=== PATIENT | female | born 2000 | race Caucasian/White ===

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

== ENCOUNTER 2020-03-18 11:33 | Emergency (ER) | payer OTHER ==
--- OUTSIDE RECORDS SUMMARY | 2020-03-18 11:36 | XMS REPORT | Continuity of Care Document ---
:2000 Author Organization [facility] t Address [address] [place] [address] Dr. Krishnamurthy [address] [place] [id number] Care Team Providers Name Role Phone Unavailable Unavailable Unavailable Problems This patient has no known problems. Allergies, Adverse Reactions, Alerts This patient has no known allergies or adverse reactions. Medications This patient has no known medications. Procedures This patient has no known procedures. Results This patient has no known results.
[2020-03-18] MEDS ORDERED: IBUPROFEN 400 MG TAB ONE (12:43)
--- NOTE | 2020-03-18 13:04 | EDPHYS ---
Physician Documentation [facility] Name: Kelly Paz Age: 19 yrs Sex: Female : 2000 Arrival Date: 03/18/2020 Time: 11:35 Bed 13 Private MD: ED Physician Michele Martinez HPI: 03/18 12:30 This 19 yrs old Female presents to ER via Wheelchair with complaints of Knee cp Pain. 12:30 The patient presents with pain, that is acute. cp 12:30 The complaints affect the posterior aspect of right knee and posterior aspect upper cp leg. Context: resulted from an unknown cause, the patient can fully bear weight, uses crutches. Onset: The symptoms/episode began/occurred yesterday. 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 - Social history:: Smoking status: Patient/guardian denies using tobacco, Stopped _ months ago 3. ROS: 12:35 MS/extremity: Positive for pain, tenderness, of the posterior aspect right knee and cp posterior aspect right upper leg, Negative for injury or acute deformity, decreased range of motion, paresthesias. 12:35 Constitutional: Negative for body aches, chills, fever, poor PO intake. cp 12:35 Cardiovascular: Negative for chest pain, palpitations. 12:35 Respiratory: Negative for cough, shortness of breath, wheezing. 12:35 Skin: Negative for rash. 12:35 All other systems are negative. Exam: 12:38 Constitutional: The patient appears in no acute distress, alert, awake, well developed, cp well nourished. 12:38 Head/Face: Normocephalic, atraumatic. cp 12:38 Cardiovascular: Rate: normal. 12:38 Respiratory: the patient does not display signs of respiratory distress, Respirations: normal, no use of accessory muscles, no retractions. 12:38 Back: pain, is absent, ROM is normal. 12:38 Musculoskeletal/extremity: Extremities: grossly normal except: noted in the posterior aspect right knee and posterior aspect right upper leg: pain, tenderness, ROM: full passive range of motion, in the right knee, limited passive range of motion due to pain, in the right knee, Perfusion: the extremity is normally perfused throughout, Calf tenderness, is absent, Edema, is not appreciated, the right leg Sensation intact. Joints: no joint line tenderness or swelling of right knee, no ligament instability. Vital Signs: 11:51 BP 107 / 63; Pulse 90; Resp 15 S; Temp 97.6(TE); Pulse Ox 99% on R/A; Weight 77.11 kg ca1 (R); Height 5 ft. 4 in. (162.56 cm) (R); Pain 2/10; 11:51 Body Mass Index 29.18 (77.11 kg, 162.56 cm) ca1 MDM: 12:18 Patient medically screened. cp 12:35 Differential diagnosis: closed fracture, tendonitis, DVT. cp 13:02 Data reviewed: vital signs, nurses notes, radiologic studies, plain films, ultrasound. cp 13:02 Test interpretation: by ED physician or midlevel provider: xrays of right knee negative cp for fracture. Counseling: I had a detailed discussion with the patient and/or guardian regarding: the historical points, exam findings, and any diagnostic results supporting the discharge/admit diagnosis, radiology results, to return to the emergency department if symptoms worsen or persist or if there are any questions or concerns that arise at home. 03/18 12:23 Order name: US Extremity Venous Unilateral Ltd; Complete Time: 13:14 cp 03/18 13:14 Interpretation: Report reviewed. cp 03/18 12:23 Order name: XRAY Knee RIGHT 3 view; Complete Time: 13:14 cp 03/18 13:14 Interpretation: Report reviewed. cp 03/18 13:04 Order name: Branden wrap-joint; Complete Time: 13:08 cp Administered Medications: 12:32 Drug: Ibuprofen 800 mg Route: PO; ss 13:26 Follow up: Response: No adverse reaction; Pain is decreased ss Disposition: 13:30 Chart complete. cp 14:48 Co-signature as Attending Physician, Michele Martinez MD I agree with the assessment and kdr plan of care. Disposition: 03/18/20 13:04 Discharged to Home. Impression: Pain in right knee. - Condition is Stable. - Discharge Instructions: Knee Pain. - Prescriptions for Ibuprofen 800 mg Oral Tablet - take 1 tablet by ORAL route every 8 hours As needed take with food; 30 tablet. - School release form, Medication Reconciliation Form, Thank You Letter, Antibiotic Education, Prescription Opioid Use form. - Follow up: Phill Sloan MD; When: 2 - 3 days; Reason: Worsening of condition. - Problem is new. - Symptoms have improved. Signatures: Dispatcher [employer] EDNY Michele Martinez MD MD [facility] Marbella Llanes RN RN ss Franck Polanco PA PA cp Yelitza Lyons RN RN ca1 Corrections: (The following items were deleted from the chart) 13:26 13:04 03/18/2020 13:04 Discharged to Home. Impression: Pain in right knee. Condition is ss Stable. Forms are Medication Reconciliation Form, Thank You Letter, Antibiotic Education, Prescription Opioid Use. Follow up: Phill Sloan; When: 2 - 3 days; Reason: Worsening of condition. Problem is new. Symptoms have improved. cp
--- NOTE | 2020-03-18 13:04 | ER ---
Nurse's Notes [facility] Name: Kelly Paz Age: 19 yrs Sex: Female : 2000 Arrival Date: 03/18/2020 Time: 11:35 Bed 13 Private MD: Diagnosis: Pain in right knee Presentation: 03/18 11:51 Chief complaint: Patient states: R knee pain started yesterday. Denies injury. States, ca1 "I can move it but when I extend and puts weight on it, it hurts the most, like there's a stabbing pain at the back of my knee. But when I bend it, it's okay". Coronavirus screen: Client denies travel out of the [place] in the last 14 days. At this time, the client does not indicate any symptoms associated with coronavirus-19. Ebola Screen: Patient negative for fever greater than or equal to 101.5 degrees Fahrenheit, and additional compatible Ebola Virus Disease symptoms Patient denies exposure to infectious person. Patient denies travel to an Ebola-affected area in the 21 days before illness onset. No symptoms or risks identified at this time. Initial Sepsis Screen: Does the patient meet any 2 criteria? No. Patient's initial sepsis screen is negative. Does the patient have a suspected source of infection? No. Patient's initial sepsis screen is negative. Risk Assessment: Do you want to hurt yourself or someone else? Patient reports no desire to harm self or others. Onset of symptoms was March 18, 2020. 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 - Social history:: Smoking status: Patient/guardian denies using tobacco, Stopped _ months ago 3. Screenin:13 Abuse screen: Denies threats or abuse. Denies injuries from another. Nutritional ss screening: No deficits noted. Tuberculosis screening: Never had TB. Fall Risk None identified. Assessment: 12:13 General: Appears in no apparent distress. comfortable, Behavior is calm, cooperative. ss Pain: Complains of pain in posterior aspect of right knee and right calf Pain currently is 1 out of 10 on a pain scale. at worst was 7 out of 10 on a pain scale. Quality of pain is described as aching, tender, Pain began yesterday while grocery shopping, has gotten worse over time Is continuous, Aggravated by weight bearing. Neuro: Level of Consciousness is awake, alert, obeys commands, Oriented to person, place, time, situation. Cardiovascular: Capillary refill < 3 seconds is brisk in bilateral fingers Patient's skin is warm and dry. Cardiovascular: Pulses are palpable in right radial artery, right posterior tibial artery, left radial artery and left posterior tibial artery. Respiratory: Airway is patent Respiratory effort is even, unlabored, Respiratory pattern is regular, symmetrical. GI: Patient currently denies diarrhea, nausea, vomiting. : No signs and/or symptoms were reported regarding the genitourinary system. EENT: Nares are clear Oral mucosa is moist. Derm: Skin is intact, is healthy with good turgor, Skin is dry, Skin is pink, warm \\T\\ dry. normal. Musculoskeletal: Circulation, motion, and sensation intact. Range of motion: intact in all extremities. Vital Signs: 11:51 BP 107 / 63; Pulse 90; Resp 15 S; Temp 97.6(TE); Pulse Ox 99% on R/A; Weight 77.11 kg ca1 (R); Height 5 ft. 4 in. (162.56 cm) (R); Pain 2/10; 11:51 Body Mass Index 29.18 (77.11 kg, 162.56 cm) ca1 ED Course: 11:35 Patient arrived in ED. ds1 11:54 Triage completed. ca1 11:55 Arm band placed on right wrist. ca1 12:12 Franck Polanco PA is PHCP. cp 12:12 Michele Martinez MD is Attending Physician. cp 12:13 Marbella Llanes, NADIA is Primary Nurse. ss 12:13 Patient has correct armband on for positive identification. Bed in low position. Call ss light in reach. Adult w/ patient. 13:03 Phill Sloan MD is Referral Physician. cp 13:04 US Extremity Venous Unilateral Ltd In Process Unspecified. EDMS 13:04 XRAY Knee RIGHT 3 view In Process Unspecified. EDMS 13:25 No provider procedures requiring assistance completed. Patient did not have IV access ss during this emergency room visit. Branden wrap to right knee. Administered Medications: 12:32 Drug: Ibuprofen 800 mg Route: PO; ss 13:26 Follow up: Response: No adverse reaction; Pain is decreased ss Outcome: 13:04 Discharge ordered by MD. cp 13:25 Discharged to home with crutches, with family. ss 13:25 Condition: good 13:25 Discharge instructions given to patient, Instructed on discharge instructions, follow up and referral plans. medication usage, Demonstrated understanding of instructions, follow-up care, medications. 13:26 Patient left the ED. ss Signatures: Dispatcher [employer] [facility] Paige Lundberg ds1 Marbella Llanes RN RN ss Franck Polanco PA PA cp Acob, Cheryl RN RN ca1
--- NOTE | 2020-03-18 13:08 | RAD REPORT ---
EXAM DESCRIPTION: US - Extremity Venous Uni Ltd - 03/18/2020 1:01 pm CLINICAL HISTORY: PAIN, swelling right leg COMPARISON: None. TECHNIQUE: Real-time sonographic evaluation of the right lower extremity deep venous systems was per formed. FINDINGS: Normal compressibility, flow augmentation, phasic flow and spontaneous flow are identified in the right lower extremity common femoral, superficial femoral, popliteal and posterior tibial vei ns. No intraluminal filling defects seen. IMPRESSION: No DVT in the right lower extremity.
--- NOTE | 2020-03-18 13:09 | RAD REPORT ---
EXAM DESCRIPTION: RAD - Knee Right 3 View - 03/18/2020 1:02 pm CLINICAL HISTORY: PAIN, no trauma history noted COMPARISON: No comparisons FINDINGS: No fracture, dislocation or periosteal reaction.No joint effusion seen. No joint space elvia rowing. No foreign body or other soft tissue abnormality. IMPRESSION: Negative right knee. Clinical concerns for internal derangement or occult bony injury could be further assessed with MR im aging.
[2020-03-18 14:34] VITALS: BP 107/63; TEMP 97.6; O2SAT 99
== END 2020-03-18 13:26 | disposition home or self-care (01) ==
LOC: ER 11:33
DX: M25.561 Pain in right knee (principal); Z88.5 Allergy status to narcotic agent; Z88.9 Allergy status to unspecified drugs, medicaments and biological substances
CPT/HCPCS: 93971; 99283

== ENCOUNTER 2020-11-04 17:48 | Emergency (ER) | payer OTHER ==
--- OUTSIDE RECORDS SUMMARY | 2020-11-04 17:50 | XMS REPORT | Continuity of Care Document ---
:2000 Author Organization [facility] t Address [address] Krishnam[address] [place] [address] Care Team Providers Name Role Phone Adum Lashawn CARDENAS Attending Clinician 2, Lab Attending Clinician Unavailable Problems This patient has no known problems. Allergies, Adverse Reactions, Alerts This patient has no known allergies or adverse reactions. Medications This patient has no known medications. Procedures This patient has no known procedures. Encounters Start End Encounter Admission Attending Care Care Encounter Source Date/Time Date/Time Type Type Clinicians Facility Department ID 2020-06-09 2020-06-09 Telephone Adum, [facility] [id number] 00:00:00 00:00:00 Melba Tavarez [id number] [place] [id number] Professio [phone] nal 134 [facility] 2020-06-08 2020-06-08 Power Line Lineman 2, [facility] Lab [facility] [id number] 10:43:33 10:58:33 Visit Daysi [id number] [place] [id number] Professio [phone] nal 353 [facility] 2020-06-02 2020-06-02 Office Adum, [facility] [id number] 11:22:36 12:46:52 Visit Melba Tavarez [id number] [place] [id number] Professio [phone] [facility] 134 [facility] Results This patient has no known results.
[2020-11-04 19:34] LABS: Urine Blood Negative (Negative); Urine Glucose Negative (Negative); Urine Protein 1+ (Negative); Urine Specific Gravity >=1.030 (1.005-1.030); Urine pH 5.5 (5.0-7.0)
[2020-11-04 19:46] LABS: Urine Specific Gravity/Preg >1.030 (1.005-1.030)
--- NOTE | 2020-11-04 20:48 | EDPHYS ---
Physician Documentation [facility] Name: Kelly Paz Age: 20 yrs Sex: Female : 2000 Arrival Date: 11/04/2020 Time: 17:48 Bed 27 Private MD: ED Physician Robbin Dumont HPI: 11/04 20:21 This 20 yrs old Female presents to ER via Ambulatory with complaints of kb Vaginal Pain - unk wks preg. 20:21 The patient presents to the emergency department with abdominal pain, of the right kb lower quadrant and left lower quadrant, described as crampy. The estimated gestational age is 14 weeks. course: care: none. Previous pregnancies: the patient has never been . Associated signs and symptoms: Pertinent positives: abdominal pain, Pertinent negatives: vaginal bleeding. The patient has not experienced similar symptoms in the past. The patient has not recently seen a physician. Pt reports sharp intermittent pains to vaginal area and lower abd. States she is approx 14 weeks , but has not had any care or US. Denies vaginal bleeding. . 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 - Social history:: Smoking status: Patient denies any tobacco usage or history of. ROS: 20:19 Constitutional: Negative for fever, chills, and weight loss, Cardiovascular: Negative kb for chest pain, palpitations, and edema, Respiratory: Negative for shortness of breath, cough, wheezing, and pleuritic chest pain, : Negative for injury, bleeding, discharge, and swelling, MS/Extremity: Negative for injury and deformity, Skin: Negative for injury, rash, and discoloration, Neuro: Negative for headache, weakness, numbness, tingling, and seizure. 20:19 Abdomen/GI: Positive for abdominal pain, abdominal cramps, Negative for nausea, vomiting, and diarrhea. Exam: 20:19 Constitutional: This is a well developed, well nourished patient who is awake, alert, kb and in no acute distress. Head/Face: Normocephalic, atraumatic. ENT: Moist Mucous membranes Respiratory: Respirations even and unlabored. No increased work of breathing, no retractions or nasal flaring. Skin: Warm, dry with normal turgor. Normal color. MS/ Extremity: Pulses equal, no cyanosis. Neurovascular intact. Full, normal range of motion. Neuro: Awake and alert, GCS 15, oriented to person, place, time, and situation. Moves all extremities. Normal gait. Psych: Awake, alert, with orientation to person, place and time. Behavior, mood, and affect are within normal limits. 20:19 Abdomen/GI: Inspection: abdomen appears normal, Palpation: soft, in all quadrants, mild abdominal tenderness, in the right lower quadrant and left lower quadrant. Vital Signs: 19:10 BP 127 / 69; Pulse 94; Resp 18; Temp 98.2; Pulse Ox 100% on R/A; Weight 86.18 kg; ph Height 5 ft. 2 in. (157.48 cm); 20:09 BP 117 / 78; Pulse 88; Pulse Ox 100% on R/A; Pain 4/10; ap3 19:10 Body Mass Index 34.75 (86.18 kg, 157.48 cm) ph MDM: 19:40 Patient medically screened. kb 20:21 Data reviewed: vital signs, nurses notes. Data interpreted: Pulse oximetry: on room air kb is 100 %. Interpretation: normal. 20:47 Counseling: I had a detailed discussion with the patient and/or guardian regarding: the kb historical points, exam findings, and any diagnostic results supporting the discharge/admit diagnosis, lab results, radiology results, the need for outpatient follow up, an OB/Gyne specialist, to return to the emergency department if symptoms worsen or persist or if there are any questions or concerns that arise at home. 11/04 19:34 Order name: Urine Dipstick-Ancillary; Complete Time: 19:39 EDMS 11/04 19:40 Order name: Urine --Ancillary (enter results); Complete Time: 19:52 tt3 11/04 19:40 Order name: US Transvaginal Ob kb 11/04 19:40 Order name: Urine Test (obtain specimen); Complete Time: 19:40 tt3 Administered Medications: No medications were administered Disposition: 11/05 01:15 Co-signature as Attending Physician, Robbin Dumont MD. rn Disposition: 11/04/20 20:47 Discharged to Home. Impression: 9 weeks gestation of . - Condition is Stable. - Discharge Instructions: First Trimester of , Ydrd-hw-Eama. - Medication Reconciliation Form, Thank You Letter, Antibiotic Education, Prescription Opioid Use form. - Follow up: Emergency Department; When: As needed; Reason: Worsening of condition. Follow up: Private Physician; When: 2 - 3 days; Reason: Recheck today's complaints, Continuance of care, Re-evaluation by your physician. Signatures: Dispatcher [employer] EDHI Alva Elmore, TENNIS PLAYER-C TENNIS PLAYER-Ckb Robbin Dumont MD MD rn Soledad Choudhury RN RN Columba Lazo RN RN ap3 [place] tt3 Corrections: (The following items were deleted from the chart) 11/04 21:06 20:47 11/04/2020 20:47 Discharged to Home. Impression: 9 weeks gestation of . ap3 Condition is Stable. Forms are Medication Reconciliation Form, Thank You Letter, Antibiotic Education, Prescription Opioid Use. Follow up: Emergency Department; When: As needed; Reason: Worsening of condition. Follow up: Private Physician; When: 2 - 3 days; Reason: Recheck today's complaints, Continuance of care, Re-evaluation by your physician. kb
--- NOTE | 2020-11-04 20:48 | ER ---
Nurse's Notes [facility] Name: Kelly Paz Age: 20 yrs Sex: Female : 2000 Arrival Date: 11/04/2020 Time: 17:48 Bed 27 Private MD: Diagnosis: 9 weeks gestation of Presentation: 11/04 19:10 Acuity: RAFAEL 3 ph 19:10 Chief complaint: Patient states: Approx 3 months , rode horse today and had ph sharp stabbing vaginal pain afterwards, denies bleeding or cramping. Coronavirus screen: Client denies travel out of the [place] in the last 14 days. Ebola Screen: No symptoms or risks identified at this time. Initial Sepsis Screen: Does the patient meet any 2 criteria? No. Patient's initial sepsis screen is negative. Does the patient have a suspected source of infection? No. Patient's initial sepsis screen is negative. Risk Assessment: Do you want to hurt yourself or someone else? Patient reports no desire to harm self or others. Onset of symptoms was November 04, 2020. 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 - Social history:: Smoking status: Patient denies any tobacco usage or history of. Screenin:59 Abuse screen: Denies threats or abuse. Nutritional screening: No deficits noted. ap3 Tuberculosis screening: No symptoms or risk factors identified. Fall Risk None identified. Assessment: 19:50 General: Appears in no apparent distress. uncomfortable, Behavior is calm, cooperative, ap3 appropriate for age. Pain: Complains of pain in groin. 19:56 Pain: Pain radiates to suprapubic area, right lower quadrant and left lower quadrant ap3 Pain currently is 4 out of 10 on a pain scale. at worst was 8 out of 10 on a pain scale. Quality of pain is described as crampy, stabbing, Pain began 3 hours ago. patient states that the pain comes and goes. Neuro: Level of Consciousness is awake, alert, obeys commands, Oriented to person, place, time, situation. Cardiovascular: Capillary refill < 3 seconds. Respiratory: Airway is patent Respiratory effort is even, unlabored, Respiratory pattern is regular, symmetrical. GI: No signs and/or symptoms were reported involving the gastrointestinal system. : Reports discharge, from vagina that is white, vaginal pain. EENT: No signs and/or symptoms were reported regarding the EENT system. Derm: No signs and/or symptoms reported regarding the dermatologic system. 20:08 General: patient ambulated to the restroom without incident . ap3 Vital Signs: 19:10 BP 127 / 69; Pulse 94; Resp 18; Temp 98.2; Pulse Ox 100% on R/A; Weight 86.18 kg; ph Height 5 ft. 2 in. (157.48 cm); 20:09 BP 117 / 78; Pulse 88; Pulse Ox 100% on R/A; Pain 4/10; ap3 19:10 Body Mass Index 34.75 (86.18 kg, 157.48 cm) ph ED Course: 17:48 Patient arrived in ED. as 19:10 Triage completed. ph 19:26 Arm band placed on Patient placed in waiting room, Patient notified of wait time. ph 19:40 Alva Elmore F[facility]-C [facility] kb 19:40 Robbin Dumont MD is Attending Physician. kb 19:50 Columba Lazo, NADIA is Primary Nurse. ap3 20:01 Patient has correct armband on for positive identification. Bed in low position. Call ap3 light in reach. Adult w/ patient. Pulse ox on. NIBP on. Door closed. Noise minimized. 20:10 Pt visited by mother. ap3 20:28 ultrasound at the bedside. ap3 20:43 US Transvaginal Ob In Process Unspecified. EDMS 20:44 Nurse Practitioner and/or Physician Global Mobility Specialist to see patient. ap3 21:05 No provider procedures requiring assistance completed. Patient did not have IV access ap3 during this emergency room visit. Administered Medications: No medications were administered Outcome: 20:47 Discharge ordered by . kb 21:06 Discharged to home ambulatory, with family. ap3 21:06 Condition: good 21:06 Discharge instructions given to patient, family, Instructed on discharge instructions, follow up and referral plans. Demonstrated understanding of instructions, follow-up care. 21:06 Patient left the ED. ap3 Signatures: Dispatcher [employer] Alva Edmonds, Rose Marie Mercado Patricia, RN RN Columba Lazo RN RN ap3
--- NOTE | 2020-11-04 21:14 | RAD REPORT ---
EXAM DESCRIPTION: US - Transvaginal OB - 11/04/2020 8:43 pm CLINICAL HISTORY: vaginal pain COMPARISON: No comparisons FINDINGS: Normal shaped intrauterine gestational sac identified. No hematoma or other suspicious int rauterine finding. [facility]-rump length corresponds to 9 week 3 day age. Heart rate is 167 B[facility]. [facility] Neither ovary was identifiable due to bowel gas. No adnexal mass seen. No blood or fluid in the cul d e sac. IMPRESSION: Single 9 week 3 day IUP with heart rate 167 BPM. No intrauterine hematoma or mass.
[2020-11-04 21:28] VITALS: TEMP 98.2; O2SAT 100
[2020-11-04 21:29] VITALS: BP 117/78
== END 2020-11-04 21:06 | disposition home or self-care (01) ==
LOC: ER 17:48
DX: O26.91 Pregnancy related conditions, unspecified, first trimester (principal); Z3A.09 9 weeks gestation of pregnancy; Z88.8 Allergy status to other drugs, medicaments and biological substances
CPT/HCPCS: 76817; 81003; 81025; 99283

== ENCOUNTER 2020-11-18 09:33 | Emergency (ER) | payer OTHER ==
--- OUTSIDE RECORDS SUMMARY | 2020-11-18 09:36 | XMS REPORT | Continuity of Care Document ---
:2000 Author Organization [facility] t Address [address] [place] [address] Care Team Providers Name Role Phone Adum [...] Facility Department ID 2020-06-09 2020-06-09 Telephone Adum, [facility] [id number] 00:00:00 00:00:00 Melba Tavarez [id number] [place] [id number] Professio [phone] nal [address] [facility] 2020-06-08 2020-06-08 Body Wirer 2, [facility] [id number] 10:43:33 10:58:33 Visit Daysi [id number] [place] [id number] Professio [phone] nal [address] [facility] 2020-06-02 2020-06-02 Office Adum, [facility] [id number] 11:22:36 12:46:52 Visit Melba Tavarez [id number] [place] [id number] Professio [phone] formerly [facility] [address] [facility] Results This patient has no known results.
[2020-11-18] MEDS ORDERED: IBUPROFEN 400 MG TAB ONE (11:11)
--- NOTE | 2020-11-18 11:25 | RAD REPORT ---
EXAM DESCRIPTION: RAD - Foot Left 3 View - 11/18/2020 11:16 am CLINICAL HISTORY: Left Foot pain status post injury FINDINGS: No fracture or dislocation is seen. A radiopaque foreign body is not seen
--- NOTE | 2020-11-18 11:56 | EDPHYS ---
Physician Documentation [facility] Name: Kelly Paz Age: 20 yrs Sex: Female : 2000 Arrival Date: 11/18/2020 Time: 09:41 Bed 19 Private MD: ED Physician Michele Martinez HPI: 11/18 10:40 This 20 yrs old Female presents to ER via Wheelchair with complaints of jmm Puncture Wound To Foot. 10:40 The patient presents with an injury, pain. Onset: The symptoms/episode began/occurred jmm acutely, today. Modifying factors: The symptoms are alleviated by nothing, the symptoms are aggravated by nothing. Associated signs and symptoms: Pertinent negatives: fever, swelling. This is a 20 year old female with no chronic medical conditions that presents to the ED with complaints of left plantar foot pain after stepping on a screw in a dirt/sand arena. Was not wearing shoes. Not UTD on tetanus immunization. . 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 - Social history:: Smoking status: Patient denies any tobacco usage or history of. ROS: 10:40 Constitutional: Negative for fever, chills, and weight loss, Cardiovascular: Negative jmm for chest pain, palpitations, and edema, Respiratory: Negative for shortness of breath, cough, wheezing, and pleuritic chest pain. 10:40 Skin: Positive for puncture. 10:40 All other systems are negative. Exam: 10:40 Constitutional: This is a well developed, well nourished patient who is awake, alert, jmm and in no acute distress. Head/Face: atraumatic. Eyes: EOMI, no conjunctival erythema appreciated ENT: Moist Mucus Membranes Neck: Trachea midline, Supple Chest/axilla: Normal chest wall appearance and motion. Cardiovascular: Regular rate and rhythm. No edema appreciated Respiratory: Normal respirations, no respiratory distress appreciated Abdomen/GI: Non distended, soft Back: Normal ROM 10:40 Musculoskeletal/extremity: full dorsalis pulse appreciated. 10:40 Skin: puncture wound noted to the left plantar surface, no swelling, purulent drainage or active bleeding appreciated, ttp. Vital Signs: 09:54 BP 103 / 70; Pulse 96; Resp 16; Temp 97.2; Pulse Ox 97% on R/A; Weight 86.18 kg; Height iw 5 ft. 2 in. (157.48 cm); 10:28 BP 109 / 72; Pulse 94; Resp 17; Pulse Ox 100% on R/A; Pain 2/10; ap3 11:20 BP 106 / 68; Pulse 87; Resp 16; Pulse Ox 97% on R/A; Pain 2/10; ap3 09:54 Body Mass Index 34.75 (86.18 kg, 157.48 cm) iw MDM: 10:38 Patient medically screened. [facility] 10:44 Data reviewed: vital signs, nurses notes. Counseling: I had a detailed discussion with [facility] the patient and/or guardian regarding: the historical points, exam findings, and any diagnostic results supporting the discharge/admit diagnosis. 11:42 Counseling: I had a detailed discussion with the patient and/or guardian regarding: jmm radiology results, the need for outpatient follow up, to return to the emergency department if symptoms worsen or persist or if there are any questions or concerns that arise at home. 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 Exp: ap3 08/07/2022. Lot #: [id number]. } Route: IM; Site: right deltoid; 12:03 Follow up: Response: No adverse reaction ap3 Disposition: 17:36 Co-signature as Attending Physician, Michele Martinez MD I agree with the assessment and kdr plan of care. Disposition: 11/18/20 11:55 Discharged to Home. Impression: Plantar Puncture. - Condition is Stable. - Discharge Instructions: Puncture Wound. - Prescriptions for Augmentin 875- 125 mg Oral Tablet - take 1 tablet by ORAL route every 12 hours for 10 days; 20 tablet. - Medication Reconciliation Form, Thank You Letter, Antibiotic Education, Prescription Opioid Use form. - Follow up: Calvin Alberto DPM; When: 2 - 3 days; Reason: Recheck today's complaints, Continuance of care, Re-evaluation by your physician. Signatures: Dispatcher [employer] EDMichele Hensley MD MD kdr Mickail, Joel, PA PA jmm Williams, Irene, RN RN iw Columba Lazo RN RN ap3 Corrections: (The following items were deleted from the chart) 12:12 11:55 11/18/2020 11:55 Discharged to Home. Impression: Plantar Puncture. Condition is ap3 Stable. Forms are Medication Reconciliation Form, Thank You Letter, Antibiotic Education, Prescription Opioid Use. Follow up: Dr. Calvin Alberto; When: 2 - 3 days; Reason: Recheck today's complaints, Continuance of care, Re-evaluation by your physician. luis alberto
--- NOTE | 2020-11-18 11:56 | ER ---
Nurse's Notes [facility] Name: Kelly Paz Age: 20 yrs Sex: Female : 2000 Arrival Date: 11/18/2020 Time: 09:41 Bed 19 Private MD: Diagnosis: Plantar Puncture Presentation: 11/18 09:53 Chief complaint: Patient states: stepped on either a nail or screw while barefoot this iw morning, puncture to left foot, pt is approx 12 weeks . 09:53 Method Of Arrival: Wheelchair iw 09:53 Acuity: RAFAEL 4 iw 09:54 Coronavirus screen: At this time, the client does not indicate any symptoms associated iw with coronavirus-19. Ebola Screen: Patient negative for fever greater than or equal to 101.5 degrees Fahrenheit, and additional compatible Ebola Virus Disease symptoms Patient denies exposure to infectious person. Patient denies travel to an Ebola-affected area in the 21 days before illness onset. No symptoms or risks identified at this time. Initial Sepsis Screen: Does the patient meet any 2 criteria? No. Patient's initial sepsis screen is negative. Does the patient have a suspected source of infection? No. Patient's initial sepsis screen is negative. Risk Assessment: Do you want to hurt yourself or someone else? Patient reports no desire to harm self or others. Onset of symptoms was November 18, 2020. 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 - Social history:: Smoking status: Patient denies any tobacco usage or history of. Screenin:11 Abuse screen: Denies threats or abuse. Nutritional screening: No deficits noted. ap3 Tuberculosis screening: No symptoms or risk factors identified. Fall Risk None identified. Assessment: 10:07 General: Appears in no apparent distress. comfortable, Behavior is calm, cooperative, ap3 appropriate for age. Pain:. 10:09 Pain: Complains of pain in left foot Pain does not radiate. Pain currently is 3 out of ap3 10 on a pain scale. Quality of pain is described as throbbing, Pain began suddenly, Alleviated by rest, Aggravated by increased activity, weight bearing. Neuro: Level of Consciousness is awake, alert, obeys commands, Oriented to person, place, time, situation. Cardiovascular: Capillary refill < 3 seconds. Respiratory: Airway is patent Respiratory effort is even, unlabored, Respiratory pattern is regular, symmetrical. GI: No signs and/or symptoms were reported involving the gastrointestinal system. : No signs and/or symptoms were reported regarding the genitourinary system. EENT: No signs and/or symptoms were reported regarding the EENT system. Derm: Wound noted left foot. Vital Signs: 09:54 BP 103 / 70; Pulse 96; Resp 16; Temp 97.2; Pulse Ox 97% on R/A; Weight 86.18 kg; Height iw 5 ft. 2 in. (157.48 cm); 10:28 BP 109 / 72; Pulse 94; Resp 17; Pulse Ox 100% on R/A; Pain 2/10; ap3 11:20 BP 106 / 68; Pulse 87; Resp 16; Pulse Ox 97% on R/A; Pain 2/10; ap3 09:54 Body Mass Index 34.75 (86.18 kg, 157.48 cm) iw ED Course: 09:41 Patient arrived in ED. as 09:54 Triage completed. iw 09:55 Arm band placed on. iw 09:58 Lalit Ford PA is PHCP. [facility] 09:58 Michele Martinez MD is Attending Physician. [facility] 09:58 Columba Lazo, NADIA is Primary Nurse. ap3 10:11 Patient has correct armband on for positive identification. Bed in low position. Call ap3 light in reach. Side rails up X 1. Adult w/ patient. Pulse ox on. NIBP on. Door closed. Noise minimized. 10:16 Pt visited by mother. ap3 11:16 Foot Left 3 View XRAY In Process Unspecified. EDMS 11:55 Calvin Alberto DPM is Referral Physician. jmm 12:11 No provider procedures requiring assistance completed. Patient did not have IV access ap3 during this emergency room visit. 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 Exp: ap3 08/07/2022. Lot #: [id number]. } Route: IM; Site: right deltoid; 12:03 Follow up: Response: No adverse reaction ap3 Outcome: 11:55 Discharge ordered by . luis alberto 12:11 Discharged to home ambulatory, with family. ap3 12:11 Condition: good 12:11 Discharge instructions given to patient, Instructed on discharge instructions, follow up and referral plans. medication usage, Demonstrated understanding of instructions, follow-up care, medications, Prescriptions given X 1. 12:12 Patient left the ED. ap3 Signatures: Dispatcher [employer] EDMS Lalit Ford PA PA jmm Martinez, Amelia as Williams, Irene, NADIA RN Columba Bloom RN RN ap3 Corrections: (The following items were deleted from the chart) 09:56 09:53 Chief complaint: Patient states: stepped on either a nail or screw while barefoot iw this morning, puncture to left foot iw
[2020-11-18 12:37] VITALS: TEMP 97.2
[2020-11-18 12:48] VITALS: BP 106/68; O2SAT 97
== END 2020-11-18 12:12 | disposition home or self-care (01) ==
LOC: ER 09:33
DX: S91.332A Puncture wound without foreign body, left foot, initial encounter (principal); W26.8XXA Contact with other sharp object(s), not elsewhere classified, initial encounter; Z23 Encounter for immunization; Z88.8 Allergy status to other drugs, medicaments and biological substances
CPT/HCPCS: 90471; 99284

== ENCOUNTER 2021-07-27 09:17 | Inpatient (IN) | payer OTHER ==
--- OUTSIDE RECORDS SUMMARY | 2021-07-27 09:21 | XMS REPORT | Continuity of Care Document ---
:2000 Author Organization [facility] t Address [address] [place] [address] Care Team Providers Name Role Phone Grace Hanley Primary Care Physician Lashawn KEY Attending Clinician Unavailable ARCELIA Attending Clinician Unavailable 2, Lab Attending Clinician Unavailable Arcelia RICO Attending Clinician Lashawn Key MD Attending Clinician Doctor Unassigned, Name Attending Clinician Unavailable Jaziel MOORE Attending Clinician Matilda Flaherty MD Attending Clinician Room, Ns Attending Clinician Unavailable DALE WILEY Attending Clinician Unavailable Ultrasound, Mfm Attending Clinician Unavailable Dale Wiley MD Attending Clinician Lashawn KEY Admitting Clinician Unavailable Lashawn Key MD Admitting Clinician Payers Payer Name Policy Type Policy Number Effective Date Expiration Date Dionisio KRUSE [id number] 2015 HEALTH 00:00:00 Problems Condition Condition Condition Status Onset Resolution Last Treating Co mments Source Name Details Category Date Date Treatment Clinician Date Single Single Disease Active 2020-06 Univers liveborn, liveborn, 2-24 ity of born in born in 00:00: [facility], 00 Medi ankit delivered delivered Bran ch by vaginal by vaginal delivery delivery Encounter Encounter Disease Active 2020-06 Uni vers for for 2-23 [place] [facility] [place] [facility] Decreased Decreased Disease Active 2020-06 Uni vers 2-23 [place] movements [place] 00:00[place] third in third 00 Medica l trimester trimester Bran ch Gestationa Gestationa Disease Active 2020-06 U nivers l diabetes l diabetes 1-10 it y of mellitus mellitus 00:00: [place] (GDM) in (GDM) in 00 Medica l third third Branch trimester trimester controlled controlled on oral on oral hypoglycem hypoglycem ic drug ic drug Supervisio Supervisio Disease Active U nivers n of n of 8-24 ity of high-risk high-risk 00:[place] 00 [facility] with with Branch insufficie insufficie nt nt care in care in third third trimester trimester 36 weeks 36 weeks Disease Active Unive rs gestation gestation 8-24 ity of of of 00:00: [place] 00 [facility] Branch 37 weeks 37 weeks Disease Active Unive rs gestation gestation 8-24 ity of of of 00:00: [place] 00 [facility] Branch 38 weeks 38 weeks Disease Active Unive rs gestation gestation 8-24 ity of of of 00:00: [place] 00 [facility] Obesity Obesity Disease Active 2019-06 Univers (BMI (BMI 0-21 ity of 30-39.9) 30-39.9) 00:00: Medical Branch Allergies, Adverse Reactions, Alerts Allergy Allergy Status Severity Reaction(s) Onset Inactive Treating Comm ents Source Name Type Date Date Clinician Nortript Propensi Active Hiv Univer s yline ty to 8-24 ity of adverse 00:00: [place] reaction 00 Medical s Branch NORTRIPT DRUG Active Hiv Univers YLINE INGREDI 8-24 ity of 00:00: [place] [facility] Social History Social Habit Start Date Stop Date Quantity Comments Source ASSERTION 2020-09-13 University of 00:00:00 [place] [facility] History SDOH University o f Alcohol Comment [place] [facility] ical [facility] Exposure to Not sure [place] SARS-CoV-2 [place] Medical (event) Branch Alcohol intake 2021-07-05 2021-07-05 Ex-drinker University 00:00:00 00:00:00 (finding) [facility] Tobacco use and 2021-01-26 2021-01-26 Former user Universi ty of exposure 00:00:00 00:00:00 [place] [facility] History SDOH 2020-03-25 2020-03-25 4 University o f Alcohol Frequency 00:00:00 00:00:00 [place] M edical Branch History SDID 2020-03-25 2020-03-25 99 University o f Alcohol Std 00:00:00 00:00:00 [place] Medical Drinks Branch History [facility] 2020-03-25 2020-03-25 99 [place] o f Alcohol Binge 00:00:00 00:00:00 [place] Medic al Branch History of 2020-01-27 Chews Tobacco [place] tobacco use 00:00:00 [facility] Sex Assigned At 2000 [facility]00:00 [facility] Smoking Status Start Date Stop Date Source Former smoker 2021-01-26 00:00:00 2021-01-26 00:00:00 [facility] Medications Ordered Filled Start Stop Current Ordering Indication Dosage Frequency Signature Comments Components Source Medication Medication Date Date Medication? Clinician (SIG) Name Name sulfamethox Yes [id number] 1{tbl} Take 1 Univers azole-trime 1-31 tablet by ity of thoprim 00:00: mouth 2 [place] 800-160 mg 00 (two) Medical per tablet times Branch daily. sulfamethox 2021- Yes [id number] 1{tbl} Take 1 Univers azole-trime 1-31 tablet by ity of thoprim 00:00: mouth 2 [place] 800-160 mg 00 (two) Medical per tablet times Branch daily. sulfamethox 2021-0 Yes [id number] 1{tbl} Take 1 Univers azole-trime 1-31 tablet by ity of thoprim 00:00: mouth 2 [place] 800-160 mg 00 (two) Medical per tablet times Branch daily. sulfamethox 2021- Yes [id number] 1{tbl} Take 1 Univers azole-trime 1-31 tablet by ity of thoprim 00:00: mouth 2 [place] 800-160 mg 00 (two) Medical per tablet times Branch daily. sulfamethox Yes [id number] 1{tbl} Take 1 Univers azole-trime 1-31 tablet by ity of thoprim 00:00: mouth 2 [place] 800-160 mg 00 (two) Medical per tablet times Branch daily. medroxyPROG 2021- No [id number] 150mg Univers ESTERone 06-23 ity of (DEPO-PROVE 00:00: 22:40 [place] RA) syringe 00 :00 Medical 150 mg Branch medroxyPROG 2021- No [id number] 150mg 150 mg, Univers ESTERone 06-23 Intramuscu ity of (DEPO-PROVE 00:00: 22:40 lar, ONCE, [place] RA) syringe 00 :00 1 dose, On Me dical 150 mg Tue Branch 06/22/21 at 1800, Routine 2020-06- No Take by [facility] ers vit 2-25 12-25 mouth. ity of calc,iron,f 08:36: 00:00 [place] olic 38 :00 Medical ( Branch VITAMIN ORAL) 2020-06- No Take by [facility] ers vit 2-25 12-25 mouth. ity of calc,iron,f 08:36: 00:00 [place] olic 38 :00 Medical ( Branch VITAMIN ORAL) 2020-06 Yes [id number] 1{tbl} Take 1 Univers vitamin 2-25 102 tablet by ity of w/FA tablet 00:00: mouth [place] 00 daily. Medical Branch docusate 2020-06 Yes [id number] 240mg Take 1 Univers calcium 240 2-25 102 capsule by it y of mg capsule 00:00: mouth once [place] 00 daily as Medical needed for Branch Constipati on. ferrous 2020-06 Yes [id number] 325mg Take 1 Univers sulfate 325 2-25 102 tablet by ity of mg (65 mg 00:00: mouth 2 [place] iron) 00 (two) Medical tablet times Branch daily. ibuprofen 2020-06 Yes [id number] 600mg Take 1 Univers 600 mg 2-25 102 tablet by ity of tablet 00:00: mouth [place] 00 every 6 Medical (six) Branch hours as needed (Pain). Take with food or milk. 2020-06 Yes [id number] 1{tbl} Take 1 Univers vitamin 2-25 102 tablet by ity of w/FA tablet 00:00: mouth [place] 00 daily. Medical Branch docusate 2020-06 Yes [id number] 240mg Take 1 Univers calcium 240 2-25 102 capsule by it y of mg capsule 00:00: mouth once [place] 00 daily as Medical needed for Branch Constipati on. ferrous 2020-06 Yes [id number] 325mg Take 1 Univers sulfate 325 2-25 102 tablet by ity of mg (65 mg 00:00: mouth 2 [place] iron) 00 (two) Medical tablet times Branch daily. ibuprofen 2020-06 Yes [id number] 600mg Take 1 Univers 600 mg 2-25 102 tablet by ity of tablet 00:00: mouth [place] 00 every 6 Medical (six) Branch hours as needed (Pain). Take with food or milk. 2020-06 Yes [id number] 1{tbl} Take 1 Univers vitamin 2-25 102 tablet by ity of w/FA tablet 00:00: mouth [place] 00 daily. Medical Branch docusate 2020-06 Yes [id number] 240mg Take 1 Univers calcium 240 2-25 102 capsule by it y of mg capsule 00:00: mouth once [place] 00 daily as Medical needed for Branch Constipati on. ferrous 2020-06 Yes [id number] 325mg Take 1 Univers sulfate 325 2-25 102 tablet by ity of mg (65 mg 00:00: mouth 2 [place] iron) 00 (two) Medical tablet times Branch daily. ibuprofen 2020-06 Yes [id number] 600mg Take 1 Univers 600 mg 2-25 102 tablet by ity of tablet 00:00: mouth [place] 00 every 6 Medical (six) Branch hours as needed (Pain). Take with food or milk. 2020-06 Yes [id number] 1{tbl} Take 1 Univers vitamin 2-25 102 tablet by ity of w/FA tablet 00:00: mouth [place] 00 daily. Medical Branch docusate 2020-06 Yes [id number] 240mg Take 1 Univers calcium 240 2-25 102 capsule by it y of mg capsule 00:00: mouth once [place] 00 daily as Medical needed for Branch Constipati on. ferrous 2020-06 Yes [id number] 325mg Take 1 Univers sulfate 325 2-25 102 tablet by ity of mg (65 mg 00:00: mouth 2 [place] iron) 00 (two) Medical tablet times Branch daily. ibuprofen 2020-06 Yes [id number] 600mg Take 1 Univers 600 mg 2-25 102 tablet by ity of tablet 00:00: mouth [place] 00 every 6 Medical (six) Branch hours as needed (Pain). Take with food or milk. 2020-06 Yes [id number] 1{tbl} Take 1 Univers vitamin 2-25 102 tablet by ity of w/FA tablet 00:00: mouth [place] 00 daily. Medical Branch docusate 2020-06 Yes [id number] 240mg Take 1 Univers calcium 240 2-25 102 capsule by it y of mg capsule 00:00: mouth once [place] 00 daily as Medical needed for Branch Constipati on. ferrous 2020-06 Yes [id number] 325mg Take 1 Univers sulfate 325 2-25 102 tablet by ity of mg (65 mg 00:00: mouth 2 [place] iron) 00 (two) Medical tablet times Branch daily. ibuprofen 2020-06 Yes [id number] 600mg Take 1 Univers 600 mg 2-25 102 tablet by ity of tablet 00:00: mouth [place] 00 every 6 Medical (six) Branch hours as needed (Pain). Take with food or milk. 2020-06 Yes [id number] 1{tbl} Take 1 Univers vitamin 2-25 102 tablet by ity of w/FA tablet 00:00: mouth [place] 00 daily. Medical Branch 2020-06 Yes [id number] 1{tbl} Take 1 Univers vitamin 2-25 102 tablet by ity of w/FA tablet 00:00: mouth [place] 00 daily. Medical Branch 2020-06 Yes [id number] 1{tbl} Take 1 Univers vitamin 2-25 102 tablet by ity of w/FA tablet 00:00: mouth [place] 00 daily. Medical Branch 2020-06 Yes [id number] 1{tbl} Take 1 Univers vitamin 2-25 102 tablet by ity of w/FA tablet 00:00: mouth [place] 00 daily. Medical Branch docusate 2020-06 2022- No [id number] 240mg Take 1 Univers calcium 240 2-25 02-08 102 capsule by i ty of mg capsule 00:00: 00:00 mouth once [place] 00 :00 daily as Medical needed for Branch Constipati on. ferrous 2020-06- No [id number] 325mg Take 1 Univers sulfate 325 2-25 07-13 102 tablet by it y of mg (65 mg 00:00: 00:00 mouth 2 [place] iron) 00 :00 (two) Medical tablet times Branch daily. ibuprofen 2020-06- No [id number] 600mg Take 1 Univers 600 mg 2-25 07-13 102 tablet by ity of tablet 00:00: 00:00 mouth [place] 00 :00 every 6 Medical (six) Branch hours as needed (Pain). Take with food or milk. HYDROcodone 2020-06 Yes 1{tbl} 1 tablet, Univers -acetaminop 2-24 Oral, ity of hen (NORCO 09:53: Q6HPRN, [place] 5) 5-325 mg 45 Starting Medi ankit tablet 1 on Fri Branch tablet 05/28/21 at 0353, Until Discontinu ed, Routine, Pain (scale 7-10) ibuprofen 2020-06 Yes 600mg 600 mg, Univ ers (IBU) 2-24 Oral, ity of tablet 600 09:53: Q6HPRN, [place] mg 45 Starting Medical on Fri Branch 05/28/21 at 0353, Until Discontinu ed, Routine, Pain (scale 4-6) acetaminoph 2020-06 Yes 650mg 650 mg, Un jaymie en 2-24 Oral, ity of (TYLENOL) 09:53: Q6HPRN, [place] tablet 650 45 Starting Medic al mg on Fri Branch 05/28/21 at 0353, Until Discontinu ed, Routine, Pain (scale 1-3) diphenhydrA 2020-06 Yes 25mg 25 mg, Univ ers MINE 2-24 Oral, ity of (BENADRYL) 09:53: Q6HPRN, [place] tablet 25 45 Starting Medica l mg on Fri Branch 05/28/21 at 0353, Until Discontinu ed, Routine, Sleep, Itching ondansetron 2020-06 Yes 4mg 4 mg, Slow Univers (ZOFRAN 2-24 IV Push, ity of (PF)) 09:53: Q8HPRN, [place] injection 4 45 Starting Medi ankit mg on Fri Branch 05/28/21 at 0353, Until Discontinu ed, Routine, Nausea and Vomiting (N/V) simethicone 2020-06 Yes 160mg 160 mg, Un jaymie (GAS RELIEF 2-24 Oral, ity of (SIMETHICON 09:53: PC+HSPRN, [place] E)) 45 Starting Medical chewable on Mon Branch tablet 160 05/28/21 mg at 0353, Until Discontinu ed, Routine, Gas magnesium 2020-06 Yes 30mL 30 mL, Univer s hydroxide 2-24 Oral, ity of (MILK OF 09:53: QDAILYPRN, [place] as MAGNESIA) 45 Starting Medica l 400 mg/5 mL on Mon Branch suspension 05/28/21 30 mL at 0353, Until Discontinu ed, Routine, Constipati on benzocaine- 2020-06 Yes Topical, Un jaymie menthol 2-24 PRN, ity of (DERMOPLAST 09:53: [place] 20-0.5 % 44 on Mon Medical topical 05/28/21 Branch spray at 0353, Until Discontinu ed, Routine, Perineum discomfort FENTanyl 2 2020-06- No Intra-op Un jaymie mcg/mL + 2- 12- ity of bupivacaine 05:44: 11:28 [place] 0.125% in 00 :29 Medical NS 250 mL Branch epidural bag lidocaine-e 2020-06- No Epidural, Univers pinephrine - 1224 ONCE INTRA it y of (XYLOCAINE 05:35: 11:28 PROCEDURE, [place] W/EPINEPHRI 00 :29 Starting Medi ankit NE) 1.5 on [place] Branch %-1:200,000 05/27/21 injection at 2335, Until 05/28/21 at 0528, Routine, Intra-op lidocaine 2020-06- No Infiltrati U nivers 1% 2- 12-24 on, ONCE ity of (XYLOCAINE) 05:29: 11:28 INTRA [place] 100 mg/10 00 :29 PROCEDURE, Medi ankit mL (1 %) Starting Branch injection on Abby 05/27/21 at 2329, Until 05/28/21 at 0528, Routine, Intra-op lactated 2020-06- No 1000mL at 125 Univ ers ringers IV 2-23 12-24 mL/hr, ity of infusion 22:15: 09:55 1,000 mL, [place] 1,000 mL 00 :04 IV Medical Infusion, Branch CONTINUOUS , Starting on [place]by 05/27/21 at 1615, Until Mon05/28/21 at 0355, Routine FENTanyl PF 2020-06- No 100ug 100 mcg, Univers (SUBLIMAZE 07-28 12-24 Slow IV ity o f (PF)) 22:03: 09:55 Push, [place] injection 28 :04 Q1HPRN, Medical 100 mcg Starting Branch on Abby 05/27/21 at 1603, Until Mon05/28/21 at 0355, Routine, Pain lactated 2020-06- No 500mL at 999 Unive rs ringers IV - 12-24 mL/hr, 500 it y of infusion 22:03: 09:55 mL, IV [place] 500 mL 28 :04 Infusion, Medical PRN - SEE Branch INSTRUCTIO NS, Starting on [place] 05/27/21 at 1603, Until Mon05/28/21 at 0355, Routine LR 1000 mL 2020-06- No 2mU/min at 6-120 Univers + oxytocin - 12-24 mL/hr, IV ity of 20 units IV 22:03: 09:55 Infusion, [place] Solution 28 :04 TITRATE, Medical Starting Branch on Abby 05/27/21 at 1603, Until Mon05/28/21 at 0355, Routine 2020-06 Yes Take by Unive rs vit 2- mouth. ity of calc,iron,f 14:46: [place] ol 18 Medical ( Branch VITAMIN ORAL) glyBURIDE 2020-06 Yes [id number] 1.25mg Take 1 Univers 1.25 mg 2-01 tablet by ity of tablet 00:00: mouth with [place] 00 evening Medical meal. Take Branch 30 mins before dinner glyBURIDE 2020-06 Yes [id number] 1.25mg Take 1 Univers 1.25 mg 2-01 tablet by ity of tablet 00:00: mouth with [place] 00 evening Medical meal. Take Branch 30 mins before dinner glyBURIDE 2020-06 Yes [id number] 1.25mg Take 1 Univers 1.25 mg 2-01 tablet by ity of tablet 00:00: mouth with [place] 00 evening Medical meal. Take Branch 30 mins before dinner glyBURIDE 2020-06 Yes [id number] 1.25mg Take 1 Univers 1.25 mg 2-01 tablet by ity of tablet 00:00: mouth with [place] 00 evening Medical meal. Take Branch 30 mins before dinner glyBURIDE 2020-06 Yes [id number] 1.25mg Take 1 Univers 1.25 mg 2-01 tablet by ity of tablet 00:00: mouth with [place] 00 evening Medical meal. Take Branch 30 mins before dinner glyBURIDE 2020-06 Yes [id number] 1.25mg Take 1 Univers 1.25 mg 2-01 tablet by ity of tablet 00:00: mouth with [place] 00 evening Medical meal. Take Branch 30 mins before dinner glyBURIDE 2020-06 Yes [id number] 1.25mg Take 1 Univers 1.25 mg 2-01 tablet by ity of tablet 00:00: mouth with [place] 00 evening Medical meal. Take Branch 30 mins before dinner glyBURIDE 2020-06- No [id number] 1.25mg Take 1 Univers 1.25 mg 2-01 12-25 tablet by ity of tablet 00:00: 00:00 mouth with [place] 00 :00 evening Medical meal. Take Branch 30 mins before dinner glyBURIDE 2020-06- No [id number] 1.25mg Take 1 Univers 1.25 mg 2-01 12-25 tablet by ity of tablet 00:00: 00:00 mouth with [place] 00 :00 evening Medical meal. Take Branch 30 mins before dinner metroNIDAZO 2020-06- No [id number] 500mg Take 1 Univers LE 500 mg 06-30 12- tablet by ity of tablet 00:00: 00:00 mouth [place] 00 :00 every 12 Medical (twelve) Branch hours. Lancets 2020-06 Yes [id number] Check Unive rs Misc 12 blood ity of 00:00: sugar 4 [place] 00 times Medical daily. Branch Blood-Gluco 2020-06 Yes [id number] Use as Univers se Meter 12 directed ity of (BLOOD 00:00: [place] GLUCOSE 00 Medical MONITORING) Branch Kit blood sugar 2020-06 Yes [id number] Check U nivers diagnostic 12 blood ity of strip 00:00: sugar 4 [place] 00 times Medical daily. Branch Alcohol 2020-06 Yes [id number] Apply to U nivers Swabs 1-12 area(s) 4 ity of (ALCOHOL 00:00: (four) [place] PREP PADS) 00 times Medical PadM daily. Branch Lancets 2020-06 Yes [id number] Check Unive rs Misc 1-12 blood ity of 00:00: sugar 4 [place] 00 times Medical daily. Branch Blood-Gluco 2020-06 Yes [id number] Use as Univers se Meter 1-12 directed ity of (BLOOD 00:00: [place] GLUCOSE 00 Medical MONITORING) Branch Kit blood sugar 2020-06 Yes [id number] Check U nivers diagnostic 1-12 blood ity of strip 00:00: sugar 4 [place] 00 times Medical daily. Branch Alcohol 2020-06 Yes [id number] Apply to U nivers Swabs 1-12 area(s) 4 ity of (ALCOHOL 00:00: (four) [place] PREP PADS) 00 times Medical PadM daily. Branch Lancets 2020-06 Yes [id number] Check Unive rs Misc 1-12 blood ity of 00:00: sugar 4 [place] 00 times Medical daily. Branch Blood-Gluco 2020-06 Yes [id number] Use as Univers se Meter 1-12 directed ity of (BLOOD 00:00: [place] GLUCOSE 00 Medical MONITORING) Branch Kit blood sugar 2020-06 Yes [id number] Check U nivers diagnostic 1-12 blood ity of strip 00:00: sugar 4 [place] 00 times Medical daily. Branch Alcohol 2020-06 Yes [id number] Apply to U nivers Swabs 1-12 area(s) 4 ity of (ALCOHOL 00:00: (four) [place] PREP PADS) 00 times Medical PadM daily. Branch Lancets 2020-06 Yes [id number] Check Unive rs Misc 1-12 blood ity of 00:00: sugar 4 [place] 00 times Medical daily. Branch Blood-Gluco 2020-06 Yes [id number] Use as Univers se Meter 1-12 directed ity of (BLOOD 00:00: [place] GLUCOSE 00 Medical MONITORING) Branch Kit blood sugar 2020-06 Yes [id number] Check U nivers diagnostic 1-12 blood ity of strip 00:00: sugar 4 [place] 00 times Medical daily. Branch Alcohol 2020-06 Yes [id number] Apply to U nivers Swabs 1-12 area(s) 4 ity of (ALCOHOL 00:00: (four) [place] PREP PADS) 00 times Medical PadM daily. Branch Lancets 2020-06 Yes [id number] Check Unive rs Misc 1-12 blood ity of 00:00: sugar 4 [place] 00 times Medical daily. Branch Blood-Gluco 2020-06 Yes [id number] Use as Univers se Meter 1-12 directed ity of (BLOOD 00:00: [place] GLUCOSE 00 Medical MONITORING) Branch Kit blood sugar 2020-06 Yes [id number] Check U nivers diagnostic 1-12 blood ity of strip 00:00: sugar 4 [place] 00 times Medical daily. Branch Alcohol 2020-06 Yes [id number] Apply to U nivers Swabs 1-12 area(s) 4 ity of (ALCOHOL 00:00: (four) [place] PREP PADS) 00 times Medical PadM daily. Branch Lancets 2020-06 Yes [id number] Check Unive rs Misc 1-12 blood ity of 00:00: sugar 4 [place] 00 times Medical daily. Branch Blood-Gluco 2020-06 Yes [id number] Use as Univers se Meter 1-12 directed ity of (BLOOD 00:00: [place] GLUCOSE 00 Medical MONITORING) Branch Kit blood sugar 2020-06 Yes [id number] Check U nivers diagnostic 1-12 blood ity of strip 00:00: sugar 4 [place] 00 times Medical daily. Branch Alcohol 2020-06 Yes [id number] Apply to U nivers Swabs 1-12 area(s) 4 ity of (ALCOHOL 00:00: (four) [place] PREP PADS) 00 times Medical PadM daily. Branch Lancets 2020-06 Yes [id number] Check Unive rs Misc 1-12 blood ity of 00:00: sugar 4 [place] 00 times Medical daily. Branch Blood-Gluco 2020-06 Yes [id number] Use as Univers se Meter 1-12 directed ity of (BLOOD 00:00: [place] GLUCOSE 00 Medical MONITORING) Branch Kit blood sugar 2020-06 Yes [id number] Check U nivers diagnostic 1-12 blood ity of strip 00:00: sugar 4 [place] 00 times Medical daily. Branch Alcohol 2020-06 Yes [id number] Apply to U nivers Swabs 1-12 area(s) 4 ity of (ALCOHOL 00:00: (four) [place] PREP PADS) 00 times Medical PadM daily. Branch Lancets 2020-06 No [id number] Check Univ ers Misc 06-16 blood ity of 00:00: 00:00 sugar 4 [place] 00 :00 times Medical daily. Branch Blood-Gluco 2020-06- No [id number] Use as Univers se Meter 06-16 directed ity of (BLOOD 00:00: 00:00 [place] GLUCOSE 00 :00 Medical MONITORING) Branch Kit blood sugar 2020-06- No [id number] Check Univers diagnostic 06-16 blood ity of strip 00:00: 00:00 sugar 4 [place] 00 :00 times Medical daily. Branch Alcohol 2020-06- No [id number] Apply to Univers Swabs 06-16 area(s) 4 ity of (ALCOHOL 00:00: 00:00 (four) [place] PREP PADS) 00 :00 times Medical PadM daily. Branch Lancets 2020-06- No [id number] Check Univ ers Misc 06-16 blood ity of 00:00: 00:00 sugar 4 [place] 00 :00 times Medical daily. Branch Blood-Gluco 2020-06- No [id number] Use as Univers se Meter 06-16 directed ity of (BLOOD 00:00: 00:00 [place] GLUCOSE 00 :00 Medical MONITORING) Branch Kit blood sugar 2020-06- No [id number] Check Univers diagnostic 06-16 blood ity of strip 00:00: 00:00 sugar 4 [place] 00 :00 times Medical daily. Branch Alcohol 2020-06- No [id number] Apply to Univers Swabs 06-16 area(s) 4 ity of (ALCOHOL 00:00: 00:00 (four) [place] PREP PADS) 00 :00 times Medical PadM daily. Branch 2020-06 Yes Take by Unive rs vit 0-29 mouth. ity of calc,iron,f 11:30: [place] olic 01 Medical ( Branch VITAMIN ORAL) 2020-06 Yes Take by Unive rs vit 0-29 mouth. ity of calc,iron,f 11:30: [place] olic 01 Medical ( Branch VITAMIN ORAL) 2020-06 Yes Take by Unive rs vit 0-29 mouth. ity of calc,iron,f 11:30: [place] olic 01 Medical ( Branch VITAMIN ORAL) 2020-06 Yes Take by Unive rs vit 0-29 mouth. ity of calc,iron,f 11:30: [facility] Medical ( Branch VITAMIN ORAL) 2020-06 Yes Take by Unive rs vit 0-29 mouth. ity of calc,iron,f 11:30: [facility] Medical ( Branch VITAMIN ORAL) 2020-06 Yes Take by Unive rs vit 0-29 mouth. ity of calc,iron,f 11:30: [facility] Medical ( Branch VITAMIN ORAL) Immunizations Ordered Filled Immunization Date Status Comments [facility] e Immunization Name Name Influenza Virus 2021-04-02 Completed Universit y of Vaccine Quad IM, 00:00:00 [place] Me dical Preserv and ABX Branch Free 6 MO-64 YRS Influenza Virus 2021-04-02 Completed Universit y of Vaccine Quad IM, 00:00:00 [place] Me dical Preserv and ABX Branch Free 6 MO-64 YRS Influenza Virus 2021-04-02 Completed Universit y of Vaccine Quad IM, 00:00:00 [place] Me dical Preserv and ABX Branch Free 6 MO-64 YRS Influenza Virus 2021-04-02 Completed Universit y of Vaccine Quad IM, 00:00:00 [place] Me dical Preserv and ABX Branch Free 6 MO-64 YRS Influenza Virus 2021-04-02 Completed Universit y of Vaccine Quad IM, 00:00:00 [place] Me dical Preserv and ABX Branch Free 6 MO-64 YRS Influenza Virus 2021-04-02 Completed Universit y of Vaccine Quad IM, 00:00:00 [place] Me dical Preserv and ABX Branch Free 6 MO-64 YRS Influenza Virus 2021-04-02 Completed Universit y of Vaccine Quad IM, 00:00:00 [place] Me dical Preserv and ABX Branch Free 6 MO-64 YRS Influenza Virus 2021-04-02 Completed Universit y of Vaccine Quad IM, 00:00:00 [place] Me dical Preserv and ABX Branch Free 6 MO-64 YRS Influenza Virus 2021-04-02 Completed Universit y of Vaccine Quad IM, 00:00:00 [place] Me dical Preserv and ABX Branch Free 6 MO-64 YRS Influenza Virus 2021-04-02 Completed Universit y of Vaccine Quad IM, 00:00:00 [place] Me dical Preserv and ABX Branch Free 6 MO-64 YRS Influenza Virus 2021-04-02 Completed Universit y of Vaccine Quad IM, 00:00:00 [place] Me dical Preserv and ABX Branch Free 6 MO-64 YRS Influenza Virus 2021-04-02 Completed Universit y of Vaccine Quad IM, 00:00:00 [place] Me dical Preserv and ABX Branch Free 6 MO-64 YRS Influenza Virus 2021-04-02 Completed Universit y of Vaccine Quad IM, 00:00:00 [place] Me dical Preserv and ABX Branch Free 6 MO-64 YRS Influenza Virus 2021-04-02 Completed Universit y of Vaccine Quad IM, 00:00:00 [place] Me dical Preserv and ABX Branch Free 6 MO-64 YRS Influenza Virus 2021-04-02 Completed Universit y of Vaccine Quad IM, 00:00:00 [place] Me dical Preserv and ABX Branch Free 6 MO-64 YRS Influenza Virus 2021-04-02 Completed Universit y of Vaccine Quad IM, 00:00:00 [place] Me dical Preserv and ABX Branch Free 6 MO-64 YRS TDAP 2021-03-18 Completed University of 00:00:00 [facility] TDAP 2021-03-18 Completed University of 00:00:00 [facility] TDAP 2021-03-18 Completed University of 00:00:00 [facility] TDAP 2021-03-18 Completed University of 00:00:00 [facility] TDAP 2021-03-18 Completed University of 00:00:00 [facility] TDAP 2021-03-18 Completed University of 00:00:00 [facility] TDAP 2021-03-18 Completed University of 00:00:00 [facility] TDAP 2021-03-18 Completed University of 00:00:00 [facility] TDAP 2021-03-18 Completed University of 00:00:00 [facility] TDAP 2021-03-18 Completed University of 00:00:00 [facility] TDAP 2021-03-18 Completed University of 00:00:00 [facility] TDAP 2021-03-18 Completed University of 00:00:00 [facility] TDAP 2021-03-18 Completed University of 00:00:00 [facility] TDAP 2021-03-18 Completed University 00:00:00 [facility] TDAP 2021-03-18 Completed University 00:00:00 [facility] TDAP 2021-03-18 Completed University 00:00:00 [facility] Vital Signs Vital Name Observation Time Observation Value Comments Source Systolic blood 2021-07-13 14:40:00 121 mm[Hg] Univer sity of pressure [facility] Diastolic blood 2021-07-13 14:40:00 69 mm[Hg] Unive rsity of [facility] Heart rate 2021-07-13 14:40:00 72 /min [facility] Body temperature 2021-07-13 14:40:00 36.56 Lay Univ ersity of [facility] Respiratory rate 2021-07-13 14:40:00 18 /min Univ ersity [facility] Body height 2021-07-13 14:40:00 157.5 cm [facility] Body weight 2021-07-13 14:40:00 77.111 kg [facility] BMI 2021-07-13 14:40:00 31.09 kg/m2 [facility] Systolic blood 2021-07-05 16:27:00 124 mm[Hg] Univer sity of [facility] Diastolic blood 2021-07-05 16:27:00 80 mm[Hg] Unive rsity of [facility] Heart rate 2021-07-05 16:27:00 77 /min [facility] Body temperature 2021-07-05 16:27:00 36.83 Lay Univ [facility] Respiratory rate 2021-07-05 16:27:00 18 /min Univ ers[facility] Body weight 2021-07-05 16:27:00 77.565 kg [facility] Systolic blood 2021-06-22 21:33:00 118 mm[Hg] Univer sity of [facility] Diastolic blood 2021-06-22 21:33:00 81 mm[Hg] Unive rsity of [facility] Heart rate 2021-06-22 21:33:00 61 /min [facility] Body temperature 2021-06-22 21:33:00 36.39 Lay [facility] Body weight 2021-06-22 21:33:00 77.565 kg [facility] Systolic blood 2021-05-29 14:27:00 128 mm[Hg] Univer sity of [facility] Diastolic blood 2021-05-29 14:27:00 61 mm[Hg] Unive rsity of [facility] Body temperature 2021-05-29 14:27:00 36.89 Lya Univ ers[facility] Respiratory rate 2021-05-29 14:27:00 18 /min Univ ersity of [facility] Oxygen saturation in 2021-05-29 14:27:00 100 /min University Arterial blood by [facility] Pulse oximetry Branch Heart rate 2021-05-29 09:00:00 70 /min [facility] Systolic blood 2021-05-25 20:31:00 125 mm[Hg] Univer sity of pressure [facility] Diastolic blood 2021-05-25 20:31:00 87 mm[Hg] Unive rsity of [facility] Heart rate 2021-05-25 20:31:00 78 /min [facility] Body temperature 2021-05-25 20:31:00 36.78 Lay Univ [facility] Respiratory rate 2021-05-25 20:31:00 18 /min Univ ersity [facility] Body height 2021-05-25 20:31:00 157.5 cm [facility] [place] Body weight 2021-05-25 20:31:00 89.812 kg [facility] BMI 2021-05-25 20:31:00 36.21 kg/m2 [facility] Systolic blood 2021-05-21 16:13:00 123 mm[Hg] Univer sity of [facility] Diastolic blood 2021-05-21 16:13:00 85 mm[Hg] Unive rsity of [facility] Heart rate 2021-05-21 16:13:00 85 /min [facility] Body temperature 2021-05-21 16:13:00 36.56 Lay Univ [facility] Respiratory rate 2021-05-21 16:13:00 18 /min Univ ersity of [facility] Body height 2021-05-21 16:13:00 157.5 cm [facility] Body weight 2021-05-21 16:13:00 87.998 kg [facility] BMI 2021-05-21 16:13:00 35.48 kg/m2 [facility] Systolic blood 2021-05-18 15:57:00 118 mm[Hg] Univer sity of [facility] Diastolic blood 2021-05-18 15:57:00 78 mm[Hg] Unive rsity of [facility] Heart rate 2021-05-18 15:57:00 73 /min [facility] Body temperature 2021-05-18 15:57:00 36.61 Lay Univ [facility] Body height 2021-05-18 15:57:00 157.5 cm [facility] Body weight 2021-05-18 15:57:00 88.996 kg [facility] BMI 2021-05-18 15:57:00 35.89 kg/m2 [facility] Systolic blood 2021-05-14 20:18:00 112 mm[Hg] Univer sity of [facility] Diastolic blood 2021-05-14 20:18:00 76 mm[Hg] Unive rsity of [facility] Heart rate 2021-05-14 20:18:00 84 /min [facility] Body temperature 2021-05-14 20:18:00 36.72 Lay Univ [facility] Respiratory rate 2021-05-14 20:18:00 18 /min Univ [facility] Body height 2021-05-14 20:18:00 157.5 cm [facility] Body weight 2021-05-14 20:18:00 88.451 kg [facility] BMI 2021-05-14 20:18:00 35.67 kg/m2 [facility] Systolic blood 2021-05-11 16:18:00 122 mm[Hg] Univer sity of [facility] Diastolic blood 2021-05-11 16:18:00 83 mm[Hg] Unive rsity of [facility] Heart rate 2021-05-11 16:18:00 77 /min [facility] Body temperature 2021-05-11 16:18:00 36.89 Lay [facility] Respiratory rate 2021-05-11 16:18:00 18 /min [facility] Body height 2021-05-11 16:18:00 157.5 cm [facility] Body weight 2021-05-11 16:18:00 88.905 kg [facility] BMI 2021-05-11 16:18:00 35.85 kg/m2 [facility] Procedures Procedure Date / Time Performing Clinician Source Performed GLUCOSE FASTING 2021-07-21 14:13:00 Chikis Robertson [facility] CONSENT FOR CONTRACEPTION 2021-06-22 06:01:00 Doctor Unassigned, [facility] [place] [facility] POCT TEST 2021-06-22 00:00:00 Adum, Melba Hardin [facility] CBC WITH DIFF 2021-05-29 10:17:00 Adum, Melba Hardin [facility] VENOUS CORD GAS 2021-05-28 09:20:00 Adum, Melba Hardin [facility] POCT GLUCOSE (AUTOMATED) 2021-05-28 06:59:00 Adum, Melba Hardin [facility] CENTRAL NEURAXIAL BLOCK 2021-05-28 06:40:39 Gómez Grey [facility] POCT GLUCOSE (AUTOMATED) 2021-05-28 04:47:00 Adum, Melba Green [facility] POCT GLUCOSE (AUTOMATED) 2021-05-28 01:34:00 Adum, Melba Hardin [facility] HB ABO GROUPING 2021-05-27 23:10:00 Adum, Melba Hardin [facility] COVID-19 (ID NOW RAPID 2021-05-27 23:07:00 Adum, Melba Abel [facility] TESTING) Medical Branch LAB ONLY COVID 2021-05-27 23:07:00 Adum, Melba [facility] CBC WITH DIFF 2021-05-27 23:06:00 Adum, Mel[place] [facility] HEPATITIS B SURFACE 2021-05-27 23:06:00 Adum, Melba Hardin [facility] ANTIGEN [facility] ADC OR LOLI ONLY - RPR 2021-05-27 23:06:00 Adum, Melba Larry [facility] HIV 1/2 AG-AB WITH REFLEX 2021-05-27 23:06:00 Adum, Melab Hardin [facility] POCT GLUCOSE (AUTOMATED) 2021-05-27 21:28:00 Adum, Melba Hardin [facility] CONSENT/REFUSAL FOR 2021-05-27 20:55:09 Doctor Unassigned, [facility]ENEF[facility] 2021-05-27 20:47:03 Doctor Unassigned, [facility] [place] [facility] NON-STRESS TEST 2021-05-25 21:32:46 Adum, Melba Hardin [facility] POCT URINALYSIS W/O 2021-05-25 00:00:00 Adum, Melba Hardin [facility] SPECIFIC GRAVITY [facility] NON-STRESS TEST 2021-05-21 20:39:44 Adum, Melba Hardin [facility] POCT URINALYSIS W/O 2021-05-21 00:00:00 Adum, Melba Hardin [facility] SPECIFIC GRAVITY [facility] NON-STRESS TEST 2021-05-18 16:44:35 Adum, Melba Hardin [facility] POCT URINALYSIS W/O 2021-05-18 00:00:00 Adum, Melba Hardin [facility] SPECIFIC GRAVITY [facility] NON-STRESS TEST 2021-05-14 20:58:37 Adum, Melba Hardin [facility] NON-STRESS TEST 2021-05-11 17:05:02 Adum, Melba Hardin [facility] GC & CHLAMYDIA AMPLIFIED 2021-05-11 16:33:00 Adum, Melba [facility] TRICHOMONAS AMPLIFIED 2021-05-11 16:33:00 Melba Key [facility] POCT URINALYSIS W/O 2021-05-11 00:00:00 [facility] Encounters Start End Encounter Admission Attending Care Care Encounter Source Date/Time Date/Time Type Type Clinicians Facility Department ID 2021-05-25 Outpatient P CHATO, [facility] CSHUYLER [id number] Univers [facility]:22[facility] 2022-01-24 Outpatient R ARCELIA [facility] [id number] Univers 09:00:00 09:00:00 CHIKIS [id number] [facility] 2021-09-14 2021-09-14 Outpatient R [facility] [id number] Univers 14:00:00 14:00:00 [id number] [facility] 2021-09-14 2021-09-14 Outpatient R [facility] [id number] Univers 14:00:00 14:00:00 [facility] 2021-08-12 2021-08-12 Outpatient R ARCELIA [facility] [id number] Univers 11:45:00 11:45:00 CHIKIS [id number] [facility] 2021-07-21 2021-07-21 Outpatient R [facility] [id number] Univers 08:00:00 08:00:00 [id number] [facility] 2021-07-21 2021-07-21 Outpatient R ARCELIA [facility] [id number] Univers 08:00:00 08:00:[address] [facility] 2021-07-21 2021-07-21 Network Systems Operator 2, Adc Lab [facility] 1.2.840.114 [id number] Univers 08:00:00 08:00:00 Visit Chikis Robertson [id number] deisy [facility] [id number] Laith CORDOBA [id number] Il dical [address] 2021-07-21 2021-07-21 Telephone KATHLEEN Robertson 1.2.840.114 [id number] Univers 00:00:00 00:00:00 Chikis ACHARYA 350.1.13.10 [place] [id number] [address] 2021-07-15 2021-07-15 [facility] [id number] Univers 00:00:00 00:00:00 Chikis ACHARYA 350.1.13.10 [place] [id number] [address] 2021-07-13 2021-07-13 Outpatient Ramon KEY [facility] [id number] Univers 08:45:00 09:07:[address] [facility] 2021-07-13 2021-07-13 Routine Chikis Robertson [facility] 1.2.840.11 [id number] Univers 08:45:00 09:07:55 Melba [place] 350.1.13.10 ity of [place] [id number] [address] 2021-07-13 2021-07-13 Outpatient Ramon KEY [facility] [id number] Univers 08:45:00 08:45:00 [facility] [id number] [facility] 2021-07-05 2021-07-05 Outpatient R ARCELIA [facility] [id number] Univers 11:45:00 11:45:[id number] [facility] 2021-07-05 2021-07-05 [facility] [id number] Univers 11:45:00 11:45:00 Chikis ACHARYA 350.1.13.10 ity [place] [id number] [address] 2021-07-05 2021-07-05 Outpatient R [facility] [id number] Univers 11:45:00 11:15:58 CHIKIS ity of [facility] 2021-06-22 2021-06-22 Outpatient R ADUM, [facility] [id number] Univers 16:00:00 16:47:04 MELBA ity of [facility] 2021-06-22 2021-06-22 Routine Adum, [facility] 1.2.840.114 [id number] Univers 16:00:00 16:47:04 Melba ACHARYA 350.1.13.10 ity of [place] [facility] [phone] Il dical NAL [address] [facility] 2021-06-22 2021-06-22 Outpatient R ADUM, [facility] [id number] Univers 16:00:00 16:00:[id number] [facility] 2021-06-22 2021-06-22 Orders Doctor MONISHA 1.2.840.114 [id number] Univers 00:00:00 00:00:00 Only Unassigned, KINSEY 350.1.13.10 ity of [place] [facility] 4.2.7.2.686 [place] [phone] [facility] 009 Branch 2021-05-31 2021-05-31 Outpatient R [facility] [id number] Univers 11:45:00 11:45:00 [id number] ity of [facility] 2021-05-31 2021-05-31 Outpatient R [facility] [id number] Univers 11:45:00 11:45:00 ity of [facility] 2021-05-27 2021-05-29 Inpatient P AD, [facility] SCHUYLER [id number] Univers 14:45:00 11:25:[address] [facility] 2021-05-27 2021-05-29 [facility] 1.2.840.114 [id number] Univers 14:45:00 11:25:00 Encounter Melba ACHARYA 350.1.13.10 [place] [id number] [facility] 083 Branch 2021-05-28 2021-05-28 Anesthesia [facility], [facility] 1.2.840.114 [id number] Univers 20:01:37 20:01:37 Event Melida ACHARYA 350.1.13.10 i ty of [facility] [place] [id number] [address] 2021-05-27 2021-05-28 Anesthesia [facility], [facility] 1.2.840.114 [id number] Univers 23:20:00 05:20:00 Event Gómez ACHARYA 350.1.13.10 i ty of [place] [id number] [address] 2021-05-25 2021-05-25 Routine Room, [facility] 1.2.840.1 [id number] Univers 14:00:00 16:07:44 Adum, Melba Lashawn ACHARYA 350.1.13.10 ity of Visit [facility] [place] [id number] Il dical NAL [address] [place] [address] 2021-05-25 2021-05-25 Outpatient P OMERE, [facility] [id number] Univers 15:30:00 15:45:51 [facility] 2021-05-25 2021-05-25 Network Systems Operator Ultrasound, [facility] 1.2 .840.114 [id number] Univers 15:30:00 15:45:51 Visit Vishal Wileytapanjerome ACHARYA 350.1 .13.10 [place] [id number] Il dical NAL [address] [place] [address] 2021-05-25 2021-05-25 Outpatient R [facility] [id number] Univers 14:00:00 14:00:00 [id number] ity of [facility] 2021-05-21 2021-05-21 Outpatient R ADUM, [facility] [id number] Univers 10:00:00 10:42:[address] [facility] 2021-05-21 2021-05-21 Routine Room, [facility] 1.2.840.1 [id number] Univers 10:00:00 10:42:24 Adum, Melba L [place] 350.1.13.10 ity of [place] [id number] Il dical NAL [address] [place] [address] 2021-05-21 2021-05-21 Outpatient R [facility] [id number] Univers 10:00:00 10:00:[id number] [facility] 2021-05-18 2021-05-18 Outpatient R ADUM, [facility] [id number] Univers 10:00:00 10:43:[address] [facility] 2021-05-18 2021-05-18 Routine Room, [facility] 1.2.840.1 [id number] Univers 09:48:43 10:43:56 Adum, Melba Hardin [place] 350.1.13.10 ity of [place] [id number] Il dical NAL [address] [place] [address] 2021-05-14 2021-05-14 Outpatient R ADUM, [facility] [id number] Univers 14:00:00 14:54:[address] [facility] 2021-05-14 2021-05-14 Routine Room, [facility] 1.2.840.1 [id number] Univers 13:58:04 14:54:04 Adum, Melba Hardin [place] 350.1.13.10 ity of [place] [id number] Il dical NAL [address] [place] [address] 2021-05-11 2021-05-11 Outpatient R ADUM, [facility] [id number] Univers 10:00:00 11:04:[address] [facility] 2021-05-11 2021-05-11 Routine Room, [facility] 1.2.840.1 14 [id number] Univers 09:52:39 11:04:55 Adum, Melba L [place] 350.1.13.10 ity of [facility] 4.2.7.2.686 Laith encinas PROFESSIO [id number] Il dical [address] 2020-06-09 2020-06-09 Telephone Adum, [facility] [id number] 00:00:00 00:00:00 Melba Acharya 350.1.13.10 [place] 4.2.7.2.686 Professio [id number] [address] 2020-06-08 2020-06-08 Network Systems Operator 2, [facility] [place] 1.2.840.114 [id number] 10:43:33 10:58:33 Visit Daysi 350.1.13.10 [place] 4.2.7.2.686 Professio [id number] [address] 2020-06-02 2020-06-02 Office Adum, [facility] 1.2.840.114 [id number] 11:22:36 12:46:52 Visit Melba Acharya 350.1.13.10 [place] 4.2.7.2.686 Professio [id number] [address] Results Test Description Test Time Test Comments Results Result Comments Source GLUCOSE FASTING 2021-07-21 16:04:56 Test Item Value Reference Range Interpretation Comme nts GLU FASTNG (test code = 0462004443) 90 mg/dL 70-110 Lab Interpretation (test code = 48104-7) Normal [facility] [id number] 22:48:00 Test Item Value Reference Range Interpretation Comments POCT PREG (test code = 1605) Negative On board controls acceptable with C Yes Line (test code = 3574) POCT PREG LOT # (test code = 3575) POCT PREG TEST DATE (test code = 3576) Lab Interpretation (test code = Normal 15273-2) [facility] with [id number] 10:46:10 Test Item Value Reference Range Interpretation Comments WBC (test code = See_Comment H [Automated 6690-2) message] The sy stem which generated this result transmitted reference range : 4.30 - 11.10 10*3/?L. The reference range was not used to interpret this result as normal/abnormal . RBC (test code = See_Comment L [Automated 789-8) message] The sy stem which generated this result transmitted reference range : 3.93 - 5.25 10*6/?L. The reference range was not used to interpret this result as normal/abnormal . HGB (test code = 10.1 g/dL 11.6-15.0 L 718-7) HCT (test code = 31.2 % 35.7-45.2 L 4544-3) MCV (test code = 87.6 fL 80.6-95.5 787-2) MCH (test code = 28.4 pg 25.9-32.8 785-6) MCHC (test code = 32.4 g/dL 31.6-35.1 786-4) RDW-SD (test code = 43.4 fL 39.0-49.9 99312-2) RDW-CV (test code = 13.6 % 12.0-15.5 788-0) PLT (test code = See_Comment [Automated 777-3) message] The sy stem which generated this result transmitted reference range : 166 - 358 10*3/ ?L. The reference r jayce was not used to interpret this result as normal/abnormal . MPV (test code = 10.3 fL 9.5-12.9 75732-4) NRBC/100 WBC (test See_Comment [Automat ed code = 8568409166) message] The system which generated this result transmitted reference range : 0.0 - 10.0 /100 WBCs. The refer ence range was not u sed to interpret th is result as normal/abnormal . NRBC x10^3 (test code <0.01 See_Comment [Auto mated = 5598677527) message] The s ystem which generated this result transmitted reference range : 10*3/?L. The reference range was not used to interpret this result as normal/abnormal . GRAN MAT (NEUT) % 67.5 % (test code = 770-8) IMM GRAN % (test code 1.30 % = 5908865924) LYMPH % (test code = 16.4 % 736-9) MONO % (test code = 13.2 % 5905-5) EOS % (test code = 1.3 % 713-8) BASO % (test code = 0.3 % 706-2) GRAN MAT x10^3(ANC) 7.61 10*3/uL 1.88-7.09 H (test code = 6512384151) IMM GRAN x10^3 (test 0.15 10*3/uL 0.00-0.06 H code = 9834321161) LYMPH x10^3 (test code 1.85 10*3/uL 1.32-3.29 = 731-0) MONO x10^3 (test code 1.49 10*3/uL 0.33-0.92 H = 742-7) EOS x10^3 (test code = 0.15 10*3/uL 0.03-0.39 711-2) BASO x10^3 (test code 0.03 10*3/uL 0.01-0.07 = 704-7) Lab Interpretation Abnormal (test code = 61793-3) [facility] Surface [id number] 07:13:50 Test Item Value Reference Range Interpretation Comments HBsAg Semi-Quantitative (test code = Negative Negative 5195-3) [facility] GLUCOSE (AUTOMATED)2021-05-28 07:03:21 Test Item Value Reference Range Interpretation Comments POCT GLU (test code = 2918010794) 85 mg/dL 70-110 Lab Interpretation (test code = Normal 76656-0) [facility] OR LOLI LUDWIG - [id number] 06:38:23 Test Item Value Reference Range Interpretation Comments RPR (Qualitative) (test code = Nonreactive Nonreactive 64283-3) Lab Interpretation (test code = Normal 17385-6) [facility] GLUCOSE (AUTOMATED)2021-05-28 04:49:24 Test Item Value Reference Range Interpretation Comments POCT GLU (test code = 8601415968) 78 mg/dL 70-110 Lab Interpretation (test code = Normal 88308-2) [facility] GLUCOSE (AUTOMATED)2021-05-28 01:45:13 Test Item Value Reference Range Interpretation Comments POCT GLU (test code = 1554957865) 85 mg/dL 70-110 Lab Interpretation (test code = Normal 89037-2) [facility]2 AG-AB WITH [id number] 01:13:04 Test Item Value Reference Range Interpretation Comments HIV Negative Negative Semi-quantitative (test code = 99876-6) ZEE (test code = Non-reactive for HIV-1 ZEE) antigen and HIV-1/HIV-2 antibodies. ?No laboratory evidence of HIV infection. ?Repeat in 2-4 weeks if acute HIV infection is suspected. [facility] and Screen - ONCE [id number] 00:33:33 Test Item Value Reference Range Interpretation Comments ABO & RH (test code A Positive Performe d at [facility] = 20) Laboratory Serv [facility] [address] [place], [place] [address]Toll Free: [phone] A No. [id number] IAT (test code = Negative Performed a t [facility] 1185) Laboratory [facility] [address] [place] [phone] Free: [phone] A No. [id number] [facility] with [id number] 23:57:50 Test Item Value Reference Range Interpretation Comments WBC (test code = See_Comment H [Automated 1490-2) message] The sy stem which generated this result transmitted reference range : 4.30 - 11.10 10*3/?L. The reference range was not used to interpret this result as normal/abnormal . RBC (test code = See_Comment [Automated 819-8) message] The sy stem which generated this result transmitted reference range : 3.93 - 5.25 10*6/?L. The reference range was not used to interpret this result as normal/abnormal . HGB (test code = 12.2 g/dL 11.6-15.0 718-7) HCT (test code = 36.7 % 35.7-45.2 4544-3) MCV (test code = 86.4 fL 80.6-95.5 787-2) MCH (test code = 28.7 pg 25.9-32.8 785-6) MCHC (test code = 33.2 g/dL 31.6-35.1 786-4) RDW-SD (test code = 41.6 fL 39.0-49.9 35978-5) RDW-CV (test code = 13.3 % 12.0-15.5 788-0) PLT (test code = See_Comment [Automated 777-3) message] The sy stem which generated this result transmitted reference range : 166 - 358 10*3/ ?L. The reference r jayce was not used to interpret this result as normal/abnormal . MPV (test code = 10.3 fL 9.5-12.9 95683-1) NRBC/100 WBC (test See_Comment [Automat ed code = 3422917679) message] The system which generated this result transmitted reference range : 0.0 - 10.0 /100 WBCs. The refer ence range was not u sed to interpret th is result as normal/abnormal . NRBC x10^3 (test code <0.01 See_Comment [Auto mated = 7153331477) message] The s ystem which generated this result transmitted reference range : 10*3/?L. The reference range was not used to interpret this result as normal/abnormal . GRAN MAT (NEUT) % 67.7 % (test code = 770-8) IMM GRAN % (test code 0.60 % = 0991093165) LYMPH % (test code = 21.2 % 736-9) MONO % (test code = 9.1 % 5905-5) EOS % (test code = 1.2 % 713-8) BASO % (test code = 0.2 % 706-2) GRAN MAT x10^3(ANC) 7.98 10*3/uL 1.88-7.09 H (test code = 4600245732) IMM GRAN x10^3 (test 0.07 10*3/uL 0.00-0.06 H code = 2725538039) LYMPH x10^3 (test code 2.50 10*3/uL 1.32-3.29 = 731-0) MONO x10^3 (test code 1.07 10*3/uL 0.33-0.92 H = 742-7) EOS x10^3 (test code = 0.14 10*3/uL 0.03-0.39 711-2) BASO x10^3 (test code <0.03 0.01-0.07 = 704-7) Lab Interpretation Abnormal (test code = 61734-2) [facility] GLUCOSE (AUTOMATED)2021-05-27 21:37:45 Test Item Value Reference Range Interpretation Comments POCT GLU (test code = 3351097630) 110 mg/dL 70-110 Lab Interpretation (test code = Normal 91753-0) [facility] URINALYSIS W/O SPECIFIC [id number] 20:33:00 Test Item Value Reference Range Interpretation Comments POCT PH U (test code = 3254) n/a 5-8 POCT U LEUK EST (test code = 3263) n/a Negative - Negative POCT U NIT (test code = 3262) n/a Negative - Negative POCT U PROT (test code = 3259) neg Negative - Negative POCT U GLU (test code = 3256) neg Negative - Negative POCT U KETONE (test code = 3258) n/a Negative - Negative POCT U BLD (test code = 3257) n/a Negative - Negative Lab Interpretation (test code = Normal 82963-5) [facility] URINALYSIS W/O SPECIFIC [id number] 16:31:00 Test Item Value Reference Range Interpretation Comments POCT PH U (test code = 3254) n/a 5-8 POCT U LEUK EST (test code = 3263) n/a Negative - Negative POCT U NIT (test code = 3262) n/a Negative - Negative POCT U PROT (test code = 3259) neg Negative - Negative POCT U GLU (test code = 3256) neg Negative - Negative POCT U KETONE (test code = 3258) n/a Negative - Negative POCT U BLD (test code = 3257) n/a Negative - Negative Lab Interpretation (test code = Normal 08394-1) [facility] URINALYSIS W/O SPECIFIC [id number] 15:54:00 Test Item Value Reference Range Interpretation Comments POCT PH U (test code = 3254) n/a 5-8 POCT U LEUK EST (test code = n/a Negative - Negative 3263) POCT U NIT (test code = 3262) n/a Negative - Negative POCT U PROT (test code = 3259) negative Negative - Negative POCT U GLU (test code = 3256) Negative - Negative POCT U KETONE (test code = 3258) n/a Negative - Negative POCT U BLD (test code = 3257) n/a Negative - Negative [facility]CIFIC [id number] 16:20:00 Test Item Value Reference Range Interpretation Comments POCT PH U (test code = 3254) n/a 5-8 POCT U LEUK EST (test code = 3263) n/a Negative - Negative POCT U NIT (test code = 3262) n/a Negative - Negative POCT U PROT (test code = 3259) neg Negative - Negative POCT U GLU (test code = 3256) neg Negative - Negative POCT U KETONE (test code = 3258) n/a Negative - Negative POCT U BLD (test code = 3257) n/a Negative - Negative Lab Interpretation (test code = Normal 71758-5) [facility]
--- NOTE | 2021-07-27 10:05 | RAD REPORT ---
EXAM DESCRIPTION: US - Abdomen Exam Limited - 07/27/2021 9:56 am CLINICAL HISTORY: ABD PAIN COMPARISON: No comparisons FINDINGS: The gallbladder demonstrates several shadowing gallstones. No pericholecystic fluid or gal lbladder wall thickening. The common bile duct is mildly prominent measuring 7 mm. The liver demonstrates no findings of intrahepatic biliary dilatation. IMPRESSION: Cholelithiasis. Common duct is somewhat prominent for age measure up to 7 mm. Choledocholithiasis could be present. M [employer] AND AIR DELIVERY SPECIALIST would be suggested for followup assessment.
[2021-07-27] MEDS ORDERED: ONDANSETRON 4 MG/2 ML VIAL ONE (10:06)
[2021-07-27] MEDS ORDERED: NA CHLORIDE 0.9% 1,000 ML ONE (10:06)
--- NOTE | 2021-07-27 11:23 | RAD REPORT ---
EXAM DESCRIPTION: RAD - Chest Single View - 07/27/2021 11:17 am CLINICAL HISTORY: CHEST PAIN Chest pain. COMPARISON: Chest Single View dated 01/27/2019 FINDINGS: Portable technique limits examination quality. The lungs are grossly clear. The heart is normal in size. No displaced fractures. IMPRESSION: No acute intrathoracic process suspected.
--- NOTE | 2021-07-27 11:46 | RAD REPORT ---
EXAM DESCRIPTION: MRI - Cholangiogram - 07/27/2021 11:31 am CLINICAL HISTORY: abd pain COMPARISON: Abdomen Exam Limited dated 07/27/2021 FINDINGS: Three-dimensional MRCP was performed using maximum intensity projection reconstruction on the same work station. No intrahepatic biliary tree dilatation is seen. The common bile duct is normal caliber without evide nce of retained stone, stricture or mass. The pancreatic duct is not pathologically dilated. Mild gallstone suspected the gallbladder. Limited T2 sequences through the abdomen demonstrates no bulky adenopathy, significant free fluid or abscess. IMPRESSION: No evidence of common duct stone or pathologic biliary dilatation. Cholelithiasis.
[2021-07-27 12:22] LABS: Absolute Lymphocytes (CBC) 1.8 K/uL (0.7-4.9); Hematocrit 42.6 % (36.0-45.0); Lymphocytes % 30.8 % (15.3-44.8); MPV 7.2 fL (7.6-11.3); RBC Red Blood Cell Count 4.99 M/uL (3.86-4.86)
[2021-07-27 12:46] LABS: BUN Blood Urea Nitrogen 10 mg/dL (7-18); Bicarbonate 24 mmol/L (21-32); Glucose Level 87 mg/dL (74-106); Lipase 165 U/L (73-393); Potassium 3.8 mmol/L (3.5-5.1); Sodium Level 137 mmol/L (136-145)
[2021-07-27 13:52] LABS: Albumin 3.7 g/dL (3.4-5.0); Alkaline Phosphatase 190 U/L (45-117); Bilirubin Direct 1.4 mg/dL (0-0.2); Bilirubin Total 1.9 mg/dL (0.2-1.0); Protein, Total 7.8 g/dL (6.4-8.2)
[2021-07-27 13:58] LABS: ALT/SGPT 847 U/L (12-78); AST/SGOT 962 U/L (15-37)
--- NOTE | 2021-07-27 16:42 | EDPHYS ---
Physician Documentation [facility] Name: Kelly Paz Age: 20 yrs Sex: Female : 2000 Arrival Date: 07/27/2021 Time: 09:19 Bed 17 Private MD: ED Physician Venkat Mccollum HPI: 07/27 14:40 This 20 yrs old Female presents to ER via Ambulatory with complaints of Abdominal Pain, kb Vomiting. 14:40 The patient presents with abdominal pain in the right upper quadrant. Onset: The kb symptoms/episode began/occurred yesterday. The symptoms do not radiate. Associated signs and symptoms: Pertinent positives: nausea and vomiting, Pertinent negatives: fever. The symptoms are described as intermittent. Modifying factors: The symptoms are alleviated by nothing, the symptoms are aggravated by nothing. Severity of pain: At its worst the pain was moderate in the emergency department the pain is unchanged. The patient has not experienced similar symptoms in the past. The patient has not recently seen a physician. Pt reports she has had intermittent RUQ pain since delivering baby in May. States it normally only lasts for an hour and goes away, but this time it started yesterday and hasn't stopped. Reports nausea and vomiting. . 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 Flu vaccine is up to date. - Social history:: Smoking status: Patient denies any tobacco usage or history of. ROS: 14:39 Constitutional: Negative for fever, chills, and weight loss. kb 14:39 Abdomen/GI: Positive for abdominal pain, nausea and vomiting, Negative for diarrhea, constipation. 14:39 All other systems are negative. Exam: 14:39 Constitutional: This is a well developed, well nourished patient who is awake, alert, kb and in no acute distress. Head/Face: Normocephalic, atraumatic. ENT: Moist Mucous membranes Cardiovascular: Regular rate and rhythm with a normal S1 and S2. No gallops, murmurs, or rubs. No pulse deficits. Respiratory: Respirations even and unlabored. No increased work of breathing. Talking in full sentences Skin: Warm, dry with normal turgor. Normal color. MS/ Extremity: Pulses equal, no cyanosis. Neurovascular intact. Full, normal range of motion. Neuro: Awake and alert, GCS 15, oriented to person, place, time, and situation. Moves all extremities. Normal gait. Psych: Awake, alert, with orientation to person, place and time. Behavior, mood, and affect are within normal limits. 14:39 Abdomen/GI: Inspection: abdomen appears normal, Bowel sounds: normal, in all quadrants, Palpation: soft, in all quadrants, moderate abdominal tenderness, in the right upper quadrant. Vital Signs: 09:26 BP 137 / 93; Pulse 94; Temp 98.1; Pulse Ox 100% on R/A; Weight 72.57 kg; Height 5 ft. 2 ap3 in. (157.48 cm); Pain 2/10; 10:30 BP 141 / 88; Pulse 97; Resp 17; Pulse Ox 100% ; bp 12:37 BP 115 / 80; Pulse 62; Resp 16; Pulse Ox 96% ; bp 14:30 BP 121 / 79; Pulse 67; Resp 17; Pulse Ox 97% ; bp 16:30 BP 117 / 81; Pulse 75; Resp 16; Pulse Ox 98% ; bp 18:00 BP 113 / 67; Pulse 87; Resp 16; Pulse Ox 100% ; bp 09:26 Body Mass Index 29.26 (72.57 kg, 157.48 cm) ap3 MDM: 09:31 Patient medically screened. kb 14:20 Data reviewed: vital signs, nurses notes. Data interpreted: Pulse oximetry: on room air kb is 96 %. Interpretation: normal. Physician consultation: Rell Victoria MD was called at 14:20, regarding consult, patient's condition, paged. 14:34 Physician consultation: Rell Victoria MD was contacted at 14:34, after a discussion of the kb case, a recommendation for transfer for higher level of care is made. 14:39 Counseling: I had a detailed discussion with the patient and/or guardian regarding: the historical points, exam findings, and any diagnostic results supporting the discharge/admit diagnosis, lab results, radiology results, the need to transfer to another facility, [facility] does not immediately have the required specialist. 16:02 Data reviewed: nurses notes, dr. Beyer. ma2 16:40 ED course: Tried to transfer pt and was unsuccessful. Dr Victoria will consult, but wants kb pt admitted to hospitalist with consult to GI as well. . 07/27 09:30 Order name: Basic Metabolic Panel kb 07/27 09:30 Order name: CBC with Diff kb 07/27 09:30 Order name: Hepatic Function kb 07/27 09:30 Order name: Lipase kb 07/27 09:31 Order name: Basic Metabolic Panel; Complete Time: 14:00 EDMS 07/27 09:31 Order name: CBC with Automated Diff; Complete Time: 12:31 EDMS 07/27 09:30 Order name: US Abdomen Limited; Complete Time: 10:08 kb 07/27 09:30 Order name: Chest Single View XRAY; Complete Time: 11:30 kb 07/27 09:31 Order name: Liver (Hepatic) Function; Complete Time: 14:00 EDMS 07/27 09:31 Order name: Lipase; Complete Time: 14:00 EDMS 07/27 10:12 Order name: Cholangiogram; Complete Time: 11:50 EDWY 07/27 14:36 Order name: COVID-19/FLU A+B (Document "Date of Onset" if Symptomatic); Complete Time: kb 18:08 07/27 16:58 Order name: Cholangiogram EDWY 07/27 18:11 Order name: Hepatitis Panel,Acute EDWY 07/27 09:30 Order name: IV Saline Lock; Complete Time: 12:35 kb 07/27 09:30 Order name: Labs collected and sent; Complete Time: 12:35 kb 07/27 16:58 Order name: CONS Physician Consult EDWY 07/27 16:58 Order name: CONS Physician Consult EDWY 07/27 16:58 Order name: NPO EDMS Administered Medications: 10:00 Drug: Zofran (Ondansetron) 4 mg Route: IVP; Site: left antecubital; bp 12:54 Follow up: Response: No adverse reaction bp 12:00 Drug: NS 0.9% 1000 ml Route: IV; Rate: 1000 ml; Site: left antecubital; bp Disposition Summary: 07/27/21 16:42 Hospitalization Ordered Hospitalization Status: Inpatient Admission kb Provider: Venkat Claudio Location: Telemetry/MedSurg (Inpatient) kb Condition: Stable kb Problem: new kb Symptoms: are unchanged kb Bed/Room Type: Standard kb Room Assignment: 230(07/27/21 18:39) bd Diagnosis - Other cholelithiasis without obstruction kb - Abnormal results of liver function studies kb Forms: - Medication Reconciliation Form kb - SBAR form kb Signatures: Dispatcher [employer] EDAlva Cristina, KRISS-C KRISS-Roseanna Knight Brian, RN RN bp Venkat Mccollum MD MD ma2 Columba Lazo RN RN ap3 Corrections: (The following items were deleted from the chart) 18:39 16:42 kb bd
--- NOTE | 2021-07-27 16:42 | ER ---
Nurse's Notes [facility] Name: Kelly Paz Age: 20 yrs Sex: Female : 2000 Arrival Date: 07/27/2021 Time: 09:19 Bed 17 Private MD: Diagnosis: Other cholelithiasis without obstruction;Abnormal results of liver function studies Presentation: 07/27 09:26 Chief complaint: Patient states: she started having right abdominal, chest and back ap3 pain that began yesterday around 4pm. Pt reports vomiting her meals. Patient also reports urinary urge and frequency. Coronavirus screen: At this time, the client does not indicate any symptoms associated with coronavirus-19. Ebola Screen: No symptoms or risks identified at this time. Initial Sepsis Screen: Does the patient meet any 2 criteria? HR > 90 bpm. Does the patient have a suspected source of infection? No. Patient's initial sepsis screen is negative. Risk Assessment: Do you want to hurt yourself or someone else? Patient reports no desire to harm self or others. Onset of symptoms was July 26, 2021. 09:26 Method Of Arrival: Ambulatory ap3 09:26 Acuity: RAFAEL 3 ap3 Triage Assessment: 09:30 General: Appears in no apparent distress. Behavior is calm, cooperative, appropriate ap3 for age. Pain: Complains of pain in right rib, right chest, right back. Pain: Pain currently is 2 out of 10 on a pain scale. at worst was 6 out of 10 on a pain scale. Alleviated by rest, Aggravated by increased activity, repositioning, weight bearing. Neuro: Level of Consciousness is awake. Cardiovascular: Patient's skin is warm and dry. Respiratory: Airway is patent Respiratory effort is even, unlabored. GI: Reports nausea, tolerance of food, vomiting. : Reports urgency. 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 Flu vaccine is up to date. - Social history:: Smoking status: Patient denies any tobacco usage or history of. Screenin:31 Abuse screen: Denies threats or abuse. Nutritional screening: No deficits noted. ap3 Tuberculosis screening: No symptoms or risk factors identified. Assessment: 09:30 General: SEE TRIAGE NOTE. bp 10:48 Reassessment: UNABLE TO OBTAIN PIV AND BLOOD SPECIMEN WITH STAFF x3. PT TO MRI. bp 12:38 Reassessment: PT RETURNED FROM MRI. bp 14:30 Reassessment: No changes from previously documented assessment. Patient and/or family bp updated on plan of care and expected duration. Pain level reassessed. 16:29 Reassessment: No changes from previously documented assessment. Patient and/or family bp updated on plan of care and expected duration. Pain level reassessed. TRANSFER INITIATED, NO ACCEPTANCE AT THIS TIME. 18:00 Reassessment: No changes from previously documented assessment. Patient and/or family bp updated on plan of care and expected duration. Pain level reassessed. ADMIT IN PROCESS. Vital Signs: 09:26 BP 137 / 93; Pulse 94; Temp 98.1; Pulse Ox 100% on R/A; Weight 72.57 kg; Height 5 ft. 2 ap3 in. (157.48 cm); Pain 2/10; 10:30 BP 141 / 88; Pulse 97; Resp 17; Pulse Ox 100% ; bp 12:37 BP 115 / 80; Pulse 62; Resp 16; Pulse Ox 96% ; bp 14:30 BP 121 / 79; Pulse 67; Resp 17; Pulse Ox 97% ; bp 16:30 BP 117 / 81; Pulse 75; Resp 16; Pulse Ox 98% ; bp 18:00 BP 113 / 67; Pulse 87; Resp 16; Pulse Ox 100% ; bp 09:26 Body Mass Index 29.26 (72.57 kg, 157.48 cm) ap3 ED Course: 09:19 Patient arrived in ED. mr 09:23 Alva Elmore [facility]-C [facility] kb 09:23 Venkat Mccollum MD is Attending Physician. kb 09:29 Triage completed. ap3 09:30 Patient has correct armband on for positive identification. Bed in low position. Call bp light in reach. Side rails up X2. Adult w/ patient. 09:31 Arm band placed on right wrist. ap3 09:46 Calvin Pizano, RN is Primary Nurse. bp 09:56 US Abdomen Limited In Process Unspecified. EDMS 11:17 Chest Single View XRAY In Process Unspecified. EDMS 11:30 Cholangiogram In Process Unspecified. EDMS 12:14 Inserted saline lock: 22 gauge in left antecubital area, using aseptic technique. Blood ss collected. 12:54 Basic Metabolic Panel Sent. bp 12:54 CBC with Diff Sent. bp 12:54 Hepatic Function Sent. bp 12:54 Lipase Sent. bp 15:48 initiated transfer to [facility]. bd 16:27 pt denied at [facility] due to surgeon at [facility] not accepting pt. bd 16:41 Venkat Claudio MD is Hospitalizing Provider. kb Administered Medications: 10:00 Drug: Zofran (Ondansetron) 4 mg Route: IVP; Site: left antecubital; bp 12:54 Follow up: Response: No adverse reaction bp 12:00 Drug: NS 0.9% 1000 ml Route: IV; Rate: 1000 ml; Site: left antecubital; bp Outcome: 16:42 Decision to Hospitalize by Provider. kb 20:16 Admitted to Med/surg Report called to flores lott sf1 21:13 Patient left the ED. sf1 Signatures: Dispatcher [employer] EDMS Alva Elmore, KRISS-C MARZIPAN MOLDER-CkRoseanna Burkett AngMagui Shelby, Calvin Man RN, RN RN Columba Gonzales RN RN ap3 Miladys Shea RN RN sf1
[2021-07-27] MEDS ORDERED: ONDANSETRON 4 MG/2 ML VIAL IV PRN (16:53)
[2021-07-27] MEDS ORDERED: ACETAMINOPHEN 500 MG TAB PO PRN (16:53)
[2021-07-27] MEDS ORDERED: MAGNESIUM HYDROXIDE 8% 30 ML PO PRN (16:53)
[2021-07-27] MEDS ORDERED: Levofloxacin500mg IV 500 MG/100 ML BAG IV SCH (17:00)
[2021-07-27] MEDS ORDERED: HYDROMORPHONE HCL 0.5 MG/0.5 ML INJ IV PRN (17:10)
[2021-07-27] MEDS: ENOXAPARIN 40 MG/0.4 ML SQ SCH (18:00)
[2021-07-27] MEDS ORDERED: METRONIDAZOLE 500mg IVPB 500 MG/100 ML BAG IV SCH (18:00)
[2021-07-27 18:06] LABS: SARS-COV-2 RT PCR NEGATIVE (NEGATIVE)
[2021-07-27] MEDS: NA CHLORIDE 0.9% 1,000 ML IV SCH (22:26)
[2021-07-27] MEDS: Levofloxacin500mg IV 500 MG/100 ML BAG IV SCH (22:53)
[2021-07-27 23:12] VITALS: O2SAT 100
[2021-07-28] MEDS: METRONIDAZOLE 500mg IVPB 500 MG/100 ML BAG IV SCH ×5 (00:18→23:29)
[2021-07-28] MEDS: NA CHLORIDE 0.9% 1,000 ML IV SCH ×2 (03:00→11:47)
[2021-07-28 07:03] VITALS: BMI 37.3
[2021-07-28 08:57] LABS: Absolute Lymphocytes (CBC) 2.3 K/uL (0.7-4.9); Hematocrit 39.5 % (36.0-45.0); Lymphocytes % 35.8 % (15.3-44.8); MPV 7.1 fL (7.6-11.3); RBC Red Blood Cell Count 4.63 M/uL (3.86-4.86)
[2021-07-28 09:05] LABS: Protime INR 1.15
[2021-07-28 09:27] LABS: Albumin 3.4 g/dL (3.4-5.0); Alkaline Phosphatase 191 U/L (45-117); BUN Blood Urea Nitrogen 11 mg/dL (7-18); Bicarbonate 23 mmol/L (21-32); Glucose Level 78 mg/dL (74-106); Lipase 120 U/L (73-393); Phosphorus 3.7 mg/dL (2.5-4.9); Potassium 4.1 mmol/L (3.5-5.1); Protein, Total 6.9 g/dL (6.4-8.2); Sodium Level 137 mmol/L (136-145)
[2021-07-28 09:29] LABS: AST/SGOT 301 U/L (15-37)
[2021-07-28 09:30] LABS: ALT/SGPT 627 U/L (12-78)
[2021-07-28] MEDS: ENOXAPARIN 40 MG/0.4 ML SQ SCH (09:46)
--- NOTE | 2021-07-28 11:20 | CON ---
Date of Consultation: 07/27/2021 Chief Complaint: Abdominal pain. History Of Present Illness: The patient is a 20-year-old female, who has had approximately 2 months history of postprandial right epigastric and right upper quadrant pain associated occasionally with n ausea and vomiting, bloating, belching, and heartburn. After vomiting, she would usually feel better and then the pain would be resolved; however, at this time yesterday it did not and pain persisted f or greater than 6 hours. She came to the emergency room and workup was done. She denies any diarrhe a or constipation. No blood in her stool. No dysuria or hematuria. No sore throat, runny nose, cou gh, headaches, or dizziness. No chest pain. No fever or chills. Review of Systems: Otherwise unremarkable. Past Medical History: Negative. Past Surgical History: Laparoscopic appendectomy. Allergies: INCLUDE NORTRIPTYLINE. Social History: The patient denies smoking or drinking. Family History: Noncontributory. Physical Examination: Vital Signs: Stable. She is currently afebrile. General: She is awake, alert, and oriented x3. Head and Neck: Cranial nerves 2 through 12 are grossly within normal limits. No neck masses. No JV D. Throat clear. Neck is supple. No evidence of obvious icterus. Chest: Clear. Heart: S1, S2. Abdomen: Soft, nondistended, nontender currently. Positive bowel sounds. Extremities: Neurovascularly intact. Neuro: Nonfocal. Diagnostic Data: White count on admission was 5.9, there is no left shift. Chemistries, however, re veal a total bilirubin of 1.9, direct bilirubin of 1.4, AST of 962, ALT of 847, alkaline phosphatase of 190. The patient had an ultrasound of the abdomen, which showed cholelithiasis and common duct. It is somewhat prominent 7 mm. Choledocholithiasis could be present. MRCP would be suggestive on fo llowup assessment. She did have an MRCP, which showed no evidence of common duct stone or pathologic biliary dilatation and showed cholelithiasis. Her laboratory data this morning is pending. Assessment: A 20-year-old female with likely acute and chronic cholecystitis and cholelithiasis with recent choledocholithiasis. Recommendations: At this point, we will await the labs. Should there be improving, we will proceed with lap choly possible open. The patient understands the risks, benefits, and alternatives and agre es to procedure. If the AST and ALT are still elevated or going up, then await GI recommendations pe rhaps hepatitis profile prior to proceeding. Plan of care was discussed in detail with the patient a s well as Dr. Claudio. The patient does understand risks, benefits, and alternatives and agreed to proc edure. She agreed to proceed today. /ELIDIAL Voice ID: [id number] Report ID: [id number]
--- NOTE | 2021-07-28 12:44 | P.HP ---
Certification for Inpatient Patient admitted to: Inpatient With expected LOS: >2 Midnights Patient will require the following post-hospital care: None Practitioner: I am a practitioner with admitting privileges, knowledge of patient current condition, hospital course, and medical plan of care. Services: Services provided to patient in accordance with Admission requirements found in Title 42 Section 412.3 of the Code of Federal Regulations Patient History Date of Service: 07/27/21 Reason for admission: Abdominal pain History of Present Illness: Patient is a 20-year-old female who came to the hospital with abdominal discomfort. Pain was mainly in the right upper quadrant. She has some nausea and vomiting associated with it as well. In the emergency room she had an ultrasound which revealed gallbladder distention. Her LFTs were elevated as well. Decision was made to admit the patient to the hospital for acute cholecystitis with possible choledocholithiasis. MRCP was obtained in the hospital and patient is MRCP does not reveal a stone occluding the bile duct. We will go ahead and repeat her LFTs in the morning. General surgery consul tation. She probably need a laparoscopic cholecystectomy. Allergies nortriptyline Allergy (Verified 11/19/20 11:14) Rash Home Medications: NK [No Home Meds] 07/27/21 - Past Medical/Surgical History Diabetic: No -: None -: lap appy - Family History Father Family History: Reviewed- Non-Contributory - Social History Smoking Status: Never smoker Alcohol use: No CD- Drugs: No Caffeine use: No Place of Residence: Home Review of Systems 10-point ROS is otherwise unremarkable Physical Examination - Vital Signs Temperature: 97.9 F Blood Pressure: 87/53 Pulse: 76 Respirations: 16 Pulse Ox (%): 99 - Physical Exam General: Alert, In no apparent distress, Oriented x3 HEENT: Atraumatic, PERRLA, Mucous membr. moist/pink, EOMI, Sclerae nonicteric Neck: Supple, 2+ carotid pulse no bruit, No LAD, Without JVD or thyroid abnormality Respiratory: Clear to auscultation bilaterally, Normal air movement Cardiovascular: Regular rate/rhythm, Normal S1 S2 Gastrointestinal: Normal bowel sounds, Distended, Tenderness Musculoskeletal: No clubbing, No swelling, No tenderness Integumentary: No rashes Neurological: Normal gait, Normal speech, Normal strength at 5/5 x4 extr, Normal tone, Sensation intact, Cranial nerves 3-12 intact, Normal affect Lymphatics: No axilla or inguinal lymphadenopathy - Studies Laboratory Data (last 24 hrs) 07/27/21 12:12: Sodium 137, Potassium 3.8, BUN 10, Creatinine 0.73, Glucose 87, Total Bilirubin 1.9 H, AST 962 H*, ALT 847 H*, Alkaline Phosphatase 190 H, Lipase 165 Assessment & Plan - Problems (Diagnosis) (1) Acute cholecystitis Current Visit: Yes Status: Acute (2) Elevated LFTs Current Visit: Yes Status: Acute (3) Cholelithiasis Current Visit: Yes Status: Acute - Plan -IV antibiotics -IV fluids -Surgery and GI consultation -CBC, CMP, lipase, coagulation profile -N.p.o. -Repeat abdominal film -MRCP is negative; may need ERCP as an outpatient pending repeat LFTs -Antiemetics Discharge Plan: Home Plan to discharge in: Greater than 2 days - Advance Directives Does patient have a Living Will: No Does patient have a Durable POA for Healthcare: No - Code Status/Comfort Care Code Status Assessed: Yes Code Status: Full Code Critical Care: No Time Spent Managing PTS Care (In Minutes): 45
--- NOTE | 2021-07-28 12:53 | P.PN ---
Subjective Date of Service: 07/28/21 Patient's LFTs have improved. Patient clinical condition is better. Review of Systems 10-point ROS is otherwise unremarkable Physical Examination - Vital Signs Temperature: 97.9 F Blood Pressure: 87/53 Pulse: 76 Respirations: 16 Pulse Ox (%): 99 - Physical Exam General: Alert, In no apparent distress, Oriented x3 HEENT: Atraumatic, PERRLA, EOMI Neck: Supple, JVD not distended Respiratory: Clear to auscultation bilaterally, Normal air movement Cardiovascular: Regular rate/rhythm, Normal S1 S2 Gastrointestinal: Normal bowel sounds, No tenderness Musculoskeletal: No tenderness Integumentary: No rashes Neurological: Normal speech, Normal tone, Normal affect Lymphatics: No axilla or inguinal lymphadenopathy - Studies Laboratory Data (last 24 hrs) 07/27/21 12:12: Potassium 3.8, Total Bilirubin 1.9 H, AST 962 H*, ALT 847 H*, Alkaline Phosphatase 190 H Medications List Reviewed: Yes Assessment & Plan - Problems (Diagnosis) (1) Acute cholecystitis Current Visit: Yes Status: Acute (2) Elevated LFTs Current Visit: Yes Status: Acute (3) Cholelithiasis Current Visit: Yes Status: Acute - Plan Continue with plan of care as mentioned below: -Plan for surgery today -IV antibiotics -IV fluids -Surgery and GI consultation appreciated -CBC, CMP, lipase, coagulation profile -N.p.o. -MRCP is negative; LFTs have decreased. Outpatient GI follow-up as needed -Antiemetics Discharge Plan: Home Plan to discharge in: Greater than 2 days - Advance Directives Does patient have a Living Will: No Does patient have a Durable POA for Healthcare: No - Code Status/Comfort Care Code Status: Full Code Critical Care: No Time Spent Managing PTS Care (In Minutes): 35
[2021-07-28] MEDS ORDERED: Ringers Lactate 1,000 ML IV ONE (13:34)
[2021-07-28] MEDS ORDERED: FENTANYL CITR 100 MCG/2 ML ONE (13:50)
[2021-07-28] MEDS ORDERED: ROCURONIUM 50 MG/5 ML VIAL IV ONE (13:50)
[2021-07-28] MEDS ORDERED: MIDAZOLAM HCL 2 MG/2 ML INJ ONE (13:50)
[2021-07-28] MEDS ORDERED: propofoL 200 MG/20 ML VIAL IV ONE (13:50)
[2021-07-28] MEDS ORDERED: LIDOCAINE 2% MPF 5 ML VIAL ONE (13:50)
[2021-07-28] MEDS ORDERED: dexAMETHasone 10 MG/ML VIAL ONE (13:50)
[2021-07-28] MEDS ORDERED: ONDANSETRON 4 MG/2 ML VIAL ONE ×2 (13:51→15:51)
[2021-07-28] MEDS ORDERED: CEFOXITIN SODIUM 1 GM/VIAL ONE (14:36)
[2021-07-28] MEDS ORDERED: GLYCOPYRROLATE 0.2 MG/ML SYR ONE (15:08)
[2021-07-28] MEDS ORDERED: KETOROLAC 30 MG/ML INJ ONE (15:08)
[2021-07-28] MEDS ORDERED: NEOSTIGMINE 1 MG/ML -5 ML ONE (15:08)
[2021-07-28] MEDS: HYDROMORPHONE HCL 1 MG/ML INJ ONE ×2 (15:49→15:54)
--- NOTE | 2021-07-28 15:53 | P.OP ---
Etiquette Coach: Daisy MACHADO Preoperative diagnosis: Acute cholecystitis, cholelithiasis possible choledocholithiasis Postoperative diagnosis: same Primary procedure: Lap Tiffanie Anesthesia: General Estimated blood loss: min Specimen: GB Findings: as above Complications: None Transferred to: Recovery Room Condition: Good
[2021-07-28] MEDS ORDERED: HYDROMORPHONE HCL 1 MG/ML INJ IV PRN (15:56)
[2021-07-28] MEDS: HYDROCODONE/APAP 7.5/325 MG TAB PO PRN (20:05)
[2021-07-28] MEDS: Levofloxacin500mg IV 500 MG/100 ML BAG IV SCH (22:17)
[2021-07-29] MEDS: NA CHLORIDE 0.9% 1,000 ML IV SCH (00:54)
--- NOTE | 2021-07-29 03:58 | OP ---
Date of Procedure: 07/28/2021 Surgeon: Rell Victoria MD Director Learning: JEANNETTE Gupta. Preoperative Diagnosis: Acute cholecystitis, cholelithiasis, and possible choledocholithiasis. Postoperative Diagnosis: Acute cholecystitis, cholelithiasis, and possible choledocholithiasis. Procedure Performed: Laparoscopic cholecystectomy. Estimated Blood Loss: Minimal. Specimen: Gallbladder. Finding: As above. Anesthesia: General. Complications: None. Disposition: The patient tolerated the procedure in stable condition and taken to Recovery in good g eneral condition. Operative Note: The patient was brought to the OR and placed in supine position and general anesthes ia begun. The patient was prepped and draped in the usual sterile fashion. Marcaine 0.5% was infilt rated locally. A 15-blade was used to make a 1 cm infraumbilical midline incision. Subcutaneous tis chivo was divided. Fascia was identified and divided. #1 Vicryl stay suture was placed. Peritoneal c avity was entered with sharp and blunt dissection. 12 mm trocar was placed into the peritoneal cavit y under direct vision. Pneumoperitoneum was established. Then, three 5 mm trocars were placed, 1 in the epigastrium just to the right of midline and 2 in the right subcostal region. Laparoscopy revea led a gallbladder with mild inflammation. Fundus was retracted superiorly. Infundibulum was retract ed inferolaterally. Cystic duct and cystic artery were clearly identified with blunt dissection. Cl ips were placed. Both structures were divided. Cautery was used to remove the gallbladder from the liver bed. Bleeding on the liver bed controlled with cautery. Gallbladder was retrieved through the umbilicus via an EndoCatch bag. Right upper quadrant was irrigated. Effluent was clear. No eviden ce of bleeding or bile leakage appreciated. Subsequently, all trocars were removed under direct visi on. Stay sutures were tied to each other to approximate the fascial defect. Subcutaneous wounds wer e irrigated. Bleeding was controlled with cautery. A 3-0 chromic used to approximate the subcutaneo us tissue and close the skin. Sterile dressing was applied. The patient was awakened and taken to R ecovery in good general condition. /MODL Voice ID: [id number] Report ID: [id number]
[2021-07-29] MEDS: METRONIDAZOLE 500mg IVPB 500 MG/100 ML BAG IV SCH (05:47)
[2021-07-29 06:23] LABS: Absolute Lymphocytes (CBC) 1.1 K/uL (0.7-4.9); Hematocrit 38.8 % (36.0-45.0); Lymphocytes % 13.6 % (15.3-44.8); MPV 7.5 fL (7.6-11.3); RBC Red Blood Cell Count 4.55 M/uL (3.86-4.86)
[2021-07-29 06:39] LABS: BUN Blood Urea Nitrogen 8 mg/dL (7-18); Bicarbonate 23 mmol/L (21-32); Glucose Level 143 mg/dL (74-106); Magnesium 1.9 mg/dL (1.8-2.4); Potassium 4.5 mmol/L (3.5-5.1); Sodium Level 137 mmol/L (136-145)
[2021-07-29] MEDS: ENOXAPARIN 40 MG/0.4 ML SQ SCH (08:57)
[2021-07-29] MEDS: HYDROCODONE/APAP 7.5/325 MG TAB PO PRN (09:04)
[2021-07-29 09:22] LABS: AST/SGOT 150 U/L (15-37); Albumin 3.1 g/dL (3.4-5.0); Alkaline Phosphatase 157 U/L (45-117); Bilirubin Direct 0.1 mg/dL (0-0.2); Bilirubin Total 0.5 mg/dL (0.2-1.0); Protein, Total 6.8 g/dL (6.4-8.2)
[2021-07-29 09:25] LABS: ALT/SGPT 457 U/L (12-78)
[2021-07-29 09:46] VITALS: BP 112/68; TEMP 97.6
--- NOTE | 2021-07-29 11:19 | PN ---
Date of Progress Note: 07/29/2021 Subjective: She is awake, alert. No complaint. Objective: Vital Signs: Stable. Afebrile. Tolerating her diet. Abdomen: Benign, soft, nondistended, nontender. Positive bowel sounds. Laboratory Data: Reviewed. White count is normal. Chemistry reviewed. Her LFTs continue to decrea se. Assessment: Status post laparoscopic cholecystectomy. Recommendation: As her LFTs are improving, from my point of view, she can be discharged home. I cou ld follow up on the hepatitis profile as an outpatient, but I do believe this is choledocholithiasis that passed and the discharge instructions given to patient in detail and documented. Patient is to follow up with me in 1 week. /MODL Voice ID: [id number] Report ID: [id number]
[2021-07-30 17:50] LABS: HBsAG Nonreactive (Nonreactive)
== END 2021-07-29 13:09 | disposition home or self-care (01) | DRG 419 ==
LOC: ER 09:17 → ERHOLD 16:54 → 2ND 20:35
PROVIDERS: ADMIT Hospitalist; ATTEND Hospitalist
PROC: 0FT44ZZ Resection of Gallbladder, Percutaneous Endoscopic Approach (ICD-10-PCS; principal; 2021-07-28 12:15)
DX: K80.12 Calculus of gallbladder with acute and chronic cholecystitis without obstruction (principal); R94.5 Abnormal results of liver function studies; Z88.8 Allergy status to other drugs, medicaments and biological substances; Z20.822 Contact with and (suspected) exposure to COVID-19
CPT/HCPCS: 0240U; 36415; 71045; 74181; 76705; 80048; 80053; 80074; 80076; 81025; 83690; 83735; 84100; 85025; 85610; 85730; 88304; 94010; 96374; 99285; J0694; J1100; J1170; J1650; J2250; J2405; J2704; J2710; J3010; J7030; J7120

== ENCOUNTER 2021-10-16 20:45 | Emergency (ER) | payer OTHER ==
--- OUTSIDE RECORDS SUMMARY | 2021-10-16 20:50 | XMS REPORT | Continuity of Care Document ---
:2000 Author Organization [facility] t Address [address] [place] [address] Care Team Providers Name Role Phone Grace Hanley Primary Care Physician Lashawn KEY Attending Clinician Unavailable ARCELIA Attending Clinician Unavailable Nurse, Women's Health Attending Clinician Unavailable Lashawn Key MD Attending Clinician Arcelia RICO Attending Clinician 2, Lab Attending Clinician Unavailable Doctor Unassigned, Name Attending Clinician Unavailable Jaziel MOORE Attending Clinician Matilda Flaherty MD Attending Clinician [facility], [facility] Attending Clinician Unavailable DALE WILEY Attending Clinician Unavailable Ultrasound, Mfm Attending Clinician Unavailable Dale Wiley MD Attending Clinician Lashawn KEY Admitting Clinician Unavailable Lashawn Key MD Admitting Clinician Payers Payer Name Policy Type Policy Number Effective Date Expiration Date Dionisio KRUSE [id number] 2015 HEALTH 00:00:00 Problems Condition Condition Condition Status Onset Resolution Last Treating Co mments Source Name Details Category Date Date Treatment Clinician Date Single Single Disease Active 2020-06 Univers liveborn, liveborn, 2-24 ity of born in born in 00:00: [facility], 00 Medi ankit delivered delivered Bran ch by vaginal by vaginal delivery delivery Encounter Encounter Disease Active 2020-06 Uni vers for for 2-23 [place] 00 Medica [place] Branch Decreased Decreased Disease Active 2020-06 Uni vers 2-23 [place] movements [place] 00:[place] third in third 00 Medica l trimester trimester Bran ch Gestationa Gestationa Disease Active 2020-06 U nivers l diabetes l diabetes 1-10 it y of mellitus mellitus 00:00: [place] (GDM) in (GDM) in 00 Medica l third third Branch trimester trimester controlled controlled on oral on oral hypoglycem hypoglycem ic drug ic drug Supervisio Supervisio Disease Active U nivers n of n of 8-24 ity of high-risk high-risk 00:[place] 00 [facility] with with Branch insufficie insufficie nt nt care in care in third third trimester trimester 36 weeks 36 weeks Disease Active Unive rs gestation gestation 8-24 ity of of of 00:00: [place] 00 [facility] Branch 37 weeks 37 weeks Disease Active Unive rs gestation gestation 8-24 ity of of of 00:00: 00 [facility] Branch 38 weeks 38 weeks Disease Active Unive rs gestation gestation 8-24 ity of of of 00:00: [place] 00 [facility] Branch Obesity Obesity Disease Active 2019-06 Univers (BMI (BMI 0-21 ity of 30-39.9) 30-39.9) 00:00: 00 Medical Branch Allergies, Adverse Reactions, Alerts Allergy Allergy Status Severity Reaction(s) Onset Inactive Treating Comm ents Source Name Type Date Date Clinician Nortript Propensi Active Hives Univer s yline ty to 8-24 ity of adverse 00:00: [place] reaction 00 Medical s Branch NORTRIPT DRUG Active Hives Univers YLINE INGREDI 8-24 ity of 00:00: [place] 00 Medical Branch Social History Social Habit Start Date Stop Date Quantity Comments Source ASSERTION 2020-09-13 University of 00:00:00 [place] [facility] History SDOH University o f Alcohol Comment [place] [facility] ical [facility] Exposure to Not sure [place] of SARS-CoV-2 [place] [facility] (event) Branch Alcohol intake 2021-09-14 2021-09-14 Ex-drinker University 00:00:00 00:00:00 (finding) [facility] Tobacco use and 2021-01-26 2021-01-26 Former user Universi ty of exposure 00:00:00 00:00:00 [place] [facility] History SDOH 2020-03-25 2020-03-25 4 University o f Alcohol Frequency 00:00:00 00:00:00 [place] M edical Branch History SDAL 2020-03-25 2020-03-25 99 University o f Alcohol Std 00:00:00 00:00:00 [place] [facility] Drinks Branch History [facility] 2020-03-25 2020-03-25 99 University o f Alcohol Binge 00:00:00 00:00:00 [place] Medic al Branch History of 2020-01-27 Chews Tobacco [place] of tobacco use 00:00:00 [facility] Sex Assigned At 2000 2000 Universit y of 00:00:00 00:00:00 [facility] Smoking Status Start Date Stop Date Source Former smoker 2021-01-26 00:00:00 2021-01-26 00:00:00 [facility] Medications Ordered Filled Start Stop Current Ordering Indication Dosage Frequency Signature Comments Components Source Medication Medication Date Date Medication? Clinician (SIG) Name Name medroxyPROG 2021- No [id number] 150mg Univers ESTERone 09-14 ity of (DEPO-PROVE 21:00: 19:51 [place] RA) syringe 00 :00 Medical 150 mg [place] medroxyPROG 2021- No [id number] 150mg 150 mg, Univers ESTERone 09-14 Intramuscu ity of (DEPO-PROVE 21:00: 19:51 lar, ONCE, [place] RA) syringe 00 :00 1 dose, On Me dical 150 mg [facility] 09/14/21 at 1600, Routine sulfamethox Yes [id number] 1{tbl} Take 1 Univers azole-trime 1-31 tablet by ity of thoprim 00:00: mouth 2 [place] 800-160 mg 00 (two) Medical per tablet times Branch daily. sulfamethox Yes [id number] 1{tbl} Take 1 Univers azole-trime 1-31 tablet by ity of thoprim 00:00: mouth 2 [place] 800-160 mg 00 (two) Medical per tablet times Branch daily. sulfamethox 2021-0 Yes [id number] 1{tbl} Take 1 Univers azole-trime 1-31 tablet by ity of thoprim 00:00: mouth 2 [place] 800-160 mg 00 (two) Medical per tablet times Branch daily. sulfamethox 2021-0 Yes [id number] 1{tbl} Take 1 Univers azole-trime 1-31 tablet by ity of thoprim 00:00: mouth 2 [place] 800-160 mg 00 (two) Medical per tablet times Branch daily. sulfamethox 2021-0 Yes [id number] 1{tbl} Take 1 Univers azole-trime 1-31 tablet by ity of thoprim 00:00: mouth 2 [place] 800-160 mg 00 (two) Medical per tablet times Branch daily. sulfamethox 2021-0 Yes [id number] 1{tbl} Take 1 Univers azole-trime 1-31 tablet by ity of thoprim 00:00: mouth 2 [place] 800-160 mg 00 (two) Medical per tablet times Branch daily. sulfamethox 2021-2021- No [id number] 1{tbl} Take 1 Univers azole-trime 1-31 03-10 tablet by it y of thoprim 00:00: 00:00 mouth 2 [place] 800-160 mg 00 :00 (two) Medical per tablet times Branch daily. medroxyPROG 2021- No [id number] 150mg Univers ESTERone 06-23 ity of (DEPO-PROVE 00:00: 22:40 [facility]) syringe 00 :00 Medical 150 mg Branch medroxyPROG 2021- No [id number] 150mg 150 mg, Univers ESTERone 06-23 Intramuscu ity of (DEPO-PROVE 00:00: 22:40 lar, ONCE, [facility]) syringe 00 :00 1 dose, On Me dical 150 mg Tue Branch 06/22/21 at 1800, Routine 2020-06- No Take by [facility] ers vit 2-25 12-25 mouth. ity of calc,iron,f 08:36: 00:00 [place] olic 38 :00 Medical ( Branch VITAMIN ORAL) 2020-06- No Take by Univ ers vit 2-25 12-25 mouth. ity of calc,iron,f 08:36: 00:00 [place] olic 38 :00 Medical ( Branch VITAMIN ORAL) 2020-06 Yes [id number] 1{tbl} Take 1 Univers vitamin 2-25 102 tablet by ity of w/FA tablet 00:00: mouth [place] 00 daily. Medical Branch 2020-06 Yes [id number] 1{tbl} Take 1 Univers vitamin 2-25 102 tablet by ity of w/FA tablet 00:00: mouth [place] 00 daily. Medical Branch docusate 2020-06 Yes [id number] 240mg Take 1 Univers calcium 240 2-25 102 capsule by it y of mg capsule 00:00: mouth once [place] 00 daily as Medical needed for Branch Constipati on. ferrous 2020-06 Yes [id number] 325mg Take 1 Univers sulfate 325 2-25 102 tablet by ity of mg (65 mg 00:00: mouth 2 [place] iron) 00 (two) Medical tablet times Branch daily. ibuprofen 2020-06 Yes [id number] 600mg Take 1 Univers 600 mg 2-25 102 tablet by ity of tablet 00:00: mouth [place] 00 every 6 Medical (six) Branch hours as needed (Pain). Take with food or milk. 2020-06 Yes [id number] 1{tbl} Take 1 Univers vitamin 2-25 102 tablet by ity of w/FA tablet 00:00: mouth [place] 00 daily. Medical Branch docusate 2020-06 Yes [id number] 240mg Take 1 Univers calcium 240 2-25 102 capsule by it y of mg capsule 00:00: mouth once [place] 00 daily as Medical needed for Branch Constipati on. ferrous 2020-06 Yes [id number] 325mg Take 1 Univers sulfate 325 2-25 102 tablet by ity of mg (65 mg 00:00: mouth 2 [place] iron) 00 (two) Medical tablet times Branch daily. ibuprofen 2020-06 Yes [id number] 600mg Take 1 Univers 600 mg 2-25 102 tablet by ity of tablet 00:00: mouth [place] 00 every 6 Medical (six) Branch hours as needed (Pain). Take with food or milk. 2020-06 Yes [id number] 1{tbl} Take 1 Univers vitamin 2-25 102 tablet by ity of w/FA tablet 00:00: mouth [place] 00 daily. Medical Branch docusate 2020-06 Yes [id number] 240mg Take 1 Univers calcium 240 2-25 102 capsule by it y of mg capsule 00:00: mouth once [place] 00 daily as Medical needed for Branch Constipati on. ferrous 2020-06 Yes [id number] 325mg Take 1 Univers sulfate 325 2-25 102 tablet by ity of mg (65 mg 00:00: mouth 2 [place] iron) 00 (two) Medical tablet times Branch daily. ibuprofen 2020-06 Yes [id number] 600mg Take 1 Univers 600 mg 2-25 102 tablet by ity of tablet 00:00: mouth [place] 00 every 6 Medical (six) Branch hours as needed (Pain). Take with food or milk. 2020-06 Yes [id number] 1{tbl} Take 1 Univers vitamin 2-25 102 tablet by ity of w/FA tablet 00:00: mouth [place] 00 daily. Medical Branch docusate 2020-06 Yes [id number] 240mg Take 1 Univers calcium 240 2-25 102 capsule by it y of mg capsule 00:00: mouth once [place] 00 daily as Medical needed for Branch Constipati on. ferrous 2020-06 Yes [id number] 325mg Take 1 Univers sulfate 325 2-25 102 tablet by ity of mg (65 mg 00:00: mouth 2 [place] iron) 00 (two) Medical tablet times Branch daily. ibuprofen 2020-06 Yes [id number] 600mg Take 1 Univers 600 mg 2-25 102 tablet by ity of tablet 00:00: mouth [place] 00 every 6 Medical (six) Branch hours as needed (Pain). Take with food or milk. 2020-06 Yes [id number] 1{tbl} Take 1 Univers vitamin 2-25 102 tablet by ity of w/FA tablet 00:00: mouth [place] 00 daily. Medical Branch docusate 2020-06 Yes [id number] 240mg Take 1 Univers calcium 240 2-25 102 capsule by it y of mg capsule 00:00: mouth once [place] 00 daily as Medical needed for Branch Constipati on. ferrous 2020-06 Yes [id number] 325mg Take 1 Univers sulfate 325 2-25 102 tablet by ity of mg (65 mg 00:00: mouth 2 [place] iron) 00 (two) Medical tablet times Branch daily. ibuprofen 2020-06 Yes [id number] 600mg Take 1 Univers 600 mg 2-25 102 tablet by ity of tablet 00:00: mouth [place] 00 every 6 Medical (six) Branch hours as needed (Pain). Take with food or milk. 2020-06 Yes [id number] 1{tbl} Take 1 Univers vitamin 2-25 102 tablet by ity of w/FA tablet 00:00: mouth [place] 00 daily. Medical Branch 2020-06 Yes [id number] 1{tbl} Take 1 Univers vitamin 2-25 102 tablet by ity of w/FA tablet 00:00: mouth [place] 00 daily. Medical Branch 2020-06 Yes [id number] 1{tbl} Take 1 Univers vitamin 2-25 102 tablet by ity of w/FA tablet 00:00: mouth [place] 00 daily. Medical Branch 2020-06 Yes [id number] 1{tbl} Take 1 Univers vitamin 2-25 102 tablet by ity of w/FA tablet 00:00: mouth [place] 00 daily. Medical Branch 2020-06 Yes [id number] 1{tbl} Take 1 Univers vitamin 2-25 102 tablet by ity of w/FA tablet 00:00: mouth [place] 00 daily. Medical Branch 2020-06 Yes [id number] 1{tbl} Take 1 Univers vitamin 2-25 102 tablet by ity of w/FA tablet 00:00: mouth [place] 00 daily. Medical Branch docusate 2020-06- No [id number] 240mg Take 1 Univers calcium 240 2-25 02-08 102 capsule by i ty of mg capsule 00:00: 00:00 mouth once [place] 00 :00 daily as Medical needed for Branch Constipati on. ferrous 2020-06- No [id number] 325mg Take 1 Univers sulfate 325 2-25 02-08 102 tablet by it y of mg (65 mg 00:00: 00:00 mouth 2 [place] iron) 00 :00 (two) Medical tablet times Branch daily. ibuprofen 2020-06- No [id number] 600mg Take 1 Univers 600 mg 2-25 02-08 102 tablet by ity of tablet 00:00: [...] 2-24 Oral, ity of (TYLENOL) 09:53: Q6HPRN, [place] tablet 650 45 Starting Medic al mg [...] IV Push, ity of (PF)) 09:53: Q8HPRN, [place] injection 4 45 Starting Medi ankit mg on Fri Branch 05/28/21 at 0353, Until Discontinu ed, Routine, Nausea and Vomiting (N/V) simethicone 2020-06 Yes 160mg 160 mg, Un [place] (GAS RELIEF 2-24 Oral, ity of (SIMETHICON 09:53: PC+HSPRN, [place] E)) 45 Starting Medical chewable on Fri Branch tablet 160 05/28/21 mg at 0353, [...] [place] 20-0.5 % 44 on Fri Medical topical 05/28/21 Branch spray at 0353, Until Discontinu ed, Routine, Perineum discomfort FENTanyl 2 2020-06- No Intra-op Un [place]ay[place] mcg/mL + 07-29- ity of bupivacaine 05:44: 11:28 [place] 0.125% in 00 :29 Medical NS 250 mL Branch epidural bag lidocaine-e 2020-06- No Epidural, Univers pinephrine 07-29 12-24 ONCE INTRA it y of (XYLOCAINE 05:35: 11:28 PROCEDURE, [place] W/EPINEPHRI 00 :29 Starting Medi ankit NE) 1.5 on [place] Branch %-1:200,000 05/27/21 injection at 2335, Until Mon05/28/21 at 0528, Routine, Intra-op lidocaine 2020-06- No Infiltrati U nivers 1% 07-2924 on, ONCE ity of (XYLOCAINE) 05:29: 11:28 INTRA [place] 100 mg/10 00 :29 PROCEDURE, Medi ankit mL (1 %) Starting Branch injection on Abby 05/27/21 at 2329, Until Mon05/28/21 at 0528, Routine, Intra-op lactated 2020-06- No 1000mL at 125 Univ ers ringers IV 07-28-24 mL/hr, ity of infusion 22:15: 09:55 1,000 mL, [place] as 1,000 mL 00 :04 IV Medical Infusion, Branch CONTINUOUS , Starting on Abby 05/27/21 at 1615, Until Mon05/28/21 at 0355, Routine FENTanyl PF 2020-06- No 100ug 100 mcg, Univers (SUBLIMAZE 07-28- Slow IV ity o f (PF)) 22:03: 09:55 Push, [place] injection 28 :04 Q1HPRN, Medical 100 mcg Starting Branch on Abby 05/27/21 at 1603, Until Mon05/28/21 at 0355, Routine, Pain lactated 2020-06- No 500mL at 999 Unive rs ringers IV 2-23 12-24 mL/hr, 500 it y of infusion 22:03: 09:55 mL, IV [place] 500 mL 28 :04 Infusion, Medical PRN - SEE Branch INSTRUCTIO NS, Starting on Abby 05/27/21 at 1603, Until Mon05/28/21 at 0355, Routine LR 1000 mL 2020-06- No 2mU/min at 6-120 Univers + oxytocin 2-23 12-24 mL/hr, IV ity of 20 units IV 22:03: 09:55 Infusion, [place] Solution 28 :04 TITRATE, Medical Starting Branch on Abby 05/27/21 at 1603, Until Mon05/28/21 at 0355, Routine 2020-06 [facility] mouth. ity of calc,iron,f 14:46: [place] olic 18 Medical ( Branch VITAMIN ORAL) glyBURIDE 2020-06 Yes [id number] 1.25mg Take 1 Univers 1.25 mg 2-01 tablet by ity of tablet 00:00: mouth with [place] [address] evening Medical meal. Take Branch 30 mins before dinner glyBURIDE 2020-06 Yes [id number] 1.25mg Take 1 Univers 1.25 mg 2-01 tablet by ity of tablet 00:00: mouth with [place] [address] evening Medical meal. Take Branch 30 mins before dinner glyBURIDE 2020-06 Yes [id number] 1.25mg Take 1 Univers 1.25 mg 2-01 tablet by ity of tablet 00:00: mouth with [place] [address] evening Medical meal. Take Branch 30 mins before dinner glyBURIDE 2020-06 Yes [id number] 1.25mg Take 1 Univers 1.25 mg 2-01 tablet by ity of tablet 00:00: mouth with [place] 00 evening Medical meal. Take Branch 30 mins before dinner glyBURIDE 2020-06 Yes [id number] 1.25mg Take 1 Univers 1.25 mg 2-01 tablet by ity of tablet 00:00: mouth with [place] 00 evening Medical meal. Take Branch 30 mins before dinner glyBURIDE 2020-06 Yes [id number] 1.25mg Take 1 Univers 1.25 mg 2-01 tablet by ity of tablet 00:00: mouth with [place] 00 evening Medical meal. Take Branch 30 mins before dinner glyBURIDE 2020-06 Yes [id number] 1.25mg Take 1 Univers 1.25 mg 2-01 tablet by ity of tablet 00:00: mouth with [place] 00 evening Medical meal. Take Branch 30 mins before dinner glyBURIDE 2020-06- No [id number] 1.25mg Take 1 Univers 1.25 mg 2-01 12-25 tablet by ity of tablet 00:00: 00:00 mouth with [place] 00 :00 evening Medical meal. Take Branch 30 mins before dinner glyBURIDE 2020-06- No [id number] 1.25mg Take 1 Univers 1.25 mg 2-01 12-25 tablet by ity of tablet 00:00: 00:00 mouth with [place] 00 :00 evening Medical meal. Take Branch 30 mins before dinner metroNIDAZO 2020-06- No [id number] 500mg Take 1 Univers LE 500 mg - 12-07 tablet by ity of tablet 00:00: 00:00 mouth [place] 00 :00 every 12 Medical (twelve) Branch hours. Lancets 2020-06 Yes [id number] Check Unive rs Misc 1-12 blood ity of 00:00: sugar 4 [place] 00 times Medical daily. Branch Blood-Gluco 2020-06 Yes [id number] Use as Univers se Meter 1-12 directed ity of (BLOOD 00:00: [place] GLUCOSE 00 Medical MONITORING) Branch Kit blood sugar 2020-06 Yes [id number] Check U nivers diagnostic 1-12 blood ity of strip 00:00: sugar 4 [place] 00 times Medical daily. Branch Alcohol 2020-06 Yes [id number] Apply to U nivers Swabs 1-12 area(s) 4 ity of (ALCOHOL 00:00: (four) [place] PREP PADS) 00 times Medical PadM daily. Branch Lancets 2020-06 Yes [id number] Check Unive rs Misc 1-12 blood ity of 00:00: sugar 4 [place] 00 times Medical daily. Branch Blood-Gluco 2020-06 Yes [id number] Use as Univers se Meter 1-12 directed ity of (BLOOD 00:00: [place] GLUCOSE 00 Medical MONITORING) Branch Kit blood sugar 2020-06 Yes [id number] Check U nivers diagnostic 1-12 blood ity of strip 00:00: sugar 4 [place] 00 times Medical daily. Branch Alcohol 2020-06 Yes [id number] Apply to U nivers Swabs 1-12 area(s) 4 ity of (ALCOHOL 00:00: (four) [place] PREP PADS) 00 times Medical PadM daily. Branch Lancets 2020-06 Yes [id number] Check Unive rs Misc 1-12 blood ity of 00:00: sugar 4 [place] 00 times Medical daily. Branch Blood-Gluco 2020-06 Yes [id number] Use as Univers se Meter 1-12 directed ity of (BLOOD 00:00: [place] GLUCOSE 00 Medical MONITORING) Branch Kit blood sugar 2020-06 Yes [id number] Check U nivers diagnostic 1-12 blood ity of strip 00:00: sugar 4 [place] 00 times Medical daily. Branch Alcohol 2020-06 Yes [id number] Apply to U nivers Swabs 1-12 area(s) 4 ity of (ALCOHOL 00:00: (four) [place] PREP PADS) 00 times Medical PadM daily. Branch Lancets 2020-06 Yes [id number] Check Unive rs Misc 1-12 blood ity of 00:00: sugar 4 [place] 00 times Medical daily. Branch Blood-Gluco 2020-06 Yes [id number] Use as Univers se Meter 1-12 directed ity of (BLOOD 00:00: [place] GLUCOSE 00 Medical MONITORING) Branch Kit blood sugar 2020-06 Yes [id number] Check U nivers diagnostic 1-12 blood ity of strip 00:00: sugar 4 [place] 00 times Medical daily. Branch Alcohol 2020-06 Yes [id number] Apply to U nivers Swabs 1-12 area(s) 4 ity of (ALCOHOL 00:00: (four) [place] PREP PADS) 00 times Medical PadM daily. Branch Lancets 2020-06 Yes [id number] Check Unive rs Misc 1-12 blood ity of 00:00: sugar 4 [place] 00 times Medical daily. Branch Blood-Gluco 2020-06 Yes [id number] Use as Univers se Meter 1-12 directed ity of (BLOOD 00:00: [place] GLUCOSE 00 Medical MONITORING) Branch Kit blood sugar 2020-06 Yes [id number] Check U nivers diagnostic 1-12 blood ity of strip 00:00: sugar 4 [place] 00 times Medical daily. Branch Alcohol 2020-06 Yes [id number] Apply to U nivers Swabs 1-12 area(s) 4 ity of (ALCOHOL 00:00: (four) [place] PREP PADS) 00 times Medical PadM daily. Branch Lancets 2020-06 Yes [id number] Check Unive rs Misc 1-12 blood ity of 00:00: sugar 4 [place] 00 times Medical daily. Branch Blood-Gluco 2020-06 Yes [id number] Use as Univers se Meter 1-12 directed ity of (BLOOD 00:00: [place] GLUCOSE 00 Medical MONITORING) Branch Kit blood sugar 2020-06 Yes [id number] Check U nivers diagnostic 1-12 blood ity of strip 00:00: sugar 4 [place] 00 times Medical daily. Branch Alcohol 2020-06 Yes [id number] Apply to U nivers Swabs 1-12 area(s) 4 ity of (ALCOHOL 00:00: (four) [place] PREP PADS) 00 times Medical PadM daily. Branch Lancets 2020-06 Yes [id number] Check Unive rs Misc 1-12 blood ity of 00:00: sugar 4 [place] 00 times Medical daily. Branch Blood-Gluco 2020-06 Yes [id number] Use as Univers se Meter 1-12 directed ity of (BLOOD 00:00: [place] GLUCOSE 00 Medical MONITORING) Branch Kit blood sugar 2020-06 Yes [id number] Check U nivers diagnostic 1-12 blood ity of strip 00:00: sugar 4 [place] 00 times Medical daily. Branch Alcohol 2020-06 Yes [id number] Apply to U nivers Swabs 1-12 area(s) 4 ity of (ALCOHOL 00:00: (four) [place] PREP PADS) 00 times Medical PadM daily. Branch Lancets 2020-06- No [id number] Check Univ ers Misc -12 05-29 blood ity of 00:00: 00:00 sugar 4 [place] 00 :00 times Medical daily. Branch Blood-Gluco 2020-06- No [id number] Use as Univers se Meter 06-16 directed ity of (BLOOD 00:00: 00:00 [place] GLUCOSE 00 :00 Medical MONITORING) Branch Kit blood sugar 2020-06- No [id number] Check Univers diagnostic -12 05-29 blood ity of strip 00:00: 00:00 sugar 4 [place] 00 :00 times Medical daily. Branch Alcohol 2020-06- No [id number] Apply to Univers Swabs 06-16 area(s) 4 ity of (ALCOHOL 00:00: 00:00 (four) [place] PREP PADS) 00 :00 times Medical PadM daily. Branch Lancets 2020-06- No [id number] Check Univ ers Misc 06-16 blood ity of 00:00: 00:00 sugar 4 [place] 00 :00 times Medical daily. Branch Blood-Gluco 2020-06- No [id number] Use as Univers se Meter 06-16 directed ity of (BLOOD 00:00: 00:00 [place] GLUCOSE 00 :00 Medical MONITORING) Branch Kit blood sugar 2020-06- No [id number] Check Univers diagnostic 06-16 blood ity of strip 00:00: 00:00 sugar 4 [place] 00 :00 times Medical daily. Branch Alcohol 2020-06- No [id number] Apply to Univers Swabs 06-16 area(s) 4 ity of (ALCOHOL 00:00: 00:00 (four) [place] PREP PADS) 00 :00 times Medical PadM daily. Branch 2020-06 Yes Take by Unive rs vit 0-29 mouth. ity of calc,iron,f 11:30: [place] [address] Medical ( Branch VITAMIN ORAL) 2020-06 Yes Take by Unive rs vit 0-29 mouth. ity of calc,iron,f 11:30: [place] [address] Medical ( Branch VITAMIN ORAL) 2020-06 Yes Take by Unive rs vit 0-29 mouth. ity of calc,iron,f 11:30: [place] [address] Medical ( Branch VITAMIN ORAL) 2020-06 Yes Take by Unive rs vit 0-29 mouth. ity of calc,iron,f 11:30: [place] [address] Medical ( Branch VITAMIN ORAL) 2020-06 Yes Take by Unive rs vit 0-29 mouth. ity of calc,iron,f 11:30: [place] [address] Medical ( Branch VITAMIN ORAL) 2020-06 Yes Take by Unive rs vit 0-29 mouth. ity of calc,iron,f 11:30: [place] [address] Medical ( Branch VITAMIN ORAL) Immunizations Ordered Filled Immunization Date Status Comments [facility] Immunization Name Name Influenza Virus 2021-04-02 [...] YRS TDAP 2021-03-18 Completed University of 00:00:00 [facility] TDAP 2021-03-18 Completed University of 00:00:00 [facility] TDAP 2021-03-18 Completed University of 00:00:00 [facility] TDAP 2021-03-18 Completed University of 00:00:00 [facility] TDAP 2021-03-18 Completed University of 00:00:00 [facility] TDAP 2021-03-18 Completed University of 00:00:00 [facility] TDAP 2021-03-18 Completed University of 00:00:00 [facility] TDAP 2021-03-18 Completed University of 00:00:00 [facility] TDAP 2021-03-18 Completed University of 00:00:00 [facility] TDAP 2021-03-18 Completed University of 00:00:00 [facility] TDAP 2021-03-18 Completed University of 00:00:00 [facility] TDAP 2021-03-18 Completed University of 00:00:00 [facility] TDAP 2021-03-18 Completed University of 00:00:00 [facility] TDAP 2021-03-18 Completed University of 00:00:00 [place] [facility] TDAP 2021-03-18 Completed University of 00:00:00 [place] [facility] TDAP 2021-03-18 Completed University of 00:00:00 [place] [facility] TDAP 2021-03-18 Completed University of 00:00:00 [place] [facility] TDAP 2021-03-18 Completed University of 00:00:00 [place] [facility] TDAP 2021-03-18 Completed University of 00:00:00 [facility] Vital Signs Vital Name Observation Time Observation Value Comments Source Systolic blood 2021-09-14 19:49:00 121 mm[Hg] Univer sity of pressure [place] [facility] Diastolic blood 2021-09-14 19:49:00 81 mm[Hg] Unive rsity of pressure [facility] Heart rate 2021-09-14 19:49:00 92 /min Universi ty of [facility] Body temperature 2021-09-14 19:49:00 37.17 Lay Univ ersity of [facility] Body height 2021-09-14 19:49:00 157.5 cm [facility]i ty of [place] [facility] [place] Body weight 2021-09-14 19:49:00 77.928 kg Universi ty of [place] [facility] BMI 2021-09-14 19:49:00 31.42 kg/m2 Universi ty of [place] [facility] Systolic blood 2021-07-13 14:40:00 121 mm[Hg] Univer sity of pressure [facility] Diastolic blood 2021-07-13 14:40:00 69 mm[Hg] [facility] Heart rate 2021-07-13 14:40:00 72 /min [facility] Body temperature 2021-07-13 14:40:00 36.56 Lay [facility] Respiratory rate 2021-07-13 14:40:00 18 /min [facility] Body height 2021-07-13 14:40:00 157.5 cm [facility] Body weight 2021-07-13 14:40:00 77.111 kg [facility] BMI 2021-07-13 14:40:00 31.09 kg/m2 [facility] Systolic blood 2021-07-05 16:27:00 124 mm[Hg] [facility] Diastolic blood 2021-07-05 16:27:00 80 mm[Hg] [facility] Heart rate 2021-07-05 16:27:00 77 /min [facility] Body temperature 2021-07-05 16:27:00 36.83 Lay [facility] Respiratory rate 2021-07-05 16:27:00 18 /min [facility] Body weight 2021-07-05 16:27:00 77.565 kg [facility] Systolic blood 2021-06-22 21:33:00 118 mm[Hg] [facility] Diastolic blood 2021-06-22 21:33:00 81 mm[Hg] [facility] Heart rate 2021-06-22 21:33:00 61 /min [facility] Body temperature 2021-06-22 21:33:00 36.39 Lay [facility] Body weight 2021-06-22 21:33:00 77.565 kg [facility] Systolic blood 2021-05-29 14:27:00 128 mm[Hg] [facility] Diastolic blood 2021-05-29 14:27:00 61 mm[Hg] [facility] Body temperature 2021-05-29 14:27:00 36.89 Lay [facility] Respiratory rate 2021-05-29 14:27:00 18 /min [facility] Oxygen saturation in 2021-05-29 14:27:00 100 /min University Arterial blood by [facility] Pulse oximetry Branch Heart rate 2021-05-29 09:00:00 70 /min [facility] Systolic blood 2021-05-25 20:31:00 125 mm[Hg] [facility] Diastolic blood 2021-05-25 20:31:00 87 mm[Hg] [facility] Heart rate 2021-05-25 20:31:00 78 /min [facility] Body temperature 2021-05-25 20:31:00 36.78 Lay [facility] Respiratory rate 2021-05-25 20:31:00 18 /min [facility] Body height 2021-05-25 20:31:00 157.5 cm [facility] Body weight 2021-05-25 20:31:00 89.812 kg [facility] BMI 2021-05-25 20:31:00 36.21 kg/m2 [facility] Systolic blood 2021-05-21 16:13:00 123 mm[Hg] [facility] Diastolic blood 2021-05-21 16:13:00 85 mm[Hg] [facility] Heart rate 2021-05-21 16:13:00 85 /min [facility] Body temperature 2021-05-21 16:13:00 36.56 Lay [facility] Respiratory rate 2021-05-21 16:13:00 18 /min [facility] Body height 2021-05-21 16:13:00 157.5 cm [facility] Body weight 2021-05-21 16:13:00 87.998 kg [facility] BMI 2021-05-21 16:13:00 35.48 kg/m2 [facility] Systolic blood 2021-05-18 15:57:00 118 mm[Hg] [facility] Diastolic blood 2021-05-18 15:57:00 78 mm[Hg] [facility] Heart rate 2021-05-18 15:57:00 73 /min [facility] Body temperature 2021-05-18 15:57:00 36.61 Lay [facility] Body height 2021-05-18 15:57:00 157.5 cm [facility] Body weight 2021-05-18 15:57:00 88.996 kg [facility] BMI 2021-05-18 15:57:00 35.89 kg/m2 [facility] Systolic blood 2021-05-14 20:18:00 112 mm[Hg] [facility] Diastolic blood 2021-05-14 20:18:00 76 mm[Hg] [facility] Heart rate 2021-05-14 20:18:00 84 /min [facility] Body temperature 2021-05-14 20:18:00 36.72 Lay [facility] Respiratory rate 2021-05-14 20:18:00 18 /min [facility] Body height 2021-05-14 20:18:00 157.5 cm [facility] Body weight 2021-05-14 20:18:00 88.451 kg [facility] BMI 2021-05-14 20:18:00 35.67 kg/m2 [facility] Systolic blood 2021-05-11 16:18:00 122 mm[Hg] [facility]iver [facility] Diastolic blood 2021-05-11 16:18:00 83 mm[Hg] [facility] Heart rate 2021-05-11 16:18:00 77 /min [facility] Body temperature 2021-05-11 16:18:00 36.89 Lay [facility] Respiratory rate 2021-05-11 16:18:00 18 /min [facility] Body height 2021-05-11 16:18:00 157.5 cm [facility] Body weight 2021-05-11 16:18:00 88.905 kg [facility] BMI 2021-05-11 16:18:00 35.85 kg/m2 [facility] Procedures Procedure Date / Time Performing Clinician Source Performed GLUCOSE FASTING 2021-07-21 14:13:00 Chikis Robertson [facility] CONSENT FOR CONTRACEPTION 2021-06-22 06:01:00 Doctor Unassigned, [facility] POCT TEST 2021-06-22 00:00:00 AdumMelba [facility] CBC WITH DIFF 2021-05-29 10:17:00 AdumMelba [facility] VENOUS CORD GAS 2021-05-28 09:20:00 Adum, Melba Hardin [facility] POCT GLUCOSE (AUTOMATED) 2021-05-28 06:59:00 Adum, Melba Hardin [facility] CENTRAL NEURAXIAL BLOCK 2021-05-28 06:40:39 Gómez Grey [facility] POCT GLUCOSE (AUTOMATED) 2021-05-28 04:47:00 Adum, Melba Hardin [facility] POCT GLUCOSE (AUTOMATED) 2021-05-28 01:34:00 Adum, Melba Hardin [facility] HB ABO GROUPING 2021-05-27 23:10:00 Adum, Melba Hardin [facility] COVID-19 (ID NOW RAPID 2021-05-27 23:07:00 Adum, Melba Hardin [facility] TESTING) Medical Branch LAB ONLY COVID 2021-05-27 23:07:00 Adum, Melba Hardin [facility] INTERPRETATION [facility] CBC WITH DIFF 2021-05-27 23:06:00 Adum, Melba Hardin [facility] HEPATITIS B SURFACE 2021-05-27 23:06:00 Adum, Melba Hardin [facility] ANTIGEN [facility] ADC OR LOLI ONLY - RPR 2021-05-27 23:06:00 [facility]AB WITH REFLEX 2021-05-27 23:06:00 [facility] (AUTOMATED) 2021-05-27 21:28:00 Adum, Melba Hardin [facility] CONSENT/REFUSAL FOR 2021-05-27 20:55:09 Doctor Unassigned, [facility] DIAGNOSIS AND TREATMENT [facility] ASSIGNMENT OF BENEFITS 2021-05-27 20:47:03 [facility]ESS [facility] 2021-05-25 21:32:46 Adum, Melba Hardin [facility]INALYSIS W/O 2021-05-25 00:00:00 Adum, Melba Hardin [facility] NON-STRESS TEST 2021-05-21 20:39:44 Adum, Melba Lashawn [facility] POCT URINALYSIS W/O 2021-05-21 00:00:00 Adum, Melba Lashawn [facility] NON-STRESS TEST 2021-05-18 16:44:35 Adum, Melba Lashawn [facility] POCT URINALYSIS W/O 2021-05-18 00:00:00 Adum, Melba Lashawn [facility] NON-STRESS TEST 2021-05-14 20:58:37 Adum, Melba Lashawn [facility] NON-STRESS TEST 2021-05-11 17:05:02 Adum, Melba Lashawn [facility] GC & CHLAMYDIA AMPLIFIED 2021-05-11 16:33:00 Adum, [facility] 2021-05-11 16:33:00 Adum, Melba Lashawn [facility] POCT URINALYSIS W/O 2021-05-11 00:00:00 Adum, Melba Lashawn [facility] Encounters Start End Encounter Admission Attending Care Care Encounter Source Date/Time Date/Time Type Type Clinicians Facility Department ID 2021-05-25 Outpatient P CHATO, [facility] [id number] Univers 16:22:50 MELBA [facility] 2022-01-24 2022-01-24 Outpatient R ARCELIA [facility] [id number] Univers 09:00:00 09:00:00 CHIKIS [id number] [facility] 2021-12-07 2021-12-07 Outpatient R [facility] [id number] Univers 14:00:00 14:00:00 [id number] [facility] 2021-12-07 2021-12-07 Outpatient R [facility] [id number] Univers 14:00:00 14:00:00 [facility] 2021-09-14 2021-09-14 Nurse Nurse, [facility] 1.2.840.114 [id number] Univers 14:00:00 14:51:13 Visit Melba [place] Lashawn ACHARYA [id number] ity of [place] [id number] [address] 2021-09-14 2021-09-14 Outpatient R FIDELJUSTIN, [facility] [id number] Univers 14:00:00 14:51:13 MELBA [facility] 2021-09-14 2021-09-14 Outpatient R [facility] [id number] Univers 14:00:00 14:00:00 [id number] [facility] 2021-08-12 2021-08-12 [facility] .2.840.114 [id number] Univers 11:45:00 12:00:00 ne Visit Chikis ACHARYA 350.1.13.10 it[place] [id number] [address] 2021-08-12 2021-08-12 Outpatient R ARCELIA [facility] [id number] Univers 11:45:00 11:45:00 CHIKIS [id number] [facility] 2021-08-12 2021-08-12 [facility] [id number] Univers 11:45:00 11:45:00 CHIKIS [facility] 2021-07-27 2021-07-27 Telephone Arcelia [facility] .2.840.114 [id number] Univers 00:00:00 00:00:00 Chikis ACHARYA 350.1.13.10 i ty [place] [id number] [address] 2021-07-21 2021-07-21 Outpatient R [facility] [id number] Univers 08:00:00 08:00:00 [id number] [facility] 2021-07-21 2021-07-21 [facility] [id number] Univers 08:00:00 08:00:00 CHIKIS mosqueda [facility] 2021-07-21 2021-07-21 Information Strategist 2, Adc Lab [facility] 1.2.840.114 [id number] Univers 08:00:00 08:00:00 Visit Chikis Robertson 350.1.13.10 [place] [id number] [facility] [address] [facility] 2021-07-21 2021-07-21 Telephone Arcelia [facility] 1.2.840.114 [id number] Univers 00:00:00 00:00:00 Chikis ACHARYA 350.1.13.10 i ty [place] [id number] Md dical [address] 2021-07-15 2021-07-15 Telephone [facility] 1.2.840.114 [id number] Univers 00:00:00 00:00:00 Chikis ACHARYA 350.1.13.10 i [place] [id number] Md dic[address] 2021-07-13 2021-07-13 Outpatient Ramon KEY [facility] [id number] Univers 08:45:00 09:07:55 MELBA mosqueda [facility] 2021-07-13 2021-07-13 Routine Chikis Robertson [facility] 1.2.840.11 [id number] Univers 08:45:00 09:07:55 Melba Key 350.1.13.10 ity of [place] [id number] Md dical [address] 2021-07-13 2021-07-13 Outpatient Ramon KEY [facility] [id number] Univers 08:45:00 08:45:00 MELBA [id number] panda [facility] 2021-07-05 2021-07-05 Outpatient R ARCELIA [facility] [id number] Univers 11:45:00 11:45:00 CHIKIS [id number] ity [facility] 2021-07-05 2021-07-05 [facility] 1.2.289.060 [id number] Univers 11:45:00 11:45:00 Chikis ACHARYA 350.1.13.10 ity of [place] [id number] Md dical NAL [address] [facility] 2021-07-05 2021-07-05 [facility] [id number] Univers 11:45:00 11:15:58 CHIKIS ity [facility] 2021-06-22 2021-06-22 Outpatient R CHATO, [facility] [id number] Univers 16:00:00 16:47:04 MELBA ity [facility] 2021-06-22 2021-06-22 [facility] 1.2.840.114 [id number] Univers 16:00:00 16:47:04 Melba Lashawn ACHARYA 350.1.13.10 ity of [place] [id number] Md dical NAL [address] [place] [address] 2021-06-22 2021-06-22 Outpatient R FIDELJUSTIN, [facility] [id number] Univers 16:00:00 16:00:00 MELBA [id number] ity [facility] 2021-06-22 2021-06-22 Orders Doctor BEARDEN 1.2.840.114 [id number] Univers 00:00:00 00:00:00 Only Unassigned, KINSEY 350.1.13.10 ity of Frederic [facility] 4.2.7.2.686 [place] as [id number] [address] 2021-05-31 2021-05-31 Outpatient R [facility] [id number] Univers 11:45:00 11:45:00 [id number] ity of [facility] 2021-05-31 2021-05-31 Outpatient R [facility] [id number] Univers 11:45:00 11:45:00 ity of [facility] 2021-05-27 2021-05-29 Inpatient P ADUM, [facility] [id number] Univers 14:45:00 11:25:00 MELBA ity of [facility] 2021-05-27 2021-05-29 Hospital Adum, [facility] 1.2.840.114 [id number] Univers 14:45:00 11:25:00 Encounter Melba Lashawn ACHARYA 350.1.13.10 ity of [place] 4.2.7.2.686 [facility] [id number] [address] 2021-05-28 2021-05-28 Anesthesia [facility], [facility] 1.2.840.114 [id number] Univers 20:01:37 20:01:37 Event Melida MARCK 350.1.13.10 i ty [place] [id number] [address] 2021-05-27 2021-05-28 Anesthesia [facility], [facility] 1.2.840.114 [id number] Univers 23:20:00 05:20:00 Event Gómez MARCK 350.1.13.10 i ty of [place] 4.2.7.2.686 [facility] [id number] [address] 2021-05-25 2021-05-25 Routine Room, [facility] 1.2.840.1 14 [id number] Univers 14:00:00 16:07:44 Adum, Melba Lashawn ACHARYA 350.1.13.10 ity of Visit [place] 4.2.7.2.686 [facility] PROFESSIO [id number] Md dical [facility] [address] [facility] 2021-05-25 2021-05-25 Outpatient P INEZ, [facility] [id number] Univers 15:30:00 15:45:51 VISHAL itdeisy [facility] 2021-05-25 2021-05-25 Information Strategist Ultrasound, [facility] 1.2 .840.114 [id number] Univers 15:30:00 15:45:51 Visit Vishal Wiley 350.1 .13.10 it[place] of [place] [id number] Md dical NAL [address] [place] [address] 2021-05-25 2021-05-25 Outpatient R [facility] [id number] Univers 14:00:00 14:00:00 [id number] ity [facility] 2021-05-21 2021-05-21 Outpatient R ADUM, [facility] [id number] Univers 10:00:00 10:42:24 MELBA ity [facility] 2021-05-21 2021-05-21 Routine Room, [facility] 1.2.840.1 14 [id number] Univers 10:00:00 10:42:24 Adum, Melba ACHARYA 350.1.13.10 [place] of [place] [id number] Md dical NAL [address] [place] [address] 2021-05-21 2021-05-21 Outpatient R [facility] [id number] Univers 10:00:00 10:00:00 [id number] ity [facility] 2021-05-18 2021-05-18 Outpatient R ADUM, [facility] [id number] Univers 10:00:00 10:43:56 MELBA ity [facility] 2021-05-18 2021-05-18 Routine Room, [facility] 1.2.840.1 14 [id number] Univers 09:48:43 10:43:56 Adum, Melba ACHARYA 350.1.13.10 ity of [place] [id number] Md dical NAL [address] [place] [address] 2021-05-14 2021-05-14 Outpatient R ADUM, [facility] [id number] Univers 14:00:00 14:54:04 MELBA ity [facility] 2021-05-14 2021-05-14 Routine Room, [facility] 1.2.840.1 [id number] Univers 13:58:04 14:54:04 Adum, Melba ACHARYA 350.1.13.10 ity of [place] [id number] Md dical NAL [address] [place] [address] 2021-05-11 2021-05-11 Outpatient R ADUM, [facility] [id number] Univers 10:00:00 11:04:55 MELBA ity of [facility] 2021-05-11 2021-05-11 Routine Room, [facility] 1.2.840.1 [id number] [facility] 09:52:39 11:04:55 Adum, Melba Hardin MARCK 350.1.13.10 ity of [place] [id number] Md dical [address] 2020-06-09 2020-06-09 Telephone Adum, [facility] 1.2.624.021 [id number] 00:00:00 00:00:00 Melba Acharya 350.1.13.10 [place] 4.2.7.2.686 Professio [id number] [address] 2020-06-08 2020-06-08 Information Strategist 2, [facility] Lab [facility] 1.2.840.114 [id number] 10:43:33 10:58:33 Visit Marck 350.1.13.10 Al[place] 4.2.7.2.686 Professio [id number] [address] 2020-06-02 2020-06-02 Office Adum, [facility] 1.2.840.114 [id number] 11:22:36 12:46:52 Visit Melba Acharya 350.1.13.10 [place] 4.2.7.2.686 Professio [id number] [address] Results Test Description Test Time Test Comments Results Result Comments Source GLUCOSE FASTING 2021-07-21 16:04:56 Test Item Value Reference Range Interpretation Comme nts GLU FASTNG (test code = 1293617186) 90 mg/dL 70-110 Lab Interpretation (test code = 43372-6) [id number] 22:48:00 Test Item Value Reference Range Interpretation Comments POCT PREG (test code = 1605) Negative On board controls acceptable with C Yes Line (test code = 3574) POCT PREG LOT # (test code = 3575) POCT PREG TEST DATE (test code = 3576) Lab Interpretation (test code = Normal 57610-3) [facility] with [id number] 10:46:10 Test Item Value Reference Range Interpretation [...] RDW-SD (test code = 43.4 fL 39.0-49.9 28175-7) RDW-CV (test code = 13.6 % 12.0-15.5 788-0) PLT (test code = See_Comment [Automated 777-3) message] The sy stem which generated this result transmitted reference range : 166 - 358 10*3/ ?L. The reference r jayce was not used to interpret this result as normal/abnormal . MPV (test code = 10.3 fL 9.5-12.9 19824-6) NRBC/100 WBC (test See_Comment [Automat ed code = 9924137102) message] The system which generated this result transmitted reference range : 0.0 - 10.0 /100 WBCs. The refer ence range was not u sed to interpret th is result as normal/abnormal . NRBC x10^3 (test code <0.01 See_Comment [Auto mated = 3329911534) message] The s ystem which generated this result transmitted reference range : 10*3/?L. The reference range was not used to interpret this result as normal/abnormal . GRAN MAT (NEUT) % 67.5 % (test code = 770-8) IMM GRAN % (test code 1.30 % = 7289331102) LYMPH % (test code = 16.4 % 736-9) MONO % (test code = 13.2 % 5905-5) EOS % (test code = 1.3 % 713-8) BASO % (test code = 0.3 % 706-2) GRAN MAT x10^3(ANC) 7.61 10*3/uL 1.88-7.09 H (test code = 6974122640) IMM GRAN x10^3 (test 0.15 10*3/uL 0.00-0.06 H code = 0649890477) LYMPH x10^3 (test code 1.85 10*3/uL 1.32-3.29 = 731-0) MONO x10^3 (test code 1.49 10*3/uL 0.33-0.92 H = 742-7) EOS x10^3 (test code = 0.15 10*3/uL 0.03-0.39 711-2) BASO x10^3 (test code 0.03 10*3/uL 0.01-0.07 = 704-7) Lab Interpretation Abnormal (test code = 69963-7) [facility] Surface [id number] 07:13:50 Test Item Value Reference Range Interpretation Comments HBsAg Semi-Quantitative (test code = Negative Negative 5195-3) [facility] ([facility]ATED)2021-05-28 07:03:21 Test Item Value Reference Range Interpretation Comments POCT GLU (test code = 5479487873) 85 mg/dL 70-110 Lab Interpretation (test code = Normal 66599-5) [facility] OR LOLI LUDWIG - [id number] 06:38:23 Test Item Value Reference Range Interpretation Comments RPR (Qualitative) (test code = Nonreactive Nonreactive 21860-7) Lab Interpretation (test code = Normal 46999-3) [facility] GLUCOSE (AUTOMATED)2021-05-28 04:49:24 Test Item Value Reference Range Interpretation Comments POCT GLU (test code = 0411562083) 78 mg/dL 70-110 Lab Interpretation (test code = Normal 98902-6) [facility] GLUCOSE (AUTOMATED)2021-05-28 01:45:13 Test Item Value Reference Range Interpretation Comments POCT GLU (test code = 6768212407) 85 mg/dL 70-110 Lab Interpretation (test code = Normal 62512-5) [facility]2 AG-AB WITH [id number] 01:13:04 Test Item Value Reference Range Interpretation Comments HIV Negative Negative Semi-quantitative (test code = 32159-8) ZEE (test code = Non-reactive for HIV-1 ZEE) antigen and HIV-1/HIV-2 antibodies. ?No laboratory evidence of HIV infection. ?Repeat in 2-4 weeks if acute HIV infection is suspected. [facility] Screen - ONCE [id number] 00:33:33 Test Item Value Reference Range Interpretation Comments ABO & RH (test code A Positive Performe d at [facility] = 20) Laboratory Serv [facility] [address] [place], [place] [address]Toll Free: [phone] A No. [id number] IAT (test code = Negative Performed a t [facility] 1185) Laboratory Serv [facility] [address] [place], [place] [address]Toll Free: [phone] A No. [id number] [facility] with [id number] 23:57:50 Test Item Value Reference Range Interpretation Comments WBC (test code = See_Comment H [Automated 6690-2) message] The sy stem which generated this result transmitted reference range : 4.30 - 11.10 10*3/?L. The reference range was not used to interpret this result as normal/abnormal . RBC (test code = See_Comment [Automated 769-8) message] The sy stem which generated this [...] RDW-SD (test code = 41.6 fL 39.0-49.9 90544-7) RDW-CV (test code = 13.3 % 12.0-15.5 788-0) PLT (test code = See_Comment [Automated 777-3) message] The sy stem which generated this result transmitted reference range : 166 - 358 10*3/ ?L. The reference r jayce was not used to interpret this result as normal/abnormal . MPV (test code = 10.3 fL 9.5-12.9 80539-2) NRBC/100 WBC (test See_Comment [Automat ed code = 9639249462) message] The system which generated this result transmitted reference range : 0.0 - 10.0 /100 WBCs. The refer ence range was not u sed to interpret th is result as normal/abnormal . NRBC x10^3 (test code <0.01 See_Comment [Auto mated = 7428965229) message] The s ystem which generated this result transmitted reference range : 10*3/?L. The reference range was not used to interpret this result as normal/abnormal . GRAN MAT (NEUT) % 67.7 % (test code = 770-8) IMM GRAN % (test code 0.60 % = 2892574206) LYMPH % (test code = 21.2 % 736-9) MONO % (test code = 9.1 % 5905-5) EOS % (test code = 1.2 % 713-8) BASO % (test code = 0.2 % 706-2) GRAN MAT x10^3(ANC) 7.98 10*3/uL 1.88-7.09 H (test code = 5816028516) IMM GRAN x10^3 (test 0.07 10*3/uL 0.00-0.06 H code = 4605747038) LYMPH x10^3 (test code 2.50 10*3/uL 1.32-3.29 = 731-0) MONO x10^3 (test code 1.07 10*3/uL 0.33-0.92 H = 742-7) EOS x10^3 (test code = 0.14 10*3/uL 0.03-0.39 711-2) BASO x10^3 (test code <0.03 0.01-0.07 = 704-7) Lab Interpretation Abnormal (test code = 37452-8) [facility] GLUCOSE (AUTOMATED)2021-05-27 21:37:45 Test Item Value Reference Range Interpretation Comments POCT GLU (test code = 1804415742) 110 mg/dL 70-110 Lab Interpretation (test code = Normal 81143-1) [facility] URINALYSIS W/O SPECIFIC [id number] 20:33:00 Test Item Value Reference Range Interpretation [...] Negative Lab Interpretation (test code = Normal 46993-0) [facility] URINALYSIS W/O SPECIFIC [id number] 16:31:00 Test Item Value Reference Range Interpretation [...] Negative Lab Interpretation (test code = Normal 85680-5) [facility] URINALYSIS W/O SPECIFIC [id number] 15:54:00 Test Item Value Reference Range Interpretation [...] code = 3257) n/a Negative - [facility] [id number] 16:20:00 Test Item Value Reference Range Interpretation [...] Negative Lab Interpretation (test code = Normal 04226-7) [facility]
[2021-10-16 21:49] LABS: Urine Blood 2+ (Negative); Urine Glucose Negative (Negative); Urine Protein Negative (Negative)
[2021-10-16] MEDS ORDERED: ONDANSETRON 4 MG/2 ML VIAL ONE (22:35)
[2021-10-16] MEDS ORDERED: FAMOTIDINE 20 MG/2 ML VIAL IV ONE (22:36)
[2021-10-16 22:50] LABS: Urine Bacteria >50 /HPF (<20); Urine Mucus 1+ /HPF (NONE SEEN); Urine RBC <5 /HPF (NONE SEEN)
[2021-10-16 23:53] LABS: Absolute Lymphocytes (CBC) 3.4 K/uL (0.7-4.9); Hematocrit 42.4 % (36.0-45.0); Lymphocytes % 35.1 % (15.3-44.8); MPV 7.4 fL (7.6-11.3); RBC Red Blood Cell Count 4.99 M/uL (3.86-4.86)
[2021-10-17 00:08] LABS: Bilirubin Total 0.5 mg/dL (0.2-1.0); Potassium 3.1 mmol/L (3.5-5.1); Protein, Total 7.6 g/dL (6.4-8.2)
--- NOTE | 2021-10-17 04:12 | ER ---
Nurse's Notes [facility] Name: Kelly Paz Age: 21 yrs Sex: Female : 2000 Arrival Date: 10/16/2021 Time: 20:51 Bed 13 Private MD: Diagnosis: Nausea with vomiting, unspecified;Diarrhea, unspecified Presentation: 10/16 22:00 Chief complaint: Patient states: "I have been throwing up and have had diarrhea for the vc1 last 2 weeks. Tonight I was with my boyfriend and I felt like I was going to pass out.". 22:00 Coronavirus screen: Vaccine status: Patient reports being unvaccinated. Ebola Screen: vc1 No symptoms or risks identified at this time. Risk Assessment: Do you want to hurt yourself or someone else? Patient reports no desire to harm self or others. Onset of symptoms is unknown. 22:00 Method Of Arrival: Ambulatory vc1 22:00 Acuity: RAFAEL 3 vc1 10/17 00:42 Initial Sepsis Screen: Does the patient meet any 2 criteria? No. Patient's initial ag7 sepsis screen is negative. Does the patient have a suspected source of infection? No. Patient's initial sepsis screen is negative. 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 Flu vaccine is up to date. - Social history:: Smoking status: Patient denies any tobacco usage or history of. Screenin:58 Abuse screen: Denies threats or abuse. Nutritional screening: Has had N/V for 3 or more vc1 days. Tuberculosis screening: No symptoms or risk factors identified. Fall Risk None identified. Assessment: 23:20 General: Appears in no apparent distress. Behavior is calm, cooperative. Pain: Denies ag7 pain. Neuro: Level of Consciousness is awake, alert, Oriented to person, Appropriate for age. Cardiovascular: Heart tones S1 S2 present Capillary refill < 3 seconds in bilateral fingers Patient's skin is warm and dry. Respiratory: Airway is patent Trachea midline Respiratory effort is even, unlabored, Respiratory pattern is regular, symmetrical, Breath sounds are clear bilaterally. GI: Abdomen is flat, Last BM was October 16, 2021. Bowel sounds present X 4 quads. hyperactive in right upper quadrant, left upper quadrant, right lower quadrant and left lower quadrant Reports diarrhea, nausea, vomiting. 10/17 00:20 Reassessment: Patient and/or family updated on plan of care and expected duration. Pain ag7 level reassessed. Patient is alert, oriented x 3, equal unlabored respirations, skin warm/dry/pink. Patient denies pain at this time. 01:20 Reassessment: Patient and/or family updated on plan of care and expected duration. Pain ag7 level reassessed. Patient is alert, oriented x 3, equal unlabored respirations, skin warm/dry/pink. Patient denies pain at this time. Patient states feeling better. Patient states symptoms have improved. 02:30 Reassessment: No changes from previously documented assessment. ag7 03:30 Reassessment: Patient and/or family updated on plan of care and expected duration. Pain ag7 level reassessed. Patient is alert, oriented x 3, equal unlabored respirations, skin warm/dry/pink. Patient denies pain at this time. Vital Signs: 10/16 23:23 BP 129 / 76; Pulse 81; Resp 18; Pulse Ox 100% on R/A; Weight 74.84 kg; Height 5 ft. 2 tw5 in. (157.48 cm); Pain 0/10; 10/17 03:45 BP 117 / 81; Pulse 59; Resp 16 S; Pulse Ox 100% on R/A; ag7 10/16 23:23 Body Mass Index 30.18 (74.84 kg, 157.48 cm) tw5 ED Course: 10/16 20:51 Patient arrived in ED. bp1 20:52 Franck Polanco PA is PHCP. cp 20:52 Darryl Mullen DO is Attending Physician. cp 22:50 Corinne Garcia, NADIA is Primary Nurse. ag7 22:57 Triage completed. vc1 22:58 Arm band placed on right wrist. vc1 22:59 Patient has correct armband on for positive identification. Placed in gown. Bed in low vc1 position. Call light in reach. 23:20 Missed attempt(s): 20 gauge in left antecubital area. Bleeding controlled, band aid ag7 applied, catheter tip intact. 23:21 Initial lab(s) drawn, by me, sent to lab. COVID swab sent to lab. Flu and/or RSV swab tw5 sent to lab. Inserted saline lock: 24 gauge in right hand, using aseptic technique. Blood collected. 23:22 Influenza Screen (a \\T\\ B) Sent. tw5 23:22 COVID-19 SARS RT PCR (Document "Date of Onset" if Symptomatic) Sent. tw5 23:22 CBC with Diff Sent. tw5 23:22 CMP Sent. tw5 23:22 Lipase Sent. tw5 10/17 00:32 CT Abd/Pelvis - IV Contrast Only In Process Unspecified. EDMS 00:42 No provider procedures requiring assistance completed. ag7 04:11 Edwin Diaz MD is Referral Physician. ms3 04:33 IV discontinued, intact, bleeding controlled, No redness/swelling at site. Pressure ag7 dressing applied. Administered Medications: 10/16 23:22 Drug: Pepcid (famotidine) 20 mg Route: IVP; Site: right hand; tw5 23:55 Follow up: Response: No adverse reaction ag7 23:22 Drug: Zofran (Ondansetron) 4 mg Route: IVP; Site: right hand; tw5 23:55 Follow up: Response: No adverse reaction ag7 Medication: 10/17 00:42 VIS not applicable for this client. ag7 Outcome: 04:11 Discharge ordered by . ms3 04:32 Discharged to home ambulatory. ag7 04:32 Condition: stable 04:32 Discharge instructions given to patient, Instructed on discharge instructions, follow up and referral plans. medication usage, Demonstrated understanding of instructions, follow-up care, medications, Prescriptions given X 1. 04:35 Patient left the ED. ag7 Signatures: Dispatcher [employer] EDIL Franck Polanco PA PA cp Sims, Marcus, DO DO ms3 Meka Remy Tiffany tw5 Mary Beth Marrufo RN RN vc1 Corinne Garcia, RN RN ag7
--- NOTE | 2021-10-17 04:12 | EDPHYS ---
Physician Documentation [facility] Name: Kelly Paz Age: 21 yrs Sex: Female : 2000 Arrival Date: 10/16/2021 Time: 20:51 Bed 13 Private MD: ED Physician Darryl Mullen HPI: 10/16 22:00 This 21 yrs old Female presents to ER via Ambulatory with complaints of cp Vomiting/Diarrhea. 22:00 The patient presents to the emergency department with nausea, that is mild, vomiting, cp that is intermittent, diarrhea, that is intermittent. Onset: The symptoms/episode began/occurred 2 week(s) ago. Associated signs and symptoms: Pertinent positives: anorexia, dizziness, lightheaded, Pertinent negatives: abdominal pain, dysuria, fever, GI bleeding. Severity of symptoms: in the emergency department the symptoms are unchanged despite home interventions. 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 Flu vaccine is up to date. - Social history:: Smoking status: Patient denies any tobacco usage or history of. ROS: 22:05 Constitutional: Negative for body aches, chills, fever, poor PO intake. cp 22:05 Eyes: Negative for injury, pain, redness, and discharge. cp 22:05 ENT: Negative for drainage from ear(s), ear pain, sore throat, difficulty swallowing, difficulty handling secretions. 22:05 Cardiovascular: Negative for chest pain, edema, palpitations. 22:05 Respiratory: Negative for cough, shortness of breath, wheezing. 22:05 Abdomen/GI: Positive for nausea and vomiting, diarrhea, Negative for abdominal pain, diarrhea, constipation. 22:05 Back: Negative for pain at rest, pain with movement, radiated pain. 22:05 Neuro: Negative for altered mental status, headache, weakness. 22:05 All other systems are negative. Exam: 22:10 Head/Face: Normocephalic, atraumatic. cp 22:10 Constitutional: The patient appears in no acute distress, alert, awake, comfortable, non-toxic, well developed, well nourished. 22:10 Eyes: Periorbital structures: appear normal, Conjunctiva: normal, no exudate, no injection, Sclera: no appreciated abnormality, Lids and lashes: appear normal, bilaterally. 22:10 ENT: External ear(s): are unremarkable, Nose: is normal, Mouth: Lips: moist, Oral mucosa: moist, Posterior pharynx: Airway: no evidence of obstruction, patent. 22:10 Chest/axilla: Inspection: normal. 22:10 Cardiovascular: Rate: normal, Rhythm: regular. 22:10 Respiratory: the patient does not display signs of respiratory distress, Respirations: normal, no use of accessory muscles, no retractions, labored breathing, is not present, Breath sounds: are clear throughout, no decreased breath sounds, no stridor, no wheezing. 22:10 Abdomen/GI: Inspection: abdomen appears normal, Bowel sounds: active, all quadrants, Palpation: abdomen is soft and non-tender, in all quadrants. 22:10 Back: pain, is absent, ROM is normal. Vital Signs: 23:23 BP 129 / 76; Pulse 81; Resp 18; Pulse Ox 100% on R/A; Weight 74.84 kg; Height 5 ft. 2 tw5 in. (157.48 cm); Pain 0/10; 10/17 03:45 BP 117 / 81; Pulse 59; Resp 16 S; Pulse Ox 100% on R/A; ag7 10/16 23:23 Body Mass Index 30.18 (74.84 kg, 157.48 cm) tw5 MDM: 10/16 21:56 Patient medically screened. 10/17 00:00 Data reviewed: vital signs, nurses notes, lab test result(s). cp 00:00 Transition of care: After a detail discussion of the patient's case, [facility] 10/16 21:45 Order name: CBC with Diff; Complete Time: 00:18 10/16 21:45 Order name: CMP; Complete Time: 00:18 cp 10/16 21:45 Order name: Lipase; Complete Time: 00:18 10/16 21:45 Order name: Urine Microscopic Only; Complete Time: 23:50 10/16 23:50 Interpretation: Normal except: UWBC 5-10; UBACT >50; SQEPI 10-20. cp 10/16 21:49 Order name: Urine Dipstick-Ancillary; Complete Time: 22:44 EDMS 10/16 22:44 Interpretation: Normal except: UBLD 2+. cp 10/16 21:51 Order name: Urine --Ancillary (enter results); Complete Time: 22:44 ds4 10/16 22:11 Order name: COVID-19 SARS RT PCR (Document "Date of Onset" if Symptomatic); Complete cp Time: 03:58 10/16 22:11 Order name: Influenza Screen (a \\T\\ B); Complete Time: 03:58 cp 10/16 22:53 Order name: Urine Culture EDMS 10/17 00:10 Order name: CT Abd/Pelvis - IV Contrast Only cp 10/16 21:45 Order name: IV Saline Lock; Complete Time: 23:22 cp 10/16 21:45 Order name: Labs collected and sent; Complete Time: 23:22 cp 10/16 21:45 Order name: Urine Dipstick-Ancillary (obtain specimen); Complete Time: 21:50 cp 10/16 21:45 Order name: Urine Test (obtain specimen); Complete Time: 21:50 cp Administered Medications: 10/16 23:22 Drug: Pepcid (famotidine) 20 mg Route: IVP; Site: right hand; tw5 23:55 Follow up: Response: No adverse reaction ag7 23:22 Drug: Zofran (Ondansetron) 4 mg Route: IVP; Site: right hand; tw5 23:55 Follow up: Response: No adverse reaction ag7 Disposition: 10/17 10:28 Co-signature as Attending Physician, Darryl MUSTAFA was immediately available on-site ms3 in the Emergency Department for consultation in the care of the patient. . Disposition Summary: 10/17/21 04:11 Discharge Ordered Location: Home ms3 Condition: Stable ms3 Diagnosis - Nausea with vomiting, unspecified ms3 - Diarrhea, unspecified ms3 Followup: ms3 - With: Edwin Diaz MD - When: 2 - 3 days - Reason: Recheck today's complaints Discharge Instructions: - Discharge Summary Sheet ms3 - Diarrhea, Adult ms3 - Nausea and Vomiting, Adult ms3 Forms: - Medication Reconciliation Form ms3 - Thank You Letter ms3 - Antibiotic Education ms3 - Prescription Opioid Use ms3 Prescriptions: - Zofran 4 mg Oral Tablet - take 1 tablet by ORAL route every 12 hours As needed; 20 tablet; Refills: 0, ms3 Product Selection Permitted Signatures: Dispatcher [employer] EDMS Franck Polanco PA PA cp Sims, Marcus, DO DO ms3 Cheyenne Roman tw5 Mary Beth Marrufo RN RN vc1 Corinne Garcia RN ag7 Corrections: (The following items were deleted from the chart) 10/16 23:10/15 22:10 Constitutional: The patient appears in no acute distress, alert, awake, cp comfortable, non-toxic, well developed, well nourished, cp 10/16 22:10/15 22:10 Head/Face: Normocephalic, atraumatic. cp cp 10/16 23:10/15 22:10 Eyes: Periorbital structures: appear normal, Conjunctiva: normal, no cp exudate, no injection, Sclera: no appreciated abnormality, Lids and lashes: appear normal, bilaterally, cp 10/16 22:10/15 22:10 ENT: External ear(s): are unremarkable, Nose: is normal, Mouth: Lips: cp moist, Oral mucosa: moist, Posterior pharynx: Airway: no evidence of obstruction, patent, cp 10/16 22:55 10/15 22:10 Chest/axilla: Inspection: normal, cp cp 10/16 22:10/15 22:10 Cardiovascular: Rate: normal, Rhythm: regular, cp cp 10/16 23:55 10/15 22:10 Respiratory: the patient does not display signs of respiratory distress, cp Respirations: normal, no use of accessory muscles, no retractions, labored breathing, is not present, Breath sounds: are clear throughout, no decreased breath sounds, no stridor, no wheezing, cp 10/16 22:55 10/15 22:10 Abdomen/GI: Inspection: abdomen appears normal, Bowel sounds: active, all cp quadrants, Palpation: abdomen is soft and non-tender, in all quadrants, cp 10/16 22:10/15 22:10 Back: pain, is absent, ROM is normal, cp cp 10/17 22:10 Abdomen Pelvis W Con+CT.RAD.BRZ ordered. EDMS EDMS 10/17 23:52 Abdomen Pelvis Wo Con+CT.RAD.BRZ ordered. EDMS EDMS
[2021-10-17 05:15] VITALS: O2SAT 100
[2021-10-17 05:16] VITALS: BP 117/81
--- NOTE | 2021-10-18 10:51 | RAD REPORT ---
EXAM DESCRIPTION: CT - Abdomen Pelvis W Contrast - 10/17/2021 6:59 am CLINICAL HISTORY: 21 years, Female, Nausea/vomiting COMPARISON: 06/06/2019 TECHNIQUE: Contrast-enhanced images of the abdomen and pelvis were performed utilizing 2 mm slice th ickness at 2 mm interval reconstruction from the lung bases to the ischial tuberosities after the adm inistration IV contrast. In addition multiplanar reformats in the coronal and sagittal plane were obtained and reviewed. This exam was performed according to our departmental dose-optimization protocol, which includes auto mated exposure control, adjustment of the mA and/or kV according to patient size and/or use of iterat tania reconstruction technique. FINDINGS: The lung bases demonstrate to be clear. The liver, pancreas, spleen and adrenal glands demonstrate to be unremarkable, no focal lesions are n oted. Surgical clips within the gallbladder fossa correspond to previous cholecystectomy The kidneys demonstrate normal uptake and excretion of contrast media. No evidence for nephrolithiasi s and/or hydronephrosis. The visualized portions of the ureters displays normal appearance Grossly the unopacified stomach, small bowel and large bowel demonstrate to be within normal limits. There is no evidence for bowel dilatation and/or free air. The appendix was not visualized althou gh no significant inflammatory changes within the right lower quadrant. The urinary bladder demonstrate to be unremarkable. The uterus is retroflexed and demonstrate to be within normal limits. There are no adnexal masses. The aorta demonstrate to be normal. There is no retroperitoneal lymphadenopathy. There is no evidence for ascites/or significant abnormal fluid co llections. The rest of the soft tissue and bony structures are within normal limits. IMPRESSION: No acute intra-abdominal or pelvic pathology. Status post cholecystectomy. Electronically signed by: Ras Ragland MD 10/17/2021 1:04 AM CDT Due to temporary technical issues with the PACS/Fluency reporting system, reports are being signed by the in house radiologist without review as a courtesy to ensure prompt reporting. The interpreting r adiologist is fully responsible for the content of the report.
== END 2021-10-17 04:35 | disposition home or self-care (01) ==
LOC: ER 20:45
DX: R11.2 Nausea with vomiting, unspecified (principal); R19.7 Diarrhea, unspecified; Z88.8 Allergy status to other drugs, medicaments and biological substances; Z20.822 Contact with and (suspected) exposure to COVID-19
CPT/HCPCS: 87088; 85025; 87086; 36415; 81025; 83690; 80053; 87804 ×2; 74177; 96375; 96374; 99284; U0003; Q9967; J2405; J3490; 81003; 81015

== ENCOUNTER 2021-12-29 05:52 | Emergency (ER) | payer OTHER ==
--- NOTE | 2021-12-29 09:16 | EDPHYS ---
Physician Documentation [facility] Name: Kelly Paz Age: 21 yrs Sex: Female : 2000 Arrival Date: 12/29/2021 Time: 06:03 Bed Waiting Private MD: ED Physician Franck Wall HPI: 12/29 12:46 This 21 yrs old Female presents to ER via Ambulatory with complaints of Cough. jr8 12:46 The patient or guardian reports cough, that is intermittent, described as mild, with no jr8 sputum. Onset: The symptoms/episode began/occurred acutely, 2 day(s) ago. Severity of symptoms: At their worst the symptoms were mild, in the emergency department the symptoms are unchanged. Modifying factors: The symptoms are alleviated by nothing, the symptoms are aggravated by nothing. Associated signs and symptoms: Pertinent positives: sore throat. The patient has not experienced similar symptoms in the past. The patient has not recently seen a physician. 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 - Social history:: Smoking status: Patient denies any tobacco usage or history of. ROS: 12:46 Eyes: Negative for injury, pain, redness, and discharge, Neck: Negative for injury, jr8 pain, and swelling, Cardiovascular: Negative for chest pain, palpitations, and edema, Abdomen/GI: Negative for abdominal pain, nausea, vomiting, diarrhea, and constipation, Back: Negative for injury and pain, MS/Extremity: Negative for injury and deformity, Skin: Negative for injury, rash, and discoloration, Neuro: Negative for headache, weakness, numbness, tingling, and seizure. 12:46 ENT: Positive for sore throat. 12:46 Respiratory: Positive for cough, Negative for shortness of breath, sputum production, wheezing. Exam: 12:46 Constitutional: This is a well developed, well nourished patient who is awake, alert, jr8 and in no acute distress. ENT: Nares patent. No nasal discharge, no septal abnormalities noted. Tympanic membranes are normal and external auditory canals are clear. Oropharynx with no redness, swelling, or masses, exudates, or evidence of obstruction, uvula midline. Mucous membranes moist. Neck: Trachea midline, no thyromegaly or masses palpated, and no cervical lymphadenopathy. Supple, full range of motion without nuchal rigidity, or vertebral point tenderness. No Meningismus. Cardiovascular: Regular rate and rhythm with a normal S1 and S2. No gallops, murmurs, or rubs. Normal PMI, no JVD. No pulse deficits. Respiratory: Lungs have equal breath sounds bilaterally, clear to auscultation and percussion. No rales, rhonchi or wheezes noted. No increased work of breathing, no retractions or nasal flaring. Abdomen/GI: Soft, non-tender, with normal bowel sounds. No distension or tympany. No guarding or rebound. No evidence of tenderness throughout. Back: No spinal tenderness. No costovertebral tenderness. Full range of motion. Skin: Warm, dry with normal turgor. Normal color with no rashes, no lesions, and no evidence of cellulitis. MS/ Extremity: Pulses equal, no cyanosis. Neurovascular intact. Full, normal range of motion. Neuro: Awake and alert, GCS 15, oriented to person, place, time, and situation. Cranial nerves II-XII grossly intact. Motor strength 5/5 in all extremities. Sensory grossly intact. Vital Signs: 06:05 BP 124 / 89; Pulse 117; Resp 18; Temp 98.8(O); Pulse Ox 100% on R/A; Weight 77.11 kg; kd3 Height 5 ft. 2 in. (157.48 cm); 06:05 Body Mass Index 31.09 (77.11 kg, 157.48 cm) kd3 MDM: 09:15 Data reviewed: vital signs, nurses notes, lab test result(s), and as a result, I will jr8 discharge patient. Data interpreted: Pulse oximetry: on room air is 100 %. Interpretation: normal. Counseling: I had a detailed discussion with the patient and/or guardian regarding: the historical points, exam findings, and any diagnostic results supporting the discharge/admit diagnosis, lab results, the need for outpatient follow up, a family practitioner, to return to the emergency department if symptoms worsen or persist or if there are any questions or concerns that arise at home. 09:15 Patient medically screened. jr8 12/29 06:19 Order name: COVID-19 SARS RT PCR (Document "Date of Onset" if Symptomatic); Complete kd3 Time: 12:49 12/29 06:19 Order name: Flu; Complete Time: 12:49 kd3 12/29 06:19 Order name: RSV; Complete Time: 12:49 kd3 12/29 06:19 Order name: Strep; Complete Time: 12:49 kd3 12/29 07:16 Order name: Throat Culture EDMS Administered Medications: No medications were administered Disposition Summary: 12/29/21 09:15 Discharge Ordered Location: Home jr8 Problem: new jr8 Symptoms: have improved jr8 Condition: Stable jr8 Diagnosis - SARS-associated coronavirus as the cause of diseases classified elsewhere jr8 Followup: jr8 - With: Private Physician - When: 1 week - Reason: Recheck today's complaints, Continuance of care, Re-evaluation by your physician Discharge Instructions: - Discharge Summary Sheet jr8 - COVID-19 jr8 - COVID-19: Quarantine vs. Isolation - [place] [id number] Forms: - Medication Reconciliation Form jr8 - Thank You Letter jr8 - Antibiotic Education jr8 - Prescription Opioid Use jr8 Prescriptions: - Tessalon Perles 100 mg Oral Capsule - take 1 capsule by ORAL route every 8 hours As needed; 15 capsule; Refills: 0, jr8 Product Selection Permitted - promethazine-DM 6.25-15 mg/5 mL Oral syrup - take 5 milliliter by ORAL route every 4-6 hours as needed, not to exceed 30 mL jr8 in 24 hours; 120 milliliter; Refills: 0, Product Selection Permitted Signatures: Dispatcher [employer] EDMS Ricardo Castellanos PA PA jr8 Anabel Giang, RN RN kd3
--- NOTE | 2021-12-29 09:16 | ER ---
Nurse's Notes [facility] Name: Kelly Paz Age: 21 yrs Sex: Female : 2000 Arrival Date: 12/29/2021 Time: 06:03 Bed Waiting Private MD: Diagnosis: SARS-associated coronavirus as the cause of diseases classified elsewhere Presentation: 12/29 06:05 Chief complaint: Patient states: I've been having a stuffy nose and a sore throat and kd3 I've been having hot flashes and then chills. It all started about 2 days ago and has just gotten worse. Coronavirus screen: Vaccine status: Patient reports being unvaccinated. Ebola Screen: No symptoms or risks identified at this time. Initial Sepsis Screen: Does the patient meet any 2 criteria? No. Patient's initial sepsis screen is negative. Does the patient have a suspected source of infection? No. Patient's initial sepsis screen is negative. Risk Assessment: Do you want to hurt yourself or someone else? Patient reports no desire to harm self or others. Onset of symptoms. Onset of symptoms was December 29, 2021. 06:05 Method Of Arrival: Ambulatory kd3 06:05 Acuity: RAFAEL 3 kd3 Triage Assessment: 06:09 General: Appears uncomfortable, Behavior is calm, cooperative. Pain: Denies pain. 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 - Social history:: Smoking status: Patient denies any tobacco usage or history of. Screenin:10 Abuse screen: Denies threats or abuse. Denies injuries from another. Nutritional kd3 screening: No deficits noted. Tuberculosis screening: No symptoms or risk factors identified. Fall Risk None identified. Assessment: 08:30 General: Appears in no apparent distress. Behavior is calm, cooperative. Neuro: Level iw of Consciousness is awake, alert, obeys commands, Oriented to person, place, time, situation. Respiratory: Reports cough that is. Derm: Skin is intact, is healthy with good turgor. Musculoskeletal: Range of motion: intact in all extremities. Vital Signs: 06:05 BP 124 / 89; Pulse 117; Resp 18; Temp 98.8(O); Pulse Ox 100% on R/A; Weight 77.11 kg; kd3 Height 5 ft. 2 in. (157.48 cm); 06:05 Body Mass Index 31.09 (77.11 kg, 157.48 cm) kd3 ED Course: 06:03 Patient arrived in ED. bp1 06:08 Triage completed. kd3 06:09 Arm band placed on right wrist. kd3 06:10 Patient has correct armband on for positive identification. kd3 06:10 No provider procedures requiring assistance completed. kd3 07:32 COVID-19 SARS RT PCR (Document "Date of Onset" if Symptomatic) Sent. kc6 09:13 Ricardo Castellanos PA is PHCP. jr8 09:13 Franck Wall MD is Attending Physician. jr8 09:25 Patient did not have IV access during this emergency room visit. iw 09:26 Beatrice Knox RN is Primary Nurse. iw Administered Medications: No medications were administered Medication: 06:10 VIS not applicable for this client. kd3 Outcome: 09:15 Discharge ordered by . jr8 09:26 Discharged to home ambulatory. iw 09:26 Condition: good 09:26 Discharge instructions given to patient, Instructed on discharge instructions, follow up and referral plans. Demonstrated understanding of instructions, follow-up care, Prescriptions given X 2. 09:27 Patient left the ED. iw Signatures: Beatrice Knox RN RN iw Ricardo Castellanos PA PA jr8 Meka Remy bp1 Anabel Giang RN RN kd3 Sheridan Villa kc6 Corrections: (The following items were deleted from the chart) 16:05 09:26 Discharge instructions given to patient, Instructed on discharge instructions, iw follow up and referral plans. Demonstrated understanding of instructions, follow-up care, iw
[2021-12-29 12:05] VITALS: BP 124/89; TEMP 98.8; O2SAT 100
== END 2021-12-29 09:27 | disposition home or self-care (01) ==
LOC: ER 05:52
DX: U07.1 COVID-19 (principal); R05.9 Cough, unspecified; Z88.8 Allergy status to other drugs, medicaments and biological substances
CPT/HCPCS: 87070; 87081; 87804; 87807; 99283; U0003

== ENCOUNTER 2021-12-30 10:00 | Emergency (ER) | payer OTHER ==
[2021-12-30] MEDS ORDERED: dexAMETHasone 4 MG TAB ONE (11:04)
--- NOTE | 2021-12-30 12:26 | ER ---
Nurse's Notes [facility] Name: Kelly Paz Age: 21 yrs Sex: Female : 2000 Arrival Date: 12/30/2021 Time: 10:07 Bed 11 Private MD: Diagnosis: Acute pharyngitis due to other specified organism;SARS-associated coronavirus as the cause of diseases classified elsewhere Presentation: 12/30 10:25 Chief complaint: Patient states: I was tested positive here for covid yesterday and now bm7 my throat hurts really bad. Coronavirus screen: At this time, the client does not indicate any symptoms associated with coronavirus-19. Ebola Screen: No symptoms or risks identified at this time. Initial Sepsis Screen: Does the patient meet any 2 criteria? No. Patient's initial sepsis screen is negative. Does the patient have a suspected source of infection? Yes: Productive cough/pneumonia. Risk Assessment: Do you want to hurt yourself or someone else? Patient reports no desire to harm self or others. Onset of symptoms was December 29, 2021. 10:25 Method Of Arrival: Ambulatory 7 10:25 Acuity: RAFAEL 4 bm7 Triage Assessment: 10:28 General: Appears in no apparent distress. comfortable, well groomed, well developed, bm7 Behavior is calm, cooperative, appropriate for age. Pain: Complains of pain in thyroid cartilage, left aspect of thyroid, left sternocleidomastoid and neck. EENT: Oral mucosa is moist. Reports difficulty swallowing. Neuro: No deficits noted. Cardiovascular: No deficits noted. Respiratory: No deficits noted. GI: No deficits noted. No signs and/or symptoms were reported involving the gastrointestinal system. : No deficits noted. No signs and/or symptoms were reported regarding the genitourinary system. Derm: No deficits noted. No signs and/or symptoms reported regarding the dermatologic system. Skin is intact, is healthy with good turgor, Skin is dry. Musculoskeletal: No deficits noted. No signs and/or symptoms reported regarding the musculoskeletal system. 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 - Social history:: Smoking status: Patient reports the use of cigarette tobacco products, Patient/guardian denies using. Screenin:15 Abuse screen: Denies threats or abuse. Denies injuries from another. Nutritional iw screening: No deficits noted. Tuberculosis screening: No symptoms or risk factors identified. Fall Risk None identified. Assessment: 10:15 General: Appears in no apparent distress. Behavior is calm, cooperative. Pain: iw Complains of pain in throat. Neuro: Level of Consciousness is awake, alert, obeys commands, Oriented to person, place, time, situation. Cardiovascular: Patient's skin is warm and dry. Respiratory: Reports cough that is Airway is patent Respiratory effort is even, unlabored, Breath sounds are clear bilaterally. Derm: Skin is intact, is healthy with good turgor. 10:15 EENT: Throat is pink. iw Vital Signs: 10:25 BP 124 / 80; Pulse 88; Resp 16; Temp 98.8(TE); Pulse Ox 98% on R/A; Weight 77.11 kg iw (R); Height 5 ft. 2 in. (157.48 cm); Pain 5/10; 10:25 Body Mass Index 31.09 (77.11 kg, 157.48 cm) iw ED Course: 10:07 Patient arrived in ED. am2 10:15 Patient has correct armband on for positive identification. iw 10:28 Triage completed. bm7 10:28 Arm band placed on right wrist. bm7 10:30 Beatrice Knox, RN is Primary Nurse. iw 10:31 Franck Polanco PA is PHCP. cp 10:31 Franck Wall MD is Attending Physician. cp 13:05 No provider procedures requiring assistance completed. Patient did not have IV access iw during this emergency room visit. Administered Medications: 11:01 Drug: Decadron (dexamethasone) 10 mg Route: PO; iw 11:20 Follow up: Response: No adverse reaction iw Medication: 10:15 VIS not applicable for this client. iw Outcome: 12:25 Discharge ordered by . cp 13:07 Discharged to home ambulatory, with family. iw 13:07 Condition: good 13:07 Discharge instructions given to patient, Instructed on discharge instructions, follow up and referral plans. Demonstrated understanding of instructions, follow-up care, medications, Prescriptions given X 2. 13:08 Patient left the ED. iw Signatures: Beatrice Knox RN RN iw Franck Polanco PA PA cp Moreno, Amanda am2 Meka Oden, NADIA RN bm7 Corrections: (The following items were deleted from the chart) 10:30 10:25 BP 124 / 80; Pulse 16bpm; Resp 88bpm; Pulse Ox 98% RA; Temp 98.8F Temporal; 77.11 iw kg Reported; Height 5 ft. 2 in.; BMI: 31.0; Pain 5/10; bm7
--- NOTE | 2021-12-30 12:26 | EDPHYS ---
Physician Documentation [facility] Name: Kelly Paz Age: 21 yrs Sex: Female : 2000 Arrival Date: 12/30/2021 Time: 10:07 Bed 11 Private MD: ED Physician Franck Wall HPI: 12/30 10:50 This 21 yrs old Female presents to ER via Ambulatory with complaints of Sore Throat - cp covid+. 10:50 The patient presents with sore throat. The patient describes throat pain as constant. cp 10:50 Onset: The symptoms/episode began/occurred yesterday, and became worse today. Severity cp of symptoms: in the emergency department the symptoms are unchanged, despite home interventions. Modifying factors: the symptoms are aggravated by swallowing. Associated signs and symptoms: Pertinent positives: cough, earache, Pertinent negatives chest pain, fever, headache. 10:50 Patient reports being seen in this ED yesterday and testing positive for COVID-19. 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 - Social history:: Smoking status: Patient reports the use of cigarette tobacco products, Patient/guardian denies using. ROS: 11:00 Eyes: Negative for injury, pain, redness, and discharge. cp 11:00 Constitutional: Negative for fever, poor PO intake. 11:00 ENT: Positive for ear pain, sore throat, Negative for drainage from ear(s), difficulty swallowing, difficulty handling secretions. 11:00 Cardiovascular: Negative for chest pain, palpitations. 11:00 Respiratory: Positive for cough, Negative for shortness of breath, wheezing. 11:00 Abdomen/GI: Negative for abdominal pain, vomiting, diarrhea, constipation. 11:00 Skin: Negative for rash. 11:00 Neuro: Negative for altered mental status, headache, weakness. 11:00 All other systems are negative. Exam: 11:05 Constitutional: The patient appears in no acute distress, alert, awake, non-toxic, well cp developed, well nourished. 11:05 Head/Face: Normocephalic, atraumatic. cp 11:05 Eyes: Periorbital structures: appear normal, Conjunctiva: normal, no exudate, no injection, Sclera: no appreciated abnormality, Lids and lashes: appear normal, bilaterally. 11:05 ENT: External ear(s): are unremarkable, Ear canal(s): are normal, clear, TM's: dullness, bilaterally, Nose: is normal, Mouth: Lips: moist, Oral mucosa: moist, Posterior pharynx: Airway: no evidence of obstruction, patent, Tonsils: with erythema, mild enlargement, no exudate, Uvula: midline, swelling, is not appreciated, erythema, that is moderate, exudate, is not appreciated. 11:05 Neck: ROM/movement: is normal, is supple, without pain, no range of motions limitations, no meningismus, Lymph nodes: lymphadenopathy is appreciated, anterior cervical nodes. 11:05 Chest/axilla: Inspection: normal. 11:05 Cardiovascular: Rate: normal, Rhythm: regular. 11:05 Respiratory: the patient does not display signs of respiratory distress, Respirations: normal, no use of accessory muscles, no retractions, labored breathing, is not present, Breath sounds: are clear throughout, no decreased breath sounds, no stridor, no wheezing. 11:05 Abdomen/GI: Inspection: abdomen appears normal, Palpation: abdomen is soft and non-tender, in all quadrants. 11:05 Skin: cellulitis, is not appreciated, no rash present. Vital Signs: 10:25 BP 124 / 80; Pulse 88; Resp 16; Temp 98.8(TE); Pulse Ox 98% on R/A; Weight 77.11 kg iw (R); Height 5 ft. 2 in. (157.48 cm); Pain 5/10; 10:25 Body Mass Index 31.09 (77.11 kg, 157.48 cm) iw MDM: 10:37 Patient medically screened. pamela 11:05 Differential diagnosis: group A strep tonsillitis, laryngitis, peritonsillar abscess cp retropharyngeal abcess tonsillitis, uvulitis. 12:25 Data reviewed: vital signs, nurses notes, lab test result(s). cp 12:25 Counseling: I had a detailed discussion with the patient and/or guardian regarding: the cp historical points, exam findings, and any diagnostic results supporting the discharge/admit diagnosis, lab results, the need for outpatient follow up, a family practitioner, to return to the emergency department if symptoms worsen or persist or if there are any questions or concerns that arise at home. ED course: VSS. Patient appears non-toxic and no signs of respiratory distress. Will discharge to home for continued monitoring. 12/30 10:40 Order name: Strep cp 12/30 11:33 Order name: Throat Culture EDMS Administered Medications: 11:01 Drug: Decadron (dexamethasone) 10 mg Route: PO; iw 11:20 Follow up: Response: No adverse reaction iw Disposition Summary: 12/30/21 12:25 Discharge Ordered Location: Home cp Problem: new cp Symptoms: are unchanged cp Condition: Stable cp Diagnosis - Acute pharyngitis due to other specified organism cp - SARS-associated coronavirus as the cause of diseases classified elsewhere cp Followup: cp - With: Private Physician - When: 1 - 2 days - Reason: Worsening of condition Discharge Instructions: - Discharge Summary Sheet cp - Pharyngitis cp - COVID-19 cp - Things to Know about the COVID-19 Pandemic - [facility] cp - 10 Things You Can Do to Manage Your COVID-19 Symptoms at Home - [facility] cp - COVID-19: Quarantine vs. Isolation - [facility] cp - Prevent the Spread of COVID-19 if You Are Sick - [facility] cp Forms: - Medication Reconciliation Form cp - Thank You Letter cp - Antibiotic Education cp - Prescription Opioid Use cp Prescriptions: - Lidocaine Viscous - take 5 milliliter by ORAL route every 4-6 hours As needed; 1 bottle; Refills: cp 0, Product Selection Permitted - Amoxicillin 875 mg Oral Tablet - take 1 tablet by ORAL route every 12 hours for 10 days; 20 tablet; Refills: 0, cp Product Selection Permitted - Ibuprofen 800 mg Oral Tablet - take 1 tablet by ORAL route every 8 hours As needed take with food; 30 tablet; cp Refills: 0, Product Selection Permitted Signatures: Dispatcher [employer] Franck Tom MD MD cha Williams, Irene, RN RN iw Franck Polanco PA PA cp Meka Oden, RN RN bm7
[2021-12-30 13:30] VITALS: BP 124/80; TEMP 98.8; O2SAT 98
== END 2021-12-30 13:08 | disposition home or self-care (01) ==
LOC: ER 10:00
DX: J02.8 Acute pharyngitis due to other specified organisms (principal); U07.1 COVID-19; Z88.8 Allergy status to other drugs, medicaments and biological substances
CPT/HCPCS: 87070; 87081; 99283; J8540

== ENCOUNTER 2022-01-30 20:18 | Emergency (ER) | payer OTHER ==
--- OUTSIDE RECORDS SUMMARY | 2022-01-30 20:27 | XMS REPORT | Continuity of Care Document ---
:2000 Author Organization [facility] t Address [address] [place] [address] Care Team Providers Name Role Phone Ryan Hanley Primary Care Physician MELBA KEY Attending Clinician Unavailable CHIKIS PANIAGUA Attending Clinician Unavailable Nurse, [facility] Attending Clinician Unavailable Chikis Paniagua PA-C Attending Clinician Melba Key MD Attending Clinician , [facility] Lab Attending Clinician Unavailable Doctor Unassigned, [place] Attending Clinician Unavailable Rodrigo Sheriff CRNA Attending Clinician Matilda Flaherty MD, [place] Attending Clinician [facility] Attending Clinician Unavailable VISHAL WILEY Attending Clinician Unavailable Ultrasound, [facility] Attending Clinician Unavailable Vishal Wiley MD Attending Clinician [phone] MELBA KEY Admitting Clinician Unavailable Melba Key MD Admitting Clinician Payers Payer Name Policy Type Policy Number Effective Date Expiration Date S juliet [place] [employer] [id number] 2015 HEALTH 00:00:00 Problems Condition Condition Condition Status Onset Resolution Last Treating Co mments Source Name Details Category Date Date Treatment Clinician Date Single Single Disease Active 2020-06 Univers liveborn, liveborn, 2-24 ity of born in born in 00:00: [facility], 00 [facility] delivered delivered Bran ch by vaginal by [...] 1-10 it y of mellitus mellitus 00:00: [place] (GDM) in (GDM) in 00 Medica third third Branch trimester trimester controlled controlled on oral on oral hypoglycem hypoglycem ic drug ic drug Supervisio Supervisio Disease Active U nivers n of n of 8-24 ity of high-risk high-[place] [facility] with with Branch insufficie insufficie nt nt care in care in third third trimester trimester 36 weeks 36 weeks Disease Active Unive rs gestation gestation 8-24 ity of of of 00:00: [place] 00 [facility] 37 weeks 37 weeks Disease Active Unive rs gestation gestation 8-24 ity of of of 00:00: [place] 00 [facility] Branch 38 weeks 38 weeks Disease Active Unive rs gestation gestation 8-24 ity of of of 00:00: [place] 00 [facility] Obesity Obesity Disease Active 2019-06 Univers (BMI (BMI 0-21 ity of 30-39.9) 30-39.9) 00:00: [place] 00 Medical Branch Allergies, Adverse Reactions, Alerts [...] Stop Date Quantity Comments Source ASSERTION 2020-09-13 [facility] 00:00:00 [place] [facility] History [facility] o f Alcohol Comment [place] Med ical Branch Exposure to 2021-11-27 2021-12-07 Not sure [facility] SARS-CoV-2 00:00:00 14:17:00 [facility] (event) Branch Alcohol intake 2021-09-14 2021-09-14 Ex-drinker [facility] 00:00:00 00:00:00 (finding) [place] [facility] Tobacco use and 2021-01-26 2021-01-26 [facility] 00:00:00 00:00:00 [place] [facility] History [facility] 2020-03-25 2020-03-25 4 University o f Alcohol Frequency 00:00:00 00:00:00 [place] M edical Branch History [facility] 2020-03-25 2020-03-25 99 [place] o f Alcohol Std 00:00:00 00:00:00 [place] Medical Drinks Branch History [facility] 2020-03-25 2020-03-25 99 [place] o f Alcohol Binge 00:00:00 00:00:00 [place] Medic al Branch History of 2020-01-27 Chews Tobacco [place] of tobacco use 00:00:00 [place] [facility] Sex Assigned At 2000 2000 Universit y of 00:00:00 00:00:00 [place] [facility] Smoking Status Start Date Stop Date Source Former smoker 2021-01-26 00:00:00 2021-01-26 00:00:00 [facility] Medications Ordered Filled Start Stop Current Ordering Indication Dosage Frequency Signature Comments Components Source Medication Medication Date Date Medication? Clinician (SIG) Name Name medroxyPROG 2021- No [id number] 150mg Univers ESTERone 12-07- ity of (DEPO-PROVE 21:00: 19:49 [place] RA) syringe 00 :00 Medical 150 mg Branch medroxyPROG 2021- No [id number] 150mg 150 mg, Univers ESTERone 12-0705 Intramuscu ity of (DEPO-PROVE 21:00: 19:49 lar, ONCE, [place] RA) syringe 00 :00 1 dose, On Me dical 150 mg 12/07/21 Branch at 1600, Routine medroxyPROG No [id number] 150mg Univers ESTERone 09-14 ity of (DEPO-PROVE 21:00: 19:51 [place] RA) syringe 00 :00 Medical 150 mg Branch medroxyPROG 2021- No [id number] 150mg 150 mg, Univers ESTERone 09-14 Intramuscu ity of (DEPO-PROVE 21:00: 19:51 lar, ONCE, [place] RA) syringe 00 :00 1 dose, On Me dical 150 mg Tue Branch 09/14/21 at 1600, Routine sulfamethox Yes [id number] 1{tbl} Take 1 Univers azole-trime 1-31 tablet by ity of thoprim 00:00: mouth 2 [place] 800-160 mg 00 (two) Medical per tablet times Branch daily. sulfamethox Yes [id number] 1{tbl} Take 1 Univers azole-trime 1-31 tablet by ity of thoprim 00:00: mouth 2 [place] 800-160 mg 00 (two) Medical per tablet times Branch daily. sulfamethox Yes [id number] 1{tbl} Take 1 Univers azole-trime 1-31 tablet by ity of thoprim 00:00: mouth 2 [place] 800-160 mg 00 (two) Medical per tablet times Branch daily. sulfamethox Yes [id number] 1{tbl} Take 1 Univers azole-trime 1-31 tablet by ity of thoprim 00:00: mouth 2 [place] 800-160 mg 00 (two) Medical per tablet times Branch daily. sulfamethox Yes [id number] 1{tbl} Take 1 Univers azole-trime 1-31 tablet by ity of thoprim 00:00: mouth 2 [place] 800-160 mg 00 (two) Medical per tablet times Branch daily. sulfamethox 2021-0 Yes [id number] 1{tbl} Take 1 Univers azole-trime 1-31 tablet by ity of thoprim 00:00: mouth 2 [place] 800-160 mg 00 (two) Medical per tablet times Branch daily. sulfamethox 0 2021- No [id number] 1{tbl} Take 1 Univers azole-trime 1-31 03-10 tablet by it y of thoprim 00:00: 00:00 mouth 2 [place] 800-160 mg 00 :00 (two) Medical per tablet times Branch daily. medroxyPROG 2021- No [id number] 150mg Univers ESTERone 06-23 ity of (DEPO-PROVE 00:00: 22:40 [place] RA) syringe 00 :00 Medical 150 mg Branch medroxyPROG 2021- No [id number] 150mg 150 mg, Univers ESTERone 06-23 Intramuscu ity of (DEPO-PROVE 00:00: 22:40 lar, ONCE, [place] RA) syringe 00 :00 1 dose, On Me dical 150 mg Tue Branch 06/22/21 at 1800, Routine 2020-06- No Take by [facility] rs vit 2-25 12-25 mouth. ity of calc,iron,f 08:36: 00:00 [place] olic 38 :00 Medical ( Branch VITAMIN ORAL) 2020-06- No Take by [facility] rs vit 2-25 12-25 mouth. ity of calc,iron,f 08:36: 00:00 [place] olic 38 :00 Medical ( Branch VITAMIN ORAL) 2020-06 Yes [id number] 1{tbl} Take 1 Univers vitamin 2-25 102 tablet by ity of w/FA tablet 00:00: mouth [place] 00 daily. Medical Branch 2020-06 Yes [id number] 1{tbl} Take 1 Univers vitamin 2-25 102 tablet by ity of w/FA tablet 00:00: mouth [place] 00 daily. Medical Branch 2020-06 Yes [id number] 1{tbl} Take 1 Univers vitamin 2-25 102 tablet by ity of w/FA tablet 00:00: mouth [place] 00 daily. Medical Branch docusate 2020-06 Yes [id number] 240mg Take 1 Univers calcium 240 2-25 102 capsule by it y of mg capsule 00:00: mouth once [place] 00 daily as Medical needed for Branch Constipati on. ferrous 2020-06 Yes [id number] 325mg Take 1 Univers sulfate 325 2-25 102 tablet by ity of mg (65 mg 00:00: mouth 2 [place] iron) 00 (two) Medical tablet times Branch daily. ibuprofen 2020-06 Yes [id number] 600mg Take 1 Univers 600 mg 2-25 102 tablet by ity of tablet 00:00: mouth [place] 00 every 6 Medical (six) Branch hours as needed (Pain). Take with food or milk. 2020-06 Yes [id number] 1{tbl} Take 1 Univers vitamin 2-25 102 tablet by ity of w/FA tablet 00:00: mouth [place] 00 daily. Medical Branch docusate 2020-06 Yes [id number] 240mg Take 1 Univers calcium 240 2-25 102 capsule by it y of mg capsule 00:00: mouth once [place] 00 daily as Medical needed for Branch Constipati on. ferrous 2020-06 Yes [id number] 325mg Take 1 Univers sulfate 325 2-25 102 tablet by ity of mg (65 mg 00:00: mouth 2 [place] iron) 00 (two) Medical tablet times Branch daily. ibuprofen 2020-06 Yes [id number] 600mg Take 1 Univers 600 mg 2-25 102 tablet by ity of tablet 00:00: mouth [place] 00 every 6 Medical (six) Branch hours as needed (Pain). Take with food or milk. 2020-06 Yes [id number] 1{tbl} Take 1 Univers vitamin 2-25 102 tablet by ity of w/FA tablet 00:00: mouth [place] 00 daily. Medical Branch docusate 2020-06 Yes [id number] 240mg Take 1 Univers calcium 240 2-25 102 capsule by it y of mg capsule 00:00: mouth once [place] 00 daily as Medical needed for Branch Constipati on. ferrous 2020-06 Yes [id number] 325mg Take 1 Univers sulfate 325 2-25 102 tablet by ity of mg (65 mg 00:00: mouth 2 [place] iron) 00 (two) Medical tablet times Branch daily. ibuprofen 2020-06 Yes [id number] 600mg Take 1 Univers 600 mg 2-25 102 tablet by ity of tablet 00:00: mouth [place] 00 every 6 Medical (six) Branch hours as needed (Pain). Take with food or milk. 2020-06 Yes [id number] 1{tbl} Take 1 Univers vitamin 2-25 102 tablet by ity of w/FA tablet 00:00: mouth [place] 00 daily. Medical Branch docusate 2021-1 Yes [id number] 240mg Take 1 Univers calcium 240 2-25 102 capsule by it y of mg capsule 00:00: mouth once [place] 00 daily as Medical needed for Branch Constipati on. ferrous 2020-06 Yes [id number] 325mg Take 1 Univers sulfate 325 2-25 102 tablet by ity of mg (65 mg 00:00: mouth 2 [place] iron) 00 (two) Medical tablet times Branch daily. ibuprofen 2020-06 Yes [id number] 600mg Take 1 Univers 600 mg 2-25 102 tablet by ity of tablet 00:00: mouth [place] 00 every 6 Medical (six) Branch hours as needed (Pain). Take with food or milk. 2020-06 Yes [id number] 1{tbl} Take 1 Univers vitamin 2-25 102 tablet by ity of w/FA tablet 00:00: mouth [place] 00 daily. Medical Branch docusate 2020-06 Yes [id number] 240mg Take 1 Univers calcium 240 2-25 102 capsule by it y of mg capsule 00:00: mouth once [place] 00 daily as Medical needed for Branch Constipati on. ferrous 2020-06 Yes [id number] 325mg Take 1 Univers sulfate 325 2-25 102 tablet by ity of mg (65 mg 00:00: mouth 2 [place] iron) 00 (two) Medical tablet times Branch daily. ibuprofen 2020-06 Yes [id number] 600mg Take 1 Univers 600 mg 2-25 102 tablet by ity of tablet 00:00: mouth [place] 00 every 6 Medical (six) Branch hours as needed (Pain). Take with food or milk. 2020-06 Yes [id number] 1{tbl} Take 1 Univers vitamin 2-25 102 tablet by ity of w/FA tablet 00:00: mouth [place] 00 daily. Medical Branch 2020-06 Yes [id number] 1{tbl} Take 1 Univers vitamin 2-25 102 tablet by ity of w/FA tablet 00:00: mouth [place] 00 daily. Medical Branch 2020-06 Yes [id number] 1{tbl} Take 1 Univers vitamin 2-25 102 tablet by ity of w/FA tablet 00:00: mouth [place] 00 daily. Medical Branch 2020-06 Yes [id number] 1{tbl} Take 1 Univers vitamin 2-25 102 tablet by ity of w/FA tablet 00:00: mouth [place] 00 daily. Medical Branch 2020-06 Yes [id number] 1{tbl} Take 1 Univers vitamin 2-25 102 tablet by ity of w/FA tablet 00:00: mouth [place] 00 daily. Medical Branch 2020-06 Yes [id number] 1{tbl} Take 1 Univers vitamin 2-25 102 tablet by ity of w/FA tablet 00:00: mouth [place] 00 daily. Medical Branch docusate 2020-06- No [id number] 240mg Take 1 Univers calcium 240 2-25 - 102 capsule by i ty of mg capsule 00:00: 00:00 mouth once [place] 00 :00 daily as Medical needed for Branch Constipati on. ferrous 2020-06- No [id number] 325mg Take 1 Univers sulfate 325 2-25 - 102 tablet by it y of mg (65 mg 00:00: 00:00 mouth 2 [place] iron) 00 :00 (two) Medical tablet times Branch daily. ibuprofen 2020-06- No [id number] 600mg Take 1 Univers 600 mg 2-25 [...] 2-24 Oral, ity of (TYLENOL) 09:53: Q6HPRN, [place] tablet 650 45 Starting Medic al mg on Fri Branch 05/28/21 at 0353, Until Discontinu ed, Routine, Pain (scale 1-3) diphenhydrA 2020-06 Yes 25mg 25 mg, Univ ers MINE 2-24 Oral, ity of (BENADRYL) 09:53: Q6HPRN, [place] tablet 25 45 Starting Medica l mg on Mon Branch 05/28/21 at 0353, Until Discontinu ed, Routine, Sleep, Itching ondansetron 2020-06 Yes 4mg 4 mg, Slow Univers (ZOFRAN 2-24 IV Push, ity of (PF)) 09:53: Q8HPRN, [place] injection 4 45 Starting Medi ankit mg on Mon Branch 05/28/21 at 0353, Until Discontinu ed, Routine, Nausea and Vomiting (N/V) simethicone 2020-06 Yes 160mg 160 mg, Un jaymie (GAS RELIEF 2-24 Oral, ity of (SIMETHICON 09:53: PC+HSPRN, [place] E)) 45 Starting Medical chewable on Mon Branch tablet 160 05/28/21 mg at 035, Until Discontinu ed, Routine, Gas magnesium 2020-06 Yes 30mL 30 mL, Univer s hydroxide 2-24 Oral, ity of (MILK OF 09:53: QDAILYPRN, [place] as MAGNESIA) 45 Starting Medica l 400 mg/5 mL on Mon Branch suspension 05/28/21 30 mL at 035, Until Discontinu ed, Routine, Constipati on benzocaine- 2020-06 Yes Topical, Un [place]ay[place] menthol 2-24 PRN, ity of (DERMOPLAST 09:53: [place] 20-0.5 % 44 on Mon Medical topical 05/28/21 Branch spray at 0353, Until Discontinu ed, Routine, Perineum discomfort FENTanyl 2 2020-06- No Intra-op Un jaymie mcg/mL + 2-24 12-24 ity of bupivacaine 05:44: 11:28 [place] 0.125% in 00 :29 Medical NS 250 mL Branch epidural bag lidocaine-e 2020-06- No Epidural, Univers pinephrine 2-24 12-24 ONCE INTRA it y of (XYLOCAINE 05:35: 11:28 PROCEDURE, [place] W/EPINEPHRI 00 :29 Starting Medi ankit NE) 1.5 on Mon Branch %-1:200,000 05/27/21 injection at 2335, Until [...] 1000mL at 125 Univ ers ringers IV 2- 12-24 mL/hr, ity of infusion 22:15: 09:55 1,000 mL, [place] 1,000 mL 00 :04 IV Medical Infusion, Branch CONTINUOUS , Starting on Abby 05/27/21 at 1615, Until Mon05/28/21 at 0355, Routine FENTanyl PF 2020-06- No 100ug 100 mcg, Univers (SUBLIMAZE 07-28 Slow IV ity o f (PF)) 22:03: 09:55 Push, [place] injection 28 :04 Q1HPRN, Medical 100 mcg Starting Branch on Abby 05/27/21 at 1603, Until Mon05/28/21 at 0355, Routine, Pain lactated 2020-06- No 500mL at 999 Unive rs ringers IV 2- 12-24 mL/hr, 500 it y of infusion 22:03: 09:55 mL, IV [place] 500 mL 28 :04 Infusion, Medical PRN - SEE Branch INSTRUCTIO NS, Starting on [place] 05/27/21 at 1603, Until Mon05/28/21 at 0355, Routine LR 1000 mL 2020-06- No 2mU/min at 6-120 Univers + oxytocin 07-28 12-24 mL/hr, IV ity of 20 units IV 22:03: 09:55 Infusion, [place] Solution 28 :04 TITRATE, Medical Starting Branch on Abby 05/27/21 at 1603, Until Mon05/28/21 at 0355, Routine 2020-06 Yes Take by [facility] s vit 2- mouth. ity of calc,iron,f 14:46: Dinh olwilber 18 Medical ( Branch VITAMIN ORAL) glyBURIDE 2020-06 Yes [id number] 1.25mg Take 1 Univers 1.25 mg 2-01 tablet by ity of tablet 00:00: mouth with [place] 00 evening Medical meal. Take Branch 30 mins before dinner glyBURIDE 2020-06 Yes [id number] 1.25mg Take 1 Univers 1.25 mg 2-01 tablet by ity of tablet 00:00: mouth with [place] 00 evening Medical meal. Take Branch 30 mins before dinner glyBURIDE 2020-06 Yes [id number] 1.25mg Take 1 Univers 1.25 mg 2-01 tablet by ity of tablet 00:00: mouth with [place] 00 evening Medical meal. Take Branch 30 mins before dinner glyBURIDE 2020-06 Yes [id number] 1.25mg Take 1 Univers 1.25 mg 2-01 tablet by ity of tablet 00:00: mouth with [place] 00 evening Medical meal. Take Branch 30 mins before dinner glyBURIDE 2020-06 Yes [id number] 1.25mg Take 1 Univers 1.25 mg 2-01 tablet by ity of tablet 00:00: mouth with [place] 00 evening Medical meal. Take Branch 30 mins before dinner glyBURIDE 2020-06 Yes [id number] 1.25mg Take 1 Univers 1.25 mg 2-01 tablet by ity of tablet 00:00: mouth with [place] 00 evening Medical meal. Take Branch 30 mins before dinner glyBURIDE 2020-06 Yes [id number] 1.25mg Take 1 Univers 1.25 mg 2-01 tablet by ity of tablet 00:00: mouth with [place] 00 evening Medical meal. Take Branch 30 mins before dinner glyBURIDE 2020-06- No [id number] 1.25mg Take 1 Univers 1.25 mg 2-01 12-25 tablet by ity of tablet 00:00: 00:00 mouth with [place] 00 :00 evening Medical meal. Take Branch 30 mins before dinner glyBURIDE 2020-06- No [id number] 1.25mg Take 1 Univers 1.25 mg 2-01 12-25 tablet by ity of tablet 00:00: 00:00 mouth with [place] 00 :00 evening Medical meal. Take Branch 30 mins before dinner metroNIDAZO 2020-06- No [id number] 500mg Take 1 Univers LE 500 mg 06-30 tablet by ity of tablet 00:00: 00:00 mouth [place] 00 :00 every 12 Medical (twelve) Branch hours. Lancets 2020-06 Yes [id number] Check Unive rs Misc 1-12 blood ity of 00:00: sugar 4 [place] 00 times Medical daily. Branch Blood-Gluco 2020-06 Yes [id number] Use as Univers se Meter 1-12 directed ity of (BLOOD 00:00: [place] GLUCOSE 00 Medical MONITORING) Branch Kit blood sugar 2020-06 Yes [id number] Check U nivers diagnostic 1-12 blood ity of strip 00:00: sugar 4 [place] 00 times Medical daily. Branch Alcohol 2020-06 Yes [id number] Apply to Un j[place] Swabs 1-12 area(s) 4 ity of (ALCOHOL 00:00: (four) [place] PREP PADS) 00 times Medical PadM daily. Branch Lancets 2020-06 Yes [id number] Check Unive rs Misc 1-12 blood ity of 00:00: sugar 4 [place] 00 times Medical daily. Branch Blood-Gluco 2020-06 Yes [id number] Use as Univers se Meter 1-12 directed ity of (BLOOD 00:00: [place] GLUCOSE 00 Medical MONITORING) Branch Kit blood sugar 2020-06 Yes [id number] Check U nivers diagnostic 1-12 blood ity of strip 00:00: sugar 4 [place] 00 times Medical daily. Branch Alcohol 2020-06 Yes [id number] Apply to Un jaymie Swabs 1-12 area(s) 4 ity of (ALCOHOL 00:00: (four) [place] PREP PADS) 00 times Medical PadM daily. Branch Lancets 2020-06 Yes [id number] Check Unive rs Misc 1-12 blood ity of 00:00: sugar 4 [place] 00 times Medical daily. Branch Blood-Gluco 2020-06 Yes [id number] Use as Univers se Meter 1-12 directed ity of (BLOOD 00:00: [place] GLUCOSE 00 Medical MONITORING) Branch Kit blood sugar 2020-06 Yes [id number] Check U nivers diagnostic 1-12 blood ity of strip 00:00: sugar 4 [place] 00 times Medical daily. Branch Alcohol 2020-06 Yes [id number] Apply to Un jaymie Swabs 1-12 area(s) 4 ity of (ALCOHOL 00:00: (four) [place] PREP PADS) 00 times Medical PadM daily. Branch Lancets 2020-06 Yes [id number] Check Unive rs Misc 1-12 blood ity of 00:00: sugar 4 [place] 00 times Medical daily. Branch Blood-Gluco 2020-06 Yes [id number] Use as Univers se Meter 1-12 directed ity of (BLOOD 00:00: [place] GLUCOSE 00 Medical MONITORING) Branch Kit blood sugar 2020-06 Yes [id number] Check U nivers diagnostic 1-12 blood ity of strip 00:00: sugar 4 [place] 00 times Medical daily. Branch Alcohol 2020-06 Yes [id number] Apply to Un jaymie Swabs 1-12 area(s) 4 ity of (ALCOHOL 00:00: (four) [place] PREP PADS) 00 times Medical PadM daily. Branch Lancets 2020-06 Yes [id number] Check Unive rs Misc 1-12 blood ity of 00:00: sugar 4 [place] 00 times Medical daily. Branch Blood-Gluco 2020-06 Yes [id number] Use as Univers se Meter 1-12 directed ity of (BLOOD 00:00: [place] GLUCOSE 00 Medical MONITORING) Branch Kit blood sugar 2020-06 Yes [id number] Check U nivers diagnostic 1-12 blood ity of strip 00:00: sugar 4 [place] 00 times Medical daily. Branch Alcohol 2020-06 Yes [id number] Apply to Un jaymie Swabs 1-12 area(s) 4 ity of (ALCOHOL 00:00: (four) [place] PREP PADS) 00 times Medical PadM daily. Branch Lancets 2020-06 Yes [id number] Check Unive rs Misc 1-12 blood ity of 00:00: sugar 4 [place] 00 times Medical daily. Branch Blood-Gluco 2020-06 Yes [id number] Use as Univers se Meter 1-12 directed ity of (BLOOD 00:00: [place] GLUCOSE 00 Medical MONITORING) Branch Kit blood sugar 2020-06 Yes [id number] Check U nivers diagnostic 1-12 blood ity of strip 00:00: sugar 4 [place] 00 times Medical daily. Branch Alcohol 2020-06 Yes [id number] Apply to Un jaymie Swabs 1-12 area(s) 4 ity of (ALCOHOL 00:00: (four) [place] PREP PADS) 00 times Medical PadM daily. Branch Lancets 2020-06 Yes [id number] Check Unive rs Misc 1-12 blood ity of 00:00: sugar 4 [place] 00 times Medical daily. Branch Blood-Gluco 2020-06 Yes [id number] Use as Univers se Meter 06-16 directed ity of (BLOOD 00:00: [place] GLUCOSE 00 Medical MONITORING) Branch Kit blood sugar 2020-06 Yes [id number] Check U nivers diagnostic 06-16 blood ity of strip 00:00: sugar 4 [place] 00 times Medical daily. Branch Alcohol 2020-06 Yes [id number] Apply to Un jaymie Swabs 06-16 area(s) 4 ity of (ALCOHOL 00:00: (four) [place] PREP PADS) 00 times Medical PadM daily. Branch Lancets 2020-06- No [id number] Check Univ ers Misc 06-16 blood ity of 00:00: 00:00 sugar 4 [place] 00 :00 times Medical daily. Branch Blood-Gluco 2020-06- No [id number] Use as Univers se Meter 06-16 directed ity of (BLOOD 00:00: 00:00 [place] GLUCOSE 00 :00 Medical MONITORING) Branch Kit blood sugar 2020-06- No [id number] Check Univers diagnostic 06-16 blood ity of strip 00:00: 00:00 sugar 4 [place] 00 :00 times Medical daily. Branch Alcohol 2020-06- No [id number] Apply to U nivers Swabs 06-16 area(s) 4 ity of (ALCOHOL 00:00: 00:00 (four) [place] PREP PADS) 00 :00 times Medical PadM daily. Branch Lancets 2020-06- No [id number] Check Univ ers Misc 06-16 blood ity of 00:00: 00:00 sugar 4 [place] 00 :00 times Medical daily. Branch Blood-Gluco 2020-06- No [id number] Use as Univers se Meter 06-16 directed ity of (BLOOD 00:00: 00:00 [place] GLUCOSE 00 :00 Medical MONITORING) Branch Kit blood sugar 2020-06- No [id number] Check Univers diagnostic 06-16 blood ity of strip 00:00: 00:00 sugar 4 [place] 00 :00 times Medical daily. Branch Alcohol 2020-06- No [id number] Apply to U nivers Swabs 06-16 area(s) 4 ity of (ALCOHOL 00:00: 00:00 (four) [place] PREP PADS) 00 :00 times Medical PadM daily. Branch 2020-06 Yes Take by Univer s vit 0-29 mouth. ity of calc,iron,f 11:30: [place] [id number] Medical ( Branch VITAMIN ORAL) 2020-06 Yes Take by Univer s vit 0-29 mouth. ity of calc,iron,f 11:30: [place] [id number] Medical ( Branch VITAMIN ORAL) 2020-06 Yes Take by Univer s vit 0-29 mouth. ity of calc,iron,f 11:30: [place] [id number] Medical ( Branch VITAMIN ORAL) 2020-06 Yes Take by Univer s vit 0-29 mouth. ity of calc,iron,f 11:30: [place] [id number] Medical ( Branch VITAMIN ORAL) 2020-06 Yes Take by Univer s vit 0-29 mouth. ity of calc,iron,f 11:30: [place] [id number] Medical ( Branch VITAMIN ORAL) 2020-06 Yes Take by Univer s vit 0-29 mouth. ity of calc,iron,f 11:30: [place] [id number] Medical ( Branch VITAMIN ORAL) Immunizations Ordered Filled Immunization Date Status Comments [facility] e Immunization Name Name Influenza Virus 2021-04-02 Completed Universit y of Vaccine Quad IM, 00:00:00 [place] Me dical Preserv and ABX Branch Free [...] Universit y of Vaccine [facility] IM, 00:00:00 [place] Me dical Preserv and ABX Branch Free 6 MO-64 YRS Influenza Virus 2021-04-02 Completed Universit y of Vaccine [facility] IM, 00:00:00 [place] Me dical Preserv and ABX Branch Free 6 MO-64 YRS Influenza Virus 2021-04-02 Completed Universit y of Vaccine [facility] IM, 00:00:00 [place] Me dical Preserv and ABX Branch Free 6 MO-64 YRS Influenza Virus 2021-04-02 Completed Universit y of Vaccine [facility] IM, 00:00:00 [place] Me dical Preserv and ABX Branch Free 6 MO-64 YRS Influenza Virus 2021-04-02 Completed Universit y of Vaccine [facility] IM, 00:00:00 [place] Me dical Preserv and ABX Branch Free 6 MO-64 YRS Influenza Virus 2021-04-02 Completed Universit y of Vaccine [facility] IM, 00:00:00 [place] Me dical Preserv and ABX Branch Free 6 MO-64 YRS Influenza Virus 2021-04-02 Completed Universit y of Vaccine [facility] IM, 00:00:00 [place] Me dical Preserv and ABX Branch Free 6 MO-64 YRS Influenza Virus 2021-04-02 Completed Universit y of Vaccine [facility] IM, 00:00:00 [place] Me dical Preserv and ABX Branch Free 6 MO-64 YRS Influenza Virus 2021-04-02 Completed Universit y of Vaccine [facility] IM, 00:00:00 [place] Me dical Preserv and ABX Branch Free 6 MO-64 YRS Influenza Virus 2021-04-02 Completed Universit y of Vaccine [facility] IM, 00:00:00 [place] Me dical Preserv and ABX Branch Free 6 MO-64 YRS Influenza Virus 2021-04-02 Completed Universit y of Vaccine Quad IM, 00:00:00 [facility] dical Preserv and ABX Branch Free 6 MO-64 YRS TDAP 2021-03-18 Completed University of 00:00:00 [facility] Branch TDAP 2021-03-18 Completed University of 00:00:00 [place] [facility] TDAP 2021-03-18 Completed University of 00:00:00 [place] [facility] TDAP 2021-03-18 Completed University of 00:00:00 [place] [facility] TDAP 2021-03-18 Completed [facility] 00:00:00 [facility] TDAP 2021-03-18 Completed [facility] 00:00:00 [facility] TDAP 2021-03-18 Completed [facility] 00:00:00 [facility] TDAP 2021-03-18 Completed [facility] 00:00:00 [facility] TDAP 2021-03-18 Completed [facility] 00:00:00 [facility] TDAP 2021-03-18 Completed [facility] 00:00:00 [facility] TDAP 2021-03-18 Completed [facility] 00:00:00 [facility] TDAP 2021-03-18 Completed [facility] 00:00:00 [facility] TDAP 2021-03-18 Completed [facility] 00:00:00 [facility] TDAP 2021-03-18 Completed [facility] 00:00:00 [facility] TDAP 2021-03-18 Completed [facility] 00:00:00 [facility] TDAP 2021-03-18 Completed [facility] 00:00:00 [facility] TDAP 2021-03-18 Completed [facility] 00:00:00 [facility] TDAP 2021-03-18 Completed [facility] 00:00:00 [facility] TDAP 2021-03-18 Completed [facility] 00:00:00 [facility] TDAP 2021-03-18 Completed [facility] 00:00:00 [facility] Vital Signs Vital Name Observation Time Observation Value Comments Source Systolic blood 2021-12-07 19:47:00 135 mm[Hg] Univer sity of pressure [facility] Diastolic blood 2021-12-07 19:47:00 76 mm[Hg] Unive rsity of pressure [facility] Heart rate 2021-12-07 19:47:00 82 /min [facility] Body temperature 2021-12-07 19:47:00 37.06 Lay [facility] Respiratory rate 2021-12-07 19:47:00 18 /min [facility] Body height 2021-12-07 19:47:00 157.5 cm [facility] Body weight 2021-12-07 19:47:00 75.66 kg [facility] BMI 2021-12-07 19:47:00 30.51 kg/m2 [facility] Systolic blood 2021-09-14 19:49:00 121 mm[Hg] [facility] Diastolic blood 2021-09-14 19:49:00 81 mm[Hg] [facility] Heart rate 2021-09-14 19:49:00 92 /min [facility] Body temperature 2021-09-14 19:49:00 37.17 Lay [facility] Body height 2021-09-14 19:49:00 157.5 cm [facility] Body weight 2021-09-14 19:49:00 77.928 kg [facility] BMI 2021-09-14 19:49:00 31.42 kg/m2 [facility] Systolic blood 2021-07-13 14:40:00 121 mm[Hg] [facility] Diastolic blood 2021-07-13 14:40:00 69 mm[Hg] [facility] Heart rate 2021-07-13 14:40:00 72 /min [facility] Body temperature 2021-07-13 14:40:00 36.56 Lay [facility] Respiratory rate 2021-07-13 14:40:00 18 /min [facility] Body height 2021-07-13 14:40:00 157.5 cm [facility] Body weight 2021-07-13 14:40:00 77.111 kg [facility] BMI 2021-07-13 14:40:00 31.09 kg/m2 [facility] Systolic blood 2021-07-05 16:27:00 124 mm[Hg] [facility] Diastolic blood 2021-07-05 16:27:00 80 mm[Hg] [facility] Heart rate 2021-07-05 16:27:00 77 /min [facility] Body temperature 2021-07-05 16:27:00 36.83 Lay [facility] Respiratory rate 2021-07-05 16:27:00 18 /min [facility] Body weight 2021-07-05 16:27:00 77.565 kg [facility] Systolic blood 2021-06-22 21:33:00 118 mm[Hg] [facility] Diastolic blood 2021-06-22 21:33:00 81 mm[Hg] [facility] Heart rate 2021-06-22 21:33:00 61 /min [facility] Body temperature 2021-06-22 21:33:00 36.39 Lay [facility] Body weight 2021-06-22 21:33:00 77.565 kg [facility] Systolic blood 2021-05-29 14:27:00 128 mm[Hg] [facility] Diastolic blood 2021-05-29 14:27:00 61 mm[Hg] [facility] Body temperature 2021-05-29 14:27:00 36.89 Lay [facility] Respiratory rate 2021-05-29 14:27:00 18 /min [facility] Oxygen saturation in 2021-05-29 14:27:00 100 /min University Arterial blood by [facility] Pulse oximetry Branch Heart rate 2021-05-29 09:00:00 70 /min [facility] Systolic blood 2021-05-25 20:31:00 125 mm[Hg] [facility] Diastolic blood 2021-05-25 20:31:00 87 mm[Hg] [facility] Heart rate 2021-05-25 20:31:00 78 /min [facility] Body temperature 2021-05-25 20:31:00 36.78 Lay [facility] Respiratory rate 2021-05-25 20:31:00 18 /min [facility] Body height 2021-05-25 20:31:00 157.5 cm [facility] Body weight 2021-05-25 20:31:00 89.812 kg [facility] BMI 2021-05-25 20:31:00 36.21 kg/m2 [facility] Systolic blood 2021-05-21 16:13:00 123 mm[Hg] [facility] Diastolic blood 2021-05-21 16:13:00 85 mm[Hg] [facility] Heart rate 2021-05-21 16:13:00 85 /min [facility] Body temperature 2021-05-21 16:13:00 36.56 Lay [facility] Respiratory rate 2021-05-21 16:13:00 18 /min [facility] Body height 2021-05-21 16:13:00 157.5 cm [facility] Body weight 2021-05-21 16:13:00 87.998 kg [facility] BMI 2021-05-21 16:13:00 35.48 kg/m2 [facility] Systolic blood 2021-05-18 15:57:00 118 mm[Hg] [facility] Diastolic blood 2021-05-18 15:57:00 78 mm[Hg] [facility] Heart rate 2021-05-18 15:57:00 73 /min [facility] Body temperature 2021-05-18 15:57:00 36.61 Lay [facility] Body height 2021-05-18 15:57:00 157.5 cm [facility] Body weight 2021-05-18 15:57:00 88.996 kg [facility] BMI 2021-05-18 15:57:00 35.89 kg/m2 [facility] Systolic blood 2021-05-14 20:18:00 112 mm[Hg] [facility] Diastolic blood 2021-05-14 20:18:00 76 mm[Hg] [facility] Heart rate 2021-05-14 20:18:00 84 /min [facility] Body temperature 2021-05-14 20:18:00 36.72 Lay [facility] Respiratory rate 2021-05-14 20:18:00 18 /min [facility] Body height 2021-05-14 20:18:00 157.5 cm [facility] Body weight 2021-05-14 20:18:00 88.451 kg [facility] BMI 2021-05-14 20:18:00 35.67 kg/m2 [facility] Systolic blood 2021-05-11 16:18:00 122 mm[Hg] [facility] Diastolic blood 2021-05-11 16:18:00 83 mm[Hg] [facility] Heart rate 2021-05-11 16:18:00 77 /min [facility] Body temperature 2021-05-11 16:18:00 36.89 Lay [facility] Respiratory rate 2021-05-11 16:18:00 18 /min [facility] Body height 2021-05-11 16:18:00 157.5 cm [facility] Body weight 2021-05-11 16:18:00 88.905 kg [facility] BMI 2021-05-11 16:18:00 35.85 kg/m2 [facility] Procedures Procedure Date / Time Performing Clinician Source Performed GLUCOSE FASTING 2021-07-21 14:13:00 Chikis Paniagua o yanique [facility] CONSENT FOR CONTRACEPTION 2021-06-22 06:01:00 Doctor Unassigned, [facility] POCT TEST 2021-06-22 00:00:00 Adum, Melba Hardin [facility] CBC WITH DIFF 2021-05-29 10:17:00 Adum, Melba L [facility] VENOUS CORD GAS 2021-05-28 09:20:00 Adum, Melba Hardin [facility] POCT GLUCOSE (AUTOMATED) 2021-05-28 06:59:00 Adum, Melba Hardin [facility] CENTRAL NEURAXIAL BLOCK 2021-05-28 06:40:39 Gómez Grey [facility] POCT GLUCOSE (AUTOMATED) 2021-05-28 04:47:00 Adum, Melba Hardin [facility] POCT GLUCOSE (AUTOMATED) 2021-05-28 01:34:00 Adum, Melba Hardin [facility] HB ABO GROUPING 2021-05-27 23:10:00 Adum, Melba Hardin [facility] COVID-19 (ID NOW RAPID 2021-05-27 23:07:00 Adum, Melba Hardin [facility] TESTING) Medical Branch LAB ONLY COVID 2021-05-27 23:07:00 Adum, Melba Hardin [facility] INTERPRETATION [facility] CBC WITH DIFF 2021-05-27 23:06:00 Adum, Melba Hardin [facility] HEPATITIS B SURFACE 2021-05-27 23:06:00 Adum, Melba Hardin [facility] ANTIGEN [facility] Branch ADC OR LOLI ONLY - RPR 2021-05-27 23:06:00 [facility]um, [facility]-AB WITH REFLEX 2021-05-27 23:06:00 [facility]um, [facility] PO[facility] GLUCOSE (AUTOMATED) 2021-05-27 21:28:00 Adum, Melba aHrdin [facility] CONSENT/REFUSAL FOR 2021-05-27 20:55:09 Doctor Unassigned, [facility] DIAGNOSIS AND TREATMENT [facility] ASSIGNMENT OF BENEFITS 2021-05-27 20:47:03 [facility] NON-STRESS TEST 2021-05-25 21:32:46 Adum, Melba Hardin [facility] patricio [facility] POCT URINALYSIS W/O 2021-05-25 00:00:00 Adum, [facility] NON-STRESS TEST 2021-05-21 20:39:44 Adum, Melba Hardin [facility] POCT URINALYSIS W/O 2021-05-21 00:00:00 Adum, [facility] NON-STRESS TEST 2021-05-18 16:44:35 Adum, Melba Hardin [facility] POCT URINALYSIS W/O 2021-05-18 00:00:00 Adum, Mel[facility] NON-STRESS TEST 2021-05-14 20:58:37 Adum, Melba Hardin [facility] NON-STRESS TEST 2021-05-11 17:05:02 Adum, Melba Hardin [facility] GC & CHLAMYDIA AMPLIFIED 2021-05-11 16:33:00 Adum, Melba Green versity [facility] TRICHOMONAS AMPLIFIED 2021-05-11 16:33:00 Adum, Melba Hardin [facility] POCT URINALYSIS W/O 2021-05-11 00:00:00 Adum, Melba Hardin [facility] Encounters Start End Encounter Admission Attending Care Care Encounter Source Date/Time Date/Time Type Type Clinicians Facility Department ID 2021-05-25 Outpatient P ADUM, [facility] [id number] Univers 16:22:50 MELBA [facility] 2022-02-28 2022-02-28 Outpatient Ramon PANIAGUA [facility] [id number] Univers 10:30:00 10:30:00 CHIKIS [id number] [facility] 2022-01-24 2022-01-24 Outpatient Ramon PANIAGUA [facility] [id number] Univers 09:00:00 09:00:00 CHIKIS [id number] [facility] 2021-12-07 2021-12-07 Outpatient Ramon PANIAGUA [facility] [id number] Univers 14:00:00 14:48:02 CHIKIS [facility] 2021-12-07 2021-12-07 Nurse Nurse, [facility] [id number] Univers 14:00:00 14:48:02 Visit Chikis Paniagua [id number] it[facility] [id number] [phone] Nd dical NAL [address] [place] [address] 2021-12-07 2021-12-07 Outpatient R [facility] [id number] Univers 14:00:00 14:00:00 [id number] [facility] 2021-09-14 2021-09-14 Nurse Nurse, [facility] [id number] Univers 14:00:00 14:51:13 Visit Melba Key MARCK [id number] ity [facility] [id number] [id number] Nd dical NAL [address] [place] [address] 2021-09-14 2021-09-14 Outpatient R SHAHID [facility] [id number] Univers 14:00:00 14:51:13 MELBA [facility] 2021-09-14 2021-09-14 Outpatient R [facility] [id number] Univers 14:00:00 14:00:00 [id number] [facility] 2021-08-12 2021-08-12 [facility] 1.2.840.114 [id number] Univers 11:45:00 12:00:00 ne Visit Chikis ACHARYA [id number] ity [facility] [id number] [id number] Nd dical NAL [address] [place] [address] 2021-08-12 2021-08-12 [facility] [id number] Univers 11:45:00 11:45:00 CHIKIS [id number] [facility] 2021-08-12 2021-08-12 [facility] [id number] Univers 11:45:00 11:45:00 CHIKIS [facility] 2021-07-27 2021-07-27 Telephone [facility] 1.2.840.114 [id number] Univers 00:00:00 00:00:00 Chikis ACHARYA 350.1.13.10 i ty [facility] [id number] [phone] [address] 2021-07-21 2021-07-21 Outpatient R [facility] [id number] Univers 08:00:00 08:00:00 [id number] [facility] 2021-07-21 2021-07-21 [facility] [id number] Univers 08:00:00 08:00:00 CHIKIS [facility] 2021-07-21 2021-07-21 Director Law Enforcement 2, Adc Lab [facility] 1.2.840.114 [id number] Univers 08:00:00 08:00:00 Visit Chikis Paniagua [id number] ity [facility] [id number] [id number] [facility] 353 [facility] 2021-07-21 2021-07-21 Telephone [facility] 1.2.840.114 [id number] Univers 00:00:00 00:00:00 Chikis ACHARYA 350.1.13.10 i ty of [place] [id number] [address] 2021-07-15 2021-07-15 Telephone [facility] 1.2.840.114 [id number] Univers 00:00:00 00:00:00 Chikis ACHARYA 350.1.13.10 i ty of [place] [id number] [address] 2021-07-13 2021-07-13 Outpatient R SHAHID [facility] [id number] Univers 08:45:00 09:07:55 MELBA deisy [facility] 2021-07-13 2021-07-13 Routine Griselda Paniaguacy [facility] 1.2.840.11 [id number] Univers 08:45:00 09:07:55 Adjustin, Melba ACHARYA 350.1.13.10 ity of Visit [place] [id number] [address] 2021-07-13 2021-07-13 Outpatient R ADUM, [facility] [id number] Univers 08:45:00 08:45:00 MELBA Krause208 [facility] 2021-07-05 2021-07-05 Outpatient R ARCELIA, [facility] [id number] Univers 11:45:00 11:45:00 CHIKIS [id number] [facility] 2021-07-05 2021-07-05 Routine [facility] [id number] Univers 11:45:00 11:45:00 Chikis ACHARYA 350.1.13.10 ity of Visit [place] 4[place] [id number] [address] 2021-07-05 2021-07-05 Outpatient R ARCELIA, [facility] [id number] Univers 11:45:00 11:15:58 CHIKIS [facility] 2021-06-22 2021-06-22 Outpatient R YANETHJUSTIN, [facility] [id number] Univers 16:00:00 16:47:04 [facility] 2021-06-22 2021-06-22 Routine [facility] 1.2.840.114 [id number] Univers 16:00:00 16:47:04 Melba ACHARYA 350.1.13.10 ity of Visit [place] [id number] [address] 2021-06-22 2021-06-22 Outpatient R ADJUSTIN, [facility] [id number] Univers 16:00:00 16:00:00 MELBA [id number] [facility] 2021-06-22 2021-06-22 Orders Doctor MONISHA 1.2.840.114 [id number] Univers 00:00:00 00:00:00 Only Unassigned, KINSEY 350.1.13.10 ity of [place] [facility] 4.2.7.2.686 [place] [phone] [place] [address] Branch 2021-05-31 2021-05-31 Outpatient R [facility] [id number] Univers 11:45:00 11:45:00 [id number] ity of [facility] 2021-05-31 2021-05-31 Outpatient R [facility] [id number] Univers 11:45:00 11:45:00 ity [facility] 2021-05-27 2021-05-29 Inpatient P [facility] [id number] Univers 14:45:00 11:25:00 MELBA ity [facility] 2021-05-27 2021-05-29 [facility] 1.2.840.114 [id number] Univers 14:45:00 11:25:00 Encounter Melba ACHARYA 350.1.13.10 ity of [place] 4.2.7.2.686 [facility] [id number] [place] [id number] [place] 2021-05-28 2021-05-28 Anesthesia [facility] 1.2.840.114 [id number] Univers 20:01:37 20:01:37 Event Rodrigo ACHARYA 350.1.13.10 i ty of [place] 4.2.7.2.686 [facility] [id number] [address] 2021-05-27 2021-05-28 Anesthesia [facility] 1.2.840.114 [id number] Univers 23:20:00 05:20:00 Event Gómez ACHARYA 350.1.13.10 i ty of [place] 4.2.7.2.686 [facility] [id number] [address] 2021-05-25 2021-05-25 Routine Room, [facility] 1.2.840.1 [id number] Univers 14:00:00 16:07:44 Adum, Melba ACHARYA 350.1.13.10 ity of Visit [place] [id number] Nd dical NAL [address] [place] [address] 2021-05-25 2021-05-25 Outpatient P INEZ, [facility] [id number] Univers 15:30:00 15:45:51 CHASEY ity [facility] 2021-05-25 2021-05-25 Director Law Enforcement Ultrasound, [facility] 1.2 .840.114 [id number] Univers 15:30:00 15:45:51 Visit Vishal Wiley 350.1 .13.10 it[facility] 4[place] [id number] Nd dical NAL [address] [place] [address] 2021-05-25 2021-05-25 Outpatient R [facility] [id number] Univers 14:00:00 14:00:00 [id number] ity [facility] 2021-05-21 2021-05-21 Outpatient R ADUM, [facility] [id number] Univers 10:00:00 10:42:24 MELBA ity [facility] 2021-05-21 2021-05-21 Routine Room, [facility] 1.2.840.1 [id number] Univers 10:00:00 10:42:24 Adum, Melba ACHARYA 350.1.13.10 ity of Visit [place] [id number] Nd dical NAL [address] [place] [address] 2021-05-21 2021-05-21 Outpatient R [facility] [id number] Univers 10:00:00 10:00:00 [id number] ity [facility] 2021-05-18 2021-05-18 Outpatient R ADUM, [facility] [id number] Univers 10:00:00 10:43:56 MELBA ity [facility] 2021-05-18 2021-05-18 Routine Room, [facility] 1.2.840.1 [id number] Univers 09:48:43 10:43:56 Adum, Melba BRITTTON 350.1.13.10 ity of [place] 4[place] [id number] Nd dical [address] 2021-05-14 2021-05-14 Outpatient R ADUM, [facility] [id number] Univers 14:00:00 14:54:04 MELBA ity [facility] 2021-05-14 2021-05-14 Routine Room, [facility] 1.2.840.1 [id number] [facility] 13:58:04 14:54:04 Adum, Melba Hardin [place] 350.1.13.10 ity of Visit [place] 4[place] [id number] Nd dic[address] 2021-05-11 2021-05-11 Outpatient R ADUM, [facility] [id number] Univers 10:00:00 11:04:55 MELBA ity [facility] 2021-05-11 2021-05-11 Routine Room, [facility] 1.2.840.1 [id number] [facility] 09:52:39 11:04:55 Adum, Melba BRITTTON 350.1.13.10 ity [facility] 4[place] [phone] Nd dic[address] 2020-06-09 2020-06-09 Telephone Adum, [facility] [id number] 00:00:00 00:00:00 Melba [place] 350.1.13.10 [place] 4.2.7.2.686 Professio [id number] [address] 2020-06-08 2020-06-08 Director Law Enforcement 2, [facility] 1.2.840.114 [id number] 10:43:33 10:58:33 Visit [place] 350.1.13.10 [place] 4.2.7.2.686 Professio [id number] [address] 2020-06-02 2020-06-02 Office Adum, [facility] 1.2.840.114 [id number] 11:22:36 12:46:52 Visit Melba Acharya 350.1.13.10 [place] 4.2.7.2.686 [facility] [id number] [facility] 134 [facility] Results Test Description Test Time Test Comments Results Result Comments Source GLUCOSE FASTING 2021-07-21 16:04:56 Test Item Value Reference Range Interpretation Comme nts GLU FASTNG (test code = 2503219260) 90 mg/dL 70-110 Lab Interpretation (test code = 15566-5) [id number] 22:48:00 Test Item Value Reference Range Interpretation Comments POCT PREG (test code = 1605) Negative On board controls acceptable with C Yes Line (test code = 3574) POCT PREG LOT # (test code = 3575) POCT PREG TEST DATE (test code = 3576) Lab Interpretation (test code = Normal 14483-0) [facility] with [id number] 10:46:10 Test Item Value Reference Range Interpretation [...] RDW-SD (test code = 43.4 fL 39.0-49.9 00516-7) RDW-CV (test code = 13.6 % 12.0-15.5 788-0) PLT (test code = See_Comment [Automated 777-3) message] The sy stem which generated this result transmitted reference range : 166 - 358 10*3/ ?L. The reference r jayce was not used to interpret this result as normal/abnormal . MPV (test code = 10.3 fL 9.5-12.9 92927-8) NRBC/100 WBC (test See_Comment [Automat ed code = 1642565652) message] The system which generated this result transmitted reference range : 0.0 - 10.0 /100 WBCs. The refer ence range was not u sed to interpret th is result as normal/abnormal . NRBC x10^3 (test code <0.01 See_Comment [Auto mated = 3572878592) message] The s ystem which generated this result transmitted reference range : 10*3/?L. The reference range was not used to interpret this result as normal/abnormal . GRAN MAT (NEUT) % 67.5 % (test code = 770-8) IMM GRAN % (test code 1.30 % = 7332136833) LYMPH % (test code = 16.4 % 736-9) MONO % (test code = 13.2 % 5905-5) EOS % (test code = 1.3 % 713-8) BASO % (test code = 0.3 % 706-2) GRAN MAT x10^3(ANC) 7.61 10*3/uL 1.88-7.09 H (test code = 6290106382) IMM GRAN x10^3 (test 0.15 10*3/uL 0.00-0.06 H code = 0773201737) LYMPH x10^3 (test code 1.85 10*3/uL 1.32-3.29 = 731-0) MONO x10^3 (test code 1.49 10*3/uL 0.33-0.92 H = 742-7) EOS x10^3 (test code = 0.15 10*3/uL 0.03-0.39 711-2) BASO x10^3 (test code 0.03 10*3/uL 0.01-0.07 = 704-7) Lab Interpretation Abnormal (test code = 27209-9) [facility] Surface [id number] 07:13:50 Test Item Value Reference Range Interpretation Comments HBsAg Semi-Quantitative (test code = Negative Negative 5195-3) [facility] GLUCOSE (AUTOMATED)2021-05-28 07:03:21 Test Item Value Reference Range Interpretation Comments POCT GLU (test code = 4130026487) 85 mg/dL 70-110 Lab Interpretation (test code = Normal 57790-4) [facility] [id number] 06:38:23 Test Item Value Reference Range Interpretation Comments RPR (Qualitative) (test code = Nonreactive Nonreactive 06956-3) Lab Interpretation (test code = Normal 60971-6) [facility] GLUCOSE (AUTOMATED)2021-05-28 04:49:24 Test Item Value Reference Range Interpretation Comments POCT GLU (test code = 9752398374) 78 mg/dL 70-110 Lab Interpretation (test code = Normal 89237-6) [facility] GLUCOSE (AUTOMATED)2021-05-28 01:45:13 Test Item Value Reference Range Interpretation Comments POCT GLU (test code = 5806952184) 85 mg/dL 70-110 Lab Interpretation (test code = Normal 91969-1) [facility] WITH [id number] 01:13:04 Test Item Value Reference Range Interpretation Comments HIV Negative Negative Semi-quantitative (test code = 03528-5) ZEE (test code = Non-reactive for HIV-1 ZEE) antigen and HIV-1/HIV-2 antibodies. ?No laboratory evidence of HIV infection. ?Repeat in 2-4 weeks if acute HIV infection is suspected. [facility] - ONCE [id number] 00:33:33 Test Item Value Reference Range Interpretation Comments ABO & RH (test code A Positive Performe d at [facility] = 20) Laboratory Serv [facility] [address] [place] [id number] Free: [phone] A No. [id number] IAT (test code = Negative Performed a t [facility] 1185) Laboratory Serv [facility] [address] [place], [place] [id number] Free: [phone] A No. [id number] [facility] with [id number] 23:57:50 Test Item Value Reference Range Interpretation Comments WBC (test code = See_Comment H [Automated 6690-2) message] The sy stem which generated this result transmitted reference range : 4.30 - 11.10 10*3/?L. The reference range was not used to interpret this result as normal/abnormal . RBC (test code = See_Comment [Automated 789-8) message] The sy stem which [...] RDW-SD (test code = 41.6 fL 39.0-49.9 29443-7) RDW-CV (test code = 13.3 % 12.0-15.5 788-0) PLT (test code = See_Comment [Automated 777-3) message] The sy stem which generated this result transmitted reference range : 166 - 358 10*3/ ?L. The reference r jayce was not used to interpret this result as normal/abnormal . MPV (test code = 10.3 fL 9.5-12.9 21897-5) NRBC/100 WBC (test See_Comment [Automat ed code = 0902895232) message] The system which generated this result transmitted reference range : 0.0 - 10.0 /100 WBCs. The refer ence range was not u sed to interpret th is result as normal/abnormal . NRBC x10^3 (test code <0.01 See_Comment [Auto mated = 5394941386) message] The s ystem which generated this result transmitted reference range : 10*3/?L. The reference range was not used to interpret this result as normal/abnormal . GRAN MAT (NEUT) % 67.7 % (test code = 770-8) IMM GRAN % (test code 0.60 % = 1363351922) LYMPH % (test code = 21.2 % 736-9) MONO % (test code = 9.1 % 5905-5) EOS % (test code = 1.2 % 713-8) BASO % (test code = 0.2 % 706-2) GRAN MAT x10^3(ANC) 7.98 10*3/uL 1.88-7.09 H (test code = 4144980073) IMM GRAN x10^3 (test 0.07 10*3/uL 0.00-0.06 H code = 7626086514) LYMPH x10^3 (test code 2.50 10*3/uL 1.32-3.29 = 731-0) MONO x10^3 (test code 1.07 10*3/uL 0.33-0.92 H = 742-7) EOS x10^3 (test code = 0.14 10*3/uL 0.03-0.39 711-2) BASO x10^3 (test code <0.03 0.01-0.07 = 704-7) Lab Interpretation Abnormal (test code = 55600-8) [facility] GLUCOSE (AUTOMATED)2021-05-27 21:37:45 Test Item Value Reference Range Interpretation Comments POCT GLU (test code = 7928236884) 110 mg/dL 70-110 Lab Interpretation (test code = Normal 57309-7) [facility] URINALYSIS W/O SPECIFIC [id number] 20:33:00 Test Item Value Reference Range Interpretation [...] Negative Lab Interpretation (test code = Normal 86009-4) [facility] URINALYSIS W/O SPECIFIC [id number] 16:31:00 Test Item Value Reference Range Interpretation [...] Negative Lab Interpretation (test code = Normal 89100-7) [facility] URINALYSIS W/O SPECIFIC [id number] 15:54:00 Test Item Value Reference Range Interpretation [...] code = 3257) n/a Negative - Negative [facility] URINALYSIS W/O SPECIFIC [id number] 16:20:00 Test Item Value Reference Range Interpretation [...] Negative Lab Interpretation (test code = Normal 60486-6) [facility]
--- NOTE | 2022-01-30 21:23 | ER ---
Nurse's Notes [facility] Name: Kelly Paz Age: 21 yrs Sex: Female : 2000 Arrival Date: 01/30/2022 Time: 20:31 Bed Treatment Private MD: Diagnosis: Local infection of the skin and subcutaneous tissue, unspecified Presentation: 01/30 21:05 Chief complaint: Patient states: rash and swelling to bilateral lower legs starting lg3 yesterday. pain started today. feels like lightning bolts. pain /10. Coronavirus screen: Client denies travel out of the [place] in the last 14 days. At this time, the client does not indicate any symptoms associated with coronavirus-19. Ebola Screen: No symptoms or risks identified at this time. Initial Sepsis Screen: Does the patient meet any 2 criteria? No. Patient's initial sepsis screen is negative. Does the patient have a suspected source of infection? No. Patient's initial sepsis screen is negative. Risk Assessment: Do you want to hurt yourself or someone else? Patient reports no desire to harm self or others. Onset of symptoms was January 29, 2022. 21:05 Method Of Arrival: Ambulatory lg3 21:05 Acuity: RAFAEL 4 lg3 Triage Assessment: 21:07 General: Appears in no apparent distress. uncomfortable, Behavior is calm, cooperative. lg3 Pain: Complains of pain in right leg and left leg Pain does not radiate. Pain currently is 6 out of 10 on a pain scale. Aggravated by increased activity, repositioning, weight bearing, Noted to be guarding, resistant to movement, restless. EENT: No deficits noted. No signs and/or symptoms were reported regarding the EENT system. Neuro: No deficits noted. Level of Consciousness is awake, alert, obeys commands, Oriented to person, place, time, situation. Cardiovascular: No deficits noted. Denies chest pain, shortness of breath, Capillary refill < 3 seconds Clubbing of nail beds is absent JVD is absent Patient's skin is warm and dry. Respiratory: No deficits noted. Airway is patent Trachea midline Respiratory effort is even, unlabored, Respiratory pattern is regular, symmetrical. GI: No deficits noted. No signs and/or symptoms were reported involving the gastrointestinal system. : No deficits noted. No signs and/or symptoms were reported regarding the genitourinary system. Derm: Rash noted that is red, raised, urticaria, on right leg and left leg. Musculoskeletal: Circulation, motion, and sensation intact. Range of motion: intact in all extremities, Swelling present in right leg and left leg. Historical: - Allergies: 21:07 Nortriptyline; lg3 - Home Meds: 21:07 None [Active]; lg3 - PMHx: 21:07 None; lg3 - PSHx: 21:07 Appendectomy; Cholecystectomy; lg3 - Immunization history:: Adult Immunizations up to date, Client reports having NOT received the Covid vaccine. - Social history:: Smoking status: Patient denies any tobacco usage or history of. Patient/guardian denies using alcohol, street drugs. Screenin:09 Abuse screen: Denies threats or abuse. Nutritional screening: No deficits noted. lg3 Tuberculosis screening: No symptoms or risk factors identified. Fall Risk None identified. Assessment: 21:45 Reassessment: Patient appears in no apparent distress at this time. Patient and/or ha1 family updated on plan of care and expected duration. Pain level reassessed. Patient is alert, oriented x 3, equal unlabored respirations, skin warm/dry/pink. being discharged. Vital Signs: 21:05 Weight 77.11 kg; Height 5 ft. 2 in. (157.48 cm) (R); Pain 6/10; lg3 21:10 BP 107 / 75; Pulse 94; Resp 16; Temp 98.2(O); Pulse Ox 100% on R/A; mh5 21:48 BP 104 / 74; Pulse 86; Resp 16 S; Pulse Ox 100% on R/A; ha1 21:05 Body Mass Index 31.09 (77.11 kg, 157.48 cm) lg3 ED Course: 20:31 Patient arrived in ED. ja2 20:41 [facility]C [facility] kb 20:41 Michele Martinez MD is Attending Physician. kb 21:06 Patient has correct armband on for positive identification. Bed in low position. Call 5 light in reach. Side rails up X 1. Adult w/ patient. Warm blanket given. Pulse ox on. NIBP on. 21:07 Triage completed. lg3 21:07 Arm band placed on left wrist. lg3 21:45 Daysi Llanos, RN is Primary Nurse. ha1 21:46 No provider procedures requiring assistance completed. Patient did not have IV access ha1 during this emergency room visit. Administered Medications: 21:35 Drug: Bactrim (trimethoprim-sulfamethoxazole) (160 mg-800 mg (DS) 1 tablet Route: PO; ha1 21:46 Follow up: Response: No adverse reaction ha1 Medication: 21:47 VIS not applicable for this client. ha1 Outcome: 21:22 Discharge ordered by . kb 21:46 Discharged to home ambulatory, with friend. ha1 21:46 Condition: stable 21:46 Discharge instructions given to patient, friend, Instructed on discharge instructions, follow up and referral plans. medication usage, Demonstrated understanding of instructions, follow-up care, medications, Prescriptions given X 1. 21:48 Patient left the ED. ha1 Signatures: Alva Elmore, DENTURE TECHNICIAN-C DENTURE TECHNICIAN-Lou Priest [facility] Apryl Abad RN RN 3 Malorie Patten [facility] Daysi Llanos, RN RN ha1
--- NOTE | 2022-01-30 21:23 | EDPHYS ---
Physician Documentation [facility] Name: Kelly Paz Age: 21 yrs Sex: Female : 2000 Arrival Date: 01/30/2022 Time: :31 Bed Treatment Private MD: ED Physician Michele Martinez HPI: 01/30 23:16 This 21 yrs old Female presents to ER via Ambulatory with complaints of Bumps on Leg. kb 23:16 The patient presents with cellulitis of the left paula. Description: erythematous, kb swollen, warm. Onset: The symptoms/episode began/occurred this morning. Possible cause(s): unknown. Associated signs and symptoms: Pertinent positives: erythema, swelling, Pertinent negatives: discharge, drainage, foreign body sensation, fever, headache, nausea, shortness of breath, vomiting. Modifying factors: the symptoms are alleviated by nothing, the symptoms are aggravated by pressure, squeezing the lesion and expressing the contents, touching. Severity of symptoms: At their worst the symptoms were mild, in the emergency department the symptoms are unchanged. The patient has not experienced similar symptoms in the past. The patient has not recently seen a physician. Patient reports bumps that started 2 left lower leg this morning. Reports redness, swelling and tenderness that started today. Denies fever. Historical: - Allergies: 21:07 Nortriptyline; lg3 - Home Meds: 21:07 None [Active]; lg3 - PMHx: 21:07 None; lg3 - PSHx: 21:07 Appendectomy; Cholecystectomy; lg3 - Immunization history:: Adult Immunizations up to date, Client reports having NOT received the Covid vaccine. - Social history:: Smoking status: Patient denies any tobacco usage or history of. Patient/guardian denies using alcohol, street drugs. ROS: 23:15 Constitutional: Negative for fever, chills, and weight loss. kb 23:15 Skin: Positive for cellulitis, of the left paula. 23:15 All other systems are negative. Exam: 23:15 Constitutional: This is a well developed, well nourished patient who is awake, alert, kb and in no acute distress. Head/Face: Normocephalic, atraumatic. ENT: Moist Mucous membranes Cardiovascular: Regular rate and rhythm with a normal S1 and S2. No gallops, murmurs, or rubs. No pulse deficits. Respiratory: Respirations even and unlabored. No increased work of breathing. Talking in full sentences MS/ Extremity: Pulses equal, no cyanosis. Neurovascular intact. Full, normal range of motion. Neuro: Awake and alert, GCS 15, oriented to person, place, time, and situation. Moves all extremities. Normal gait. Psych: Awake, alert, with orientation to person, place and time. Behavior, mood, and affect are within normal limits. 23:15 Skin: cellulitis, that is mild, on the left paula. Vital Signs: 21:05 Weight 77.11 kg; Height 5 ft. 2 in. (157.48 cm) (R); Pain 6/10; lg3 21:10 BP 107 / 75; Pulse 94; Resp 16; Temp 98.2(O); Pulse Ox 100% on R/A; mh5 21:48 BP 104 / 74; Pulse 86; Resp 16 S; Pulse Ox 100% on R/A; ha1 21:05 Body Mass Index 31.09 (77.11 kg, 157.48 cm) lg3 MDM: 20:59 Patient medically screened. kb 23:15 Data reviewed: vital signs, nurses notes. Data interpreted: Pulse oximetry: on room air kb is 100 %. Interpretation: normal. Counseling: I had a detailed discussion with the patient and/or guardian regarding: the historical points, exam findings, and any diagnostic results supporting the discharge/admit diagnosis, the need for outpatient follow up, a family practitioner, to return to the emergency department if symptoms worsen or persist or if there are any questions or concerns that arise at home. Administered Medications: 21:35 Drug: Bactrim (trimethoprim-sulfamethoxazole) (160 mg-800 mg (DS) 1 tablet Route: PO; ha1 21:46 Follow up: Response: No adverse reaction ha1 Disposition: 01/31 01:30 Co-signature as Attending Physician, Michele Martinez MD I agree with the assessment and kdr plan of care. Disposition Summary: 01/30/22 21:22 Discharge Ordered Location: Home kb Condition: Stable kb Diagnosis - Local infection of the skin and subcutaneous tissue, unspecified kb Followup: kb - With: Emergency Department - When: As needed - Reason: Worsening of condition Followup: kb - With: Private Physician - When: 2 - 3 days - Reason: Recheck today's complaints, Continuance of care, Re-evaluation by your physician Discharge Instructions: - Discharge Summary Sheet kb - Skin Abscess, [id number] kb - Wound Infection, [id number] kb Forms: - Medication Reconciliation Form kb - Thank You Letter kb - Antibiotic Education kb - Prescription Opioid Use kb Prescriptions: - Bactrim DS 800-160 mg Oral Tablet - take 1 tablet by ORAL route every 12 hours for 10 days; 20 tablet; Refills: 0, kb Product Selection Permitted Signatures: Alva Elmore, KRISS-C TOBACCO DRYING MACHINE OPERATOR-Michele Villatoro MD MD kdr Gibson, Lacie RN RN lg3 Daysi Llanos RN RN ha1
[2022-01-30] MEDS ORDERED: SMZ./TMP. 800/160 MG TABLET ONE (21:48)
[2022-01-30 23:09] VITALS: TEMP 98.2; O2SAT 100
[2022-01-30 23:12] VITALS: BP 104/74
== END 2022-01-30 21:48 | disposition home or self-care (01) ==
LOC: ER 20:18
DX: L03.116 Cellulitis of left lower limb (principal); Z88.8 Allergy status to other drugs, medicaments and biological substances
CPT/HCPCS: 99283

== ENCOUNTER 2022-04-15 21:39 | Emergency (ER) | payer OTHER ==
--- OUTSIDE RECORDS SUMMARY | 2022-04-15 21:46 | XMS REPORT | Continuity of Care Document ---
:2000 Author Organization [facility] t Address [address] [place] [address] Care Team Providers Name Role Phone KELSEY WEBB Primary Care Physician Unavailable MELBA KEY Attending Clinician Unavailable CHIKIS PANIAGUA Attending Clinician Unavailable Chikis Paniagua PA-C Attending Clinician , [facility] Lab Attending Clinician Unavailable Doctor Unassigned, [place] Attending Clinician Unavailable Nurse, [facility] Women's Health Attending Clinician Unavailable Melba Key MD Attending Clinician Rodrigo Sheriff CRNA Attending Clinician Matilda Flaherty MD, Leonard Attending Clinician Room, [facility] Nst Attending Clinician Unavailable VISHAL WILEY Attending Clinician Unavailable Ultrasound, [facility] Mfm Attending Clinician Unavailable Vishal Wiley MD Attending Clinician [phone] Conor Stevens MD, Villalobos Attending Clinician [phone] Carlos Enrique Marin MD Attending Clinician CARLOS ENRIQUE MARIN Attending Clinician Unavailable Jeane Jamison RN Attending Clinician Unavailable Only, Ang Db Test Attending Clinician Unavailable Garfield Cavazos Attending Clinician GARFIELD FLANNERY Attending Clinician Unavailable MELBA KYE Admitting Clinician Unavailable Melba Key MD Admitting Clinician Payers Payer Name Policy Type Policy Number Effective Date Expiration Date Dionisio KRUSE [id number] 2015 HEALTH 00:00:00 Problems Condition Condition Condition Status Onset Resolution Last Treating Co mments Source Name Details Category Date Date Treatment Clinician Date Single Single Disease Active 2020-06 Univers liveborn, liveborn, 2-24 ity of born in born in 00:00: [facility] [place], 00 [facility] delivered delivered Bran ch by vaginal by [...] 1-10 it y of mellitus mellitus 00:00: [place] (GDM) in (GDM) in 00 Medica l third third Branch trimester trimester controlled controlled on oral on oral hypoglycem hypoglycem ic drug ic drug Supervisio Supervisio Disease Active U nivers n of n of 8-24 it[place] of high-risk high[place] [facility] with with Branch insufficie insufficie nt nt care in care in third third trimester trimester 36 weeks 36 weeks Disease Active Unive rs gestation gestation 8-24 ity of of of 00:00: [place] 00 [facility] Branch 37 weeks 37 weeks Disease Active Unive rs gestation gestation 8-24 ity of of of 00:00: [place] 00 [facility] Branch 38 weeks 38 weeks Disease Active Unive rs gestation gestation 8-24 ity of of of 00:00: [place] 00 [facility] Branch Obesity Obesity Disease Active 2019-06 Univers (BMI (BMI 0-21 ity of 30-39.9) 30-39.9) 00:00: [place] 00 Medical Branch Allergies, Adverse Reactions, Alerts Allergy Allergy Status Severity Reaction(s) Onset Inactive Treating Comm ents Source Name Type Date Date Clinician Nortript Propensi Active Hives Univer s yline ty to 01-26 ity of adverse 00:00: [place] reaction 00 Medical s Branch NORTRIPT DRUG Active Hives Univers YLINE INGREDI 01-26 ity of 00:00: [place] 00 Medical Branch Social History Social Habit Start Date Stop Date Quantity Comments Source ASSERTION 2020-09-13 University of 00:00:00 [place] [facility] History SDMS University o f Alcohol Comment [place] [facility] Exposure to 2022-02-18 2022-02-28 Not sure [facility] SARS-CoV-2 00:00:00 10:15:00 [place] [facility] (event) Branch Tobacco use and 2022-02-28 2022-02-28 Former smokeless Uni versity of exposure 00:00:00 00:00:00 tobacco user [place] [facility] Alcohol intake 2022-02-28 2022-02-28 Ex-drinker [facility] 00:00:00 00:00:00 (finding) [place] [facility] History SDMS 2020-03-25 2020-03-25 4 University o f Alcohol Frequency 00:00:00 00:00:00 [place] [facility] History SDMS 2020-03-25 2020-03-25 99 University o f Alcohol Std 00:00:00 00:00:00 [place] [facility] Drinks Branch History SDMS 2020-03-25 2020-03-25 99 University o f Alcohol Binge 00:00:00 00:00:00 [place] [facility] History of 2020-01-27 Chews Tobacco University of tobacco use 00:00:00 [facility] Sex Assigned At 2000 2000 Universit y of 00:00:00 00:00:00 [place] [facility] Branch Smoking Status Start Date Stop Date Source Ex-smoker 2022-02-28 00:00:00 2022-02-28 00:00:00 Universi ty of [place] [facility] Medications Ordered Filled Start Stop Current Ordering Indication Dosage Frequency Signature Comments Components Source Medication Medication Date Date Medication? Clinician (SIG) Name Name medroxyPROG 2021- No [id number] 150mg Univers ESTERone 02-28 ity of (DEPO-PROVE 16:45: 15:47 [place] RA) syringe 00 :00 Medical 150 mg Branch medroxyPROG 2021-0 2021- No [id number] 150mg 150 mg, Univers ESTERone 02-28 Intramuscu ity of (DEPO-PROVE 16:45: 15:47 lar, ONCE, [place] RA) syringe 00 :00 1 dose, On Me dical 150 mg Mon Branch 02/28/22 at 1145, Routine medroxyPROG 2021-2021- No [id number] 150mg Univers ESTERone 02-28 ity of (DEPO-PROVE 16:45: 15:47 [place] RA) syringe 00 :00 Medical 150 mg Branch medroxyPROG 2021-2021- No [id number] 150mg 150 mg, Univers ESTERone 02-28 Intramuscu ity of (DEPO-PROVE 16:45: 15:47 lar, ONCE, [place] RA) syringe 00 :00 1 dose, On Me dical 150 mg [facility] Branch 02/28/22 at 1145, Routine medroxyPROG 2021-2021- No [id number] 150mg Univers ESTERone 12-07 ity of (DEPO-PROVE 21:00: 19:49 [place] RA) syringe 00 :00 Medical 150 mg Branch medroxyPROG 2021-0 2021- No [id number] 150mg 150 mg, Univers ESTERone 12-07-05 Intramuscu ity of (DEPO-PROVE 21:00: 19:49 lar, ONCE, [place] RA) syringe 00 :00 1 dose, On Me dical 150 mg [facility] 12/07/21 Branch at 1600, Routine medroxyPROG 2021-2021- No [id number] 150mg Univers ESTERone 09-14 ity of (DEPO-PROVE 21:00: 19:51 [place] RA) syringe 00 :00 Medical 150 mg Branch medroxyPROG 2021-0 2021- No [id number] 150mg 150 mg, Univers ESTERone 09-14 Intramuscu ity of (DEPO-PROVE 21:00: 19:51 lar, ONCE, [place] RA) syringe 00 :00 1 dose, On Me dical 150 mg Tue [place] 09/14/21 at 1600, Routine sulfamethox 2021- Yes [id number] 1{tbl} Take 1 Univers azole-trime 1-31 tablet by ity of thoprim 00:00: mouth 2 [place] 800-160 mg 00 (two) Medical per tablet times Branch daily. sulfamethox 2-0 Yes [id number] 1{tbl} Take 1 Univers azole-trime 1-31 tablet by ity of thoprim 00:00: mouth 2 [place] 800-160 mg 00 (two) Medical per tablet times Branch daily. sulfamethox 2021-0 Yes [id number] 1{tbl} Take 1 Univers azole-trime 1-31 tablet by ity of thoprim 00:00: mouth 2 [place] 800-160 mg 00 (two) Medical per tablet times Branch daily. sulfamethox 2021-0 Yes [id number] 1{tbl} Take 1 Univers azole-trime 1-31 tablet by ity of thoprim 00:00: mouth 2 [place] 800-160 mg 00 (two) Medical per tablet times Branch daily. sulfamethox 2021-0 Yes [id number] 1{tbl} Take 1 Univers azole-trime 1-31 tablet by ity of thoprim 00:00: mouth 2 [place] 800-160 mg 00 (two) Medical per tablet times Branch daily. sulfamethox 2021-0 Yes [id number] 1{tbl} Take 1 Univers azole-trime 1-31 tablet by ity of thoprim 00:00: mouth 2 [place] 800-160 mg 00 (two) Medical per tablet times Branch daily. sulfamethox 2021-2021- No [id number] 1{tbl} Take 1 Univers azole-trime 1-31 03-10 tablet by it y of thoprim 00:00: 00:00 mouth 2 [place] 800-160 mg 00 :00 (two) Medical per tablet times Branch daily. medroxyPROG 2021- No [id number] 150mg Univers ESTERone 06-23 ity of (DEPO-PROVE 00:00: 22:40 [place] RA) syringe 00 :00 Medical 150 mg Branch medroxyPROG 2021-2021- No [id number] 150mg 150 mg, Univers ESTERone 06-23 Intramuscu ity of (DEPO-PROVE 00:00: 22:40 lar, ONCE, [place] RA) syringe 00 :00 1 dose, On Me dical 150 mg [facility] 06/22/21 at 1800, Routine 2020-06- No Take by Unive rs vit 2-25 12-25 mouth. ity of calc,iron,f 08:36: 00:00 [place] olic 38 :00 Medical ( Branch VITAMIN ORAL) 2020-06- No [facility]25 12-25 mouth. ity of calc,iron,f 08:36: 00:00 [place] olic 38 :00 Medical ( Branch VITAMIN ORAL) 2020-06 Yes [id number] 1{tbl} Take 1 Univers vitamin 2-25 102 tablet by ity of w/FA tablet 00:00: mouth [place] 00 daily. Medical Branch 2020-06 Yes [id number] 1{tbl} Take 1 Univers vitamin 2-25 102 tablet by ity of w/FA tablet 00:00: mouth [place] 00 daily. Medical Branch 2020-06 Yes [id number] 1{tbl} Take 1 Univers vitamin 2-25 102 tablet by ity of w/FA tablet 00:00: mouth [place] 00 daily. Medical Branch 2020-06 Yes [id number] 1{tbl} Take 1 Univers vitamin 2-25 102 tablet by ity of w/FA tablet 00:00: mouth [place] 00 daily. Medical Branch 2020-06 Yes [id number] 1{tbl} Take 1 Univers vitamin 2-25 102 tablet by ity of w/FA tablet 00:00: mouth [place] 00 daily. Medical Branch 2020-06 Yes [id number] 1{tbl} Take 1 Univers vitamin 2-25 102 tablet by ity of w/FA tablet 00:00: mouth [place] 00 daily. Medical Branch 2020-06 Yes [id number] 1{tbl} Take 1 Univers vitamin 2-25 102 tablet by ity of w/FA tablet 00:00: mouth [place] 00 daily. Medical Branch 2020-06 Yes [id number] 1{tbl} Take 1 Univers vitamin 2-25 102 tablet by ity of w/FA tablet 00:00: mouth [place] 00 daily. Medical Branch 2020-06 Yes [id number] 1{tbl} Take 1 Univers vitamin 2-25 102 tablet by ity of w/FA tablet 00:00: mouth [place] 00 daily. Medical Branch 2020-06 Yes [id number] 1{tbl} Take 1 Univers vitamin 2-25 102 tablet by ity of w/FA tablet 00:00: mouth [place] 00 daily. Medical Branch 2020-06 Yes [id number] 1{tbl} Take 1 Univers vitamin 2-25 102 tablet by ity of w/FA tablet 00:00: mouth [place] 00 daily. Medical Branch docusate 2020-06 Yes [id number] 240mg Take 1 Univers calcium 240 2-25 102 capsule by it y of mg capsule 00:00: mouth [place] 00 daily as Medical needed for Branch Constipati on. ferrous 2020-06 Yes [id number] 325mg Take 1 Univers sulfate 325 2-25 102 tablet by ity of mg (65 mg 00:00: mouth 2 [place] iron) 00 (two) Medical tablet times Branch daily. ibuprofen 2020-06 Yes [id number] 600mg Take 1 Univers 600 mg 2-25 102 tablet by ity of tablet 00:00: mouth [place] 00 every 6 Medical (six) Branch hours as needed (Pain). Take with food or milk. 2020-06 Yes [id number] 1{tbl} Take 1 Univers vitamin 2-25 102 tablet by ity of w/FA tablet 00:00: mouth [place] 00 daily. Medical Branch docusate 2020-06 Yes [id number] 240mg Take 1 Univers calcium 240 2-25 102 capsule by it y of mg capsule 00:00: mouth once [place] 00 daily as Medical needed for Branch Constipati on. ferrous 2020-06 Yes [id number] 325mg Take 1 Univers sulfate 325 2-25 102 tablet by ity of mg (65 mg 00:00: mouth 2 [place] iron) 00 (two) Medical tablet times Branch daily. ibuprofen 2020-06 Yes [id number] 600mg Take 1 Univers 600 mg 2-25 102 tablet by ity of tablet 00:00: mouth [place] 00 every 6 Medical (six) Branch hours as needed (Pain). Take with food or milk. 2020-06 Yes [id number] 1{tbl} Take 1 Univers vitamin 2-25 102 tablet by ity of w/FA tablet 00:00: mouth [place] 00 daily. Medical Branch docusate 2020-06 Yes [id number] 240mg Take 1 Univers calcium 240 2-25 102 capsule by it y of mg capsule 00:00: mouth once [place] 00 daily as Medical needed for Branch Constipati on. ferrous 2020-06 Yes [id number] 325mg Take 1 Univers sulfate 325 2-25 102 tablet by ity of mg (65 mg 00:00: mouth 2 [place] iron) 00 (two) Medical tablet times Branch daily. ibuprofen 2020-06 Yes [id number] 600mg Take 1 Univers 600 mg 2-25 102 tablet by ity of tablet 00:00: mouth [place] 00 every 6 Medical (six) Branch hours as needed (Pain). Take with food or milk. 2020-06 Yes [id number] 1{tbl} Take 1 Univers vitamin 2-25 102 tablet by ity of w/FA tablet 00:00: mouth [place] 00 daily. Medical Branch docusate 2020-06 Yes [id number] 240mg Take 1 Univers calcium 240 2-25 102 capsule by it y of mg capsule 00:00: mouth once [place] 00 daily as Medical needed for Branch Constipati on. ferrous 2020-06 Yes [id number] 325mg Take 1 Univers sulfate 325 2-25 102 tablet by ity of mg (65 mg 00:00: mouth 2 [place] iron) 00 (two) Medical tablet times Branch daily. ibuprofen 2020-06 Yes [id number] 600mg Take 1 Univers 600 mg 2-25 102 tablet by ity of tablet 00:00: mouth [place] 00 every 6 Medical (six) Branch hours as needed (Pain). Take with food or milk. 2020-06 Yes [id number] 1{tbl} Take 1 Univers vitamin 2-25 102 tablet by ity of w/FA tablet 00:00: mouth [place] 00 daily. Medical Branch docusate 2020-06 Yes [id number] 240mg Take 1 Univers calcium 240 2-25 102 capsule by it y of mg capsule 00:00: mouth once [place] 00 daily as Medical needed for Branch Constipati on. ferrous 2020-06 Yes [id number] 325mg Take 1 Univers sulfate 325 2-25 102 tablet by ity of mg (65 mg 00:00: mouth 2 [place] iron) 00 (two) Medical tablet times Branch daily. ibuprofen 2020-06 Yes [id number] 600mg Take 1 Univers 600 mg 2-25 102 tablet by ity of tablet 00:00: mouth [place] 00 every 6 Medical (six) Branch hours as needed (Pain). Take with food or milk. 2020-06 Yes [id number] 1{tbl} Take 1 Univers vitamin 2-25 102 tablet by ity of w/FA tablet 00:00: mouth [place] 00 daily. Medical Branch 2020-06 Yes [id number] 1{tbl} Take 1 Univers vitamin 2-25 102 tablet by ity of w/FA tablet 00:00: mouth [place] 00 daily. Medical Branch 2020-06 Yes [id number] 1{tbl} Take 1 Univers vitamin 2-25 102 tablet by ity of w/FA tablet 00:00: mouth [place] 00 daily. Medical Branch 2020-06 Yes [id number] 1{tbl} Take 1 Univers vitamin 2-25 102 tablet by ity of w/FA tablet 00:00: mouth [place] 00 daily. Medical Branch 2020-06 Yes [id number] 1{tbl} Take 1 Univers vitamin 2-25 102 tablet by ity of w/FA tablet 00:00: mouth [place] 00 daily. Medical Branch 2020-06 Yes [id number] 1{tbl} Take 1 Univers vitamin 2-25 102 tablet by ity of w/FA tablet 00:00: mouth [place] 00 daily. Medical Branch docusate 2020-06- No [id number] 240mg Take 1 Univers calcium 240 2-25 02-08 102 capsule by i ty of mg capsule 00:00: 00:00 mouth once [place] 00 :00 daily as Medical needed for Branch Constipati on. ferrous 2020-06- No [id number] 325mg Take 1 Univers sulfate 325 2-25 02-08 102 tablet by it y of mg (65 mg 00:00: 00:00 mouth 2 [place] iron) 00 :00 (two) Medical tablet times Branch daily. ibuprofen 2020-06- No [id number] 600mg Take 1 Univers 600 mg 2-25 02-08 102 tablet by ity of tablet 00:00: 00:00 mouth [place] 00 :00 every 6 Medical (six) Branch hours as needed (Pain). Take with food or milk. HYDROcodone 2020-06 Yes 1{tbl} 1 tablet, Univers -acetaminop 2-24 Oral, ity of hen (NORCO 09:53: Q6HPRN, [place] 5) 5-325 mg 45 Starting Medi ankit tablet 1 on Mon Branch tablet 05/28/21 at 0353, Until Discontinu ed, Routine, Pain (scale 7-10) ibuprofen 2020-06 Yes 600mg 600 mg, Univ ers (IBU) 2-24 Oral, ity of tablet 600 09:53: Q6HPRN, [place] mg 45 Starting Medical on Mon Branch 05/28/21 at 0353, Until Discontinu ed, Routine, Pain (scale 4-6) acetaminoph 2020-06 Yes 650mg 650 mg, Un jaymie en 2-24 Oral, ity of (TYLENOL) 09:53: Q6HPRN, [place] tablet 650 45 Starting Medic al mg on Mon Branch 05/28/21 at 0353, [...] IV Push, ity of (PF)) 09:53: Q8HPRN, [place] injection 4 45 Starting Medi ankit mg [...] 2020-06- No Intra-op Un jaymie mcg/mL + 07-29 ity of bupivacaine 05:44: 11:28 [place] 0.125% in 00 :29 Medical NS 250 mL Branch epidural bag lidocaine-e 2020-06- No Epidural, Univers pinephrine 07-2924 ONCE INTRA it y of (XYLOCAINE 05:35: [...] 1000mL at 125 Univ ers ringers IV 07-28 mL/hr, ity of infusion 22:15: 09:55 1,000 mL, [place] as 1,000 mL 00 :04 IV Medical Infusion, Branch CONTINUOUS , Starting on [place] 05/27/21 at 1615, Until 05/28/21 at 0355, Routine FENTanyl PF 2020-06- No [...] at 0355, Routine 2020-06 Yes Take by [facility] s vit 2-23 mouth. ity of calc,iron,f 14:46: [place] [facility] 18 Medical ( Branch VITAMIN ORAL) glyBURIDE 2020-06 Yes [id number] 1.25mg Take 1 Univers 1.25 mg 2-01 tablet by ity of tablet 00:00: mouth with [place] [address] evening Medical meal. Take Branch 30 mins before dinner glyBURIDE 2020-06 Yes [id number] 1.25mg Take 1 Univers 1.25 mg 2-01 tablet by ity of tablet 00:00: mouth with [place] [address] evening Medical meal. Take Branch 30 mins before dinner glyBURIDE 2020-06 Yes [id number] 1.25mg Take 1 Univers 1.25 mg 2-01 tablet by ity of tablet 00:00: mouth with [place] [address] evening Medical meal. Take Branch 30 mins before dinner glyBURIDE 2020-06 Yes [id number] 1.25mg Take 1 Univers 1.25 mg 2-01 tablet by ity of tablet 00:00: mouth with [place] [address] evening Medical meal. Take Branch 30 mins before dinner glyBURIDE 2020-06 Yes [id number] 1.25mg Take 1 Univers 1.25 mg 2-01 tablet by ity of tablet 00:00: mouth with [place] [address] evening Medical meal. Take Branch 30 mins before dinner glyBURIDE 2020-06 Yes [id number] 1.25mg Take 1 Univers 1.25 mg 2-01 tablet by ity of tablet 00:00: mouth with [place] [address] evening Medical meal. Take Branch 30 mins before dinner glyBURIDE 2020-06 Yes [id number] 1.25mg Take 1 Univers 1.25 mg 2-01 tablet by ity of tablet 00:00: mouth with [place] 00 evening Medical meal. Take Branch 30 mins before dinner glyBURIDE 2020-06- No [id number] 1.25mg Take 1 Univers 1.25 mg 2- 12- tablet by ity of tablet 00:00: 00:00 mouth [place] :00 evening Medical meal. Take Branch 30 mins before dinner glyBURIDE 2020-06- No [id number] 1.25mg Take 1 Univers 1.25 mg 2- 12 tablet by ity of tablet 00:00: 00:00 mouth [place] 00 :00 evening Medical meal. Take Branch 30 mins before dinner metroNIDAZO 2020-06- No [id number] 500mg Take 1 Univers LE 500 mg - 12 tablet by ity of tablet 00:00: 00:00 mouth [place] 00 :00 every 12 Medical (twelve) Branch hours. Lancets 2020-06 Yes [id number] Check Unive rs Misc 1-12 blood ity of 00:00: sugar 4 [place] 00 times Medical daily. Branch Blood-Gluco 2020-06 Yes [id number] Use as Univers se Meter 1-12 directed ity of (BLOOD 00:00: [place] GLUCOSE 00 Medical MONITORING) Branch Kit blood sugar 2020-06 Yes [id number] Check U nivers diagnostic 1-12 blood ity of strip 00:00: sugar 4 [place] 00 times Medical daily. Branch Alcohol 2020-06 Yes [id number] Apply to Un jaymie Swabs 1-12 area(s) 4 ity of (ALCOHOL 00:00: (four) [place] PREP PADS) 00 times Medical PadM daily. Branch Lancets 2020-06 Yes [id number] Check Unive rs Misc 1-12 blood ity of 00:00: sugar 4 [place] 00 times Medical daily. Branch Blood-Gluco 2020-06 Yes [id number] Use as Univers se Meter 1-12 directed ity of (BLOOD 00:00: [place] GLUCOSE 00 Medical MONITORING) Branch Kit blood sugar 2020-06 Yes [id number] Check U nivers diagnostic 1-12 blood ity of strip 00:00: sugar 4 [place] 00 times Medical daily. Branch Alcohol 2020-06 Yes [id number] Apply to Un jaymie Swabs 1-12 area(s) 4 ity of (ALCOHOL 00:00: (four) [place] PREP PADS) 00 times Medical PadM daily. Branch Lancets 2020-06 Yes [id number] Check Unive rs Misc 1-12 blood ity of 00:00: sugar 4 [place] 00 times Medical daily. Branch Blood-Gluco 2020-06 Yes [id number] Use as Univers se Meter 1-12 directed ity of (BLOOD 00:00: [place] GLUCOSE 00 Medical MONITORING) Branch Kit blood sugar 2020-06 Yes [id number] Check U nivers diagnostic 1-12 blood ity of strip 00:00: sugar 4 [place] 00 times Medical daily. Branch Alcohol 2020-06 Yes [id number] Apply to Un jaymie Swabs 1-12 area(s) 4 ity of (ALCOHOL 00:00: (four) [place] PREP PADS) 00 times Medical PadM daily. Branch Lancets 2020-06 Yes [id number] Check Unive rs Misc 1-12 blood ity of 00:00: sugar 4 [place] 00 times Medical daily. Branch Blood-Gluco 2020-06 Yes [id number] Use as Univers se Meter 1-12 directed ity of (BLOOD 00:00: [place] GLUCOSE 00 Medical MONITORING) Branch Kit blood sugar 2020-06 Yes [id number] Check U nivers diagnostic 1-12 blood ity of strip 00:00: sugar 4 [place] 00 times Medical daily. Branch Alcohol 2020-06 Yes [id number] Apply to Un jaymie Swabs 1-12 area(s) 4 ity of (ALCOHOL 00:00: (four) [place] PREP PADS) 00 times Medical PadM daily. Branch Lancets 2020-06 Yes [id number] Check Unive rs Misc 1-12 blood ity of 00:00: sugar 4 [place] 00 times Medical daily. Branch Blood-Gluco 2020-06 Yes [id number] Use as Univers se Meter 1-12 directed ity of (BLOOD 00:00: [place] GLUCOSE 00 Medical MONITORING) Branch Kit blood sugar 2020-06 Yes [id number] Check U nivers diagnostic 1-12 blood ity of strip 00:00: sugar 4 [place] 00 times Medical daily. Branch Alcohol 2020-06 Yes [id number] Apply to Un ajymie Swabs 1-12 area(s) 4 ity of (ALCOHOL 00:00: (four) [place] PREP PADS) 00 times Medical PadM daily. Branch Lancets 2020-06 Yes [id number] Check Unive rs Misc 1-12 blood ity of 00:00: sugar 4 [place] 00 times Medical daily. Branch Blood-Gluco 2020-06 Yes [id number] Use as Univers se Meter 1-12 directed ity of (BLOOD 00:00: [place] GLUCOSE 00 Medical MONITORING) Branch Kit blood sugar 2020-06 Yes [id number] Check U nivers diagnostic 1-12 blood ity of strip 00:00: sugar 4 [place] 00 times Medical daily. Branch Alcohol 2020-06 Yes [id number] Apply to Un jaymie Swabs 1-12 area(s) 4 ity of (ALCOHOL 00:00: (four) [place] PREP PADS) 00 times Medical PadM daily. Branch Lancets 2020-06 Yes [id number] Check Unive rs Misc 1-12 blood ity of 00:00: sugar 4 [place] 00 times Medical daily. Branch Blood-Gluco 2020-06 Yes [id number] Use as Univers se Meter 12 directed ity of (BLOOD 00:00: [place] GLUCOSE 00 Medical MONITORING) Branch Kit blood sugar 2020-06 Yes [id number] Check U nivers diagnostic -12 blood ity of strip 00:00: sugar 4 [place] 00 times Medical daily. Branch Alcohol 2020-06 Yes [id number] Apply to Un jaymie Swabs 1-12 area(s) 4 ity of (ALCOHOL 00:00: (four) [place] PREP PADS) 00 times Medical PadM daily. Branch Lancets 2020-06- No [id number] Check Univ ers Misc 06-16 blood ity of 00:00: 00:00 sugar 4 [place] 00 :00 times Medical daily. Branch Blood-Gluco 2020-06- No [id number] Use as Univers se Meter 06-16 directed ity of (BLOOD 00:00: 00:00 [place] GLUCOSE 00 :00 Medical MONITORING) Branch Kit blood sugar 2020-06- No [id number] Check Univers diagnostic 06-16 blood ity of strip 00:00: 00:00 sugar 4 [place] 00 :00 times Medical daily. Branch Alcohol 2020-06- No [id number] Apply to U nivers Swabs 05-29 area(s) 4 ity of (ALCOHOL 00:00: 00:00 (four) [place] PREP PADS) 00 :00 times Medical PadM daily. Branch Lancets 2020-06- No [id number] Check [facility] ers Misc 06-16 blood ity of 00:00: 00:00 sugar 4 [place] 00 :00 times Medical daily. Branch Blood-Gluco 2020-06- No [id number] Use as Univers se Meter 06-16 directed ity of (BLOOD 00:00: 00:00 [place] GLUCOSE 00 :00 Medical MONITORING) Branch Kit blood sugar 2020-06- No [id number] Check Univers diagnostic 06-16 blood ity of strip 00:00: 00:00 sugar 4 [place] 00 :00 times Medical daily. Branch Alcohol 2020-06- No [id number] Apply to U nivers Swabs 06-16 area(s) 4 ity of (ALCOHOL 00:00: 00:00 (four) [place] PREP PADS) 00 :00 times Medical PadM daily. Branch 2020-06 Yes Take by Univer s vit 0-29 mouth. ity of calc,iron,f 11:30: [place] [id number] Medical ( Branch VITAMIN ORAL) 2020-06 Yes Take by Univer s vit 0-29 mouth. ity of calc,iron,f 11:30: [place] [id number] Medical ( Branch VITAMIN ORAL) 2020-06 Yes Take by Univer s vit 0-29 mouth. ity of calc,iron,f 11:30: [place] [id number] Medical ( Branch VITAMIN ORAL) 2020-06 Yes Take by Univer s vit 0-29 mouth. ity of calc,iron,f 11:30: [place] [id number] Medical ( Branch VITAMIN ORAL) 2020-06 Yes Take by Univer s vit 0-29 mouth. ity of calc,iron,f 11:30: [place] [id number] Medical ( Branch VITAMIN ORAL) 2020-06 Yes Take by Univer s vit 0-29 mouth. ity of calc,iron,f 11:30: [place] [id number] Medical ( Branch VITAMIN ORAL) Immunizations Ordered Filled Immunization Date Status Comments [facility] e Immunization Name Name Influenza Virus 2021-04-02 [...] Universit y of Vaccine Quad IM, 00:00:00 [place] Me dical Preserv and ABX Branch Free 6 MO-64 YRS TDAP 2021-03-18 Completed University of 00:00:00 [place] [facility] TDAP 2021-03-18 Completed University of 00:00:00 [place] [facility] TDAP 2021-03-18 Completed University of 00:00:00 [place] [facility] TDAP 2021-03-18 Completed University of 00:00:00 [place] [facility] TDAP 2021-03-18 Completed University of 00:00:00 [place] [facility] Branch TDAP 2021-03-18 Completed University of 00:00:00 [place] [facility] [facility] TDAP 2021-03-18 Completed [facility] 00:00:00 [facility] TDAP 2021-03-18 Completed University of 00:00:00 [facility] TDAP 2021-03-18 Completed University of 00:00:00 [facility] TDAP 2021-03-18 Completed University of 00:00:00 [facility] TDAP 2021-03-18 Completed University of 00:00:00 [facility] TDAP 2021-03-18 Completed University of 00:00:00 [facility] TDAP 2021-03-18 Completed University of 00:00:00 [facility] TDAP 2021-03-18 Completed University of 00:00:00 [facility] TDAP 2021-03-18 Completed University of 00:00:00 [facility] TDAP 2021-03-18 Completed [facility] 00:00:00 [facility] TDAP 2021-03-18 Completed [facility] 00:00:00 [facility] TDAP 2021-03-18 Completed [facility] 00:00:00 [facility] TDAP 2021-03-18 Completed [facility] of 00:00:00 [facility] TDAP 2021-03-18 Completed University of 00:00:00 [facility] TDAP 2021-03-18 Completed University of 00:00:00 [facility] TDAP 2021-03-18 Completed University of 00:00:00 [facility] TDAP 2021-03-18 Completed University of 00:00:00 [facility] TDAP 2021-03-18 Completed [facility] 00:00:00 [facility] TDAP 2021-03-18 Completed [facility] 00:00:00 [facility] TDAP 2021-03-18 Completed [facility] 00:00:00 [facility] TDAP 2021-03-18 Completed [facility] 00:00:00 [facility] TDAP 2021-03-18 Completed [facility] 00:00:00 [facility] Vital Signs Vital Name Observation Time Observation Value Comments Source Systolic blood 2022-02-28 15:41:00 112 mm[Hg] Univer sity of pressure [facility] Diastolic blood 2022-02-28 15:41:00 73 mm[Hg] Unive rsity of pressure [facility] Heart rate 2022-02-28 15:41:00 81 /min [facility]i ty [facility] Body temperature 2022-02-28 15:41:00 37.06 Lay Univ ersity of [facility] Body height 2022-02-28 15:41:00 157.5 cm [facility] Body weight 2022-02-28 15:41:00 82.192 kg [facility] BMI 2022-02-28 15:41:00 33.14 kg/m2 [facility] Systolic blood 2021-12-07 19:47:00 135 mm[Hg] Univer sity of [facility] Diastolic blood 2021-12-07 19:47:00 76 mm[Hg] Unive rsity of [facility] Heart rate 2021-12-07 19:47:00 82 /min [facility] Body temperature 2021-12-07 19:47:00 37.06 Lay Univ ersity of [facility] Respiratory rate 2021-12-07 19:47:00 18 /min Univ ersity of [facility] Body height 2021-12-07 19:47:00 157.5 cm [facility] Body weight 2021-12-07 19:47:00 75.66 kg [facility] BMI 2021-12-07 19:47:00 30.51 kg/m2 [facility] Systolic blood 2021-09-14 19:49:00 121 mm[Hg] Univer sity of [facility] Diastolic blood 2021-09-14 19:49:00 81 mm[Hg] Unive rsity of [facility] Heart rate 2021-09-14 19:49:00 92 /min [facility] Body temperature 2021-09-14 19:49:00 37.17 Lay Univ ers[facility] Body height 2021-09-14 19:49:00 157.5 cm [facility] Body weight 2021-09-14 19:49:00 77.928 kg [facility] BMI 2021-09-14 19:49:00 31.42 kg/m2 [facility] Systolic blood 2021-07-13 14:40:00 121 mm[Hg] Univer sity of [facility] Diastolic blood 2021-07-13 14:40:00 69 mm[Hg] Unive rsity of [facility] Heart rate 2021-07-13 14:40:00 72 /min [facility]i [facility] Body temperature 2021-07-13 14:40:00 36.56 Lay Univ ersity of [facility] Respiratory rate 2021-07-13 14:40:00 18 /min Univ ersity of [facility] Body height 2021-07-13 14:40:00 157.5 cm [facility] Body weight 2021-07-13 14:40:00 77.111 kg [facility] BMI 2021-07-13 14:40:00 31.09 kg/m2 [facility] Systolic blood 2021-07-05 16:27:00 124 mm[Hg] Univer sity of [facility] Diastolic blood 2021-07-05 16:27:00 80 mm[Hg] Unive rsity of [facility] Heart rate 2021-07-05 16:27:00 77 /min [facility] Body temperature 2021-07-05 16:27:00 36.83 Lay Univ ers[facility] Respiratory rate 2021-07-05 16:27:00 18 /min Univ ersity of [facility] Body weight 2021-07-05 16:27:00 77.565 kg [facility] Systolic blood 2021-06-22 21:33:00 118 mm[Hg] Univer sity of [facility] Diastolic blood 2021-06-22 21:33:00 81 mm[Hg] Unive rsity of [facility] Heart rate 2021-06-22 21:33:00 61 /min [facility] Body temperature 2021-06-22 21:33:00 36.39 Lay Univ ersity [facility] Body weight 2021-06-22 21:33:00 77.565 kg [facility] Systolic blood 2021-05-29 14:27:00 128 mm[Hg] Univer sity of [facility] Diastolic blood 2021-05-29 14:27:00 61 mm[Hg] Unive rsity of [facility] Body temperature 2021-05-29 14:27:00 36.89 Lay Univ ersity of [facility] Respiratory rate 2021-05-29 14:27:00 18 /min Univ ersity of [facility] Oxygen saturation in 2021-05-29 14:27:00 100 /min [facility] Arterial blood by [facility] Pulse oximetry Branch Heart rate 2021-05-29 09:00:00 70 /min [facility] Systolic blood 2021-05-25 20:31:00 125 mm[Hg] Univer sity of [facility] Diastolic blood 2021-05-25 20:31:00 87 mm[Hg] Unive rsity of [facility] Heart rate 2021-05-25 20:31:00 78 /min [facility] Body temperature 2021-05-25 20:31:00 36.78 Lay Univ ersity of [facility] Respiratory rate 2021-05-25 20:31:00 18 /min Univ ersity of [facility] Body height 2021-05-25 20:31:00 157.5 cm [facility]i [facility] Body weight 2021-05-25 20:31:00 89.812 kg [facility] BMI 2021-05-25 20:31:00 36.21 kg/m2 [facility] Systolic blood 2021-05-21 16:13:00 123 mm[Hg] Univer sity of [facility] Diastolic blood 2021-05-21 16:13:00 85 mm[Hg] Unive rsity of [facility] Heart rate 2021-05-21 16:13:00 85 /min [facility] Body temperature 2021-05-21 16:13:00 36.56 Lay Univ [facility] Respiratory rate 2021-05-21 16:13:00 18 /min Univ ersity of [facility] Body height 2021-05-21 16:13:00 157.5 cm [facility] Body weight 2021-05-21 16:13:00 87.998 kg [facility] BMI 2021-05-21 16:13:00 35.48 kg/m2 [facility] Systolic blood 2021-05-18 15:57:00 118 mm[Hg] Univer sity of [facility] Diastolic blood 2021-05-18 15:57:00 78 mm[Hg] Unive rsity of [facility] Heart rate 2021-05-18 15:57:00 73 /min [facility] Body temperature 2021-05-18 15:57:00 36.61 Lay Univ ers[facility] Body height 2021-05-18 15:57:00 157.5 cm [facility] Body weight 2021-05-18 15:57:00 88.996 kg [facility] BMI 2021-05-18 15:57:00 35.89 kg/m2 [facility] Systolic blood 2021-05-14 20:18:00 112 mm[Hg] Univer sity of [facility] Diastolic blood 2021-05-14 20:18:00 76 mm[Hg] Unive rsity of [facility] Heart rate 2021-05-14 20:18:00 84 /min [facility] Body temperature 2021-05-14 20:18:00 36.72 Lay Univ [facility] Respiratory rate 2021-05-14 20:18:00 18 /min Univ ersity of [facility] Body height 2021-05-14 20:18:00 157.5 cm [facility] Body weight 2021-05-14 20:18:00 88.451 kg [facility] BMI 2021-05-14 20:18:00 35.67 kg/m2 [facility] Systolic blood 2021-05-11 16:18:00 122 mm[Hg] Univer sity of [facility] Diastolic blood 2021-05-11 16:18:00 83 mm[Hg] [facility] 2021-05-11 16:18:00 77 /min [facility] Body temperature 2021-05-11 16:18:00 36.89 Lay [facility] Res[facility] rate 2021-05-11 16:18:00 18 /min [facility] Body height 2021-05-11 16:18:00 157.5 cm [facility] Body weight 2021-05-11 16:18:00 88.905 kg [facility] BMI 2021-05-11 16:18:00 35.85 kg/m2 [facility] Procedures Procedure Date / Time Performing Clinician Source Performed CONSENT FOR CONTRACEPTIVE 2022-02-28 05:01:00 Doctor Unassigned, [facility] PATCH [place] [facility] GLUCOSE FASTING 2021-07-21 14:13:[address] [facility] CONSENT FOR CONTRACEPTION 2021-06-22 06:01:00 Doctor Unassigned, [facility] Name [facility] POCT TEST 2021-06-22 00:00:00 Adum, Melba Hardin [facility] CBC WITH DIFF 2021-05-29 10:17:00 Adum, Melba Hardin [facility] VENOUS CORD GAS 2021-05-28 09:20:00 Adum, Melba Hardin [facility] POCT GLUCOSE (AUTOMATED) 2021-05-28 06:59:00 Adum, Melba Green [facility] CENTRAL NEURAXIAL BLOCK 2021-05-28 06:40:39 Gómez Grey [facility] POCT GLUCOSE (AUTOMATED) 2021-05-28 04:47:00 Adum, Melba Green [facility] POCT GLUCOSE (AUTOMATED) 2021-05-28 01:34:00 Adum, Melba Hardin [facility] HB ABO GROUPING 2021-05-27 23:10:00 Adum, Melba Hardin [facility] COVID-19 (ID NOW RAPID 2021-05-27 23:07:00 Adum, Melba Hardin [facility] TESTING) Medical Branch LAB ONLY COVID 2021-05-27 23:07:00 Adum, Melba Hardin [facility] INTERPRETATION [facility] CBC WITH DIFF 2021-05-27 23:06:00 Adum, Melba Hardin [facility] HEPATITIS B SURFACE 2021-05-27 23:06:00 Adum, Melba Hardin [facility] ANTIGEN [facility] ADC OR LOLI ONLY - RPR 2021-05-27 23:06:00 [facility]um, [facility]-AB WITH REFLEX 2021-05-27 23:06:00 Adum, [facility]SE (AUTOMATED) 2021-05-27 21:28:00 Adum, Melba Hardin [facility] CONSENT/REFUSAL FOR 2021-05-27 20:55:09 Doctor Unassigned, [facility] DIAGNOSIS AND TREATMENT [place] [facility] ASSIGNMENT OF BENEFITS 2021-05-27 20:47:03 Doctor Unassigned[facility]ESS [facility] 2021-05-25 21:32:46 Adum, Melba Hardin [facility] POCT URINALYSIS W/O 2021-05-25 00:00:00 Adum, Melba Hardin [facility] SPECIFIC GRAVITY [facility] NON-STRESS TEST 2021-05-21 20:39:44 Adum, Melba Hardin [facility] POCT URINALYSIS W/O 2021-05-21 00:00:00 Adum, Melba Hardin [facility] SPECIFIC GRAVITY [facility] NON-STRESS TEST 2021-05-18 16:44:35 Adum, Melba Hardin [facility] POCT URINALYSIS W/O 2021-05-18 00:00:00 Adum, Melba Hardin Universi ty [facility] NON-STRESS TEST 2021-05-14 20:58:37 Adum, Melba Lashawn [facility] NON-STRESS TEST 2021-05-11 17:05:02 Adum, Melba Hardin [facility] GC & CHLAMYDIA AMPLIFIED 2021-05-11 16:33:00 Adum, Melba Hardin Uni versity [facility] TRICHOMONAS AMPLIFIED 2021-05-11 16:33:00 Adum, Melba Hardin [facility] POCT URINALYSIS W/O 2021-05-11 00:00:00 Adum, Melba Hardin [facility] ty [facility] Encounters Start End Encounter Admission Attending Care Care Encounter Source Date/Time Date/Time Type Type Clinicians Facility Department ID 2021-05-25 Outpatient P ADJUSTIN, [facility] [id number] [facility] 16:22:50 [facility] 2023-02-28 2023-02-28 [facility] [id number] [facility] 09:00:00 09:00:00 CHIKIS mosqueda [facility] 2022-03-14 2022-03-14 [facility] 1..840.114 [id number] [facility] 00:00:00 00:00:00 Chikis ACHARYA 350.1.13.10 i ty [id number] [id number] [address] 2022-03-01 2022-03-[address] [facility] 1.2.840.114 [id number] [facility] 00:00:00 00:00:00 Chikis ACHARYA 350.1.13.10 i ty of [place] [facility] [id number] [id number] [address] 2022-02-28 2022-02-28 Ict Project Manager 2, Adc Lab [facility] 1.2.840.114 [id number] [facility] 11:30:00 11:45:00 Visit Chikis Paniagua 350.1.13.10 ity of [facility] [id number] [id number] Mi dical NAL [address] [facility] 2022-02-28 2022-02-28 Outpatient R ARCELIA [facility] [id number] Univers 10:30:00 11:17:53 CHIKIS mosqueda [facility] 2022-02-28 2022-02-[address] [facility] 1.2.703.106 [id number] Univers 10:30:00 11:00:00 Visit Chikis ACHARYA 350.1.13.10 i ty [facility] [id number] [id number] Mi dical NAL [address] [facility] 2022-02-28 2022-02-28 Orders Doctor MONISHA 1.2.840.114 [id number] Univers 00:00:00 00:00:00 Only Unassigned, KINSEY 350.1.13.10 ity of [place] [facility] [id number] [place] as [phone] [address] 2021-12-07 2021-12-07 Outpatient R ARCELIA [facility] [id number] Univers 14:00:00 14:48:02 CHIKIS mosqueda [facility] 2021-12-07 2021-12-07 Nurse Nurse, [facility] 1.2.840.114 [id number] Univers 14:00:00 14:48:02 Visit Chikis Paniagua 350.1.13.10 ity [facility] [id number] [id number] Mi dical NAL [address] [facility] 2021-09-14 2021-09-14 Nurse Nurse, [facility] 1.2.840.114 [id number] Univers 14:00:00 14:51:13 Visit Melba Key 350.1.13.10 ity [id number] [phone] Mi dical NAL [address] [facility] 2021-09-14 2021-09-14 Outpatient R CHATO [facility] [id number] Univers 14:00:00 14:51:13 MELBAYIFAN mosqueda [facility] 2021-08-12 2021-08-12 Telemedici [facility] 1.2.840.114 [id number] Univers 11:45:00 12:00:00 ne Visit Chikis ACHARYA 350.1.13.10 ity of [facility] [facility] [id number] [phone] Mi dical [facility] [address] [facility] 2021-08-12 2021-08-12 Outpatient R ARCELIA [facility] [id number] [facility] 11:45:00 11:45:00 CHIKIS mosqueda [facility] 2021-07-27 2021-07-27 Telephone [facility] 1.2.840.114 [id number] Univers 00:00:00 00:00:00 Chikis ACHARYA 350.1.13.10 i ty [id number] [id number] Mi dicayo [address] 2021-07-21 2021-07-21 Outpatient R ARCELIA [facility] [id number] Univers 08:00:00 08:00:00 CHIKIS tanadeisy [facility] 2021-07-21 2021-07-21 Ict Project Manager 2, Adc Lab [facility] 1.2.840.114 [id number] Univers 08:00:00 08:00:00 Visit Chikis Paniagua 350.1.13.10 ity of [facility] [id number] [phone] Mi gretchen [address] 2021-07-21 2021-07-[address] [facility] 1.2.840.114 [id number] Univers 00:00:00 00:00:00 Chikis ACHARYA 350.1.13.10 i ty [id number] [phone] Mi dical ISAC [address] [place] [address] 2021-07-15 2021-07-[address] [facility] 1.2.840.114 [id number] Univers 00:00:00 00:00:00 Chikis ACHARYA 350.1.13.10 i ty [place] [id number] [address] 2021-07-13 2021-07-13 Outpatient R ADUM, [facility] [id number] Univers 08:45:00 09:07:55 MELBA ity [facility] 2021-07-13 2021-07-13 Routine Chikis Paniagua [facility] 1.2.840.11 [id number] Univers 08:45:00 09:07:55 Adum, Melba Hardin MARCK 350.1.13.10 ity of [place] [id number] [id number] [address] 2021-07-05 2021-07-05 [facility]ine [facility] 1.2.822.124 [id number] Univers 11:45:00 11:45:00 Chikis ACHARYA 350.1.13.10 ity of [place] [id number] [address] 2021-07-05 2021-07-05 [facility] [id number] Univers 11:45:00 11:15:58 CHIKIS ity [facility] 2021-06-22 2021-06-22 Outpatient R AD, [facility] [id number] Univers 16:00:00 16:47:04 MELBA ity [facility] 2021-06-22 2021-06-22 [facility] 1.2.840.114 [id number] Univers 16:00:00 16:47:04 Melba BRITTANDREW 350.1.13.10 ity of [place] [id number] [address] 2021-06-22 2021-06-22 Orders Doctor MONISHA 1.2.840.114 [id number] Univers 00:00:00 00:00:00 Only Unassigned, KINSEY 350.1.13.10 ity of [place] [facility] 4.2.7.2.686 [place] [id number] [facility] 009 Branch 2021-05-31 2021-05-31 Outpatient R [facility] [id number] Univers 11:45:00 11:45:00 ity of [facility] 2021-05-27 2021-05-29 Inpatient P ADUM, [facility] [id number] Univers 14:45:00 11:25:00 MELBA ity of [facility] 2021-05-27 2021-05-29 Hospital [facility] 1.2.840.114 [id number] Univers 14:45:00 11:25:00 Encounter Melba ACHARYA 350.1.13.10 [place] [id number] [place] [id number] [place] 2021-05-28 2021-05-28 [facility] 1.2.840.114 [id number] Univers 20:01:37 20:01:37 Event Rodrigo ACHARYA 350.1.13.10 i ty [place] [id number] [address] 2021-05-27 2021-05-[address] [facility] 1.2.840.114 [id number] Univers 23:20:00 05:20:00 Event Gómez AMRCK 350.1.13.10 i ty [place] [id number] [place] 902753 [place] 2021-05-25 2021-05-25 Routine Room, [facility] 1.2.840.1 14 [id number] Univers 14:00:00 16:07:44 Adum, Melba ACHARYA 350.1.13.10 ity of [place] [id number] Mi dical [facility] [address] BUILDING 2021-05-25 2021-05-25 Outpatient P OMERE, [facility] [id number] Univers 15:30:00 15:45:51 CHASEY ity of [facility] 2021-05-25 2021-05-25 Ict Project Manager Ultrasound, [facility] 1.2 .840.114 [id number] Univers 15:30:00 15:45:51 Visit Vishal Wiley 350.1 .13.10 it[place] [id number] Mi dical NAL [address] [facility] 2021-05-21 2021-05-21 Outpatient R ADUM, [facility] [id number] Univers 10:00:00 10:42:24 MELBA ity [facility] 2021-05-21 2021-05-21 Routine Room, [facility] 1.2.840.1 [id number] Univers 10:00:00 10:42:24 Adum, Melba ACHARYA 350.1.13.10 ity of [place] [id number] Mi dical NAL 134 [facility] 2021-05-18 2021-05-18 Outpatient R ADUM, [facility] [id number] Univers 10:00:00 10:43:56 MELBA ity [facility] 2021-05-18 2021-05-18 Routine Room, [facility] 1.2.840.1 14 [id number] Univers 09:48:43 10:43:56 Adum, Melba ACHARYA 350.1.13.10 ity of [place] [id number] Mi dical NAL [address] [facility] 2021-05-18 2021-05-18 Outpatient R ADUM, [facility] [id number] Univers 10:00:00 10:00:00 MELBA ity [facility] 2021-05-14 2021-05-14 Outpatient R ADUM, [facility] [id number] Univers 14:00:00 14:54:04 MELBA ity [facility] 2021-05-14 2021-05-14 Routine Room, [facility] 1.2.840.1 14 [id number] Univers 13:58:04 14:54:04 Adum, Melba ACHARYA 350.1.13.10 ity of [place] [id number] Mi dical NAL [address] [facility] 2021-05-14 2021-05-14 Outpatient R [facility] [id number] Univers 14:00:00 14:00:00 ity of [facility] 2021-05-12 2021-05-12 Orders Doctor MONISHA 1.2.840.114 [id number] Univers 00:00:00 00:00:00 Only Unassigned, KINSEY 350.1.13.10 ity of [place] [facility] 4.2.7.2.686 [place] [phone] [address] 2021-05-11 2021-05-11 Outpatient R ADUM, [facility] [id number] Univers 10:00:00 11:04:55 MELBA ity [facility] 2021-05-11 2021-05-11 Outpatient R ADUM, [facility] [id number] Univers 10:00:00 11:04:55 MELBA ity [facility] 2021-05-11 2021-05-11 Routine Room, [facility] 1.2.840.1 [id number] Univers 09:52:39 11:04:55 Adum, Melba ACHARYA 350.1.13.10 ity of [place] [id number] Mi dical NAL [address] [place] [address] 2021-05-11 2021-05-11 Outpatient R ADUM, [facility] [id number] Univers 10:00:00 10:00:00 MELBA ity [facility] 2021-05-05 2021-05-05 Outpatient R ADUM, [facility] [id number] Univers 15:45:00 16:38:33 MELBA ity [facility] 2021-05-05 2021-05-05 Outpatient R ADUM, [facility] [id number] Univers 15:45:00 16:38:33 MELBA ity [facility] 2021-05-05 2021-05-05 Routine Adum, [facility] 1.2.840.114 [id number] Univers 15:29:11 16:38:33 Melba ACHARYA 350.1.13.10 ity of [place] [id number] [address] 2021-04-30 2021-04-30 Case Adum, [facility] 1.2.840.114 [id number] Univers 00:00:00 00:00:00 Management Melba ACHARYA 350.1.13.10 ity of [place] [facility] 4.2.7.2.[place] [id number] [address] 2021-04-28 2021-04-28 Outpatient R ADUM, [facility] [id number] Univers 16:00:00 16:50:17 MELBA ity [facility] 2021-04-28 2021-04-28 Routine Adum, [facility] 1.2.840.114 [id number] Univers 15:48:19 16:50:17 Melba ACHARYA 350.1.13.10 ity of [place] [id number] [address] 2021-04-16 2021-04-16 Outpatient R ADUM, [facility] [id number] Univers 10:30:00 11:40:01 MELBA ity [facility] 2021-04-16 2021-04-16 Nurse Nurse, [facility] [facility] 1.2.840.114 [id number] Univers 10:20:40 11:40:01 Visit Adum, Melba ACHARYA 350.1.13.10 it[place] [phone] [address] 2021-04-15 2021-04-15 Outpatient R ADUM, [facility] [id number] Univers 16:15:00 16:15:00 MELBA ity [facility] 2021-04-15 2021-04-15 Routine Adum, [facility] 1.2.840.114 [id number] Univers 15:40:11 15:55:11 Melba Hardin [place] 350.1.13.10 ity of [place] [phone] Mi dical NAL 134 [facility] 2021-04-14 2021-04-14 Outpatient R ADUM, [facility] [id number] Univers 09:00:00 09:00:00 MELBA mosqueda [facility] 2021-04-14 2021-04-14 Ict Project Manager 2, Adc Lab [facility] 1.2.840.114 [id number] Univers 08:29:31 08:44:31 Visit Adum, Melba BRITTTON 350.1.13.10 it[place] [phone] [address] 2021-04-02 2021-04-02 Routine Adum, [facility] 1.2.840.114 [id number] Univers 11:04:23 12:02:30 Melba BRITTTON 350.1.13.10 ity of [place] [phone] [address] 2021-04-02 2021-04-02 Outpatient R ADUM, [facility] [id number] Univers 11:00:00 12:02:30 MELBA mosqueda [facility] 2021-04-01 2021-04-01 Outpatient R ADUM, [facility] [id number] Univers 09:45:00 09:45:00 MELBA mosqueda [facility] 2021-04-01 2021-04-01 Ict Project Manager 2, Adc Lab [facility] 1.2.840.114 [id number] Univers 09:07:26 09:22:26 Visit AdMelba goldsteinTON 350.1.13.10 it[place] [phone] Mi dical [address] 2021-03-26 2021-03-26 Outpatient R ADUM, [facility] [id number] Univers 15:30:00 15:30:00 MELBA ity of [facility] 2021-03-26 2021-03-26 Ict Project Manager Ultrasound, Adc [facility] 1.2 .840.114 [id number] Univers 13:52:10 14:52:10 Visit Conor OtoolemukeshGriselda vincent Mar[place] 350.1 .13.10 ity of [place] [phone] Mi dical [address] 2021-03-26 2021-03-26 Orders Doctor MONISHA 1.2.840.114 [id number] Univers 00:00:00 00:00:00 Only Unassigned, KINSEY 350.1.13.10 ity of [place] [facility] 4.2.7.2.686 [place] [phone] [address] 2021-03-18 2021-03-18 Routine Adum, [facility] 1.2.840.114 [id number] Univers 13:40:30 14:23:26 Melba Hardin [place] 350.1.13.10 ity of Visit [place] [phone] Mi dical nal [address] [place] [address] 2021-03-18 2021-03-18 Outpatient R ADUM, [facility] [id number] Univers 14:15:00 14:15:00 MELBA ity [facility] 2021-02-26 2021-02-26 Outpatient P [facility] [id number] Univers 15:00:00 15:00:00 ity of [facility] 2021-02-18 2021-02-18 Routine Adum, [facility] 1.2.840.114 [id number] Univers 09:06:28 09:42:13 Melba L [place] 350.1.13.10 ity of Visit [place] [phone] Mi dical nal [address] [place] [address] 2021-02-18 2021-02-18 Outpatient R ADUM, [facility] [id number] Univers 09:15:00 09:15:00 MELBA ity [facility] 2021-02-18 2021-02-18 Orders Doctor MONISHA 1.2.840.114 [id number] Univers 00:00:00 00:00:00 Only UnassignedKINSEY 350.1.13.10 ity of [place] [facility] 4.2.7.2.686 [place] [phone] [facility] [address] 2021-02-17 2021-02-17 Outpatient R ADUM, [facility] [id number] Univers 16:00:00 16:00:00 [facility] 2021-02-16 2021-02-16 Outpatient R ADUM, [facility] [id number] Univers 14:15:00 14:15:00 [facility] 2021-02-09 2021-02-09 Ict Project Manager 2, Adc Lab [facility] 1.2.840.114 [id number] Univers 10:06:05 10:21:05 Visit Carlos Enrique Marin 350.1.13.10 ity [facility] [place] [phone] [facility] [address] [facility] 2021-02-09 2021-02-09 Outpatient R CARLOS ENRIQUE MARIN [facility] [id number] Univers 10:15:00 10:15:00 ity [facility] 2021-02-09 2021-02-09 Letter MONISHA Jamison 1.2.840.114 [id number] Univers 00:00:00 00:00:00 (Out) Jeane EUCEDA 350.1.13.10 it y of HOSPITAL 4.2.7.2.686 [place] [phone] [facility] [address] 2021-02-07 2021-02-07 Laboratory Only, Ang Db Test [facility] 1.2.8 40.114 [id number] Univers 18:11:36 18:26:36 Only Garfield Flannery [facility] 350.1.13.10 ity of [place] 4.2.7.2.686 [place] Ra?Blea [phone] [facility] [address] [facility] 2021-02-07 2021-02-07 Outpatient R CRISTIAN [facility] [id number] Univers 18:10:00 18:10:00 [place] ity o f [facility] 2021-02-03 2021-02-03 Telephone Adum, [facility] 1.2.541.811 [id number] Univers 00:00:00 00:00:00 Melba L [place] 350.1.13.10 ity of [place] [phone] Mi dical nal [address] [place] [address] 2021-02-03 2021-02-03 Telephone Adum, [facility] 1.2.836.298 [id number] Univers 00:00:00 00:00:00 Melba L [place] 350.1.13.10 ity of [place] [phone] Mi dical nal [address] [place] [address] 2021-01-29 2021-01-29 Telephone Ad, [facility] 1.2.068.493 [id number] Univers 00:00:00 00:00:00 Melba L [place] 350.1.13.10 ity of [place] [phone] Mi dical nal [address] [place] [address] 2021-01-29 2021-01-29 Telephone Ad, [facility] 1.2.619.931 [id number] Univers 00:00:00 00:00:00 Melba L [place] 350.1.13.10 ity of [place] [phone] Mi dical nal [address] [place] [address] 2021-01-27 2021-01-27 Outpatient R [facility] [id number] Univers 13:00:00 13:00:00 ity of [facility] 2021-01-26 2021-01-26 Initial Ad, [facility] 1.2.840.114 [id number] Univers 14:23:33 16:06:34 Melba L [place] 350.1.13.10 ity of Visit [place] [phone] Mi dical nal [address] [place] [address] 2021-01-26 2021-01-26 Initial Adum, [facility] 1.2.840.114 [id number] Univers 14:23:33 16:06:34 Melba Lashawn BrittButternut 350.1.13.10 ity of Visit [place] [phone] [address] 2021-01-26 2021-01-26 Outpatient R ADUM, [facility] [id number] Univers 14:30:00 14:30:00 MELBA ity [facility] 2021-01-26 2021-01-26 Orders Doctor MONISHA 1.2.840.114 [id number] Univers 00:00:00 00:00:00 Only Unassigned, KINSEY 350.1.13.10 ity [place] [facility] 4.2.7.2.686 [place] [phone] [address] 2021-01-26 2021-01-26 Orders Doctor MONISHA 1.2.840.114 [id number] Univers 00:00:00 00:00:00 Only Unassigned, KINSEY 350.1.13.10 ity [place] [facility] 4.2.7.2.686 [place] [phone] [address] 2020-09-01 2020-09-01 Outpatient R AD, [facility] [id number] Univers 14:00:00 14:00:00 MELBA ity [facility] 2020-06-09 2020-06-09 [facility].495 [id number] Univers 00:00:00 00:00:00 Melba L [place] 350.1.13.10 ity of [place] [phone] [address] 2020-06-09 2020-06-09 [facility] 1.2.529.751 [id number] 00:00:00 00:00:00 Melba L [place] 350.1.13.10 [place] 4.2.7.2.686 Professio [phone] [address] 2020-06-08 2020-06-08 Outpatient R [facility] [id number] Univers 11:00:00 11:00:00 ity [facility] 2020-06-08 2020-06-08 Ict Project Manager 2, Adc Lab [facility] 1.2.840.114 [id number] Univers 10:43:33 10:58:33 Visit AdumMelbaton 350.1.13.10 ity of [place] [phone] Mi dical [address] 2020-06-08 2020-06-08 Ict Project Manager 2, Adc Lab [facility] 1.2.840.114 [id number] 10:43:33 10:58:33 Visit [place] 350.1.13.10 [place] 4.2.7.2.686 Professio [phone] [address] 2020-06-03 2020-06-03 Outpatient R AD, [facility] [id number] Univers 10:45:00 10:45:00 MELBA mosqueda [facility] 2020-06-02 2020-06-02 Office Ad, [facility] 1.2.840.114 [id number] Univers 11:22:36 12:46:52 Visit Melba Brittton 350.1.13.10 ity of [place] [phone] [address] 2020-06-02 2020-06-02 Office Adum, [facility] 1.2.840.114 [id number] 11:22:36 12:46:52 Visit Melba Brittton 350.1.13.10 [place] 4.2.7.2.686 Professio [phone] [address] 2020-06-02 2020-06-02 Outpatient R AD, [facility] [id number] Univers 11:00:00 11:00:00 MELBA mosqueda [facility] 2020-03-26 2020-03-26 Case Adum, [facility] 1.2.840.114 [id number] Univers 00:00:00 00:00:00 Management Melba Hardin [place] 350.1.13.10 it[place] of [place] [phone] Mi dical nal [address] [facility] 2020-03-25 2020-03-25 Ict Project Manager 2, Adc Lab [facility] 1.2.840.114 [id number] Univers 15:36:12 15:51:12 Visit AdBreanne goldsteinian Lashawn Acharya 350.1.13.10 ity of [place] [phone] Mi dical nal 353 [facility] 2020-03-25 2020-03-25 Office Adum, [facility] 1.2.840.114 [id number] Univers 13:45:58 15:22:29 Visit Melba Brittton 350.1.13.10 ity of [place] [phone] Mi dical nal 134 [facility] 2020-03-25 2020-03-25 [id number] Univers 14:00:00 14:00:00 MELBA tanadeisy [facility] 2020-03-25 2020-03-25 Orders Doctor MONISHA 1.2.840.114 [id number] Univers 00:00:00 00:00:00 Only Unassigned, KINSEY 350.1.13.10 ity of [place] [facility] 4.2.7.2.686 [place] [phone] [address] Results Test Description Test Time Test Comments Results Result Comments Source GLUCOSE FASTING 2021-07-21 16:04:56 Test Item Value Reference Range Interpretation Comme nts GLU FASTNG (test code = 6536746740) 90 mg/dL 70-110 Lab Interpretation (test code = 30102-4) [id number] 22:48:00 Test Item Value Reference Range Interpretation Comments POCT PREG (test code = 1605) Negative On board controls acceptable with C Yes Line (test code = 3574) POCT PREG LOT # (test code = 3575) POCT PREG TEST DATE (test code = 3576) Lab Interpretation (test code = Normal 88788-6) [facility] with [id number] 10:46:10 Test Item Value Reference Range Interpretation [...] RDW-SD (test code = 43.4 fL 39.0-49.9 95828-8) RDW-CV (test code = 13.6 % 12.0-15.5 788-0) PLT (test code = See_Comment [Automated 777-3) message] The sy stem which generated this result transmitted reference range : 166 - 358 10*3/ ?L. The reference r jayce was not used to interpret this result as normal/abnormal . MPV (test code = 10.3 fL 9.5-12.9 45823-3) NRBC/100 WBC (test See_Comment [Automat ed code = 7228692671) message] The system which generated this result transmitted reference range : 0.0 - 10.0 /100 WBCs. The refer ence range was not u sed to interpret th is result as normal/abnormal . NRBC x10^3 (test code <0.01 See_Comment [Auto mated = 6403194156) message] The s ystem which generated this result transmitted reference range : 10*3/?L. The reference range was not used to interpret this result as normal/abnormal . GRAN MAT (NEUT) % 67.5 % (test code = 770-8) IMM GRAN % (test code 1.30 % = 3503457249) LYMPH % (test code = 16.4 % 736-9) MONO % (test code = 13.2 % 5905-5) EOS % (test code = 1.3 % 713-8) BASO % (test code = 0.3 % 706-2) GRAN MAT x10^3(ANC) 7.61 10*3/uL 1.88-7.09 H (test code = 2317574988) IMM GRAN x10^3 (test 0.15 10*3/uL 0.00-0.06 H code = 0055479998) LYMPH x10^3 (test code 1.85 10*3/uL 1.32-3.29 = 731-0) MONO x10^3 (test code 1.49 10*3/uL 0.33-0.92 H = 742-7) EOS x10^3 (test code = 0.15 10*3/uL 0.03-0.39 711-2) BASO x10^3 (test code 0.03 10*3/uL 0.01-0.07 = 704-7) Lab Interpretation Abnormal (test code = 95345-1) [facility] Surface [id number] 07:13:50 Test Item Value Reference Range Interpretation Comments HBsAg Semi-Quantitative (test code = Negative Negative 5195-3) [facility] GLUCOSE (AUTOMATED)2021-05-28 07:03:21 Test Item Value Reference Range Interpretation Comments POCT GLU (test code = 7004980980) 85 mg/dL 70-110 Lab Interpretation (test code = Normal 94086-0) [facility] OR LOLI ONLY - [id number] 06:38:23 Test Item Value Reference Range Interpretation Comments RPR (Qualitative) (test code = Nonreactive Nonreactive 90280-2) Lab Interpretation (test code = Normal 36267-1) [facility] GLUCOSE (AUTOMATED)2021-05-28 04:49:24 Test Item Value Reference Range Interpretation Comments POCT GLU (test code = 5960622734) 78 mg/dL 70-110 Lab Interpretation (test code = Normal 33928-8) [facility] GLUCOSE (AUTOMATED)2021-05-28 01:45:13 Test Item Value Reference Range Interpretation Comments POCT GLU (test code = 3749254864) 85 mg/dL 70-110 Lab Interpretation (test code = Normal 08997-9) [facility] AG-AB WITH [id number] 01:13:04 Test Item Value Reference Range Interpretation Comments HIV Negative Negative Semi-quantitative (test code = 38583-5) ZEE (test code = Non-reactive for HIV-1 ZEE) antigen and HIV-1/HIV-2 antibodies. ?No laboratory evidence of HIV infection. ?Repeat in 2-4 weeks if acute HIV infection is suspected. [facility] and Screen - ONCE [id number] 00:33:33 Test Item Value Reference Range Interpretation Comments ABO & RH (test code A Positive Performe d at [facility] = 20) Laboratory Serv [facility] [address] [place], [place] [id number] Free: [phone] A No. [id number] IAT (test code = Negative Performed a t [facility] 1185) Laboratory Serv [facility] [address] [place], [place] [id number] Free: [phone] A No. [id number] [facility] with [id number] 23:57:50 Test Item Value Reference Range Interpretation Comments WBC (test code = See_Comment H [Automated 2490-2) message] The sy stem which generated this result transmitted reference range : 4.30 - 11.10 10*3/?L. The reference range was not used to interpret this result as normal/abnormal . RBC (test code = See_Comment [Automated 049-8) message] The sy stem which generated this [...] RDW-SD (test code = 41.6 fL 39.0-49.9 72014-7) RDW-CV (test code = 13.3 % 12.0-15.5 788-0) PLT (test code = See_Comment [Automated 777-3) message] The sy stem which generated this result transmitted reference range : 166 - 358 10*3/ ?L. The reference r jayce was not used to interpret this result as normal/abnormal . MPV (test code = 10.3 fL 9.5-12.9 89785-9) NRBC/100 WBC (test See_Comment [Automat ed code = 2500869771) message] The system which generated this result transmitted reference range : 0.0 - 10.0 /100 WBCs. The refer ence range was not u sed to interpret th is result as normal/abnormal . NRBC x10^3 (test code <0.01 See_Comment [Auto mated = 6720458637) message] The s ystem which generated this result transmitted reference range : 10*3/?L. The reference range was not used to interpret this result as normal/abnormal . GRAN MAT (NEUT) % 67.7 % (test code = 770-8) IMM GRAN % (test code 0.60 % = 2303699134) LYMPH % (test code = 21.2 % 736-9) MONO % (test code = 9.1 % 5905-5) EOS % (test code = 1.2 % 713-8) BASO % (test code = 0.2 % 706-2) GRAN MAT x10^3(ANC) 7.98 10*3/uL 1.88-7.09 H (test code = 7881552160) IMM GRAN x10^3 (test 0.07 10*3/uL 0.00-0.06 H code = 9493456643) LYMPH x10^3 (test code 2.50 10*3/uL 1.32-3.29 = 731-0) MONO x10^3 (test code 1.07 10*3/uL 0.33-0.92 H = 742-7) EOS x10^3 (test code = 0.14 10*3/uL 0.03-0.39 711-2) BASO x10^3 (test code <0.03 0.01-0.07 = 704-7) Lab Interpretation Abnormal (test code = 47259-2) [facility] GLUCOSE (AUTOMATED)2021-05-27 21:37:45 Test Item Value Reference Range Interpretation Comments POCT GLU (test code = 5177362150) 110 mg/dL 70-110 Lab Interpretation (test code = Normal 36450-1) [facility] URINALYSIS W/O SPECIFIC [id number] 20:33:00 Test Item Value Reference Range Interpretation [...] Negative Lab Interpretation (test code = Normal 39229-7) [facility] URINALYSIS W/O SPECIFIC [id number] 16:31:00 Test Item Value Reference Range Interpretation [...] Negative Lab Interpretation (test code = Normal 59681-7) [facility] URINALYSIS W/O SPECIFIC [id number] 15:54:00 Test Item Value Reference Range Interpretation [...] code = 3257) n/a Negative - Negative [facility] W/O SPECIFIC [id number] 16:20:00 Test Item Value Reference Range Interpretation [...] Negative Lab Interpretation (test code = Normal 58002-6) [facility]
[2022-04-16 02:12] LABS: Urine Blood Trace-intact (Negative); Urine Glucose Negative (Negative); Urine Protein 1+ (Negative); Urine Specific Gravity >=1.030 (1.005-1.030); Urine pH 5.5 (5.0-7.0)
[2022-04-16 02:21] LABS: Urine Bacteria <20 /HPF (<20); Urine Mucus 4+ /HPF (None Seen)
[2022-04-16 02:28] LABS: Urine Specific Gravity/Preg >1.030 (1.005-1.030)
[2022-04-16 03:08] LABS: Absolute Lymphocytes (CBC) 1.2 K/uL (0.7-4.9); Hematocrit 44.3 % (36.0-45.0); Lymphocytes % 15.8 % (15.3-44.8); MCV 86.4 fL (80-100); MPV 7.4 fL (7.6-11.3); RBC Red Blood Cell Count 5.13 M/uL (3.86-4.86)
[2022-04-16] MEDS ORDERED: ONDANSETRON 4 MG/2 ML VIAL ONE ×2 (03:22→04:51)
[2022-04-16] MEDS ORDERED: NA CHLORIDE 0.9% 1,000 ML ONE ×2 (03:22→04:41)
[2022-04-16] MEDS ORDERED: MORPHINE 2 MG/ML SYR ONE (03:22)
[2022-04-16 03:25] LABS: Albumin 3.6 g/dL (3.4-5.0); Bilirubin Total 0.8 mg/dL (0.2-1.0); Potassium 3.6 mmol/L (3.5-5.1); Protein, Total 7.8 g/dL (6.4-8.2)
[2022-04-16] MEDS ORDERED: Levofloxacin500mg IV 500 MG/100 ML BAG IV ONE (04:41)
[2022-04-16] MEDS ORDERED: CEFTRIAXONE 1000 MG/VIAL ONE (04:41)
[2022-04-16 04:44] LABS: SARS-COV-2 RT PCR NEGATIVE (NEGATIVE)
[2022-04-16] MEDS ORDERED: KETOROLAC 30 MG/ML INJ ONE (04:51)
--- NOTE | 2022-04-16 04:51 | EDPHYS ---
Physician Documentation [facility] Name: Kelly Paz Age: 21 yrs Sex: Female : 2000 Arrival Date: 04/15/2022 Time: 21:43 Bed 15 Private MD: ED Physician Franck Wall HPI: 04/15 23:00 This 21 yrs old Female presents to ER via Ambulatory with complaints of Vomiting, Back cp Pain, Hip Pain. 23:00 The patient presents to the emergency department with nausea, that is moderate, cp vomiting, that is continuous, abdominal pain, of the mid and lower abdomen. Onset: The symptoms/episode began/occurred this morning. Possible causes: unknown. 23:00 Associated signs and symptoms: Pertinent positives: abdominal pain, anorexia, nausea, cp vomiting, mid and lower back pain, Pertinent negatives: constipation, diarrhea, dysuria, fever. Severity of symptoms: in the emergency department the symptoms are unchanged despite home interventions. Historical: - Allergies: 21:57 Nortriptyline; hb - PSHx: 21:57 Appendectomy; Cholecystectomy; hb - Immunization history:: Adult Immunizations unknown. - Social history:: Smoking status: Patient denies any tobacco usage or history of. ROS: 23:05 Constitutional: Positive for poor PO intake, Negative for fever. cp 23:05 Eyes: Negative for injury, pain, redness, and discharge. cp 23:05 ENT: Negative for drainage from ear(s), ear pain, sore throat, difficulty swallowing, difficulty handling secretions. 23:05 Cardiovascular: Negative for chest pain, palpitations. 23:05 Respiratory: Negative for cough, shortness of breath, wheezing. 23:05 Abdomen/GI: Positive for abdominal pain, nausea and vomiting, anorexia, Negative for diarrhea, constipation, hematemesis. 23:05 Back: Positive for pain at rest, pain with movement. 23:05 : Negative for urinary symptoms, vaginal bleeding. 23:05 Neuro: Negative for altered mental status, dizziness, headache, weakness. 23:05 All other systems are negative. Exam: 23:10 Constitutional: The patient appears in no acute distress, alert, awake, non-toxic, well cp developed, well nourished, uncomfortable. 23:10 Head/Face: Normocephalic, atraumatic. cp 23:10 Eyes: Periorbital structures: appear normal, Conjunctiva: normal, no exudate, no injection, Sclera: no appreciated abnormality, Lids and lashes: appear normal, bilaterally. 23:10 ENT: External ear(s): are unremarkable, Nose: is normal, Mouth: Lips: moist, Oral mucosa: pink and intact, moist, Posterior pharynx: Airway: no evidence of obstruction, patent. 23:10 Chest/axilla: Inspection: normal. 23:10 Cardiovascular: Rate: tachycardic, Rhythm: regular. 23:10 Respiratory: the patient does not display signs of respiratory distress, Respirations: normal, no use of accessory muscles, no retractions, labored breathing, is not present, Breath sounds: are clear throughout, no decreased breath sounds, no stridor, no wheezing. 23:10 Abdomen/GI: Inspection: abdomen appears normal, Bowel sounds: active, all quadrants, Palpation: soft, in all quadrants, moderate abdominal tenderness, in the mid and lower abdomen, rebound tenderness, is not appreciated, involuntary guarding, is not appreciated. 23:10 Back: pain, that is moderate, of the low back area and mid back area, ROM is painful, with all movement. 23:10 Neuro: Orientation: to person, place \\T\\ time. Mentation: is normal, Motor: moves all fours, strength is normal, Sensation: is normal, Gait: is steady. Vital Signs: 21:55 BP 106 / 54; Pulse 126; Resp 20; Temp 98.1; Pulse Ox 98% on R/A; Weight 77.11 kg; hb Height 5 ft. 2 in. (157.48 cm); Pain 3/10; 04/16 03:47 Pain 4/10; ke1 05:15 BP 109 / 69; Pulse 90; Resp 15; Pulse Ox 99% on R/A; ke1 05:30 Pain 0/10; ke1 04/15 21:55 Body Mass Index 31.09 (77.11 kg, 157.48 cm) hb MDM: 04/15 22:11 Patient medically screened. cp 23:00 Differential diagnosis: Nonspecific abd pain, gastritis, pancreatitis, appendicitis, cp viral gastroenteritis, gastroenteritis. 04/16 03:02 Patient medically screened. pamela 04/15 22:52 Order name: CBC with Diff; Complete Time: 04:08 cp 04/15 22:52 Order name: CMP; Complete Time: 04:08 04/15 22:52 Order name: Lipase; Complete Time: 04:08 04/15 22:52 Order name: Urine Microscopic Only; Complete Time: 02:32 cp 04/16 02:32 Interpretation: Normal except: UWBC >50; URBC 11-20; MUCUS 4+. 04/16 02:12 Order name: Urine Dipstick-Ancillary; Complete Time: 02:17 EDPA 04/16 02:17 Interpretation: Normal except: UBLD Trace-intact; UPROT 1+; UESTR Trace. 04/16 02:18 Order name: Urine --Ancillary (enter results); Complete Time: 02:32 mw2 04/15 22:52 Order name: CT Abd/Pelvis - IV Contrast Only 04/16 02:25 Order name: Urine Culture [facility] 04/16 02:33 Order name: COVID-19/FLU A+B (Document "Date of Onset" if Symptomatic) 04/16 04:33 Order name: CREATININE WHOLE BLOOD; Complete Time: 04:39 EDPA 04/15 22:52 Order name: IV Saline Lock; Complete Time: 04:37 04/15 22:52 Order name: Labs collected and sent; Complete Time: 04:37 04/15 22:52 Order name: Urine Dipstick-Ancillary (obtain specimen); Complete Time: 02:17 04/15 22:52 Order name: Urine Test (obtain specimen); Complete Time: 02:17 cp Administered Medications: 03:32 Drug: NS 0.9% 1000 ml Route: IV; Rate: 1 bolus; Site: right antecubital; ke1 04:15 Follow up: IV Status: Completed infusion ke1 03:32 Not Given (Physician Discretion): Pepcid (famotidine) 20 mg IVP once; dilute with 10 mL ke1 0.9% NaCl; give over 2 minutes 03:32 Drug: Zofran (Ondansetron) 4 mg Route: IVP; Site: right antecubital; ke1 03:47 Follow up: Response: No adverse reaction ke1 03:32 Drug: morphine 2 mg Route: IVP; Infused Over: 4 mins; Site: right antecubital; ke1 03:47 Follow up: Pain 4/10 Adult ke1 04:48 Drug: NS 0.9% 1000 ml Route: IV; Rate: 1 bolus; Site: right antecubital; ke1 06:05 Follow up: IV Status: Completed infusion ke1 04:48 Drug: levofloxacin 500 mg Volume: 100 ml; Route: IVPB; Infused Over: 60 mins; Site: ke1 right antecubital; 06:14 Follow up: Response: No adverse reaction ke1 06:14 Follow up: Response: No adverse reaction; IV Status: Completed infusion ke1 05:05 Drug: Zofran (Ondansetron) 4 mg Route: IVP; Site: right antecubital; ke1 05:20 Follow up: Response: Vomiting decreased ke1 05:05 Drug: Ketorolac 30 mg Route: IVP; Site: right antecubital; ke1 05:30 Follow up: Pain 0/10 Adult ke1 05:18 Drug: Rocephin (cefTRIAXone) 1 grams Route: IV; Rate: per protocol; Site: right ke1 antecubital; 05:25 Follow up: IV Status: Completed infusion ke1 Disposition Summary: 04/16/22 04:50 Discharge Ordered Location: Home pamela Problem: new pamela Symptoms: have improved pamela Condition: Stable pamela Diagnosis - UTI/ Urinary tract infection, site not specified pamela - Low back pain pamela - Vomiting pamela Followup: pamela - With: Private Physician - When: 2 - 3 days - Reason: Recheck today's complaints, Continuance of care, Re-evaluation by your physician Followup: pamela - With: Hubert Pratt DO - When: 2 - 3 days - Reason: Recheck today's complaints, Re-evaluation by your physician Discharge Instructions: - Discharge Summary Sheet pamela - Acute Back Pain, Adult pamela - Musculoskeletal Pain pamela - Urinary Tract Infection, Adult pamela - Urinary Tract Infection, Adult, [id number] pamela - Vomiting, Adult pamela Forms: - Medication Reconciliation Form pamela - Thank You Letter pamela - Antibiotic Education pamela - Prescription Opioid Use pamela Prescriptions: - Ibuprofen 600 mg Oral Tablet - take 1 tablet by ORAL route every 6 hours As needed take with food; 30 tablet; pamela Refills: 0, Product Selection Permitted - Zofran 4 mg Oral Tablet - take 1 tablet by ORAL route every 12 hours As needed; 20 tablet; Refills: 0, pamela Product Selection Permitted - Bactrim DS 800-160 mg Oral Tablet - take 1 tablet by ORAL route every 12 hours for 5 days; 10 tablet; Refills: 0, pamela Product Selection Permitted - levofloxacin 500 mg Oral Tablet - take 1 tablet by ORAL route once daily for 7 days; 7 tablet; Refills: 0, pamela Product Selection Permitted Addendum: 04/21/2022 09:53 Co-signature as Attending Physician, Franck Wall MD I agree with the assessment and c tenorio plan of care. Signatures: Dispatcher [employer] EDPA Franck Wall MD MD cha Page, Corey, PA PA cp Traci Caldera, RN RN Mirela Vicente RN RN ke1 Corrections: (The following items were deleted from the chart) 04/16 02:36 02:00 This 21 yrs old Female presents to ER via Ambulatory with complaints of Vomiting, cp Back Pain, Hip Pain. cp 02:36 02:00 The patient presents to the emergency department with nausea, that is moderate, cp vomiting, that is continuous, abdominal pain, of the mid and lower abdomen, cp 02:36 02:00 Onset: The symptoms/episode began/occurred this morning, cp cp 02:36 02:00 Possible causes: unknown, cp cp
--- NOTE | 2022-04-16 04:51 | ER ---
Nurse's Notes [facility] Name: Kelly Paz Age: 21 yrs Sex: Female : 2000 Arrival Date: 04/15/2022 Time: 21:43 Bed 15 Private MD: Diagnosis: UTI/ Urinary tract infection, site not specified;Low back pain;Vomiting Presentation: 04/15 21:55 Chief complaint: N/V and body aches since this morning. Not tolerating fluids. hb Coronavirus screen: At this time, the client does not indicate any symptoms associated with coronavirus-19. Ebola Screen: No symptoms or risks identified at this time. Risk Assessment: Do you want to hurt yourself or someone else? Patient reports no desire to harm self or others. Onset of symptoms was April 15, 2022. 21:55 Method Of Arrival: Ambulatory 21:55 Acuity: RAFAEL 3 hb 04/16 02:02 Initial Sepsis Screen: Does the patient meet any 2 criteria? No. Patient's initial ke1 sepsis screen is negative. Does the patient have a suspected source of infection? No. Patient's initial sepsis screen is negative. Triage Assessment: 02:01 General: Appears in no apparent distress. Behavior is appropriate for age. ke1 06:12 GI: Reports. ke1 Historical: - Allergies: 04/15 21:57 Nortriptyline; hb - PSHx: 21:57 Appendectomy; Cholecystectomy; hb - Immunization history:: Adult Immunizations unknown. - Social history:: Smoking status: Patient denies any tobacco usage or history of. Screenin/12 02:01 Abuse screen: Denies threats or abuse. Nutritional screening: No deficits noted. ke1 Tuberculosis screening: No symptoms or risk factors identified. Fall Risk None identified. Assessment: 02:00 Reassessment: Unable to get an IV , charge nurse notified to try. ke1 02:02 GI: Abdomen is round. ke1 03:31 Pain: Complains of pain in mid back area and low back area Pain currently is 7 out of ke1 10 on a pain scale. at worst was 7 out of 10 on a pain scale. level that patient reports is acceptable is 4 out of 10 on a pain scale. 03:50 Reassessment: Patient states feeling better. Patient states symptoms have improved. ke1 05:00 Pain: Complains of pain in mid back area and low back area Pain currently is 6 out of ke1 10 on a pain scale. 05:18 Reassessment: ABT infusion ongoing prior discharge. ke1 05:45 Reassessment: Patient states feeling better. Patient states symptoms have improved. ke1 Vital Signs: 04/15 21:55 BP 106 / 54; Pulse 126; Resp 20; Temp 98.1; Pulse Ox 98% on R/A; Weight 77.11 kg; hb Height 5 ft. 2 in. (157.48 cm); Pain 3/10; 04/16 03:47 Pain 4/10; ke1 05:15 BP 109 / 69; Pulse 90; Resp 15; Pulse Ox 99% on R/A; ke1 05:30 Pain 0/10; ke1 04/15 21:55 Body Mass Index 31.09 (77.11 kg, 157.48 cm) hb ED Course: 04/15 21:43 Patient arrived in ED. bp1 21:57 Triage completed. hb 21:57 Arm band placed on. hb 22:04 Franck Polanco PA is PHCP. cp 22:04 Franck Wall MD is Attending Physician. cp 04/16 01:31 Mirela Vicente, NADIA is Primary Nurse. ke1 01:45 Missed attempt(s): 20 gauge in right antecubital area. ke1 02:02 Bed in low position. Call light in reach. ke1 03:26 CT Abd/Pelvis - IV Contrast Only In Process Unspecified. EDMS 04:49 Hubert Pratt DO is Referral Physician. pamela 06:11 No provider procedures requiring assistance completed. IV discontinued. ke1 Administered Medications: 03:32 Drug: NS 0.9% 1000 ml Route: IV; Rate: 1 bolus; Site: right antecubital; ke1 04:15 Follow up: IV Status: Completed infusion ke1 03:32 Not Given (Physician Discretion): Pepcid (famotidine) 20 mg IVP once; dilute with 10 mL ke1 0.9% NaCl; give over 2 minutes 03:32 Drug: Zofran (Ondansetron) 4 mg Route: IVP; Site: right antecubital; ke1 03:47 Follow up: Response: No adverse reaction ke1 03:32 Drug: morphine 2 mg Route: IVP; Infused Over: 4 mins; Site: right antecubital; ke1 03:47 Follow up: Pain 4/10 Adult ke1 04:48 Drug: NS 0.9% 1000 ml Route: IV; Rate: 1 bolus; Site: right antecubital; ke1 06:05 Follow up: IV Status: Completed infusion ke1 04:48 Drug: levofloxacin 500 mg Volume: 100 ml; Route: IVPB; Infused Over: 60 mins; Site: ke1 right antecubital; 06:14 Follow up: Response: No adverse reaction ke1 06:14 Follow up: Response: No adverse reaction; IV Status: Completed infusion ke1 05:05 Drug: Zofran (Ondansetron) 4 mg Route: IVP; Site: right antecubital; ke1 05:20 Follow up: Response: Vomiting decreased ke1 05:05 Drug: Ketorolac 30 mg Route: IVP; Site: right antecubital; ke1 05:30 Follow up: Pain 0/10 Adult ke1 05:18 Drug: Rocephin (cefTRIAXone) 1 grams Route: IV; Rate: per protocol; Site: right ke1 antecubital; 05:25 Follow up: IV Status: Completed infusion ke1 Medication: 06:12 VIS not applicable for this client. ke1 Outcome: 04:50 Discharge ordered by . pamela 06:12 Discharged to home ambulatory. ke1 06:12 Condition: good 06:12 Discharge instructions given to patient. 06:12 Patient left the ED. ke1 Signatures: Dispatcher [employer] EDMN Franck Wall MD MD cha Page, Corey, PA PA cp Baxter, Heather, RN RN hb Paniauga, Brittany bp1 Ebrottie, Kouassi, RN RN ke1 Corrections: (The following items were deleted from the chart) 06:17 05:15 Reassessment: Patient states feeling better. Patient states symptoms have ke1 improved. ke1
[2022-04-16 06:17] VITALS: TEMP 98.1
[2022-04-16 06:18] VITALS: BP 109/69; O2SAT 99
--- NOTE | 2022-04-18 10:12 | RAD REPORT ---
EXAM DESCRIPTION: CT - Abdomen Pelvis W Contrast - 04/16/2022 6:26 am CLINICAL HISTORY: 21 years, Female, back pain, abdominal pain, vomiting COMPARISON: 10/17/2021 TECHNIQUE: Contrast-enhanced images of the abdomen and pelvis were performed utilizing 5 mm slice th ickness at 5 mm interval reconstruction from the lung bases to the ischial tuberosities after the adm inistration of IV contrast. In addition multiplanar reformats in the coronal and sagittal plane were obtained and reviewed. This exam was performed according to our departmental dose-optimization protocol, which includes auto mated exposure control, adjustment of the mA and/or kV according to patient size and/or use of iterat tania reconstruction technique. FINDINGS: The lung bases demonstrate to be clear. The liver, pancreas, spleen and adrenal glands demonstrate to be unremarkable, no focal lesions are n oted. Surgical clips within the gallbladder fossa correspond to previous cholecystectomy. There is no bilia ry duct dilatation. The kidneys demonstrate normal uptake of contrast media. No evidence for nephrolithiasis and/or hydro nephrosis. Grossly the unopacified stomach, small bowel and large bowel demonstrate to be within normal limits. There is no evidence for bowel dilatation/or free air. The appendix was not visualized although n o significant inflammatory changes are seen within the right lower quadrant. The urinary bladder demonstrate to be unremarkable. The uterus is unremarkable. There are no adnexa l masses. The aorta demonstrate to be normal. There is no retroperitoneal lymphadenopathy. There is no ascites. The bone windows demonstrate partial lumbarization of S1. IMPRESSION: No acute intra-abdominal process. Status post cholecystectomy. No significant interval change in comparison with 10/17/2021. Electronically signed by: Ras Ragland MD 04/16/2022 3:55 AM [employer] Due to temporary technical issues with the PACS/Fluency reporting system, reports are being signed by the in house radiologists without review as a courtesy to insure prompt reporting. The interpreting radiologist is fully responsible for the content of the report.
== END 2022-04-16 06:12 | disposition home or self-care (01) ==
LOC: ER 21:39
DX: N39.0 Urinary tract infection, site not specified (principal); M54.50 Low back pain, unspecified; Z20.822 Contact with and (suspected) exposure to COVID-19; Z88.8 Allergy status to other drugs, medicaments and biological substances
CPT/HCPCS: 96365; 96361; 87088; 85025; 87086; 36415; 81025; 82565; 83690; 80053; 0240U; 74177; 96375; 99283; Q9967; J2270; J7030 ×2; J2405 ×2; 81003; 81015

== ENCOUNTER 2022-12-11 04:27 | Emergency (ER) | payer OTHER ==
--- OUTSIDE RECORDS SUMMARY | 2022-12-11 04:32 | XMS REPORT | Continuity of Care Document ---
:2000 Author Organization [facility] t Address [address] [place] [address] [address] [place] [address] Care Team Providers Name Role Phone KELSEY WEBB Primary Care Physician Unavailable MELBA KEY Attending Clinician Unavailable FATMATA HYMAN Attending Clinician Unavailable FATMATA HYMAN Attending Clinician Unavailable CHIKIS PANIAGUA Attending Clinician Unavailable Chikis Paniagua PA-C Attending Clinician 2, [facility] Lab Attending Clinician Unavailable Doctor Unassigned, [place] Attending Clinician Unavailable Nurse, [facility] Women's Health Attending Clinician Unavailable Melba Key MD Attending Clinician Rodrigo Sheriff CRNA Attending Clinician Matilda Flaherty MD, Leonard Attending Clinician Room, [facility] Nst Attending Clinician Unavailable VISHAL WILEY Attending Clinician Unavailable Ultrasound, [facility] Mfm Attending Clinician Unavailable Vishal Wiley MD Attending Clinician [phone] Conor Stevens MD, Griselda Attending Clinician [phone] Carlos Enrique Marin MD Attending Clinician CARLOS ENRIQUE MARIN Attending Clinician Unavailable Jeane Jamison RN Attending Clinician Unavailable Only, Ang Db Test Attending Clinician Unavailable Prudencio CORPORATE SECRETARY, [place]field J Attending Clinician GARFIELD FLANNERY Attending Clinician Unavailable MELBA KEY Admitting Clinician Unavailable Melba Key MD Admitting Clinician Payers Payer Name Policy Type Policy Number Effective Date Expiration Date Dionisio KRUSE [id number] 2015 HEALTH 00:00:00 Problems Condition Condition Condition Status Onset Resolution Last Treating Co mments Source Name Details Category Date Date Treatment Clinician Date Single Single Disease Active 2020-06 Univers liveborn, liveborn, 2-24 ity of born in born in 00:00: [facility], 00 [facility] delivered delivered Bran ch by vaginal by [...] 1-10 it y of mellitus mellitus 00:00: [place] (GDM) in (GDM) in 00 Medica l third third Branch trimester trimester controlled controlled on oral on oral hypoglycem hypoglycem ic drug ic drug Supervisio Supervisio Disease Active U nivers n of n of 8-24 [place] of high[place]risk high[place] [facility] with with Branch insufficie insufficie nt nt care in care in third third trimester trimester 36 weeks 36 weeks Disease Active Unive rs gestation gestation 8-24 ity of of of 00:00: [place] 00 [facility] Branch 37 weeks 37 weeks Disease Active Unive rs gestation gestation 8-24 ity of of of 00:00: [place] 00 [facility] Branch 38 weeks 38 weeks Disease Active Unive rs gestation gestation 8-24 ity of of of 00:00: [place] 00 [facility] Branch Obesity Obesity Disease Active 2019-06 Univers (BMI (BMI 0-21 ity of 30-39.9) 30-39.9) 00:00: [place] [address] Medical Branch Allergies, Adverse Reactions, Alerts Allergy Allergy Status Severity Reaction(s) Onset Inactive Treating Comm ents Source Name Type Date Date Clinician Gennatript Propensi Active Hives Univer s yline ty to 01-26 ity of adverse 00:00: [place] reaction 00 Medical s Branch NORTRIPT DRUG Active Hives Univers YLINE INGREDI 01-26 ity of 00:00: [place] [address] Medical Branch Social History Social Habit Start Date Stop Date Quantity Comments Source ASSERTION 2020-09-13 University of 00:00:00 [place] [facility] History [facility] o f Alcohol Comment [place] [facility] ical [facility] Exposure to 2022-02-18 2022-02-28 Not sure [facility] SARS-CoV-2 00:00:00 10:15:00 [place] [facility] (event) Branch Tobacco use and 2022-02-28 2022-02-28 Former smokeless Uni versity of exposure 00:00:00 00:00:00 tobacco user [place] [facility]ica l Branch Alcohol intake 2022-02-28 2022-02-28 Ex-drinker [facility] 00:00:00 00:00:00 (finding) [place] [facility] History SDMA 2020-03-25 2020-03-25 4 University o f Alcohol Frequency 00:00:00 00:00:00 [facility] edical Branch History SDMA 2020-03-25 2020-03-25 99 University o f Alcohol Std 00:00:00 00:00:00 [place] [facility] Drinks Branch History SDMA 2020-03-25 2020-03-25 99 University o f Alcohol Binge 00:00:00 00:00:00 [place] [facility] al Branch History of 2020-01-27 Chews Tobacco University of tobacco use 00:00:00 [facility] Sex Assigned At 2000 2000 Universit y of 00:00:00 00:00:00 [facility] Branch Smoking Status Start Date Stop Date Source Ex-smoker 2022-02-28 00:00:00 2022-02-28 00:00:00 [facility] [place] [facility] [place] Medications Ordered Filled Start Stop Current Ordering Indication Dosage Frequency Signature Comments Components Source Medication Medication Date Date Medication? Clinician (SIG) Name Name medroxyPROG 2021- No [id number] 150mg Univers ESTERone 02-28 ity of (DEPO-PROVE 16:45: 15:47 [place] RA) syringe 00 :00 Medical 150 mg Branch medroxyPROG 2021- No [id number] 150mg 150 mg, Univers ESTERone 02-28 Intramuscu ity of (DEPO-PROVE 16:45: 15:47 lar, ONCE, [place] RA) syringe 00 :00 1 dose, On Me dical 150 mg [facility] 02/28/22 at 1145, Routine medroxyPROG 2021- No [id number] 150mg Univers ESTERone 02-28 ity of (DEPO-PROVE 16:45: 15:47 [place] RA) syringe 00 :00 Medical 150 mg Branch medroxyPROG 2021- No [id number] 150mg 150 mg, Univers ESTERone 02-28 Intramuscu ity of (DEPO-PROVE 16:45: 15:47 lar, ONCE, [place] RA) syringe 00 :00 1 dose, On Me dical 150 mg [facility] 02/28/22 at 1145, Routine medroxyPROG 2021- No [id number] 150mg Univers ESTERone 12-07 ity of (DEPO-PROVE 21:00: 19:49 [place] RA) syringe 00 :00 Medical 150 mg Branch medroxyPROG 2021-2021- No [id number] 150mg 150 mg, Univers ESTERone 12-07-05 Intramuscu ity of (DEPO-PROVE 21:00: 19:49 lar, ONCE, [place] RA) syringe 00 :00 1 dose, On Me dical 150 mg [facility] 12/07/21 Branch at 1600, Routine medroxyPROG 2021- No [id number] 150mg Univers ESTERone 09-14 ity of (DEPO-PROVE 21:00: 19:51 [place] RA) syringe 00 :00 Medical 150 mg Branch medroxyPROG 2021-0 2021- No [id number] 150mg 150 mg, Univers ESTERone 09-14 Intramuscu ity of (DEPO-PROVE 21:00: 19:51 lar, ONCE, [place] RA) syringe 00 :00 1 dose, On Me dical 150 mg [facility] 09/14/21 at 1600, Routine sulfamethox 2021-0 Yes [id number] 1{tbl} Take 1 Univers azole-trime 1-31 tablet by ity of thoprim 00:00: mouth 2 [place] 800-160 mg 00 (two) Medical per tablet times Branch daily. sulfamethox 2021-0 Yes [id number] 1{tbl} Take 1 Univers azole-trime 1-31 tablet by ity of thoprim 00:00: mouth 2 [place] 800-160 mg 00 (two) Medical per tablet times Branch daily. sulfamethox 2021-0 Yes [id number] 1{tbl} Take 1 Univers azole-trime 1-31 tablet by ity of thoprim 00:00: mouth 2 [place] 800-160 mg 00 (two) Medical per tablet times Branch daily. sulfamethox 2021-0 Yes [id number] 1{tbl} Take 1 Univers azole-trime 1-31 tablet by ity of thoprim 00:00: mouth 2 [place] 800-160 mg 00 (two) Medical per tablet times Branch daily. sulfamethox 2021-0 Yes [id number] 1{tbl} Take 1 Univers azole-trime 1-31 tablet by ity of thoprim 00:00: mouth 2 [place] 800-160 mg 00 (two) Medical per tablet times Branch daily. sulfamethox 2021-0 Yes [id number] 1{tbl} Take 1 Univers azole-trime 1-31 tablet by ity of thoprim 00:00: mouth 2 [place] 800-160 mg 00 (two) Medical per tablet times Branch daily. sulfamethox 2021- No [id number] 1{tbl} Take 1 Univers azole-trime 1-31 03-10 tablet by it y of thoprim 00:00: 00:00 mouth 2 [place] 800-160 mg 00 :00 (two) Medical per tablet times Branch daily. medroxyPROG 2021- No [id number] 150mg Univers ESTERone 06-23 ity of (DEPO-PROVE 00:00: 22:40 [place] RA) syringe 00 :00 Medical 150 mg Branch medroxyPROG 2021- No [id number] 150mg 150 mg, Univers ESTERone 06-23 Intramuscu ity of (DEPO-PROVE 00:00: 22:40 lar, ONCE, [place] RA) syringe 00 :00 1 dose, On Me dical 150 mg [facility] 06/22/21 at 1800, Routine 2020-06- No Take by [facility] [place] vit 2-25 12-25 mouth. ity of calc,iron,f 08:36: 00:00 [place] olic 38 :00 Medical ( Branch VITAMIN ORAL) 2020-06- No Take by [facility] [place] vit 2-25 12-25 mouth. ity of calc,iron,f 08:36: 00:00 [place] olic 38 :00 Medical ( Branch VITAMIN ORAL) 2020-06 Yes [id number] 1{tbl} Take 1 Univers vitamin 2-25 102 tablet by ity of w/FA tablet 00:00: mouth [place] 00 daily. Medical Branch 2020-06 Yes [id number] 1{tbl} Take 1 Univers vitamin 2-25 102 tablet by ity of w/FA tablet 00:00: mouth [place] 00 daily. Medical Branch 2020-06 Yes [id number] 1{tbl} Take 1 Univers vitamin 2-25 102 tablet by ity of w/FA tablet 00:00: mouth [place] 00 daily. Medical Branch 2020-06 Yes [id number] 1{tbl} Take 1 Univers vitamin 2-25 102 tablet by ity of w/FA tablet 00:00: mouth [place] 00 daily. Medical Branch 2020-06 Yes [id number] 1{tbl} Take 1 Univers vitamin 2-25 102 tablet by ity of w/FA tablet 00:00: mouth [place] 00 daily. Medical Branch 2020-06 Yes [id number] 1{tbl} Take 1 Univers vitamin 2-25 102 tablet by ity of w/FA tablet 00:00: mouth [place] 00 daily. Medical Branch 2020-06 Yes [id number] 1{tbl} Take 1 Univers vitamin 2-25 102 tablet by ity of w/FA tablet 00:00: mouth [place] 00 daily. Medical Branch 2020-06 Yes [id number] 1{tbl} Take 1 Univers vitamin 2-25 102 tablet by ity of w/FA tablet 00:00: mouth [place] 00 daily. Medical Branch 2020-06 Yes [id number] 1{tbl} Take 1 Univers vitamin 2-25 102 tablet by ity of w/FA tablet 00:00: mouth [place] 00 daily. Medical Branch 2020-06 Yes [id number] 1{tbl} Take 1 Univers vitamin 2-25 102 tablet by ity of w/FA tablet 00:00: mouth [place] 00 daily. Medical Branch 2020-06 Yes [id number] 1{tbl} Take 1 Univers vitamin 2-25 102 tablet by ity of w/FA tablet 00:00: mouth [place] 00 daily. Medical Branch docusate 2020-06 Yes [id number] 240mg Take 1 Univers calcium 240 2-25 102 capsule by it y of mg capsule 00:00: mouth once [place] 00 daily as Medical needed for Branch Constipati on. ferrous 2020-06 Yes [id number] 325mg Take 1 Univers sulfate 325 2-25 102 tablet by ity of mg (65 mg 00:00: mouth 2 [place] iron) 00 (two) Medical tablet times Branch daily. ibuprofen 2020-06 Yes [id number] 600mg Take 1 Univers 600 mg 2-25 102 tablet by ity of tablet 00:00: mouth [place] 00 every 6 Medical (six) Branch hours as needed (Pain). Take with food or milk. 2020-06 Yes [id number] 1{tbl} Take 1 Univers vitamin 2-25 102 tablet by ity of w/FA tablet 00:00: mouth [place] 00 [facility]. [facility] Yes [id number] 240mg Take 1 Univers calcium 240 2-25 102 capsule by it y of mg capsule 00:00: mouth once [place] 00 daily as Medical needed for Branch Constipati on. ferrous 2020-06 Yes [id number] 325mg Take 1 Univers sulfate 325 2-25 102 tablet by ity of mg (65 mg 00:00: mouth 2 [place] iron) 00 (two) Medical tablet times Branch daily. ibuprofen 2020-06 Yes [id number] 600mg Take 1 Univers 600 mg 2-25 102 tablet by ity of tablet 00:00: mouth [place] 00 every 6 Medical (six) Branch hours as needed (Pain). Take with food or milk. 2020-06 Yes [id number] 1{tbl} Take 1 Univers vitamin 2-25 102 tablet by ity of w/FA tablet 00:00: mouth [place] 00 daily. Medical Branch docusate 2020-06 Yes [id number] 240mg Take 1 Univers calcium 240 2-25 102 capsule by it y of mg capsule 00:00: mouth once [place] 00 daily as Medical needed for Branch Constipati on. ferrous 2020-06 Yes [id number] 325mg Take 1 Univers sulfate 325 2-25 102 tablet by ity of mg (65 mg 00:00: mouth 2 [place] iron) 00 (two) Medical tablet times Branch daily. ibuprofen 2020-06 Yes [id number] 600mg Take 1 Univers 600 mg 2-25 102 tablet by ity of tablet 00:00: mouth [place] 00 every 6 Medical (six) Branch hours as needed (Pain). Take with food or milk. 2020-06 Yes [id number] 1{tbl} Take 1 Univers vitamin 2-25 102 tablet by ity of w/FA tablet 00:00: mouth [place] 00 daily. Medical Branch docusate 2020-06 Yes [id number] 240mg Take 1 Univers calcium 240 2-25 102 capsule by it y of mg capsule 00:00: mouth once [place] 00 daily as Medical needed for Branch Constipati on. ferrous 2020-06 Yes [id number] 325mg Take 1 Univers sulfate 325 2-25 102 tablet by ity of mg (65 mg 00:00: mouth 2 [place] iron) 00 (two) Medical tablet times Branch daily. ibuprofen 2020-06 Yes [id number] 600mg Take 1 Univers 600 mg 2-25 102 tablet by ity of tablet 00:00: mouth [place] 00 every 6 Medical (six) Branch hours as needed (Pain). Take with food or milk. 2020-06 Yes [id number] 1{tbl} Take 1 Univers vitamin 2-25 102 tablet by ity of w/FA tablet 00:00: mouth [place] 00 daily. Medical Branch docusate 2020-06 Yes [id number] 240mg Take 1 Univers calcium 240 2-25 102 capsule by it y of mg capsule 00:00: mouth once [place] 00 daily as Medical needed for Branch Constipati on. ferrous 2020-06 Yes [id number] 325mg Take 1 Univers sulfate 325 2-25 102 tablet by ity of mg (65 mg 00:00: mouth 2 [place] iron) 00 (two) Medical tablet times Branch daily. ibuprofen 2020-06 Yes [id number] 600mg Take 1 Univers 600 mg 2-25 102 tablet by ity of tablet 00:00: mouth [place] 00 every 6 Medical (six) Branch hours as needed (Pain). Take with food or milk. 2020-06 Yes [id number] 1{tbl} Take 1 Univers vitamin 2-25 102 tablet by ity of w/FA tablet 00:00: mouth [place] 00 daily. Medical Branch 2020-06 Yes [id number] 1{tbl} Take 1 Univers vitamin 2-25 102 tablet by ity of w/FA tablet 00:00: mouth [place] 00 daily. Medical Branch 2020-06 Yes [id number] 1{tbl} Take 1 Univers vitamin 2-25 102 tablet by ity of w/FA tablet 00:00: mouth [place] 00 daily. Medical Branch 2020-06 Yes [id number] 1{tbl} Take 1 Univers vitamin 2-25 102 tablet by ity of w/FA tablet 00:00: mouth [place] 00 daily. Medical Branch 2020-06 Yes [id number] 1{tbl} Take 1 Univers vitamin 2-25 102 tablet by ity of w/FA tablet 00:00: mouth [place] 00 daily. Medical Branch 2020-06 Yes [id number] 1{tbl} Take 1 Univers vitamin 2-25 102 tablet by ity of w/FA tablet 00:00: mouth [place] 00 daily. Medical Branch docusate 2020-06- No [id number] 240mg Take 1 Univers calcium 240 2-25 02-08 102 capsule by i ty of mg capsule 00:00: 00:00 mouth once [place] 00 :00 daily as Medical needed for Branch Constipati on. ferrous 2020-06- No [id number] 325mg Take 1 Univers sulfate 325 2-25 02-08 102 tablet by it y of mg (65 mg 00:00: 00:00 mouth 2 [place] iron) 00 :00 (two) Medical tablet times Branch daily. ibuprofen 2020-06- No [id number] 600mg Take 1 Univers 600 mg 2-25 [...] IV Push, ity of (PF)) 09:53: [id number], [place] injection 4 45 Starting Medi ankit mg [...] Starting Medica l 400 mg/5 mL on Fri Branch suspension 05/28/21 30 mL at 0353, [...] lidocaine-e 2020-06- No Epidural, Univers pinephrine 07-29 ONCE INTRA it y of (XYLOCAINE 05:35: 11:28 PROCEDURE, [place] W/EPINEPHRI 00 :29 Starting Medi ankit NE) 1.5 on [place] Branch %-1:200,000 05/27/21 injection at 2335, Until Mon05/28/21 at 0528, Routine, Intra-op lidocaine 2020-06- No Infiltrati U nivers 1% 07-29 on, ONCE ity of (XYLOCAINE) 05:29: 11:28 [...] at 0355, Routine 2020-06 Yes Take by [facility] vit 2-23 mouth. ity of calc,iron,f 14:46: [place] ol 18 Medical ( Branch VITAMIN ORAL) glyBURIDE 2020-06 Yes [id number] 1.25mg Take 1 Univers 1.25 mg 2-01 tablet by ity of tablet 00:00: mouth with [place] 00 evening Medical meal. Take Branch 30 mins before dinner glyBURIDE 2020-06 Yes [id number] 1.25mg Take 1 Univers 1.25 mg 2-01 tablet by ity of tablet 00:00: mouth with [place] 00 evening Medical meal. Take Branch 30 mins before dinner glyBURIDE 2020-06 Yes [id number] 1.25mg Take 1 Univers 1.25 mg 2-01 tablet by ity of tablet 00:00: mouth with [place] 00 evening Medical meal. Take Branch 30 mins before dinner glyBURIDE 2020-06 Yes [id number] 1.25mg Take 1 Univers 1.25 mg 2-01 tablet by ity of tablet 00:00: mouth with [place] 00 evening Medical meal. Take Branch 30 mins before dinner glyBURIDE 2020-06 Yes [id number] 1.25mg Take 1 Univers 1.25 mg 2-01 tablet by ity of tablet 00:00: mouth with [place] 00 evening Medical meal. Take Branch 30 mins before dinner glyBURIDE 2020-06 Yes [id number] 1.25mg Take 1 Univers 1.25 mg 2-01 tablet by ity of tablet 00:00: mouth with [place] 00 evening Medical meal. Take Branch 30 mins before dinner glyBURIDE 2020-06 Yes [id number] 1.25mg Take 1 Univers 1.25 mg 2-01 tablet by ity of tablet 00:00: mouth with [place] 00 evening Medical meal. Take Branch 30 mins before dinner glyBURIDE 2020-06- No [id number] 1.25mg Take 1 Univers 1.25 mg 2-01 12-25 tablet by ity of tablet 00:00: 00:00 mouth with [place] 00 :00 evening Medical meal. Take Branch 30 mins before dinner glyBURIDE 2020-06- No [id number] 1.25mg Take 1 Univers 1.25 mg 2-01 12 tablet by ity of tablet 00:00: 00:00 mouth with [place] 00 :00 evening Medical meal. Take Branch 30 mins before dinner metroNIDAZO 2020-06- No [id number] 500mg Take 1 Univers LE 500 mg 06-30 tablet by ity of tablet 00:00: 00:00 mouth [place] 00 :00 every 12 Medical (twelve) Branch hours. Lancets 2020-06 Yes [id number] Check Unive rs Misc 1-12 blood ity of 00:00: sugar 4 [place] 00 times Medical daily. Branch Blood-Gluco 2020-06 Yes [id number] Use as Univers se Meter 1-12 directed ity of (BLOOD 00:00: [place] GLUCOSE 00 Medical MONITORING) Branch Kit blood sugar 2020-06 Yes [id number] Check U nivers diagnostic 1-12 blood ity of strip 00:00: sugar 4 [place] 00 times Medical daily. Branch Alcohol 2020-06 Yes [id number] Apply to Un jaymie Swabs 1-12 area(s) 4 ity of (ALCOHOL 00:00: (four) [place] PREP PADS) 00 times Medical PadM daily. Branch Lancets 2020-06 Yes [id number] Check Unive rs Misc 1-12 blood ity of 00:00: sugar 4 [place] 00 times Medical daily. Branch Blood-Gluco 2020-06 Yes [id number] Use as Univers se Meter 1-12 directed ity of (BLOOD 00:00: [place] GLUCOSE 00 Medical MONITORING) Branch Kit blood sugar 2020-06 Yes [id number] Check U nivers diagnostic 1-12 blood ity of strip 00:00: sugar 4 [place] 00 times Medical daily. Branch Alcohol 2020-06 Yes [id number] Apply to Un jaymie Swabs 1-12 area(s) 4 ity of (ALCOHOL 00:00: (four) [place] PREP PADS) 00 times Medical PadM daily. Branch Lancets 2020-06 Yes [id number] Check Unive rs Misc 1-12 blood ity of 00:00: sugar 4 [place] 00 times Medical daily. Branch Blood-Gluco 2020-06 Yes [id number] Use as Univers se Meter 1-12 directed ity of (BLOOD 00:00: [place] GLUCOSE 00 Medical MONITORING) Branch Kit blood sugar 2020-06 Yes [id number] Check U nivers diagnostic 1-12 blood ity of strip 00:00: sugar 4 [place] 00 times Medical daily. Branch Alcohol 2020-06 Yes [id number] Apply to Un jaymie Swabs 1-12 area(s) 4 ity of (ALCOHOL 00:00: (four) [place] PREP PADS) 00 times Medical PadM daily. Branch Lancets 2020-06 Yes [id number] Check Unive rs Misc 1-12 blood ity of 00:00: sugar 4 [place] 00 times Medical daily. Branch Blood-Gluco 2020-06 Yes [id number] Use as Univers se Meter 1-12 directed ity of (BLOOD 00:00: [place] GLUCOSE 00 Medical MONITORING) Branch Kit blood sugar 2020-06 Yes [id number] Check U nivers diagnostic 1-12 blood ity of strip 00:00: sugar 4 [place] 00 times Medical daily. Branch Alcohol 2020-06 Yes [id number] Apply to Un jaymie Swabs 1-12 area(s) 4 ity of (ALCOHOL 00:00: (four) [place] PREP PADS) 00 times Medical PadM daily. Branch Lancets 2020-06 Yes [id number] Check Unive rs Misc 1-12 blood ity of 00:00: sugar 4 [place] 00 times Medical daily. Branch Blood-Gluco 2020-06 Yes [id number] Use as Univers se Meter 1-12 directed ity of (BLOOD 00:00: [place] GLUCOSE 00 Medical MONITORING) Branch Kit blood sugar 2020-06 Yes [id number] Check U nivers diagnostic 1-12 blood ity of strip 00:00: sugar 4 [place] 00 times Medical daily. Branch Alcohol 2020-06 Yes [id number] Apply to Un jaymie Swabs 1-12 area(s) 4 ity of (ALCOHOL 00:00: (four) [place] PREP PADS) 00 times Medical PadM daily. Branch Lancets 2020-06 Yes [id number] Check Unive rs Misc 1-12 blood ity of 00:00: sugar 4 [place] 00 times Medical daily. Branch Blood-Gluco 2020-06 Yes [id number] Use as Univers se Meter 1-12 directed ity of (BLOOD 00:00: [place] GLUCOSE 00 Medical MONITORING) Branch Kit blood sugar 2020-06 Yes [id number] Check U nivers diagnostic 1-12 blood ity of strip 00:00: sugar 4 [place] 00 times Medical daily. Branch Alcohol 2020-06 Yes [id number] Apply to Un jaymie Swabs 1-12 area(s) 4 ity of (ALCOHOL 00:00: (four) [place] PREP PADS) 00 times Medical PadM daily. Branch Lancets 2020-06 Yes [id number] Check Unive rs Misc 1-12 blood ity of 00:00: sugar 4 [place] 00 times Medical daily. Branch Blood-Gluco 2020-06 Yes [id number] Use as Univers se Meter 1-12 directed ity of (BLOOD 00:00: [place] GLUCOSE 00 Medical MONITORING) Branch Kit blood sugar 2020-06 Yes [id number] Check U nivers diagnostic 1-12 blood ity of strip 00:00: sugar 4 [place] 00 times Medical daily. Branch Alcohol 2020-06 Yes [id number] Apply to Un jaymie Swabs 1-12 area(s) 4 ity of (ALCOHOL 00:00: (four) [place] PREP PADS) 00 times Medical PadM daily. Branch Lancets 2020-06- No [id number] Check Univ ers Misc 06-16 blood ity of 00:00: 00:00 sugar 4 [place] 00 :00 times Medical daily. Branch Blood-Gluco 2020-06- No [id number] Use as Univers se Meter 06-16 directed ity of (BLOOD 00:00: 00:00 [place] GLUCOSE 00 :00 Medical MONITORING) Branch Kit blood sugar 2020-06- No [id number] Check Univers diagnostic -12 05-29 blood ity of strip 00:00: 00:00 sugar 4 [place] 00 :00 times Medical daily. Branch Alcohol 2020-06- No [id number] Apply to U nivers Swabs 06-16 area(s) 4 ity of (ALCOHOL 00:00: 00:00 (four) [place] PREP PADS) 00 :00 times Medical PadM daily. Branch Lancets 2020-06- No [id number] Check Univ ers Misc 06-16 blood ity of 00:00: 00:00 sugar 4 [place] 00 :00 times Medical daily. Branch Blood-Gluco 2020-06- No [id number] Use as Univers se Meter 06-16 directed ity of (BLOOD 00:00: 00:00 [place] GLUCOSE 00 :00 Medical MONITORING) Branch Kit blood sugar 2020-06- No [id number] Check Univers diagnostic 06-16 blood ity of strip 00:00: 00:00 sugar 4 [place] 00 :00 times Medical daily. Branch Alcohol 2020-06- No [id number] Apply to U nivers Swabs 06-16 area(s) 4 ity of (ALCOHOL 00:00: 00:00 (four) [place] PREP PADS) 00 :00 times Medical PadM daily. Branch 2020-06 Yes Take by Univer s vit 0-29 mouth. ity of calc,iron,f 11:30: [place] [id number] Medical ( Branch VITAMIN ORAL) 2020-06 Yes Take by Univer s vit 0-29 mouth. ity of calc,iron,f 11:30: [place] [address] Medical ( Branch VITAMIN ORAL) 2020-06 Yes Take by Univer s vit 0-29 mouth. ity of calc,iron,f 11:30: [place] [address] Medical ( Branch VITAMIN ORAL) 2020-06 Yes Take by Univer s vit 0-29 mouth. ity of calc,iron,f 11:30: [place] [address] Medical ( Branch VITAMIN ORAL) 2020-06 Yes Take by Univer s vit 0-29 mouth. ity of calc,iron,f 11:30: [place] [address] Medical ( Branch VITAMIN ORAL) 2020-06 Yes Take by Univer s vit 0-29 mouth. ity of calc,iron,f 11:30: [place] [id number] Medical ( Branch VITAMIN ORAL) Immunizations Ordered Filled Immunization Date Status Comments Sourc e Immunization Name Name Influenza Virus 2021-04-02 [...] Universit y of Vaccine Quad IM, 00:00:00 [place] Me dical Preserv and ABX Branch Free 6 MO-64 YRS Influenza Virus 2021-04-02 Completed Universit y of Vaccine Quad IM, 00:00:00 [place] Me dical Preserv and ABX Branch Free 6 MO-64 YRS TDAP 2021-03-18 Completed University of 00:00:00 [facility] TDAP 2021-03-18 Completed University of 00:00:00 [facility] TDAP 2021-03-18 Completed University of 00:00:00 [facility] TDAP 2021-03-18 Completed University of 00:00:00 [facility] TDAP 2021-03-18 Completed University of 00:00:00 [facility] TDAP 2021-03-18 Completed University of 00:00:00 [facility] TDAP 2021-03-18 Completed University of 00:00:00 [facility] TDAP 2021-03-18 Completed University of 00:00:00 [facility] TDAP 2021-03-18 Completed University of 00:00:00 [facility] TDAP 2021-03-18 Completed University of 00:00:00 [place] [facility] TDAP 2021-03-18 Completed University of 00:00:00 [place] [facility] [facility] TDAP 2021-03-18 Completed University of 00:00:00 [facility] TDAP 2021-03-18 Completed University of 00:00:00 [facility] TDAP 2021-03-18 Completed University of 00:00:00 [facility] TDAP 2021-03-18 Completed University of 00:00:00 [facility] TDAP 2021-03-18 Completed University of 00:00:00 [facility] TDAP 2021-03-18 Completed University of 00:00:00 [facility] TDAP 2021-03-18 Completed University of 00:00:00 [facility] TDAP 2021-03-18 Completed University of 00:00:00 [facility] TDAP 2021-03-18 Completed University of 00:00:00 [facility] TDAP 2021-03-18 Completed University of 00:00:00 [facility] TDAP 2021-03-18 Completed University of 00:00:00 [facility] TDAP 2021-03-18 Completed University of 00:00:00 [facility] TDAP 2021-03-18 Completed University of 00:00:00 [facility] TDAP 2021-03-18 Completed University of 00:00:00 [facility] TDAP 2021-03-18 Completed University of 00:00:00 [facility] TDAP 2021-03-18 Completed University of 00:00:00 [facility] TDAP 2021-03-18 Completed University [facility] 00:00:00 [facility] Vital Signs Vital Name Observation Time Observation Value Comments Source Systolic blood 2022-02-28 15:41:00 112 mm[Hg] Univer sity of pressure [facility] Diastolic blood 2022-02-28 15:41:00 73 mm[Hg] Unive rsity of pressure [facility] Heart rate 2022-02-28 15:41:00 81 /min Universi ty of [facility] Body temperature 2022-02-28 15:41:00 37.06 Lay Univ ersity of [facility] Body height 2022-02-28 15:41:00 157.5 cm Universi ty of [facility] Body weight 2022-02-28 15:41:00 82.192 kg Universi ty of [facility] BMI 2022-02-28 15:41:00 33.14 kg/m2 Universi ty of [facility] Systolic blood 2021-12-07 19:47:00 135 mm[Hg] Univer sity of pressure [facility] Diastolic blood 2021-12-07 19:47:00 76 mm[Hg] Unive rsity of pressure [facility] Heart rate 2021-12-07 19:47:00 82 /min Universi ty of [facility] Body temperature 2021-12-07 19:47:00 37.06 Lay Univ ersity of [facility] Respiratory rate 2021-12-07 19:47:00 18 /min Univ ersity of [facility] Body height 2021-12-07 19:47:00 157.5 cm Universi ty of [facility] Body weight 2021-12-07 19:47:00 75.66 kg Universi ty of [facility] BMI 2021-12-07 19:47:00 30.51 kg/m2 Universi ty of [facility] Systolic blood 2021-09-14 19:49:00 121 mm[Hg] Univer sity of pressure [facility] Diastolic blood 2021-09-14 19:49:00 81 mm[Hg] Unive rsity of pressure [facility] Heart rate 2021-09-14 19:49:00 92 /min Universi ty of [facility] Body temperature 2021-09-14 19:49:00 37.17 Lay Univ ersity of [facility] Body height 2021-09-14 19:49:00 157.5 cm [facility]i ty [facility] Body weight 2021-09-14 19:49:00 77.928 kg [facility]i ty [facility] BMI 2021-09-14 19:49:00 31.42 kg/m2 [facility] Systolic blood 2021-07-13 14:40:00 121 mm[Hg] Univer sity of pressure [facility] Diastolic blood 2021-07-13 14:40:00 69 mm[Hg] Unive rsity of pressure [facility] Heart rate 2021-07-13 14:40:00 72 /min Universi ty of [facility] Body temperature 2021-07-13 14:40:00 36.56 Lay Univ ersity of [facility] Respiratory rate 2021-07-13 14:40:00 18 /min Univ ersity of [facility] Body height 2021-07-13 14:40:00 157.5 cm Universi ty of [facility] Body weight 2021-07-13 14:40:00 77.111 kg [facility]i ty [facility] BMI 2021-07-13 14:40:00 31.09 kg/m2 [facility] Systolic blood 2021-07-05 16:27:00 124 mm[Hg] Univer sity of pressure [facility] Diastolic blood 2021-07-05 16:27:00 80 mm[Hg] Unive rsity of pressure [facility] Heart rate 2021-07-05 16:27:00 77 /min Universi ty of [facility] Body temperature 2021-07-05 16:27:00 36.83 Lay Univ ersity of [facility] Respiratory rate 2021-07-05 16:27:00 18 /min Univ ersity of [facility] Body weight 2021-07-05 16:27:00 77.565 kg [facility]i ty [facility] Systolic blood 2021-06-22 21:33:00 118 mm[Hg] Univer sity of pressure [facility] Diastolic blood 2021-06-22 21:33:00 81 mm[Hg] Unive rsity of pressure [facility] Heart rate 2021-06-22 21:33:00 61 /min Universi ty [facility] Body temperature 2021-06-22 21:33:00 36.39 Lay Univ ersity of [facility] Body weight 2021-06-22 21:33:00 77.565 kg Universi ty of [facility] Systolic blood 2021-05-29 14:27:00 128 mm[Hg] Univer sity of pressure [facility] Diastolic blood 2021-05-29 14:27:00 61 mm[Hg] Unive rsity of pressure [facility] Body temperature 2021-05-29 14:27:00 36.89 Lay Univ ersity of [facility] Respiratory rate 2021-05-29 14:27:00 18 /min Univ ersity of [facility] Oxygen saturation in 2021-05-29 14:27:00 100 /min University Arterial blood by [facility] Pulse oximetry Branch Heart rate 2021-05-29 09:00:00 70 /min Universi ty of [facility] Systolic blood 2021-05-25 20:31:00 125 mm[Hg] Univer sity of pressure [facility] Diastolic blood 2021-05-25 20:31:00 87 mm[Hg] Unive rsity of [facility] [place] Heart rate 2021-05-25 20:31:00 78 /min Universi ty of [facility] Body temperature 2021-05-25 20:31:00 36.78 Lay Univ ersity of [facility] Respiratory rate 2021-05-25 20:31:00 18 /min Univ ersity of [facility] Body height 2021-05-25 20:31:00 157.5 cm [facility]i ty [facility] Body weight 2021-05-25 20:31:00 89.812 kg [facility]i [facility] BMI 2021-05-25 20:31:00 36.21 kg/m2 [facility] Systolic blood 2021-05-21 16:13:00 123 mm[Hg] Univer sity of pressure [facility] Diastolic blood 2021-05-21 16:13:00 85 mm[Hg] Unive rsity of pressure [facility] Heart rate 2021-05-21 16:13:00 85 /min Universi ty of [facility] Body temperature 2021-05-21 16:13:00 36.56 Lay Univ ersity of [facility] Respiratory rate 2021-05-21 16:13:00 18 /min Univ ersity of [facility] Body height 2021-05-21 16:13:00 157.5 cm Universi ty [facility] Body weight 2021-05-21 16:13:00 87.998 kg Universi ty [facility] BMI 2021-05-21 16:13:00 35.48 kg/m2 [facility] Systolic blood 2021-05-18 15:57:00 118 mm[Hg] Univer sity of pressure [facility] Diastolic blood 2021-05-18 15:57:00 78 mm[Hg] Unive rsity of pressure [facility] Heart rate 2021-05-18 15:57:00 73 /min Universi ty of [facility] Body temperature 2021-05-18 15:57:00 36.61 Lay Univ ersity of [facility] Body height 2021-05-18 15:57:00 157.5 [...] 2021-05-14 20:18:00 84 /min Universi ty of [facility] Body temperature 2021-05-14 20:18:00 36.72 Lay Univ ersity of [facility] Respiratory rate 2021-05-14 20:18:00 18 /min Univ ersity of [facility] Body height 2021-05-14 20:18:00 157.5 cm [facility] Body weight 2021-05-14 20:18:00 88.451 kg [facility] BMI 2021-05-14 20:18:00 35.67 kg/m2 [facility] Systolic blood 2021-05-11 16:18:00 122 mm[Hg] Univer sity of [facility] Diastolic blood 2021-05-11 16:18:00 83 mm[Hg] Unive rsity [facility] Heart rate 2021-05-11 16:18:00 77 /min [facility] Body temperature 2021-05-11 16:18:00 36.89 Lay [facility] 2021-05-11 16:18:00 18 /min [facility] Body height 2021-05-11 16:18:00 157.5 cm [facility] Body weight 2021-05-11 16:18:00 88.905 kg [facility] BMI 2021-05-11 16:18:00 35.85 kg/m2 [facility] Procedures Procedure Date / Time Performing Clinician Source Performed CONSENT FOR CONTRACEPTIVE 2022-02-28 05:01:00 Doctor Unassigned, [facility] PATCH [place] [facility] GLUCOSE FASTING 2021-07-21 14:13:00 Chikis Paniagua [facility] CONSENT FOR CONTRACEPTION 2021-06-22 06:01:00 Doctor Unassigned, [facility] [place] [facility] POCT TEST 2021-06-22 00:00:00 Adum, Melba Hardin [facility] CBC WITH DIFF 2021-05-29 10:17:00 Adum, Melba Hardin [facility] VENOUS CORD GAS 2021-05-28 09:20:00 Adum, Melba Hardin [facility] POCT GLUCOSE (AUTOMATED) 2021-05-28 06:59:00 Adum, Melba Green [facility] CENTRAL NEURAXIAL BLOCK 2021-05-28 06:40:39 Gómez Grey [facility] POCT GLUCOSE (AUTOMATED) 2021-05-28 04:47:00 Adum, Melba L [facility] POCT GLUCOSE (AUTOMATED) 2021-05-28 01:34:00 Adum, Melba Hardin [facility] HB ABO GROUPING 2021-05-27 23:10:00 Adum, Melba Hardin [facility] COVID-19 (ID NOW RAPID 2021-05-27 23:07:00 Adum, Melba Hardin [facility] TESTING) Medical Branch LAB ONLY COVID 2021-05-27 23:07:00 Adum, Melba Hardin [facility] INTERPRETATION [facility] CBC WITH DIFF 2021-05-27 23:06:00 Adum, Melba Hardin [facility] HEPATITIS B SURFACE 2021-05-27 23:06:00 Adum, Melba Hardin [facility] ANTIGEN [facility] ADC OR LOLI ONLY - RPR 2021-05-27 23:06:00 Adum, [facility]-AB WITH REFLEX 2021-05-27 23:06:00 Adum, [facility]ba [facility] PO[facility] GLUCOSE (AUTOMATED) 2021-05-27 21:28:00 Adum, Melba Hardin [facility] CONSENT/REFUSAL FOR 2021-05-27 20:55:09 Doctor Unassigned, [facility] DIAGNOSIS AND TREATMENT [place] [facility] ASSIGNMENT OF BENEFITS 2021-05-27 20:47:03 Doctor Unassigned, [facility] [facility] NON-STRESS TEST 2021-05-25 21:32:46 Adum, Melba Hardin [facility] POCT URINALYSIS W/O 2021-05-25 00:00:00 Adum, Melba Hardin [facility] SPECIFIC GRAVITY [facility] NON-STRESS TEST 2021-05-21 20:39:44 Adum, Melba Hardin [facility] POCT URINALYSIS W/O 2021-05-21 00:00:00 Adum, Melba Hardin [facility] SPECIFIC GRAVITY [facility] NON-STRESS TEST 2021-05-18 16:44:35 Adum, Melba Hardin [facility] POCT URINALYSIS W/O 2021-05-18 00:00:00 Adum, Melba Hardin [facility]i ty [facility] NON-STRESS TEST 2021-05-14 20:58:37 [facility] 2021-05-11 17:05:02 Adum, [facility] & CHLAMYDIA AMPLIFIED 2021-05-11 16:33:00 Adum, Melba Hardin Uni versity [facility] TRICHOMONAS AMPLIFIED 2021-05-11 16:33:00 [facility]um[facility] W/O 2021-05-11 00:00:00 Adum, Melba Ricoi ty [facility] Encounters Start End Encounter Admission Attending Care Care Encounter Source Date/Time Date/Time Type Type Clinicians Facility Department ID 2021-05-25 Outpatient P ADUM, [facility] [id number] Univers 16:22:50 [facility] 2023-02-28 2023-02-28 [facility] [id number] Univers 09:00:00 09:00:00 CHIKIS [facility] 2022-06-01 2022-06-01 Outpatient R [facility] [id number] Univers 08:00:00 08:00:00 [facility] 2022-03-14 2022-03-14 Telephone [facility] 1..840.114 [id number] [facility] 00:00:00 00:00:00 Chikis ACHARYA 350.1.13.10 i ty [id number] [phone] Wi dical NAL [address] [place] [address] 2022-03-01 2022-03-01 Telephone [facility] 1.2.840.114 [id number] [facility] 00:00:00 00:00:00 Chikis ACHARYA 350.1.13.10 i [id number] [phone] Wi dical NAL [address] [place] [address] 2022-02-28 2022-02-28 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, [facility] Lab [facility] 1.2.840.114 [id number] Univers 11:30:00 11:45:00 Visit Chikis Paniagua 350.1.13.10 ity of [facility] [id number] [phone] Wi dical [facility] [address] [facility] 2022-02-28 2022-02-28 Outpatient R ARCELIA [facility] [id number] Univers 10:30:00 11:17:53 CHIKSI mosqueda [facility] 2022-02-28 2022-02-28 Office Arcelia [facility] [id number] [id number] Univers 10:30:00 11:00:00 Visit Chikis ACHARYA 350.1.13.10 i [id number] [phone] [address] 2022-02-28 2022-02-28 Orders Doctor MONISHA 1.2.840.114 [id number] Univers 00:00:00 00:00:00 Only Unassigned, KINSEY 350.1.13.10 ity of [place] [facility] 4.2.7.2.686 [place] as [phone] [address] 2021-12-07 2021-12-07 Outpatient R ARCELIA [facility] [id number] Univers 14:00:00 14:48:02 CHIKIS mosqueda [facility] 2021-12-07 2021-12-07 Nurse Nurse, [facility] 1.2.840.114 [id number] Univers 14:00:00 14:48:02 Visit Chikis Paniagua 350.1.13.10 [place] [id number] Wi dical [address] 2021-09-14 2021-09-14 Nurse Nurse, [facility] 1.2.840.114 [id number] Univers 14:00:00 14:51:13 Visit Melba [place] 350.1.13.10 ity of [place] [id number] [phone] Wi dical NAL [address] [facility] 2021-09-14 2021-09-14 Outpatient R SHAHID [facility] [id number] Univers 14:00:00 14:51:13 MELBAYIFAN mosqueda [facility] 2021-08-12 2021-08-12 Telemedici Arcelia [facility] 1.2.840.114 [id number] Univers 11:45:00 12:00:00 ne Visit Chikis ACHARYA 350.1.13.10 ity of [place] 4[place]2.[place].2.[place] [phone] Wi dical NAL [address] [facility] 2021-08-12 2021-08-12 [facility] [id number] Univers 11:45:00 11:45:00 CHIKIS panda [facility] 2021-07-27 2021-07-27 Telephone [facility]amar[facility] 1.2.840.114 [id number] Univers 00:00:00 00:00:00 Chikis ACHARYA 350.1.13.10 i ty of [place] [id number] [phone] Wi dicil NAL [address] [place] [address] 2021-07-21 2021-07-21 Outpatient R ARCELIA [facility] [id number] Univers 08:00:00 08:00:00 CHIKIS panda [facility] 2021-07-21 2021-07-21 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, Adc Lab [facility] 1.2.840.114 [id number] Univers 08:00:00 08:00:00 Visit DarwindevinmarcellaChikis 350.1.13.10 ity of [place] 4.[place].2.[place] [phone] Wi gretchen [facility] [address] [facility] 2021-07-21 2021-07-21 Telephone [facility] 1.2.840.114 [id number] Univers 00:00:00 00:00:00 Chikis ACHARYA 350.1.13.10 i ty of [place] [id number] [phone] [address] 2021-07-15 2021-07-15 Telephone Arcelia [facility] 1.2.840.114 [id number] Univers 00:00:00 00:00:00 Chikis ACHARYA 350.1.13.10 i ty [place] [id number] [address] 2021-07-13 2021-07-13 [facility] [id number] Univers 08:45:00 09:07:55 MELBA mosqueda [facility] 2021-07-13 2021-07-13 Routine Chikis Paniagua [facility] 1.2.840.11 [id number] Univers 08:45:00 09:07:55 Adum, Melba ACHARYA 350.1.13.10 ity of Visit [place] [id number] [address] 2021-07-05 2021-07-05 Routine Arcelia [facility] 1.2.753.437 [id number] Univers 11:45:00 11:45:00 Chikis ACHARYA 350.1.13.10 [place]y of Visit [place] [id number] [address] 2021-07-05 2021-07-05 Outpatient R ARCELIA [facility] [id number] Univers 11:45:00 11:15:58 CHIKIS mosqueda [facility] 2021-06-22 2021-06-22 Outpatient R SHAHID, [facility] [id number] Univers 16:00:00 16:47:04 MELBA mosqueda [facility] 2021-06-22 2021-06-22 Routine [facility] 1.2.840.114 [id number] Univers 16:00:00 16:47:04 Melba ACHARYA 350.1.13.10 [place] of Visit [place] [phone] Wi dical NAL 134 Branch BUILDING 2021-06-22 2021-06-22 Orders Doctor MONISHA 1.2.840.114 [id number] Univers 00:00:00 00:00:00 Only Unassigned, KINSEY 350.1.13.10 ity of [place] [facility] 4.2.7.2.686 [place] as [phone] [facility] 009 Branch 2021-05-31 2021-05-31 Outpatient R [facility] [id number] Univers 11:45:00 11:45:00 ity of [facility] 2021-05-27 2021-05-29 Inpatient P [facility] [id number] Univers 14:45:00 11:25:00 MELBA ity [facility] 2021-05-27 2021-05-29 [facility] 1.2.840.114 [id number] Univers 14:45:00 11:25:00 Encounter Melba ACHARYA 350.1.13.10 [place] of [place]2.7.2.[place] [id number] [facility] [address] [place] 2021-05-28 2021-05-28 Anesthesia [facility] 1.2.840.114 [id number] Univers 20:01:37 20:01:37 Event Rodrigo ACHARYA 350.1.13.10 i ty of [facility] 4.2.7.2.[place] [id number] [address] 2021-05-27 2021-05-28 Anesthesia [facility] 1.2.840.114 [id number] Univers 23:20:00 05:20:00 Event Gómez ACHARYA 350.1.13.10 i ty of [facility] 4.2.7.2.[place] [id number] [facility] [address] [place] 2021-05-25 2021-05-25 Routine Room, [facility] 1.2.840.1 [id number] Univers 14:00:00 16:07:44 Adum, Melba ACHARYA 350.1.13.10 [place] of [place] [phone] Wi dical NAL [address] [facility] 2021-05-25 2021-05-25 Outpatient P OMEKELLIE, [facility] [id number] Univers 15:30:00 15:45:51 VISHAL ity [facility] 2021-05-25 2021-05-25 Batch Mixer Operator Ultrasound, [facility] 1.2 .840.114 [id number] Univers 15:30:00 15:45:51 Visit Vishal Wiley [place] 350.1 .13.10 [place] of [place] [phone] Wi dical NAL [address] [place] [address] 2021-05-21 2021-05-21 Outpatient R AD, [facility] [id number] Univers 10:00:00 10:42:24 MELBA ity [facility] 2021-05-21 2021-05-21 Routine Room, [facility] 1.2.840.1 [id number] Univers 10:00:00 10:42:24 Adum, Melba Hardin [place] 350.1.13.10 ity of Visit [place] [phone] Wi dical NAL [address] [place] [address] 2021-05-18 2021-05-18 Outpatient R AD, [facility] [id number] Univers 10:00:00 10:43:56 MELBA ity [facility] 2021-05-18 2021-05-18 Routine Room, [facility] 1.2.840.1 [id number] Univers 09:48:43 10:43:56 Adum, Melba L [place] 350.1.13.10 ity of Visit [place] 4[place]2.[place] [phone] Wi dical NAL [address] [place] [address] 2021-05-18 2021-05-18 Outpatient R ADUM, [facility] [id number] Univers 10:00:00 10:00:00 MELBA ity [facility] 2021-05-14 2021-05-14 Outpatient R ADUM, [facility] [id number] Univers 14:00:00 14:54:04 MELBA ity [facility] 2021-05-14 2021-05-14 Routine Room, [facility] 1.2.840.1 [id number] Univers 13:58:04 14:54:04 Adum, Melba BRITTANDREW 350.1.13.10 ity of [place] [phone] Wi dical NAL [address] [place] [address] 2021-05-14 2021-05-14 Outpatient R [facility] [id number] Univers 14:00:00 14:00:00 ity of [facility] 2021-05-12 2021-05-12 Orders Doctor MONISHA 1.2.840.114 [id number] Univers 00:00:00 00:00:00 Only Unassigned, KINSEY 350.1.13.10 ity of [place] [facility] 4.2.7.2.686 [place] as [phone] [address] 2021-05-11 2021-05-11 Outpatient R ADUM, [facility] [id number] Univers 10:00:00 11:04:55 [facility] 2021-[facility]-11 2021-05-11 Outpatient R AD, [facility] [id number] Univers 10:00:00 11:04:55 MELBA ity [facility] 2021-05-11 2021-05-11 Routine Room, [facility] 1.2.840.1 [id number] Univers 09:52:39 11:04:55 Adum, Melba BRITTANDREW 350.1.13.10 ity of [place] [phone] Wi dical NAL [address] [place] [address] 2021-05-11 2021-05-11 Outpatient R ADUM, [facility] [id number] Univers 10:00:00 10:00:00 MELBA ity [facility] 2021-05-05 2021-05-05 Outpatient R ADUM, [facility] [id number] Univers 15:45:00 16:38:33 MELBA ity [facility] 2021-05-05 2021-05-05 Outpatient R ADUM, [facility] [id number] Univers 15:45:00 16:38:33 MELBA ity [facility] 2021-05-05 2021-05-05 Routine Adum, [facility] 1.2.840.114 [id number] Univers 15:29:11 16:38:33 Melba Hardin [place] 350.1.13.10 [place]y of [place] [phone] Wi dical NAL [address] [place] [address] 2021-04-30 2021-04-30 Case Adum, [facility] 1.2.840.114 [id number] Univers 00:00:00 00:00:00 Management Melba Hardin [place] 350.1.13.10 ity of [facility] 4.2.7.2.[place] [phone] Wi dical NAL [address] [place] [address] 2021-04-28 2021-04-28 Outpatient R ADUM, [facility] [id number] Univers 16:00:00 16:50:17 MELBA ity [facility] 2021-04-28 2021-04-28 Routine Adum, [facility] 1.2.840.114 [id number] Univers 15:48:19 16:50:17 Melba Hardin [place] 350.1.13.10 ity of [place] [phone] Wi dical NAL [address] [place] [address] 2021-04-16 2021-04-16 Outpatient R ADUM, [facility] [id number] Univers 10:30:00 11:40:01 MELBA ity [facility] 2021-04-16 2021-04-16 Nurse Nurse, [facility] 1.2.840.114 [id number] Univers 10:20:40 11:40:01 Visit Adum, Melba Hardin [place] 350.1.13.10 ity of [facility] 4.2.7.2.[place] [phone] Wi dical NAL [address] [facility] 2021-04-15 2021-04-15 Outpatient R ADUM, [facility] [id number] Univers 16:15:00 16:15:00 MELBA ity [facility] 2021-04-15 2021-04-15 Routine Adum, [facility] 1.2.840.114 [id number] Univers 15:40:11 15:55:11 Melba L [place] 350.1.13.10 it[place] of [place] [phone] Wi dical NAL 134 [facility] 2021-04-14 2021-04-14 Outpatient R ADUM, [facility] [id number] Univers 09:00:00 09:00:00 MELBA itdeisy [facility] 2021-04-14 2021-04-14 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, Adc Lab [facility] 1.2.840.114 [id number] Univers 08:29:31 08:44:31 Visit Adum, Melba L [place] 350.1.13.10 [place] [phone] Wi dical NAL 353 [facility] 2021-04-02 2021-04-02 Routine Adum, [facility] 1.2.840.114 [id number] Univers 11:04:23 12:02:30 Melba L [place] 350.1.13.10 it[place] of [place] [phone] Wi dical NAL 134 [facility] 2021-04-02 2021-04-02 Outpatient R ADUM, [facility] [id number] Univers 11:00:00 12:02:30 MELBA ity [facility] 2021-04-01 2021-04-01 Outpatient R ADUM, [facility] [id number] Univers 09:45:00 09:45:00 MELBA ity [facility] 2021-04-01 2021-04-01 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, Adc Lab [facility] 1.2.840.114 [id number] Univers 09:07:26 09:22:26 Visit Adum, Melba L [place] 350.1.13.10 ity [facility] [place] [phone] Wi dical NAL 353 [facility] 2021-03-26 2021-03-26 Outpatient R ADUM, [facility] [id number] Univers 15:30:00 15:30:00 MELBA ity of [facility] 2021-03-26 2021-03-26 Batch Mixer Operator Ultrasound, Adc [facility] 1.2 .840.114 [id number] Univers 13:52:10 14:52:10 Visit Conor ChahalzulmaGriselda [place] 350.1 .13.10 ity of [place] [phone] Wi dical nal 134 [facility] 2021-03-26 2021-03-26 Orders Doctor MONISHA 1.2.840.114 [id number] Univers 00:00:00 00:00:00 Only Unassigned, KINSEY 350.1.13.10 [facility] 4.2.7.2.686 [place] [phone] [address] 2021-03-18 2021-03-18 Routine Adum, [facility] 1.2.840.114 [id number] Univers 13:40:30 14:23:26 Melba L [place] 350.1.13.10 ity of [place] [phone] Wi dical nal 134 [facility] 2021-03-18 2021-03-18 Outpatient R ADUM, [facility] [id number] Univers 14:15:00 14:15:00 MELBA ity of [facility] 2021-02-26 2021-02-26 Outpatient P [facility] [id number] Univers 15:00:00 15:00:00 ity of [facility] 2021-02-18 2021-02-18 Routine Adum, [facility] 1.2.840.114 [id number] Univers 09:06:28 09:42:13 Melba L [place] 350.1.13.10 ity of [place] [phone] Wi dical nal 134 [facility] 2021-02-18 2021-02-18 Outpatient R YANETHUM, [facility] [id number] Univers 09:15:00 09:15:00 [facility] 2021-02-18 2021-02-18 Orders Doctor BEARDEN 1.2.840.114 [id number] Univers 00:00:00 00:00:00 Only UnassKINSEY peterson 350.1.13.10 ity of [facility] 4.2.7.2.686 [place] [phone] [facility] [address] [place] 2021-02-17 2021-02-17 Outpatient R SHAHID [facility] [id number] Univers 16:00:00 16:00:00 [facility] 2021-02-16 2021-02-16 Outpatient R SHAHID, [facility] [id number] Univers 14:15:00 14:15:00 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, Adc Lab [facility] 1.2.840.114 [id number] Univers 10:06:05 10:21:05 Visit [facility] [place] [phone] Wi dical [facility] 353 [facility] 2021-02-09 2021-02-09 Outpatient R CARLOS ENRIQUE MARIN [facility] [id number] Univers 10:15:00 10:15:00 ity [facility] 2021-02-09 2021-02-09 Letter MONISHA Jamison 1.2.840.114 [id number] Univers 00:00:00 00:00:00 (Out) Jeane EUCEDA 350.1.13.10 it y of [facility] 4.2.7.2.686 [place] [phone] [facility] 019 [place] 2021-02-07 2021-02-07 Laboratory Only, Ang Db Test [facility] 1.2.8 40.114 [id number] Univers 18:11:36 18:26:36 Only Garfield Flannery [facility] 350.1.13.10 ity of [place] 4.2.7.2.686 [place] Ra?Blea [phone] Wi gretchen kney 370 [facility] 2021-02-07 2021-02-07 Outpatient R PRUDENCIO, [facility] [id number] Univers 18:10:00 18:10:00 [place] ity o f [facility] 2021-02-03 2021-02-03 [facility] [id number] Univers 00:00:00 00:00:00 Melba L [place] 350.1.13.10 it[place] of [place] [phone] Wi dical nal 134 [facility] 2021-02-03 2021-02-03 Telephone [facility] 1.2.870.542 [id number] Univers 00:00:00 00:00:00 Melba L [place] 350.1.13.10 it[place] of [place] [phone] Wi dical nal 134 [facility] 2021-01-29 2021-01-29 Telephone [facility] 1.2.104.097 [id number] Univers 00:00:00 00:00:00 Melab [place] 350.1.13.10 ity of [place] [phone] Wi dical nal [address] [place] [address] 2021-01-29 2021-01-29 Telephone [facility] 1.2.745.647 [id number] Univers 00:00:00 00:00:00 Melba L [place] 350.1.13.10 ity of [place] [phone] Wi dical nal [address] [place] [address] 2021-01-27 2021-01-27 Outpatient R [facility] [id number] Univers 13:00:00 13:00:00 ity of [facility] 2021-01-26 2021-01-26 Initial [facility] 1.2.840.114 [id number] Univers 14:23:33 16:06:34 Melba Hardin [place] 350.1.13.10 ity of Visit [place] [phone] [address] 2021-01-26 2021-01-26 Initial Adum, [facility] 1.2.840.114 [id number] Univers 14:23:33 16:06:34 Melba Hardin [place] 350.1.13.10 ity of Visit [place] [phone] [address] 2021-01-26 2021-01-26 Outpatient R AD, [facility] [id number] Univers 14:30:00 14:30:00 MELBA ity [facility] 2021-01-26 2021-01-26 Orders Doctor MONISHA 1.2.840.114 [id number] Univers 00:00:00 00:00:00 Only Unassigned, KINSEY 350.1.13.10 ity of [place] [facility] 4.2.7.2.686 [place] as [phone] [address] 2021-01-26 2021-01-26 Orders Doctor MONISHA 1.2.840.114 [id number] Univers 00:00:00 00:00:00 Only Unassigned, KINSEY 350.1.13.10 ity of [place] [facility] 4.2.7.2.686 [place] [phone] [address] 2020-09-01 2020-09-01 Outpatient R AD, [facility] [id number] Univers 14:00:00 14:00:00 MELBA ity [facility] 2020-06-09 2020-06-09 Telephone [facility] 1.2.177.286 [id number] Univers 00:00:00 00:00:00 Melba [place] 350.1.13.10 ity of [place] [phone] [address] 2020-06-09 2020-06-09 Telephone Adum, [facility] 1.2.665.439 [id number] 00:00:00 00:00:00 Melba Hardin [place] 350.1.13.10 [place] 4.2.7.2.686 Professio [phone] [address] 2020-06-08 2020-06-08 Outpatient R [facility] [id number] Univers 11:00:00 11:00:00 ity of [facility] 2020-06-08 2020-06-08 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, 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 [facility] 1.2.840.114 [id number] Univers 10:43:33 10:58:33 Visit Adum, Melba Hardin [place] 350.1.13.10 ity of [place] [phone] [address] 2020-06-08 2020-06-08 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, 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 [facility] 1.2.840.114 [id number] 10:43:33 10:58:33 Visit [place] 350.1.13.10 [place] 4.2.7.2.686 Professio [phone] [address] 2020-06-03 2020-06-03 Outpatient R [facility] [id number] [facility] 10:45:00 10:45:00 MELBA itdeisy [facility] 2020-06-02 2020-06-02 Office [facility] 1.2.840.114 [id number] Univers 11:22:36 12:46:52 Visit Melba [place] 350.1.13.10 ity of [place] [phone] [address] 2020-06-02 2020-06-02 Office [facility] 1.2.840.114 [id number] 11:22:36 12:46:52 Visit Melba Hardin [place] 350.1.13.10 [place] 4.2.7.2.686 Professio [phone] [address] 2020-06-02 2020-06-02 [id number] [facility] 11:00:00 11:00:00 MELBA mosqueda [facility] 2020-03-26 2020-03-26 Case Adum, [facility] 1.2.840.114 [id number] Univers 00:00:00 00:00:00 Management Melba Acharya 350.1.13.10 it[place] of [place] [phone] Wi dical nal 134 [facility] 2020-03-25 2020-03-25 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, 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 [facility] 1.2.840.114 [id number] Univers 15:36:12 15:51:12 Visit Adjustin, Melba Acharya 350.1.13.10 ity of [place] [phone] Wi dical nal 353 [facility] 2020-03-25 2020-03-25 Office Ad, [facility] 1.2.840.114 [id number] Univers 13:45:58 15:22:29 Visit Melba Acharya 350.1.13.10 ity of [place] [phone] Wi dical nal 134 [facility] 2020-03-25 2020-03-25 Outpatient R AD, [facility] [id number] Univers 14:00:00 14:00:00 MELAB mosqueda [facility] 2020-03-25 2020-03-25 Orders Doctor MONISHA 1.2.840.114 [id number] Univers 00:00:00 00:00:00 Only Unassigned, KINSEY 350.1.13.10 ity of [place] [facility] 4.2.7.2.686 [place] as [phone] [address] Results Test Description Test Time Test Comments Results Result Comments Source GLUCOSE FASTING 2021-07-21 16:04:56 Test Item Value Reference Range Interpretation Comme nts GLU FASTNG (test code = 6423687596) 90 mg/dL 70-110 Lab Interpretation (test code = 36224-3) Normal [facility] [id number] 22:48:00 Test Item Value Reference Range Interpretation Comments POCT PREG (test code = 1605) Negative On board controls acceptable with C Yes Line (test code = 3574) POCT PREG LOT # (test code = 3575) POCT PREG TEST DATE (test code = 3576) Lab Interpretation (test code = Normal 45280-1) [facility] with [id number] 10:46:10 Test Item Value Reference Range Interpretation [...] RDW-SD (test code = 43.4 fL 39.0-49.9 59220-3) RDW-CV (test code = 13.6 % 12.0-15.5 788-0) PLT (test code = See_Comment [Automated 777-3) message] The sy stem which generated this result transmitted reference range : 166 - 358 10*3/ ?L. The reference r jayce was not used to interpret this result as normal/abnormal . MPV (test code = 10.3 fL 9.5-12.9 07302-5) NRBC/100 WBC (test See_Comment [Automat ed code = 8115856919) message] The system which generated this result transmitted reference range : 0.0 - 10.0 /100 WBCs. The refer ence range was not u sed to interpret th is result as normal/abnormal . NRBC x10^3 (test code <0.01 See_Comment [Auto mated = 9615988562) message] The s ystem which generated this result transmitted reference range : 10*3/?L. The reference range was not used to interpret this result as normal/abnormal . GRAN MAT (NEUT) % 67.5 % (test code = 770-8) IMM GRAN % (test code 1.30 % = 6052542334) LYMPH % (test code = 16.4 % 736-9) MONO % (test code = 13.2 % 5905-5) EOS % (test code = 1.3 % 713-8) BASO % (test code = 0.3 % 706-2) GRAN MAT x10^3(ANC) 7.61 10*3/uL 1.88-7.09 H (test code = 2566110033) IMM GRAN x10^3 (test 0.15 10*3/uL 0.00-0.06 H code = 6066198680) LYMPH x10^3 (test code 1.85 10*3/uL 1.32-3.29 = 731-0) MONO x10^3 (test code 1.49 10*3/uL 0.33-0.92 H = 742-7) EOS x10^3 (test code = 0.15 10*3/uL 0.03-0.39 711-2) BASO x10^3 (test code 0.03 10*3/uL 0.01-0.07 = 704-7) Lab Interpretation Abnormal (test code = 57039-9) [facility] Surface [id number] 07:13:50 Test Item Value Reference Range Interpretation Comments HBsAg Semi-Quantitative (test code = Negative Negative 5195-3) [facility] GLUCOSE (AUTOMATED)2021-05-28 07:03:21 Test Item Value Reference Range Interpretation Comments POCT GLU (test code = 4299167561) 85 mg/dL 70-110 Lab Interpretation (test code = Normal 71010-2) [facility] OR LOLI ONLY - [id number] 06:38:23 Test Item Value Reference Range Interpretation Comments RPR (Qualitative) (test code = Nonreactive Nonreactive 45974-2) Lab Interpretation (test code = Normal 35713-9) [facility] GLUCOSE (AUTOMATED)2021-05-28 04:49:24 Test Item Value Reference Range Interpretation Comments POCT GLU (test code = 2694902021) 78 mg/dL 70-110 Lab Interpretation (test code = Normal 03771-5) [facility] GLUCOSE (AUTOMATED)2021-05-28 01:45:13 Test Item Value Reference Range Interpretation Comments POCT GLU (test code = 7132057866) 85 mg/dL 70-110 Lab Interpretation (test code = Normal 64586-7) [facility]HIV [facility]/2 AG-AB WITH [id number] 01:13:04 Test Item Value Reference Range Interpretation Comments HIV Negative Negative Semi-quantitative (test code = 19571-1) ZEE (test code = Non-reactive for HIV-1 ZEE) antigen and HIV-1/HIV-2 antibodies. ?No laboratory evidence of HIV infection. ?Repeat in 2-4 weeks if acute HIV infection is suspected. [facility] Center[facility] and Screen - ONCE [id number] 00:33:33 Test Item Value Reference Range Interpretation Comments ABO & RH (test code A Positive Performe d at [facility] = 20) Laboratory Serv [facility] [place], [place] [address]Toll Free: [phone] A No. [id number] IAT (test code = Negative Performed a t [facility] 1185) Laboratory Serv [facility] [place], [place] [id number] Free: [phone] A No. [id number] [facility] CenterCBC with [id number] 23:57:50 Test Item Value Reference Range Interpretation Comments WBC (test code = See_Comment H [Automated 6690-2) message] The sy stem which generated this result transmitted reference range : 4.30 - 11.10 10*3/?L. The reference range was not used to interpret this result as normal/abnormal . RBC (test code = See_Comment [Automated 619-8) message] The sy stem which generated this [...] RDW-SD (test code = 41.6 fL 39.0-49.9 45095-6) RDW-CV (test code = 13.3 % 12.0-15.5 788-0) PLT (test code = See_Comment [Automated 777-3) message] The sy stem which generated this result transmitted reference range : 166 - 358 10*3/ ?L. The reference r jayce was not used to interpret this result as normal/abnormal . MPV (test code = 10.3 fL 9.5-12.9 26769-5) NRBC/100 WBC (test See_Comment [Automat ed code = 2126986090) message] The system which generated this result transmitted reference range : 0.0 - 10.0 /100 WBCs. The refer ence range was not u sed to interpret th is result as normal/abnormal . NRBC x10^3 (test code <0.01 See_Comment [Auto mated = 1519457104) message] The s ystem which generated this result transmitted reference range : 10*3/?L. The reference range was not used to interpret this result as normal/abnormal . GRAN MAT (NEUT) % 67.7 % (test code = 770-8) IMM GRAN % (test code 0.60 % = 6960566868) LYMPH % (test code = 21.2 % 736-9) MONO % (test code = 9.1 % 5905-5) EOS % (test code = 1.2 % 713-8) BASO % (test code = 0.2 % 706-2) GRAN MAT x10^3(ANC) 7.98 10*3/uL 1.88-7.09 H (test code = 2480530945) IMM GRAN x10^3 (test 0.07 10*3/uL 0.00-0.06 H code = 4457457574) LYMPH x10^3 (test code 2.50 10*3/uL 1.32-3.29 = 731-0) MONO x10^3 (test code 1.07 10*3/uL 0.33-0.92 H = 742-7) EOS x10^3 (test code = 0.14 10*3/uL 0.03-0.39 711-2) BASO x10^3 (test code <0.03 0.01-0.07 = 704-7) Lab Interpretation Abnormal (test code = 93096-2) [facility] GLUCOSE (AUTOMATED)2021-05-27 21:37:45 Test Item Value Reference Range Interpretation Comments POCT GLU (test code = 7679198042) 110 mg/dL 70-110 Lab Interpretation (test code = Normal 27821-8) [facility] URINALYSIS W/O SPECIFIC [id number] 20:33:00 Test Item Value Reference Range Interpretation [...] Negative Lab Interpretation (test code = Normal 13633-5) [facility] URINALYSIS W/O SPECIFIC [id number] 16:31:00 Test Item Value Reference Range Interpretation [...] Negative Lab Interpretation (test code = Normal 84534-7) [facility] W/O SPECIFIC [id number] 15:54:00 Test Item Value Reference Range Interpretation [...] code = 3257) n/a Negative - Negative [facility] W/O SPECIFIC [id number] 16:20:00 Test Item Value Reference Range Interpretation [...] Negative Lab Interpretation (test code = Normal 31255-3) [facility]
[2022-12-11 05:11] LABS: Absolute Lymphocytes (CBC) 4.8 K/uL (0.7-4.9); Hematocrit 42.4 % (36.0-45.0); Lymphocytes % 39.3 % (15.3-44.8); MCV 86.2 fL (80-100); MPV 7.6 fL (7.6-11.3); RBC Red Blood Cell Count 4.92 M/uL (3.86-4.86)
[2022-12-11 05:29] LABS: Specific Gravity 1.018 (1.005-1.030)
[2022-12-11 05:29] LABS: BUN Blood Urea Nitrogen 12 mg/dL (7-18); Bicarbonate 27 mEq/L (21-32); Glomerular Filtration Rate 126 ml/min (=/>90); Glucose Level 113 mg/dL (74-106); Sodium Level 135 mEq/L (136-145)
[2022-12-11 05:37] LABS: Specific Gravity 1.018 (1.005-1.030); Urine Bacteria None Seen /HPF (<20); Urine Bilirubin NEGATIVE (Negative); Urine Blood Negative (Negative); Urine Clarity Clear (Clear); Urine Color Light-Yellow (Yellow); Urine Glucose NEGATIVE (Negative); Urine Mucus Slight /HPF (None Seen); Urine Protein NEGATIVE (Negative); Urine RBC <5 /HPF (None Seen); Urine Urobilinogen Normal (Normal)
[2022-12-11 05:49] LABS: HCG, Quantitative < 1 mIU/mL (1-3)
--- NOTE | 2022-12-11 08:01 | ER ---
Nurse's Notes [facility] Name: Kelly Paz Age: 22 yrs Sex: Female : 2000 Arrival Date: 12/11/2022 Time: 04:27 Bed 5 Private MD: Diagnosis: Abdominal tenderness;Constipation, unspecified;Constipation;Obesity, unspecified;Elevated white blood cell count Presentation: 12/11 04:45 Chief complaint: Patient states: lower abdominal pain and lower back pain of 5 when pf1 walking with nausea and vomiting x 2 episodes tonight,onset 2100 last night. Patient stated took 2 test earlier and they were both positive. Patient denies any vaginal bleeding or discharge. Coronavirus screen: Vaccine status: Patient reports being unvaccinated. Client denies travel out of the [place] in the last 14 days. Client presents with at least one sign or symptom that may indicate coronavirus-19. Ebola Screen: Patient negative for fever greater than or equal to 101.5 degrees Fahrenheit, and additional compatible Ebola Virus Disease symptoms. Initial Sepsis Screen: Does the patient meet any 2 criteria? No. Patient's initial sepsis screen is negative. Does the patient have a suspected source of infection? No. Patient's initial sepsis screen is negative. Risk Assessment: Do you want to hurt yourself or someone else? Patient reports no desire to harm self or others. 04:45 Method Of Arrival: Ambulatory pf1 04:45 Acuity: RAFAEL 3 pf1 08:45 Onset of symptoms is unknown. ap3 Triage Assessment: 07:00 General: Appears uncomfortable, Behavior is cooperative, appropriate for age, anxious. bp Pain: Complains of pain in left lower quadrant. EENT: No deficits noted. Neuro: No deficits noted. Cardiovascular: No deficits noted. Respiratory: No deficits noted. GI: No signs and/or symptoms were reported involving the gastrointestinal system. : Reports pain in left flank(s). Derm: No deficits noted. Musculoskeletal: No deficits noted. 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 Last tetanus immunization: < 10 years ago Flu vaccine is not up to date. - Social history:: Smoking status: Patient denies any tobacco usage or history of. Patient/guardian denies using alcohol, street drugs. Screenin:50 [facility] ED Fall Risk Assessment (Adult) History of falling in the last 3 months, pf1 including since admission No falls in past 3 months (0 pts) Confusion or Disorientation No (0 pts) Intoxicated or Sedated No (0 pts) Impaired Gait No (0 pts) Mobility Assist Device Used No (0 pt) Altered Elimination No (0 pt) Score/Fall Risk Level 0 - 2 = Low Risk Oriented to surroundings, Maintained a safe environment, Educated pt \T\ family on fall prevention, incl call for assistance when getting out of bed, Assessed \T\ reinforced patient's understanding of fall precautions, Provided non-skid footwear, Hourly rounding (assess needs \T\ fall precautionary measures) done, Used ambulatory aids as needed (educated on \T\ assisted with), Used gait belt as appropriate. Abuse screen: Denies threats or abuse. Nutritional screening: No deficits noted. Tuberculosis screening: No symptoms or risk factors identified. Assessment: 04:45 General: Appears in no apparent distress. comfortable, Behavior is calm, cooperative, jb4 appropriate for age. Pain: Complains of pain in posterior aspect of left lateral abdomen and anterior aspect of left lateral abdomen Pain does not radiate. Pain currently is 5 out of 10 on a pain scale. Neuro: Level of Consciousness is awake, alert, obeys commands, Oriented to person, place, time, situation. Cardiovascular: Patient's skin is warm and dry. Respiratory: Airway is patent Respiratory effort is even, unlabored, Respiratory pattern is regular, symmetrical. GI: No signs and/or symptoms were reported involving the gastrointestinal system. : No signs and/or symptoms were reported regarding the genitourinary system. EENT: No signs and/or symptoms were reported regarding the EENT system. Derm: Skin is intact, Skin is pink, warm \T\ dry. Musculoskeletal: Circulation, motion, and sensation intact. Range of motion: intact in all extremities. 06:00 Reassessment: Patient appears in no apparent distress at this time. Patient and/or jb4 family updated on plan of care and expected duration. Pain level reassessed. Patient is alert, oriented x 3, equal unlabored respirations, skin warm/dry/pink. 07:00 Reassessment: RECD REPORT FROM MAURICE ZUNIGA. P/W LEFT FLANK PAIN. ALL ORDERS COMPLETE, bp RESULTS PENDING. Vital Signs: 04:45 BP 122 / 72; Pulse 80; Resp 16; Temp 98.1; Pulse Ox 100% on R/A; Weight 77.11 kg; pf1 Height 5 ft. 2 in. ; Pain 5/10; 06:45 BP 111 / 74; Pulse 87; Resp 16; Pulse Ox 97% on R/A; jb4 07:10 BP 108 / 91; Pulse 83; Resp 17 S; Pulse Ox 98% on R/A; ap3 04:45 Body Mass Index 31.09 (77.11 kg, 157.48 cm) pf1 04:45 Pain Scale: Adult pf1 ED Course: 04:28 Patient arrived in ED. jj6 04:40 Michele Martinez MD is Attending Physician. kdr 04:49 Triage completed. pf1 05:40 Initial lab(s) drawn, by me, sent to lab. wm 06:07 US Transvaginal Ob In Process Unspecified. EDMS 06:09 Wale Yañez, RN is Primary Nurse. jb4 07:00 Arm band placed on. bp 07:12 Primary Nurse role handed off by Wale Yañez, RN bp 07:12 Calvin Pizano, RN is Primary Nurse. bp 07:12 Patient has correct armband on for positive identification. Bed in low position. Call bp light in reach. Side rails up X2. 07:13 Attending Physician role handed off by Michele Martinez MD pamela 07:13 Franck Wall MD is Attending Physician. pamela 07:36 CT Abd/Pelvis - IV Contrast Only In Process Unspecified. EDMS 08:45 No provider procedures requiring assistance completed. IV discontinued, intact, ap3 bleeding controlled, No redness/swelling at site. Pressure dressing applied. Administered Medications: No medications were administered Medication: 08:46 VIS not applicable for this client. ap3 Outcome: 08:00 Discharge ordered by . pamela 08:45 Discharged to home ambulatory, with family. ap3 08:45 Condition: good 08:45 Discharge instructions given to patient, Instructed on discharge instructions, follow up and referral plans. medication usage, Demonstrated understanding of instructions, follow-up care, medications, Prescriptions given X 3. 08:46 Patient left the ED. ap3 Signatures: Dispatcher [employer] EDMS Franck Wall MD MD cha Rittger, Kevin, MD MD kdr Bryson, James, RN RN jb4 Calvin Pizano, RN RN bp Columba Lazo RN RN ap3 Mallory Mckinnon Jennifer jj6 Isabel Boswell RN RN pf1
--- NOTE | 2022-12-11 08:01 | EDPHYS ---
Physician Documentation [facility] Name: Kelly Paz Age: 22 yrs Sex: Female : 2000 Arrival Date: 12/11/2022 Time: 04:27 Bed 5 Private MD: ABAD Physician Franck Wall HPI: 12/11 06:18 This 22 yrs old Female presents to ER via Ambulatory with complaints of LEFT SIDE TORSO kdr PAIN. 06:18 Patient presents with lower abdominal pain on the left that radiates across her midline kdr to the right. Anteriorly and also across to her back posteriorly. This started about 2100 hrs. last evening. She also had some nausea and vomited twice. Pain is worse when she is walking. Patient denies vaginal bleeding or discharge or fluid leak. Patient has not had anything like this before. She did take 2 positive home test the last 12 hours. Given this information, the patient is G2, P1 Ab0.. Onset: The symptoms/episode began/occurred suddenly, last night. Severity of symptoms: At their worst the symptoms were moderate in the emergency department the symptoms are unchanged. The patient has not experienced similar symptoms in the past. The patient has not recently seen a physician. 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 Last tetanus immunization: < 10 years ago Flu vaccine is not up to date. - Social history:: Smoking status: Patient denies any tobacco usage or history of. Patient/guardian denies using alcohol, street drugs. ROS: 06:18 Constitutional: Negative for fever, chills, and weight loss, Eyes: Negative for injury, kdr pain, redness, and discharge, Neck: Negative for injury, pain, and swelling, Cardiovascular: Negative for chest pain, palpitations, and edema, Respiratory: Negative for shortness of breath, cough, wheezing, and pleuritic chest pain, Abdomen/GI: Negative for abdominal pain, nausea, vomiting, diarrhea, and constipation. Exam: 06:53 Constitutional: This is a well developed, well nourished patient who is awake, alert, kdr and in no acute distress. Head/Face: Normocephalic, atraumatic. Eyes: Pupils equal round and reactive to light, extra-ocular motions intact. Lids and lashes normal. Conjunctiva and sclera are non-icteric and not injected. Cornea within normal limits. Periorbital areas with no swelling, redness, or edema. Neck: Trachea midline, no thyromegaly or masses palpated, and no cervical lymphadenopathy. Supple, full range of motion without nuchal rigidity, or vertebral point tenderness. No Meningismus. Chest/axilla: Normal chest wall appearance and motion. Nontender with no deformity. No lesions are appreciated. Cardiovascular: Regular rate and rhythm with a normal S1 and S2. No gallops, murmurs, or rubs. Normal PMI, no JVD. No pulse deficits. Respiratory: Lungs have equal breath sounds bilaterally, clear to auscultation and percussion. No rales, rhonchi or wheezes noted. No increased work of breathing, no retractions or nasal flaring. Back: No spinal tenderness. No costovertebral tenderness. Full range of motion. Skin: Warm, dry with normal turgor. Normal color with no rashes, no lesions, and no evidence of cellulitis. MS/ Extremity: Pulses equal, no cyanosis. Neurovascular intact. Full, normal range of motion. Neuro: Awake and alert, GCS 15, oriented to person, place, time, and situation. Cranial nerves II-XII grossly intact. Motor strength 5/5 in all extremities. Sensory grossly intact. Cerebellar exam normal. Normal gait. Psych: Awake, alert, with orientation to person, place and time. Behavior, mood, and affect are within normal limits. 06:53 Abdomen/GI: Inspection: abdomen appears normal, Bowel sounds: active, Palpation: soft, mild abdominal tenderness, in the anterior aspect of left lateral abdomen and left lower quadrant, mass, is not appreciated, rebound tenderness, is not appreciated. Vital Signs: 04:45 BP 122 / 72; Pulse 80; Resp 16; Temp 98.1; Pulse Ox 100% on R/A; Weight 77.11 kg; pf1 Height 5 ft. 2 in. ; Pain 5/10; 06:45 BP 111 / 74; Pulse 87; Resp 16; Pulse Ox 97% on R/A; jb4 07:10 BP 108 / 91; Pulse 83; Resp 17 S; Pulse Ox 98% on R/A; ap3 04:45 Body Mass Index 31.09 (77.11 kg, 157.48 cm) pf1 04:45 Pain Scale: Adult pf1 MDM: 07:13 Patient medically screened. pamela 08:01 Differential Diagnosis sepsis. Data reviewed: vital signs, nurses notes, lab test pamela result(s), EKG, radiologic studies, CT scan, ultrasound. Consideration of Admission/Observation Escalation of care including admission/observation considered. I considered the following discharge prescriptions or medication management in the emergency department Medications were administered in the Emergency Department. See MAR. Independent interpretation of the following test(s) in the Emergency Department CT Scan: My interpretation is CT ABD PELVIS. Test considered but Not performed: MRI: L[facility] MRI ABD/PEL. Care significantly affected by the following chronic conditions: Obesity, MIGRAINE. 12/11 04:44 Order name: Abo/rh Typing; Complete Time: 06:54 kdr 12/11 04:44 Order name: Basic Metabolic Panel; Complete Time: 06:54 kdr 12/11 04:44 Order name: CBC with Diff; Complete Time: 06:54 kdr 12/11 04:44 Order name: Test, Urine; Complete Time: 06:54 kdr 12/11 04:44 Order name: Quantitative Hcg; Complete Time: 06:54 kdr 12/11 04:44 Order name: Urinalysis w/ reflexes; Complete Time: 06:54 kdr 12/11 06:13 Order name: ABO/RH no charge; Complete Time: 06:54 EDMS 12/11 05:33 Order name: US Transvaginal Ob pf1 12/11 06:56 Order name: CT Abd/Pelvis - IV Contrast Only kdr 12/11 04:44 Order name: IV Saline Lock; Complete Time: 05:13 kdr 12/11 04:44 Order name: Labs collected and sent; Complete Time: 05:13 kdr 12/11 04:44 Order name: NPO; Complete Time: 05:13 kdr Administered Medications: No medications were administered Disposition Summary: 12/11/22 08:00 Discharge Ordered Location: Home pamela Problem: new pamela Symptoms: have improved pamela Condition: Stable pamela Diagnosis - Abdominal tenderness pamela - Constipation, unspecified pamela - Constipation pamela - Obesity, unspecified pamela - Elevated white blood cell count pamela Followup: pamela - With: Private Physician - When: 2 - 3 days - Reason: Recheck today's complaints, Re-evaluation by your physician Discharge Instructions: - Discharge Summary Sheet pamela - Abdominal Pain, Adult pamela - Constipation, Adult pamela - Obesity, Adult pamela - Constipation, Adult, [id number] pamela - Abdominal Pain, Adult, [id number] [facility] Forms: - Medication Reconciliation Form [facility] - Thank You Letter [facility] - Antibiotic Education [facility] - Prescription Opioid Use [facility] - [email or web address] [facility] Prescriptions: - Pepcid 20 mg Oral Tablet - take 1 tablet by ORAL route every 12 hours for 10 days; 20 tablet; Refills: 0, [facility] Product Selection Permitted - Zofran 4 mg Oral Tablet - take 1 tablet by ORAL route every 12 hours As needed; 20 tablet; Refills: 0, [facility] Product Selection Permitted - dicyclomine 20 mg Oral Tablet - take 1 tablet by ORAL route 4 times per day; 28 tablet; Refills: 0, Product [facility] Selection Permitted Signatures: Dispatcher [employer] Franck Tom MD MD cha Rittger, Kevin, MD MD kdr Finley, Pamala RN RN pf1 Corrections: (The following items were deleted from the chart) 06:06 04:45 OB Limited+.MARY ordered. ABADAK ALBERT
--- NOTE | 2022-12-11 08:06 | RAD REPORT ---
EXAM DESCRIPTION: CT - Abdomen Pelvis W Contrast - 12/11/2022 7:34 am CLINICAL HISTORY: ABD PAIN COMPARISON: Abdomen Pelvis W Contrast dated 04/16/2022; Abdomen Pelvis W Contrast dated ; Abdomen Pelvis W Contrast dated 06/06/2019 TECHNIQUE: Thin cut axial CT imaging of the abdomen and pelvis was performed following intravenous a dministration of 90 mL Isovue 300. Multiplanar reformats were generated and reviewed. All CT scans are performed using dose optimization technique as appropriate and may include automated exposure control or mA/KV adjustment according to patient size. FINDINGS: No suspicious findings in the lung bases. The liver, spleen, and pancreas show no suspicious findings. Gallbladder was surgically removed. No e vidence of intra or extrahepatic fluid collections. Symmetric renal function is seen with no hydronephrosis or suspicious renal mass. No dilated bowel loops or bowel wall thickening. No free air, or inflammatory stranding. Trace free p elvic fluid, nonspecific and could be physiologic. No hernia, mass or bulky lymphadenopathy. The urin santiago bladder is without significant finding. Retroverted uterus. Bulky appearance of the uterus and adnexal regions, without discrete fibroids, ma sses, or fluid collections. No suspicious bony findings. Transitional anatomy again seen at L5, with enlargement of the right tra nsverse process and pseudoarticulation. IMPRESSION: No acute intra-abdominal process. Trace free pelvic fluid, likely physiologic. Uterus is retroverted. Nonspecific somewhat bulky appear ance of the uterus and adnexal regions, without discrete fibroids, masses, or fluid collections.
--- NOTE | 2022-12-11 08:21 | RAD REPORT ---
EXAM DESCRIPTION: US - Transvaginal OB - 12/11/2022 6:05 am CLINICAL HISTORY: ABD PAIN COMPARISON: Transvaginal OB dated 11/04/2020 TECHNIQUE: Sonographic grayscale and color flow images of the pelvis were obtained through a transva ginal approach. FINDINGS: Uterus is retroverted and retroflexed. Patchy regions of hypoattenuation throughout the my ometrium particularly the posterior wall, could relate to mildly prominent venous plexus. No focal en dometrial lesions. Uterus measures 7.5 centimeter in length. Endometrium measures 9 millimeter in thickness. No evidence of an intrauterine . Right ovary measures 3.0 x 1.4 x 2.1 centimeter. Left ovary measures 4.2 x 2.9 x 1.5 centimeter. Both ovaries contain normal appearing small follicles. A somewhat dominant bilobed left ovarian cyst/foll icle measures 9 x 5 x 8 millimeter in greatest dimensions. No other suspicious adnexal lesions. Trace free fluid along the cul-de-sac. Preserved flow and normal vascular signals along the ovaries bilaterally. IMPRESSION: 1. No evidence of an intrauterine . 2. Bilateral small ovarian follicles and a 9 millimeter left ovarian cyst/follicle, with trace pelvic fluid. Findings are likely of physiologic nature. No findings to suggest an ectopic . 3. Mild congestion of the venous plexus within the myometrium.
[2022-12-11 09:03] VITALS: TEMP 98.1
[2022-12-11 09:05] VITALS: BP 108/91; O2SAT 98
== END 2022-12-11 08:46 | disposition home or self-care (01) ==
LOC: ER 04:27
DX: K59.00 Constipation, unspecified (principal); D72.829 Elevated white blood cell count, unspecified; E66.9 Obesity, unspecified; Z68.31 Body mass index [BMI] 31.0-31.9, adult; Z88.8 Allergy status to other drugs, medicaments and biological substances
CPT/HCPCS: 85025; 81001; 80048; 36415; 86900; 81025; 86901; 84702; 74177; 76817; 99284; Q9967

== ENCOUNTER 2024-10-10 19:30 | Emergency (ER) | payer OTHER ==
--- OUTSIDE RECORDS SUMMARY | 2024-10-10 19:39 | XMS REPORT | Continuity of Care Document ---
Author Name Unknown Address [address] [place] [address] [facility] [place] Address [address] [place] [address] Care Team Providers Care Social Science Research Assistant Name Role Phone PCP, PATIENT DOES NOT HAVE A Primary Care Physic veronica Unavailable MELBA KEY Attending Clinician Unavailable MARIA ESTHER HAMM Attending Clinician Unavailable MARIA ESTHER HAMM Attending Clinician Unavailable URSULA MCINTOSH Attending Clinician UnavailURSULA Cisneros Attending Clinician UnavailSHANNON Lynn Attending Clinician Unavailable Maria Esther Hamm MD Attending Clinician [phone] Ursula Mcintosh MD Attending Clinician [phone] [facility], [facility] Attending Clinician Unavailable Doctor Unassigned, [place] Attending Clinician U navailable JACQUELINE RANDHAWA Attending Clinician Unavailable Jacqueline Randhawa OD Attending Clinician [phone] TEE FELDER Attending Clinician Unavailable Mj ZUNIGA, Jonathan Loyd Attending Clinician Unavaila sohan Nurse, [facility] Attending Clinician Unavailable Nurse, [facility] Attending Clinician Un available Jazmine Carbajal MD Attending Clinician +- [phone] Pablo Wadsworth MD Attending Clinician + [phone] Tino CARDENAS, Meron Attending Clinician [phone] Tee Felder DNP Attending Clinician [phone], [facility] Attending Clinician Unavailable CHATO MELBA Lashawn Attending Clinician Unavailable Shiv ZUNIGA, Joselin Edwards Attending Clinician Unavailab beau Carbajal MD, Jazmine Attending Clinician [phone] JAZMINE CARBAJAL Attending Clinician Braxton Wells RN Attending Clinician Unavailable Akinsijuan WHCNP, Kiara C Attending Clinician + FIDELIA RIVERA Attending Clinician Unavailtamika cano Ultrasound, Ang-m Attending Clinician UnavailFidelia Jean Baptiste MD Attending Clinician [phone] Doctor Unassigned, [place] Attending Clinician U navailable Pob, [facility] Main Attending Clinician UnavailOnur Reyes MD Attending Clinician + [phone] ONUR WILBURN Attending Clinician Unavailable ONUR WILBURN Attending Clinician Unavailable AKINSIJUAN, KIARA C Attending Clinician Unavail able Lilli Avilez Attending Clinician [phone] Woodrow ZUNIGA, Mallory Attending Clinician UnavailSHAREE Holt Attending Clinician Unavailable SHAREE PATRICK Attending Clinician Unavailable Phi CARDENAS, Sharee Attending Clinician [phone] G_Pappas Attending Clinician Unavailable VICENTE MUELLER Attending Clinician Unavailable Vicente Mueller MD Attending Clinician [phone] Elsi Roy RN Attending Clinician Unavailab Ly Ocampo Attending Clinician [phone] 1, [facility] Attending Clinician Unavailab Korin Gibbs CNM Attending Clinician [phone] KORIN ARCE Attending Clinician Unavaila LAURE Chamberlain Attending Clinician Unavailable Laure Paniagua PA-C Attending Clinician [phone] Nurse, [facility] Attending Clinician Un available Rodrigo Sheriff CRNA Attending Clinician + [phone] Matilda Flaherty MD, Leonard Attending Clinician + [phone] Room, [facility] Attending Clinician Unavailable FRANCHESCA WILEY Attending Clinician Unav ailable Ultrasound, [facility] Attending Clinician Unavailargentina Wiley MD, Franchesca Rios Attending Clinician + Conor Stevens MD, Villalobos Attending Clinician + Carlos Enrique Marin MD Attending Clinician [phone] CARLOS ENRIQUE MARIN Attending Clinician Unavailable Yaquelin ZUNIGA, Jeane Loyd Attending Clinician Unavailab le Only, Ang Db Test Attending Clinician UnavailAriadne Jones Attending Clinician + [phone] ARIADNE FOSTER Attending Clinician Unavailab beau BLAKE-BAUTISTA, JAZMINE Admitting Clinician MARIA ESTHER Bo Admitting Clinician Unavailable MELBA KEY Admitting Clinician Unavailable MARIA ESTHER HAMM Admitting Clinician Unavailable Maria Esther Hamm MD Admitting Clinician [phone] MELBA KEY Admitting Clinician Unavailable TEE FELDER Admitting Clinician Unavailable Mary Admitting Clinician Unavailable Payers Payer Name Policy Type Policy Number Effective Date Expirati on Date Source [facility] [id number] 2023 00:00:00 [facility] (MEDICAID O) [id number] [place] [id number] 2023 00:00:00 Problems Condition Name Condition Details Condition Category Status Onset Date Resolution Date Last Treatment Date Treating Clinician Comments Source Encounter for control pills maintenanc e Encounter for control pills maintenanc e Disease Active 09-30 00:00: 00 [facility] Hypotensio n, unspecifie d hypotensio n type Hypotensio n, unspecifie d hypotensio n type Disease Active 1-27 00:00: 00 [facility] Sciatic pain, right Sciatic pain, right Disease Active 7- 00:00: 00 [facility] Anxiety and depression Anxiety and depression Disease Active 7-05 00:00: 00 [facility] History of diet controlled gestationa l diabetes mellitus (GDM) History of diet controlled gestationa l diabetes mellitus (GDM) Disease Active 1-03 00:00: 00 Overview: Formattin g of this note might be different from the original. With last [facility] Pectus excavatum Pectus excavatum Disease Active 1-03 00:00: 00 Overview: Formattin g of this note might be different from the original. FOB with condition [facility] Morbid obesity Morbid obesity Disease Active 2022-06 2-05 00:00: 00 [facility] 36 weeks gestation of 36 weeks gestation of Disease Active 8-24 00:00: 00 [facility] 38 weeks gestation of 38 weeks gestation of Disease Active 8-24 00:00: 00 [facility] Labial lesion Labial lesion Disease Resolve d 0 8-14 00:00: 00 2024-02-12 00:00:00 2024-02-12 13:43:51 [facility] Anemia, antepartum , third trimester Anemia, antepartum , third trimester Disease Resolve d 8-06 00:00: 00 2024-02-12 00:00:00 2024-02-12 13:24:05 [facility] Pain of round ligament during Pain of round ligament during Disease Resolve d 0 6-12 00:00: 00 2024-02-12 00:00:00 2024-02-12 13:24:05 [facility] Multiparit y Multiparit y Disease Resolve d 0 1-03 00:00: 00 2024-02-12 00:00:00 2024-02-12 13:43:56 [facility] Supervisio n of high-risk Supervisio n of high-risk Disease Resolve d 0 1-03 00:00: 00 2024-02-12 00:00:00 2024-02-12 13:43:56 [facility] Obesity in Obesity in Disease Resolve d 1-03 00:00: 00 2024-02-12 00:00:00 2024-02-12 13:43:58 [facility] Liveborn , of helm , born in hospital by vaginal delivery Liveborn , of helm , born in hospital by vaginal delivery Disease Resolve d 2020-06 2-24 00:00: 00 2024-02-12 00:00:00 2024-02-12 13:43:53 [facility] Decreased movements in third trimester Decreased movements in third trimester Disease Resolve d 2020-06 2-23 00:00: 00 2024-02-12 00:00:00 2024-02-12 13:43:52 [facility] 37 weeks gestation of 37 weeks gestation of Disease Resolve d 8-24 00:00: 00 2024-02-12 00:00:00 2024-02-12 13:24:05 [facility] Infertilit y counseling Infertilit y counseling Disease Resolve d 2022-06 2-05 00:00: 00 2023-12-08 00:00:00 2023-12-08 09:24:51 [facility] 30 weeks gestation of 30 weeks gestation of Disease Resolve d 8-24 00:00: 00 2023-12-08 00:00:00 2023-12-08 09:24:47 [facility] Obesity (BMI 30-39.9) Obesity (BMI 30-39.9) Disease Resolve d 2019-06 0-21 00:00: 00 2023-05-09 00:00:00 2023-05-09 09:45:54 [facility] Encounter for induction of labor Encounter for induction of labor Disease Resolve d 2020-06 2-23 00:00: 00 2021-06-22 00:00:00 2021-06-22 16:09:08 [facility] Gestationa l diabetes mellitus (GDM) in third trimester controlled on oral hypoglycem ic drug Gestationa l diabetes mellitus (GDM) in third trimester controlled on oral hypoglycem ic drug Disease Resolve d 2020-06 1-10 00:00: 00 2021-06-22 00:00:00 2021-06-22 15:28:57 [facility] Supervisio n of high-risk with insufficie nt care in third trimester Supervisio n of high-risk with insufficie nt care in third trimester Disease Resolve d 01-26 00:00: 00 2021-06-22 00:00:00 2021-06-22 15:28:57 [facility] Allergies, Adverse Reactions, Alerts Allergy Name Allergy Type Status Severity Reaction(s) Onset Date Inactive Date Treating Clinician Comments Source Nortript yline Propensi ty to adverse reaction s Active Hives 01-26 00:00: 00 [facility] NORTRIPT YLINE DRUG INGREDI Active Hives 01-26 00:00: 00 [facility] Social History Social Habit Start Date Stop Date Quantity Comments Source ASSERTION 2023-05-03 00:00:00 Not [facility] SD[facility] Alcohol Comment [facility] Alcoholic beverage intake 2024-09-30 00:00:00 2024-09-30 00:00:00 Ex-drinker (finding) [facility] History of Social function 2024-07-24 00:00:00 2024-07-24 00:00:00 [facility] Education 2024-01-08 00:00:00 2024-01-08 00:00:00 21 [facility] Tobacco use and exposure 2023-11-10 00:00:00 2023-11-10 00:00:00 Former smokeless tobacco user [facility] Alcohol intake 2023-09-25 00:00:00 2023-09-25 00:00:00 Ex-drinker (finding) [facility] Exposure to SARS-CoV-2 (event) 2022-02-18 00:00:00 2022-02-28 10:15:00 Not sure [facility] History SDOH Alcohol Frequency 2020-03-25 00:00:00 2020-03-25 00:00:00 4 [facility] History SDOH Alcohol Std Drinks 2020-03-25 00:00:00 2020-03-25 00:00:00 99 [facility] History SDOH Alcohol Binge 2020-03-25 00:00:00 2020-03-25 00:00:00 99 [facility] History of tobacco use 2020-01-27 00:00:00 Chews Tobacco [facility] Sex assigned at 2000 00:00:00 2000 00:00:00 [facility] Smoking Status Start Date Stop Date Source Ex-smoker 2023-11-10 00:00:00 2023-11-10 [facility] Ordered Medication Name Filled Medication Name Start Date Stop Date Current Medication? Ordering Clinician Indication Dosage Frequency Signature (SIG) Comments Components Source gadobenate dimeglumine (MULTIHANCE -20 mL) injection 20 mL 09-05 21:45: 00 09-05 21:49 :00 No [id number] 20mL 20 mL, Intravenou s, ONCE, 1 dose, On Mon09/05/24 at 1645, Routine [facility] atogepant (QULIPTA) 60 mg Tab tablet 07-01 14:53: 05 07-24 00:00 :00 No 60mg Take 1 tablet by mouth in the morning. [facility] norethindro ne-e.estrad ioL-iron (LOESTRIN FE 06/24) 1 mg-20 mcg (21)/75 mg (7) tablet 07-01 00:00: 00 Yes [id number] 1{tbl} Take 1 tablet by mouth in the morning. [facility] diclofenac 75 mg EC tablet 2023-06 00:00: 00 09-30 00:00 :00 No 75mg Take 1 tablet by mouth in the morning and 1 tablet in the evening. [facility] medroxyPROG ESTERone (DEPO-PROVE RA) syringe 150 mg 2023-06 20:15: 00 04-11 19:38 :00 No [id number] 150mg 150 mg, Intramuscu lar, ONCE, 1 dose, On Abby 04/11/24 at 1415, Routine [facility] medroxyPROG ESTERone 150 mg/mL syringe 2023-06 13:32: 28 07-01 00:00 :00 No 150mg 1 mL by Intramuscu lar route every 3 (three) months. [facility] SERTraline (ZOLOFT) 50 mg tablet 01-16 00:00: 00 07-01 00:00 :00 No [id number] 50mg Take 1 tablet by mouth in the morning. [facility] [id number] fum-folic () tablet 1 tablet 01-09 14:00: 00 Yes 1{tbl} 1 tablet, Oral, DAILY, First dose on Mon01/10/24 at 0900, Until Discontinu ed, Routine [facility] ferrous sulfate tablet 325 mg 01-09 13:00: 00 Yes 325mg 325 mg, Oral, BID, First dose on Mon01/10/24 at 0800, Until Discontinu ed, Routine [facility] medroxyPROG ESTERone (DEPO-PROVE RA) injection 150 mg 01-09 12:30: 00 01-09 15:31 :00 No 150mg 150 mg, Intramuscu lar, ONCE, 1 dose, On Mon01/10/24 at 0730, Routine [facility] vitamin w/FA tablet 01-09 00:00: 00 Yes [id number] 102 1{tbl} Take 1 tablet by mouth in the morning. [facility] docusate 100 mg capsule 01-09 00:00: 00 07-01 00:00 :00 No [id number] 102 200mg Take 2 capsules by mouth once daily as needed for Constipati on. [facility] ferrous sulfate 325 mg (65 mg iron) tablet 01-09 00:00: 00 07-01 00:00 :00 No [id number] 102 325mg Take 1 tablet by mouth in the morning. [facility] ibuprofen 800 mg tablet 01-09 00:00: 00 07-01 00:00 :00 No [id number] 102 800mg Take 1 tablet by mouth every 8 (eight) hours as needed (pain). Take with food or milk. [facility] lactated ringers IV infusion 1,000 mL 01-08 14:15: 00 01-08 14:15 :00 No 1000mL at 125 mL/hr, 1,000 mL, IV Infusion, ONCE, 1 dose, On Mon01/09/24 at 0915, KYRIE [facility] rho(D) immune globulin (RHOPHYLAC) injection 300 mcg 01-08 14:11: 20 Yes 300ug 300 mcg, Intramuscu lar, ONCE, For 1 dose, Conditiona l, Routine [facility] witch Nolan (TUCKS) 50 % topical pad 01-08 14:11: 00 Yes Topical, Q4HPRN, Starting on Mon01/09/24 at 0911, Until Discontinu ed, Routine, rectal/hem orrhoidal pain [facility] HYDROcodone -acetaminop hen (NORCO 5) tablet 1 tablet 01-08 14:10: 32 Yes 1{tbl} 1 tablet, Oral, Q6HPRN, Starting on Mon01/09/24 at 0910, Until Discontinu ed, Routine, Pain (scale 7-10) [facility] ibuprofen (IBU) tablet 600 mg 01-08 14:10: 32 Yes 600mg 600 mg, Oral, Q6HPRN, Starting on Mon01/09/24 at 0910, Until Discontinu ed, Routine, Pain (scale 4-6) [facility] acetaminoph en (TYLENOL) tablet 650 mg 01-08 14:10: 32 Yes 650mg 650 mg, Oral, Q6HPRN, Starting on Mon01/09/24 at 0910, Until Discontinu ed, Routine, Pain (scale 1-3) [facility] diphenhydrA MINE (BENADRYL) tablet 25 mg 01-08 14:10: 32 Yes 25mg 25 mg, Oral, Q6HPRN, Starting on Mon01/09/24 at 0910, Until Discontinu ed, Routine, Sleep, Itching [facility] ondansetron (ZOFRAN (PF)) injection 4 mg 01-08 14:10: 32 Yes 4mg 4 mg, Slow IV Push, Q8HPRN, Starting on Mon01/09/24 at 0910, Until Discontinu ed, Routine, Nausea and Vomiting (N/V) [facility] simethicone (GAS RELIEF (SIMETHICON E)) chewable tablet 160 mg 01-08 14:10: 32 Yes 160mg 160 mg, Oral, PC+HSPRN, Starting on Mon01/09/24 at 0910, Until Discontinu ed, Routine, Gas [facility] docusate (COLACE) capsule 200 mg 01-08 14:10: 32 Yes 200mg 200 mg, Oral, QDAILYPRN, Starting on Mon01/09/24 at 0910, Until Discontinu ed, Routine, Constipati on [facility] magnesium hydroxide (MILK OF MAGNESIA) 400 mg/5 mL suspension 30 mL 01-08 14:10: 32 Yes 30mL 30 mL, Oral, QDAILYPRN, Starting on Mon01/09/24 at 0910, Until Discontinu ed, Routine, Constipati on [facility] oxytocin (PITOCIN) 30 units in NS 500 mL IV infusion 01-08 14:10: 32 Yes 300mL/h 300 mL/hr, IV Infusion, SEE-INSTRU CTIONS, Starting on Mon01/09/24 at 0910, Start at 300 mL/hr for 1 hr then 150 mL/hr for 1 hr. For post delivery uterotonic . [facility] benzocaine- menthol (DERMOPLAST ) 20-0.5 % topical spray 01-08 14:10: 32 Yes Topical, PRN, Starting on Mon01/09/24 at 0910, Until Discontinu ed, Routine, Perineum discomfort [facility] oxytocin (PITOCIN) 30 units in NS 500 mL IV infusion 01-08 14:10: 02 Yes 300mL/h 300 mL/hr, IV Infusion, SEE-INSTRU CTIONS, Starting on Mon01/09/24 at 0910, Start at 300 mL/hr for 1 hr then 150 mL/hr for 1 hr. For post delivery uterotonic . [facility] diphenhydrA MINE (BENADRYL) injection 50 mg 01-08 12:20: 00 01-08 12:34 :00 No 50mg 50 mg, Intravenou s, ONCE, 1 dose, On Mon01/09/24 at 0730, Routine [facility] fentaNYL-ro pivacaine 2 mcg/mL-0.1 % (PF) in NS 200 mL epidural infusion RTU 01-08 08:08: 00 01-08 16:39 :08 No Intra-op [facility] miSOPROStol (CYTOTEC) quarter-tab let 25 mcg 01-08 02:00: 00 01-08 14:18 :37 No 25ug 25 mcg, Oral, Q2H, First dose on Mon01/08/24 at 2100, Until Discontinu ed, Routine [facility] proMETHazin e (PHENERGAN) 25 mg in NS 50 mL IV piggyback (CNR) 01-08 01:48: 35 Yes 25mg 25 mg, IV Piggyback, at 200 mL/hr Administer over 15 Minutes, Q4HPRN, Starting on Mon01/08/24 at 2047, Until Discontinu ed, Routine, Nausea and Vomiting (N/V) [facility] FENTanyl PF (SUBLIMAZE (PF)) injection 100 mcg 01-08 01:48: 01 01-08 14:18 :37 No 100ug 100 mcg, Slow IV Push, Q1HPRN, Starting on Mon01/08/24 at 2047, Until Mon01/09/24 at 0918, Routine, Pain (scale 7-10) [facility] carboprost (HEMABATE) injection 250 mcg 01-08 01:37: 52 Yes 250ug 250 mcg, Intramuscu lar, Q2HPRN, 8 doses, Starting on Mon01/08/24 at 2036, Until Discontinu ed, Routine, PPH [facility] D5W-LR IV infusion 1,000 mL 01-08 01:37: 52 Yes 1000mL at 1-125 mL/hr, IV Infusion, TITRATE, Starting on Mon01/08/24 at 2036, Until Discontinu ed, Routine [facility] oxytocin (PITOCIN) 30 units in NS 500 mL IV infusion 01-08 01:37: 52 01-08 13:25 :00 No 600mL/h 600 mL/hr, IV Infusion, PRN, PPH, Starting on Mon01/08/24 at 2036, For 1 dose, As instructed by physician at bedside. [facility] lactated ringers IV infusion 500 mL 01-08 01:37: 52 01-08 14:18 :37 No 500mL at 999 mL/hr, 500 mL, IV Infusion, PRN - SEE INSTRUCTIO NS, Starting on Mon01/08/24 at 2036, Until Tu01/09/24 at 0918, Routine [facility] SERTraline (ZOLOFT) 50 mg tablet 01-01 00:00: 00 01-16 00:00 :00 No [id number] 50mg Take 1 tablet by mouth in the morning. [facility] NaCl 0.9% (NS) bolus infusion 2,000 mL 12-27 20:15: 00 12-27 22:45 :00 No 2000mL at 999 mL/hr, 2,000 mL, IV Infusion, ONCE, 1 dose, On Abby 12/28/23 at 1515, Routine [facility] busPIRone 10 mg tablet 12-25 00:00: 00 07-01 00:00 :00 No [id number] 10mg Take 1 tablet by mouth in the morning and 1 tablet in the evening. [facility] clindamycin 300 mg capsule 12-25 00:00: 00 01-02 04:59 :00 No [id number] 300mg Take 1 capsule by mouth in the morning and 1 capsule in the evening. Do all this for 7 days. [facility] metroNIDAZO LE (FLAGYL) tablet 500 mg 12-22 05:30: 00 12-22 04:41 :00 No 500mg 500 mg, Oral, ONCE, 1 dose, On 12/23/23 at 0030, Routine, Reason for Anti-Infec tive: Documented Infection, Documented Infection Site: Other, Other site: vaginal, Duration of Therapy: Other (see Comments) [facility] NaCl 0.9% (NS) IV infusion 1,000 mL 12-22 05:15: 00 12-22 05:34 :00 No 1000mL at 999 mL/hr, IV Infusion, ONCE, 1 dose, On 12/23/23 at 0015, Routine [facility] metroNIDAZO LE 500 mg tablet 12-22 00:00: 00 01-09 00:00 :00 No [id number] 500mg Take 1 tablet by mouth every 12 (twelve) hours. [facility] ferrous sulfate (IRON, FERROUS SULFATE,) 325 mg (65 mg iron) tablet 12-19 00:00: 00 01-09 00:00 :00 No [id number] 325mg Take 1 tablet by mouth in the morning. [facility] NaCl 0.9% (NS) IV infusion 1,000 mL 12-17 20:00: 00 12-17 19:17 :00 No 1000mL at 999 mL/hr, IV Infusion, ONCE, 1 dose, On Mon12/18/23 at 1500, Routine [facility] NaCl 0.9% (NS) IV infusion 1,000 mL 12-17 19:00: 00 12-17 18:16 :00 No 1000mL at 125 mL/hr, IV Infusion, CONTINUOUS , Starting on Mon12/18/23 at 1400, Until Discontinu ed, Routine [facility] NaCl 0.9% (NS) IV infusion 1,000 mL 12-10 22:45: 00 12-10 22:23 :44 No 1000mL at 999 mL/hr, IV Infusion, ONCE, 1 dose, On Mon12/11/23 at 1745, Routine [facility] PNV no.95/sheridan us fum/folic ac ( ORAL) 6-13 00:02: 29 01-09 00:00 :00 No Take by mouth. [facility] PNV no.95/sheridan us fum/folic ac ( ORAL) 09-24 09:52: 59 Yes Take by mouth. [facility] famotidine 20 mg tablet 09-19 00:00: 00 01-09 00:00 :00 No [id number] 20mg Take 1 tablet by mouth in the morning and 1 tablet in the evening. [facility] metroNIDAZO LE (FLAGYL) 500 mg tablet 09-19 00:00: 00 09-24 00:00 :00 No [id number] 500mg Take 1 tablet by mouth every 12 (twelve) hours. [facility] famotidine (PEPCID AC) tablet 20 mg 09-18 19:49: 00 Yes 20mg 20 mg, Oral, BID, First dose (after last modificati on) on Mon09/19/23 at 1500, Until Discontinu ed, KYRIE [facility] metroNIDAZO LE (FLAGYL) tablet 500 mg 09-18 19:30: 00 09-18 18:48 :00 No 500mg 500 mg, Oral, ONCE, 1 dose, On Mon09/19/23 at 1430, Routine
Reason for Anti-Infec tive: Empiric Non-Surgic al Prophylaxi s
Durat ion of therapy: Once (ED) [facility] PNV no.95/sheridan us fum/folic ac ( ORAL) 09-18 18:35: 03 Yes 15mL Take by mouth. [facility] NaCl 0.9% (NS) bolus infusion 1,000 mL - 22:00: 00 08-22 22:55 :00 No 1000mL at 999 mL/hr, 1,000 mL, IV Infusion, ONCE, 1 dose, On Mon08/23/23 at 1700, KYRIE [facility] PNV 67-iron ps-folate no.1-dha (VITAFOL ULTRA) 29 mg iron- 1 mg-200 mg Cap - 00:00: 00 07-23 05:59 :00 No 1{capsu le} Take 1 capsule by mouth in the morning for 30 days. [facility] lar36-hhcc- folic acid 29 mg iron- 1 mg per tablet - 00:00: 00 06-22 00:00 :00 No [id number] 1{tbl} Take 1 tablet by mouth in the morning. [facility] medroxyPROG ESTERone (DEPO-PROVE RA) syringe 150 mg - 16:45: 00 02-28 15:47 :00 No [id number] 150mg [facility] medroxyPROG ESTERone (DEPO-PROVE RA) syringe 150 mg 7-05 21:00: 00 12-07 19:49 :00 No [id number] 150mg [facility] medroxyPROG ESTERone (DEPO-PROVE RA) syringe 150 mg 4-12 21:00: 00 09-14 19:51 :00 No [id number] 150mg [facility] sulfamethox azole-trime thoprim 800-160 mg per tablet 1- 00:00: 00 08-12 00:00 :00 No [id number] 1{tbl} Take 1 tablet by mouth 2 (two) times daily. [facility] medroxyPROG ESTERone (DEPO-PROVE RA) syringe 150 mg 1- 00:00: 00 06-22 22:40 :00 No [id number] 150mg [facility] vit calc,iron,f olic ( VITAMIN ORAL) 2020-06 2-25 08:36: 38 05-29 00:00 :00 No Take by mouth. [facility] vitamin w/FA tablet 2020-06 00:00: 00 Yes [id number] 102 1{tbl} Take 1 tablet by mouth daily. [facility] vitamin w/FA tablet 2020-06 00:00: 00 05-09 00:00 :00 No [id number] 102 1{tbl} Take 1 tablet by mouth daily. [facility] docusate calcium 240 mg capsule 2020-06 00:00: 00 07-13 00:00 :00 No [id number] 102 240mg Take 1 capsule by mouth once daily as needed for Constipati on. [facility] ferrous sulfate 325 mg (65 mg iron) tablet 2020-06 00:00: 00 07-13 00:00 :00 No [id number] 102 325mg Take 1 tablet by mouth 2 (two) times daily. [facility] ibuprofen 600 mg tablet 2020-06 00:00: 00 07-13 00:00 :00 No [id number] 102 600mg Take 1 tablet by mouth every 6 (six) hours as needed (Pain). Take with food or milk. [facility] HYDROcodone -acetaminop hen (NORCO 5) 5-325 mg tablet 1 tablet 2020-06 09:53: 45 Yes 1{tbl} 1 tablet, Oral, Q6HPRN, Starting on Mon05/28/21 at 0353, Until Discontinu ed, Routine, Pain (scale 7-10) [facility] ibuprofen (IBU) tablet 600 mg 2020-06 09:53: 45 Yes 600mg 600 mg, Oral, Q6HPRN, Starting on Mon05/28/21 at 0353, Until Discontinu ed, Routine, Pain (scale 4-6) [facility] acetaminoph en (TYLENOL) tablet 650 mg 2020-06 09:53: 45 Yes 650mg 650 mg, Oral, Q6HPRN, Starting on Mon05/28/21 at 0353, Until Discontinu ed, Routine, Pain (scale 1-3) [facility] diphenhydrA MINE (BENADRYL) tablet 25 mg 2020-06 09:53: 45 Yes 25mg 25 mg, Oral, Q6HPRN, Starting on Mon05/28/21 at 0353, Until Discontinu ed, Routine, Sleep, Itching [facility] ondansetron (ZOFRAN (PF)) injection 4 mg 2020-06 09:53: 45 Yes 4mg 4 mg, Slow IV Push, Q8HPRN, Starting on Mon05/28/21 at 0353, Until Discontinu ed, Routine, Nausea and Vomiting (N/V) [facility] simethicone (GAS RELIEF (SIMETHICON E)) chewable tablet 160 mg 2020-06 09:53: 45 Yes 160mg 160 mg, Oral, PC+HSPRN, Starting on Mon05/28/21 at 035, Until Discontinu ed, Routine, Gas [facility] magnesium hydroxide (MILK OF MAGNESIA) 400 mg/5 mL suspension 30 mL 2020-06 09:53: 45 Yes 30mL 30 mL, Oral, QDAILYPRN, Starting on Mon05/28/21 at 0353, Until Discontinu ed, Routine, Constipati on [facility] benzocaine- menthol (DERMOPLAST ) 20-0.5 % topical spray 2020-06 09:53: 44 Yes Topical, PRN, Starting on Mon05/28/21 at 0353, Until Discontinu ed, Routine, Perineum discomfort [facility] FENTanyl 2 mcg/mL + bupivacaine 0.125% in NS 250 mL epidural bag 2020-06 05:44: 00 05-28 11:28 :29 No Intra-op [facility] lidocaine-e pinephrine (XYLOCAINE W/EPINEPHRI NE) 1.5 %-1:200,000 injection 2020-06 05:35: 00 05-28 11:28 :29 No Epidural, ONCE INTRA PROCEDURE, Starting on Abby 05/27/21 at 2335, Until Mon05/28/21 at 0528, Routine, Intra-op [facility] lidocaine 1% (XYLOCAINE) 100 mg/10 mL (1 %) injection 2020-06 05:29: 00 05-28 11:28 :29 No Infiltrati on, ONCE INTRA PROCEDURE, Starting on Abby 05/27/21 at 2329, Until Mon05/28/21 at 0528, Routine, Intra-op [facility] lactated ringers IV infusion 1,000 mL 2020-06 22:15: 00 05-28 09:55 :04 No 1000mL at 125 mL/hr, 1,000 mL, IV Infusion, CONTINUOUS , Starting on Mon05/27/21 at 1615, Until Mon05/28/21 at 0355, Routine [facility] FENTanyl PF (SUBLIMAZE (PF)) injection 100 mcg 2020-06 22:03: 28 05-28 09:55 :04 No 100ug 100 mcg, Slow IV Push, Q1HPRN, Starting on Mon05/27/21 at 1603, Until Mon05/28/21 at 0355, Routine, Pain [facility] lactated ringers IV infusion 500 mL 2020-06 22:03: 28 05-28 09:55 :04 No 500mL at 999 mL/hr, 500 mL, IV Infusion, PRN - SEE INSTRUCTIO NS, Starting on Mon05/27/21 at 1603, Until Mon05/28/21 at 0355, Routine [facility] LR 1000 mL + oxytocin 20 units IV Solution 2020-06 22:03: 28 05-28 09:55 :04 No 2mU/min at 6-120 mL/hr, IV Infusion, TITRATE, Starting on Mon05/27/21 at 1603, Until Mon05/28/21 at 0355, Routine [facility] vit calc,iron,f olic ( VITAMIN ORAL) 2020-06 14:46: 18 Yes Take by mouth. [facility] glyBURIDE 1.25 mg tablet 2020-06 00:00: 00 05-29 00:00 :00 No [id number] 1.25mg Take 1 tablet by mouth with evening meal. Take 30 mins before dinner [facility] metroNIDAZO LE 500 mg tablet 2020-06 00:00: 00 05-11 00:00 :00 No [id number] 500mg Take 1 tablet by mouth every 12 (twelve) hours. [facility] Lancets Misc 2020-06 00:00: 00 05-29 00:00 :00 No [id number] Check blood sugar 4 times daily. [facility] Blood-Gluco se Meter (BLOOD GLUCOSE MONITORING) Kit 2020-06 00:00: 00 05-29 00:00 :00 No [id number] Use as directed [facility] blood sugar diagnostic strip 2020-06 00:00: 00 05-29 00:00 :00 No [id number] Check blood sugar 4 times daily. [facility] Alcohol Swabs (ALCOHOL PREP PADS) PadM 2020-06 00:00: 00 05-29 00:00 :00 No [id number] Apply to area(s) 4 (four) times daily. [facility] vit calc,iron,f olic ( VITAMIN ORAL) 2020-06 029 11:30: 01 Yes Take by mouth. [facility] Immunizations Ordered Immunization Name Filled Immunization Name Date Status Comments Source TD 2024-01-17 10:15:00 Completed [facility] Influenza Virus Vaccine Quad IM, Preserv and ABX Free 6 MO-64 YRS (FLUCELVAX) 2024-01-17 00:00:00 Completed [facility] TDAP 2023-11-27 00:00:00 Completed [facility] TDAP 2023-11-21 15:45:00 Completed [facility] Influenza Virus Vaccine Quad IM, Preserv and ABX Free 6 MO-64 YRS (FLUCELVAX) 2023-11-21 15:45:00 Completed [facility] TDAP 2023-11-16 00:00:00 Completed [facility] Influenza Virus Vaccine Quad IM, Preserv and ABX Free 6 MO-64 YRS (FLUCELVAX) 2023-11-16 00:00:00 Completed [facility] TDAP 2023-11-15 20:48:00 Completed [facility] Influenza Virus Vaccine Quad IM, Preserv and ABX Free 6 MO-64 YRS (FLUCELVAX) 2023-11-15 20:48:00 Completed [facility] TDAP 2023-11-10 11:30:00 Completed [facility] Influenza Virus Vaccine Quad IM, Preserv and ABX Free 6 MO-64 YRS (FLUCELVAX) 2023-11-10 11:30:00 Completed [facility] TDAP 2023-10-23 00:00:00 Completed [facility] Influenza Virus Vaccine Quad IM, Preserv and ABX Free 6 MO-64 YRS (FLUCELVAX) 2023-10-23 00:00:00 Completed [facility] TDAP 2023-10-20 00:00:00 Completed [facility] Influenza Virus Vaccine Quad IM, Preserv and ABX Free 6 MO-64 YRS (FLUCELVAX) 2023-10-20 00:00:00 Completed [facility] TDAP 2023-10-17 00:00:00 Completed [facility] Influenza Virus Vaccine Quad IM, Preserv and ABX Free 6 MO-64 YRS (FLUCELVAX) 2023-10-17 00:00:00 Completed [facility] TDAP 2023-10-16 00:00:00 Completed [facility] Influenza Virus Vaccine Quad IM, Preserv and ABX Free 6 MO-64 YRS (FLUCELVAX) 2023-10-16 00:00:00 Completed [facility] TDAP 2023-10-16 00:00:00 Completed [facility] Influenza Virus Vaccine Quad IM, Preserv and ABX Free 6 MO-64 YRS (FLUCELVAX) 2023-10-16 00:00:00 Completed [facility] TDAP 2023-10-13 15:00:00 Completed [facility] Influenza Virus Vaccine Quad IM, Preserv and ABX Free 6 MO-64 YRS (FLUCELVAX) 2023-10-13 15:00:00 Completed [facility] TDAP 2023-10-12 13:00:00 Completed [facility] Influenza Virus Vaccine Quad IM, Preserv and ABX Free 6 MO-64 YRS (FLUCELVAX) 2023-10-12 13:00:00 Completed [facility] TDAP 2023-10-12 11:15:00 Completed [facility] Influenza Virus Vaccine Quad IM, Preserv and ABX Free 6 MO-64 YRS (FLUCELVAX) 2023-10-12 11:15:00 Completed [facility] TDAP 2023-10-02 00:00:00 Completed [facility] Influenza Virus Vaccine Quad IM, Preserv and ABX Free 6 MO-64 YRS (FLUCELVAX) 2023-10-02 00:00:00 Completed [facility] TDAP 2023-09-28 00:00:00 Completed [facility] Influenza Virus Vaccine Quad IM, Preserv and ABX Free 6 MO-64 YRS (FLUCELVAX) 2023-09-28 00:00:00 Completed [facility] TDAP 2023-09-25 10:00:00 Completed [facility] Influenza Virus Vaccine Quad IM, Preserv and ABX Free 6 MO-64 YRS (FLUCELVAX) 2023-09-25 10:00:00 Completed [facility] TDAP 2023-09-19 09:31:00 Completed [facility] Influenza Virus Vaccine Quad IM, Preserv and ABX Free 6 MO-64 YRS (FLUCELVAX) 2023-09-19 09:31:00 Completed [facility] TDAP 2023-09-19 00:00:00 Completed [facility] Influenza Virus Vaccine Quad IM, Preserv and ABX Free 6 MO-64 YRS (FLUCELVAX) 2023-09-19 00:00:00 Completed [facility] TDAP 2023-09-19 00:00:00 Completed [facility] Influenza Virus Vaccine Quad IM, Preserv and ABX Free 6 MO-64 YRS (FLUCELVAX) 2023-09-19 00:00:00 Completed [facility] TDAP 2023-09-13 12:45:00 Completed [facility] Influenza Virus Vaccine Quad IM, Preserv and ABX Free 6 MO-64 YRS (FLUCELVAX) 2023-09-13 12:45:00 Completed [facility] TDAP 2023-09-08 00:00:00 Completed [facility] Influenza Virus Vaccine Quad IM, Preserv and ABX Free 6 MO-64 YRS (FLUCELVAX) 2023-09-08 00:00:00 Completed [facility] TDAP 2023-09-07 08:00:00 Completed [facility] Influenza Virus Vaccine Quad IM, Preserv and ABX Free 6 MO-64 YRS (FLUCELVAX) 2023-09-07 08:00:00 Completed [facility] TDAP 2023-08-23 15:04:00 Completed [facility] Influenza Virus Vaccine Quad IM, Preserv and ABX Free 6 MO-64 YRS (FLUCELVAX) 2023-08-23 15:04:00 Completed [facility] TDAP 2023-08-23 00:00:00 Completed [facility] Influenza Virus Vaccine Quad IM, Preserv and ABX Free 6 MO-64 YRS (FLUCELVAX) 2023-08-23 00:00:00 Completed [facility] TDAP 2023-08-23 00:00:00 Completed [facility] Influenza Virus Vaccine Quad IM, Preserv and ABX Free 6 MO-64 YRS (FLUCELVAX) 2023-08-23 00:00:00 Completed [facility] TDAP 2023-08-16 15:45:00 Completed [facility] Influenza Virus Vaccine Quad IM, Preserv and ABX Free 6 MO-64 YRS (FLUCELVAX) 2023-08-16 15:45:00 Completed [facility] TDAP 2023-08-16 00:00:00 Completed [facility] Influenza Virus Vaccine Quad IM, Preserv and ABX Free 6 MO-64 YRS (FLUCELVAX) 2023-08-16 00:00:00 Completed [facility] TDAP 2023-08-02 09:30:00 Completed [facility] Influenza Virus Vaccine Quad IM, Preserv and ABX Free 6 MO-64 YRS (FLUCELVAX) 2023-08-02 09:30:00 Completed [facility] TDAP 2023-08-02 09:00:00 Completed [facility] Influenza Virus Vaccine Quad IM, Preserv and ABX Free 6 MO-64 YRS (FLUCELVAX) 2023-08-02 09:00:00 Completed [facility] TDAP 2023-07-19 00:00:00 Completed [facility] Influenza Virus Vaccine Quad IM, Preserv and ABX Free 6 MO-64 YRS (FLUCELVAX) 2023-07-19 00:00:00 Completed [facility] TDAP 2023-07-06 10:45:00 Completed [facility] Influenza Virus Vaccine Quad IM, Preserv and ABX Free 6 MO-64 YRS (FLUCELVAX) 2023-07-06 10:45:00 Completed [facility] TDAP 2023-07-06 00:00:00 Completed [facility] Influenza Virus Vaccine Quad IM, Preserv and ABX Free 6 MO-64 YRS (FLUCELVAX) 2023-07-06 00:00:00 Completed [facility] TDAP 2023-07-05 09:00:00 Completed [facility] Influenza Virus Vaccine Quad IM, Preserv and ABX Free 6 MO-64 YRS (FLUCELVAX) 2023-07-05 09:00:00 Completed [facility] TDAP 2023-07-05 00:00:00 Completed [facility] Influenza Virus Vaccine Quad IM, Preserv and ABX Free 6 MO-64 YRS (FLUCELVAX) 2023-07-05 00:00:00 Completed [facility] TDAP 2023-06-29 09:30:00 Completed [facility] Influenza Virus Vaccine Quad IM, Preserv and ABX Free 6 MO-64 YRS (FLUCELVAX) 2023-06-29 09:30:00 Completed [facility] TDAP 2023-06-29 00:00:00 Completed [facility] Influenza Virus Vaccine Quad IM, Preserv and ABX Free 6 MO-64 YRS (FLUCELVAX) 2023-06-29 00:00:00 Completed [facility] TDAP 2023-06-22 00:00:00 Completed [facility] Influenza Virus Vaccine Quad IM, Preserv and ABX Free 6 MO-64 YRS (FLUCELVAX) 2023-06-22 00:00:00 Completed [facility] TDAP 2023-06-20 00:00:00 Completed [facility] Influenza Virus Vaccine Quad IM, Preserv and ABX Free 6 MO-64 YRS (FLUCELVAX) 2023-06-20 00:00:00 Completed [facility] TDAP 2023-06-12 00:00:00 Completed [facility] Influenza Virus Vaccine Quad IM, Preserv and ABX Free 6 MO-64 YRS (FLUCELVAX) 2023-06-12 00:00:00 Completed [facility] TDAP 2023-06-08 00:00:00 Completed [facility] Influenza Virus Vaccine Quad IM, Preserv and ABX Free 6 MO-64 YRS (FLUCELVAX) 2023-06-08 00:00:00 Completed [facility] TDAP 2023-06-07 15:15:00 Completed [facility] Influenza Virus Vaccine Quad IM, Preserv and ABX Free 6 MO-64 YRS (FLUCELVAX) 2023-06-07 15:15:00 Completed [facility] TDAP 2023-06-07 13:45:00 Completed [facility] Influenza Virus Vaccine Quad IM, Preserv and ABX Free 6 MO-64 YRS (FLUCELVAX) 2023-06-07 13:45:00 Completed [facility] TDAP 2023-06-07 00:00:00 Completed [facility] Influenza Virus Vaccine Quad IM, Preserv and ABX Free 6 MO-64 YRS (FLUCELVAX) 2023-06-07 00:00:00 Completed [facility] TDAP 2023-06-01 00:00:00 Completed [facility] Influenza Virus Vaccine Quad IM, Preserv and ABX Free 6 MO-64 YRS (FLUCELVAX) 2023-06-01 00:00:00 Completed [facility] TDAP 2023-05-09 09:00:00 Completed [facility] Influenza Virus Vaccine Quad IM, Preserv and ABX Free 6 MO-64 YRS (FLUCELVAX) 2023-05-09 09:00:00 Completed [facility] TDAP 2022-06-07 00:00:00 Completed [facility] Influenza Virus Vaccine Quad IM, Preserv and ABX Free 6 MO-64 YRS (FLUCELVAX) 2022-06-07 00:00:00 Completed [facility] Influenza Virus Vaccine Quad IM, Preserv and ABX Free 6 MO-64 YRS 2021-04-02 00:00:00 Completed [facility] Influenza Virus Vaccine Quad IM, Preserv and ABX Free 6 MO-64 YRS 2021-04-02 00:00:00 Completed [facility] Influenza Virus Vaccine Quad IM, Preserv and ABX Free 6 MO-64 YRS 2021-04-02 00:00:00 Completed [facility] Influenza Virus Vaccine Quad IM, Preserv and ABX Free 6 MO-64 YRS 2021-04-02 00:00:00 Completed [facility] Influenza Virus Vaccine Quad IM, Preserv and ABX Free 6 MO-64 YRS 2021-04-02 00:00:00 Completed [facility] Influenza Virus Vaccine Quad IM, Preserv and ABX Free 6 MO-64 YRS 2021-04-02 00:00:00 Completed [facility] Influenza Virus Vaccine Quad IM, Preserv and ABX Free 6 MO-64 YRS 2021-04-02 00:00:00 Completed [facility] Influenza Virus Vaccine Quad IM, Preserv and ABX Free 6 MO-64 YRS 2021-04-02 00:00:00 Completed [facility] Influenza Virus Vaccine Quad IM, Preserv and ABX Free 6 MO-64 YRS 2021-04-02 00:00:00 Completed [facility] Influenza Virus Vaccine Quad IM, Preserv and ABX Free 6 MO-64 YRS 2021-04-02 00:00:00 Completed [facility] Influenza Virus Vaccine Quad IM, Preserv and ABX Free 6 MO-64 YRS 2021-04-02 00:00:00 Completed [facility] Influenza Virus Vaccine Quad IM, Preserv and ABX Free 6 MO-64 YRS 2021-04-02 00:00:00 Completed [facility] Influenza Virus Vaccine Quad IM, Preserv and ABX Free 6 MO-64 YRS 2021-04-02 00:00:00 Completed [facility] Influenza Virus Vaccine Quad IM, Preserv and ABX Free 6 MO-64 YRS 2021-04-02 00:00:00 Completed [facility] Influenza Virus Vaccine Quad IM, Preserv and ABX Free 6 MO-64 YRS 2021-04-02 00:00:00 Completed [facility] Influenza Virus Vaccine Quad IM, Preserv and ABX Free 6 MO-64 YRS 2021-04-02 00:00:00 Completed [facility] Influenza Virus Vaccine Quad IM, Preserv and ABX Free 6 MO-64 YRS 2021-04-02 00:00:00 Completed [facility] Influenza Virus Vaccine Quad IM, Preserv and ABX Free 6 MO-64 YRS 2021-04-02 00:00:00 Completed [facility] Influenza Virus Vaccine Quad IM, Preserv and ABX Free 6 MO-64 YRS 2021-04-02 00:00:00 Completed [facility] Influenza Virus Vaccine Quad IM, Preserv and ABX Free 6 MO-64 YRS 2021-04-02 00:00:00 Completed [facility] Influenza Virus Vaccine Quad IM, Preserv and ABX Free 6 MO-64 YRS 2021-04-02 00:00:00 Completed [facility] Influenza Virus Vaccine Quad IM, Preserv and ABX Free 6 MO-64 YRS 2021-04-02 00:00:00 Completed [facility] Influenza Virus Vaccine Quad IM, Preserv and ABX Free 6 MO-64 YRS 2021-04-02 00:00:00 Completed [facility] Influenza Virus Vaccine Quad IM, Preserv and ABX Free 6 MO-64 YRS 2021-04-02 00:00:00 Completed [facility] Influenza Virus Vaccine Quad IM, Preserv and ABX Free 6 MO-64 YRS 2021-04-02 00:00:00 Completed [facility] TDAP 2021-03-18 00:00:00 Completed [facility] TDAP 2021-03-18 00:00:00 Completed [facility] TDAP 2021-03-18 00:00:00 Completed [facility] TDAP 2021-03-18 00:00:00 Completed [facility] TDAP 2021-03-18 00:00:00 Completed [facility] TDAP 2021-03-18 00:00:00 Completed [facility] TDAP 2021-03-18 00:00:00 Completed [facility] TDAP 2021-03-18 00:00:00 Completed [facility] TDAP 2021-03-18 00:00:00 Completed [facility] TDAP 2021-03-18 00:00:00 Completed [facility] TDAP 2021-03-18 00:00:00 Completed [facility] TDAP 2021-03-18 00:00:00 Completed [facility] TDAP 2021-03-18 00:00:00 Completed [facility] TDAP 2021-03-18 00:00:00 Completed [facility] TDAP 2021-03-18 00:00:00 Completed [facility] TDAP 2021-03-18 00:00:00 Completed [facility] TDAP 2021-03-18 00:00:00 Completed [facility] TDAP 2021-03-18 00:00:00 Completed [facility] TDAP 2021-03-18 00:00:00 Completed [facility] TDAP 2021-03-18 00:00:00 Completed [facility] TDAP 2021-03-18 00:00:00 Completed [facility] TDAP 2021-03-18 00:00:00 Completed [facility] TDAP 2021-03-18 00:00:00 Completed [facility] TDAP 2021-03-18 00:00:00 Completed [facility] TDAP 2021-03-18 00:00:00 Completed [facility] Vital Signs Vital Name Observation Time Observation Value Comments S ource Systolic blood pressure 2024-09-30 19:30:00 118 mm[Hg] [facility] Diastolic blood pressure 2024-09-30 19:30:00 74 mm[Hg] [facility] Heart rate 2024-09-30 19:30:00 105 /min [facility] Body temperature 2024-09-30 19:30:00 36.17 Lay [facility] Body height 2024-09-30 19:30:00 157.5 cm [facility] Body weight 2024-09-30 19:30:00 109.317 kg [facility] BMI 2024-09-30 19:30:00 44.08 kg/m2 [facility] Systolic blood pressure 2024-07-24 20:31:00 123 mm[Hg] [facility] Diastolic blood pressure 2024-07-24 20:31:00 72 mm[Hg] [facility] Heart rate 2024-07-24 20:31:00 101 /min [facility] Body height 2024-07-24 20:31:00 157.5 cm [facility] Body weight 2024-07-24 20:31:00 108.863 kg [facility] BMI 2024-07-24 20:31:00 43.90 kg/m2 [facility] Oxygen saturation in Arterial blood by Pulse oximetry 2024-07-24 20:31:00 99 /min [facility] Systolic blood pressure 2024-07-01 20:49:00 101 mm[Hg] [facility] Diastolic blood pressure 2024-07-01 20:49:00 52 mm[Hg] [facility] Heart rate 2024-07-01 20:48:00 96 /min [facility] Body temperature 2024-07-01 20:48:00 36.5 Lay [facility] Respiratory rate 2024-07-01 20:48:00 18 /min [facility] Body height 2024-07-01 20:48:00 157.5 cm [facility] Body weight 2024-07-01 20:48:00 116.121 kg [facility] BMI 2024-07-01 20:48:00 46.82 kg/m2 [facility] Systolic blood pressure 2024-04-11 19:32:00 122 mm[Hg] [facility] Diastolic blood pressure 2024-04-11 19:32:00 83 mm[Hg] [facility] Heart rate 2024-04-11 19:26:00 92 /min [facility] 2024-04-11 19:26:00 36.83 Lay [facility] Respiratory rate 2024-04-11 19:26:00 16 /min [facility] Body height 2024-04-11 19:26:00 157.5 cm [facility] weight 2024-04-11 19:26:00 108.727 kg [facility] BMI 2024-04-11 19:26:00 43.84 kg/m2 [facility] Systolic blood pressure 2024-02-12 18:10:00 99 mm[Hg] [facility] Diastolic blood pressure 2024-02-12 18:10:00 66 mm[Hg] [facility] Heart rate 2024-02-12 18:10:00 74 /min [facility] Body temperature 2024-02-12 18:10:00 36.39 Lay [facility] Respiratory rate 2024-02-12 18:10:00 18 /min [facility] Body height 2024-02-12 18:10:00 157.5 cm [facility] weight 2024-02-12 18:10:00 102.513 kg [facility] BMI 2024-02-12 18:10:00 41.34 kg/m2 [facility] Systolic blood pressure 2024-01-17 15:02:00 124 mm[Hg] [facility] Diastolic blood pressure 2024-01-17 15:02:00 85 mm[Hg] [facility] Heart rate 2024-01-17 15:02:00 89 /min [facility] Respiratory rate 2024-01-17 15:02:00 18 /min [facility] Body height 2024-01-17 15:02:00 157.5 cm [facility] Body weight 2024-01-17 15:02:00 101.152 kg [facility] BMI 2024-01-17 15:02:00 40.79 kg/m2 [facility] Systolic blood pressure 2024-01-10 12:15:00 114 mm[Hg] [facility] Diastolic blood pressure 2024-01-10 12:15:00 67 mm[Hg] [facility] Heart rate 2024-01-10 12:15:00 71 /min [facility] Body temperature 2024-01-10 12:15:00 36.61 Lay [facility] Respiratory rate 2024-01-10 12:15:00 18 /min [facility] Oxygen saturation in Arterial blood by Pulse oximetry 2024-01-09 17:04:00 100 /min [facility] Body height 2024-01-08 22:02:00 157.5 cm [facility] Body weight 2024-01-08 22:02:00 115.35 kg [facility] BMI 2024-01-08 22:02:00 46.51 kg/m2 [facility] Systolic blood pressure 2024-01-08 21:20:00 115 mm[Hg] [facility] Diastolic blood pressure 2024-01-08 21:20:00 75 mm[Hg] [facility] Heart rate 2024-01-08 21:20:00 103 /min [facility] Body height 2024-01-08 21:20:00 157.5 cm [facility] Body weight 2024-01-08 21:20:00 115.304 kg [facility] BMI 2024-01-08 21:20:00 46.49 kg/m2 [facility] Heart rate 2024-01-05 18:10:00 104 /min [facility] Oxygen saturation in Arterial blood by Pulse oximetry 2024-01-05 18:10:00 100 /min [facility] Systolic blood pressure 2024-01-05 18:00:00 127 mm[Hg] [facility] Diastolic blood pressure 2024-01-05 18:00:00 79 mm[Hg] [facility] Body temperature 2024-01-05 16:38:00 36.67 Lay [facility] Respiratory rate 2024-01-05 16:38:00 18 /min [facility] Body height 2024-01-05 14:00:00 157.5 cm [facility] Body weight 2024-01-05 14:00:00 115.214 kg [facility] BMI 2024-01-05 14:00:00 46.46 kg/m2 [facility] Systolic blood pressure 2024-01-01 13:09:00 114 mm[Hg] [facility] Diastolic blood pressure 2024-01-01 13:09:00 55 mm[Hg] [facility] Heart rate 2024-01-01 13:09:00 117 /min [facility] Body temperature 2024-01-01 13:09:00 36.39 Lay [facility] Body weight 2024-01-01 13:09:00 115.758 kg [facility] BMI 2024-01-01 13:09:00 46.68 kg/m2 [facility] Systolic blood pressure 2023-12-29 00:00:00 110 mm[Hg] [facility] Diastolic blood pressure 2023-12-29 00:00:00 66 mm[Hg] [facility] Heart rate 2023-12-29 00:00:00 106 /min [facility] Body temperature 2023-12-29 00:00:00 36.67 Lay [facility] Respiratory rate 2023-12-29 00:00:00 18 /min [facility] Oxygen saturation in Arterial blood by Pulse oximetry 2023-12-29 00:00:00 100 /min [facility] Systolic blood pressure 2023-12-26 13:55:00 124 mm[Hg] [facility] Diastolic blood pressure 2023-12-26 13:55:00 74 mm[Hg] [facility] Heart rate 2023-12-26 13:55:00 106 /min [facility] Body temperature 2023-12-26 13:55:00 36.78 Lay [facility] Body height 2023-12-26 13:55:00 157.5 cm [facility] Body weight 2023-12-26 13:55:00 114.306 kg [facility] BMI 2023-12-26 13:55:00 46.09 kg/m2 [facility] Heart rate 2023-12-23 06:30:00 102 /min [facility] O[facility] in Arterial blood by Pulse oximetry 2023-12-23 06:30:00 100 /min [facility] Systolic blood pressure 2023-12-23 06:00:00 131 mm[Hg] [facility] Diastolic blood pressure 2023-12-23 06:00:00 69 mm[Hg] [facility] Body temperature 2023-12-23 02:45:00 36.56 Lay [facility] Body height 2023-12-23 02:45:00 157.5 cm [facility] Body weight 2023-12-23 02:45:00 114.76 kg [facility] BMI 2023-12-23 02:45:00 46.27 kg/m2 [facility] Systolic blood pressure 2023-12-20 20:28:00 104 mm[Hg] [facility] Diastolic blood pressure 2023-12-20 20:28:00 53 mm[Hg] [facility] Heart rate 2023-12-20 20:27:00 128 /min [facility] Body weight 2023-12-20 20:27:00 114.76 kg [facility] BMI 2023-12-20 20:27:00 46.27 kg/m2 [facility] Systolic blood pressure 2023-12-18 21:30:00 118 mm[Hg] [facility] Diastolic blood pressure 2023-12-18 21:30:00 62 mm[Hg] [facility] Heart rate 2023-12-18 21:30:00 98 /min [facility] Oxygen saturation in Arterial blood by Pulse oximetry 2023-12-18 21:30:00 100 /min [facility] Respiratory rate 2023-12-18 21:00:00 16 /min [facility] Body temperature 2023-12-18 20:00:00 36.78 Lay [facility] Body weight 2023-12-18 17:09:00 113.898 kg [facility] BMI 2023-12-18 17:09:00 45.93 kg/m2 [facility] Body height 2023-12-18 17:08:00 157.5 cm [facility] Heart rate 2023-12-11 23:25:00 100 /min [facility] Oxygen saturation in Arterial blood by Pulse oximetry 2023-12-11 23:25:00 99 /min [facility] Systolic blood pressure 2023-12-11 23:15:00 101 mm[Hg] [facility] Diastolic blood pressure 2023-12-11 23:15:00 60 mm[Hg] [facility] Body temperature 2023-12-11 21:00:00 36.72 Lay [facility] Respiratory rate 2023-12-11 20:42:00 16 /min [facility] Body height 2023-12-11 20:42:00 157.5 cm [facility] Body weight 2023-12-11 20:42:00 112.311 kg [facility] BMI 2023-12-11 20:42:00 45.29 kg/m2 [facility] Systolic blood pressure 2023-12-08 13:47:00 110 mm[Hg] [facility] Diastolic blood pressure 2023-12-08 13:47:00 76 mm[Hg] [facility] Heart rate 2023-12-08 13:47:00 82 /min [facility] Respiratory rate 2023-12-08 13:47:00 17 /min [facility] Body height 2023-12-08 13:47:00 157.5 cm [facility] Body weight 2023-12-08 13:47:00 113.581 kg [facility] BMI 2023-12-08 13:47:00 45.80 kg/m2 [facility] Heart rate 2023-11-27 19:15:00 96 /min [facility] Oxygen saturation in Arterial blood by Pulse oximetry 2023-11-27 19:15:00 100 /min [facility] Systolic blood pressure 2023-11-27 19:00:00 122 mm[Hg] [facility] Diastolic blood pressure 2023-11-27 19:00:00 75 mm[Hg] [facility] Body temperature 2023-11-27 17:45:00 36.83 Lay [facility] Respiratory rate 2023-11-27 17:45:00 18 /min [facility] Body height 2023-11-27 17:45:00 157.5 cm [facility] Body weight 2023-11-27 17:45:00 112.038 kg [facility] BMI 2023-11-27 17:45:00 45.18 kg/m2 [facility] Systolic blood pressure 2023-11-27 16:19:00 98 mm[Hg] [facility] Diastolic blood pressure 2023-11-27 16:19:00 63 mm[Hg] [facility] Heart rate 2023-11-27 16:19:00 114 /min [facility] Respiratory rate 2023-11-27 16:19:00 17 /min [facility] Body height 2023-11-27 16:19:00 157.5 cm [facility] Body weight 2023-11-27 16:19:00 112.038 kg [facility] BMI 2023-11-27 16:19:00 45.18 kg/m2 [facility] Systolic blood pressure 2023-11-21 20:34:00 106 mm[Hg] [facility] Diastolic blood pressure 2023-11-21 20:34:00 65 mm[Hg] [facility] Heart rate 2023-11-21 20:34:00 86 /min [facility] Body height 2023-11-21 20:34:00 157.5 cm [facility] Body weight 2023-11-21 20:34:00 112.492 kg [facility] BMI 2023-11-21 20:34:00 45.36 kg/m2 [facility] Systolic blood pressure 2023-11-16 03:30:00 125 mm[Hg] [facility] Diastolic blood pressure 2023-11-16 03:30:00 70 mm[Hg] [facility] Heart rate 2023-11-16 03:30:00 100 /min [facility] Oxygen saturation in Arterial blood by Pulse oximetry 2023-11-16 03:30:00 100 /min [facility] Body temperature 2023-11-16 02:13:00 36.94 Lay [facility] Respiratory rate 2023-11-16 02:13:00 18 /min [facility] Body height 2023-11-16 02:13:00 157.5 cm [facility] Body weight 2023-11-16 02:13:00 113.853 kg [facility] BMI 2023-11-16 02:13:00 45.91 kg/m2 [facility] Systolic blood pressure 2023-11-10 16:22:00 96 mm[Hg] [facility] Diastolic blood pressure 2023-11-10 16:22:00 62 mm[Hg] [facility] Heart rate 2023-11-10 16:22:00 105 /min [facility] Body temperature 2023-11-10 16:22:00 36.67 Lay [facility] Respiratory rate 2023-11-10 16:22:00 16 /min [facility] Body height 2023-11-10 16:22:00 157.5 cm [facility] Body weight 2023-11-10 16:22:00 111.63 kg [facility] BMI 2023-11-10 16:22:00 45.01 kg/m2 [facility] Oxygen saturation in Arterial blood by Pulse oximetry 2023-11-10 16:22:00 97 /min [facility] Systolic blood pressure 2023-10-13 19:45:00 117 mm[Hg] [facility] Diastolic blood pressure 2023-10-13 19:45:00 69 mm[Hg] [facility] Heart rate 2023-10-13 19:45:00 101 /min [facility] Body temperature 2023-10-13 19:45:00 36.67 Lay [facility] Respiratory rate 2023-10-13 19:45:00 18 /min [facility] Body height 2023-10-13 19:45:00 157.5 cm [facility] Body weight 2023-10-13 19:45:00 114.397 kg [facility] BMI 2023-10-13 19:45:00 46.13 kg/m2 [facility] Systolic blood pressure 2023-09-25 14:53:00 111 mm[Hg] [place] [facility] Diastolic blood pressure 2023-09-25 14:53:00 60 mm[Hg] [facility] Heart rate 2023-09-25 14:53:00 110 /min [facility] Body temperature 2023-09-25 14:53:00 36.83 Lay [facility] Body height 2023-09-25 14:53:00 157.5 cm [facility] Body weight 2023-09-25 14:53:00 112.492 kg [facility] BMI 2023-09-25 14:53:00 45.36 kg/m2 [facility] Systolic blood pressure 2023-09-19 14:25:00 114 mm[Hg] [facility] Diastolic blood pressure 2023-09-19 14:25:00 73 mm[Hg] [facility] Heart rate 2023-09-19 14:25:00 101 /min [facility] Body temperature 2023-09-19 14:25:00 37.11 Lay [facility] Respiratory rate 2023-09-19 14:25:00 20 /min [facility] Body height 2023-09-19 14:25:00 157.5 cm [facility] Body weight 2023-09-19 14:25:00 112.038 kg [facility] BMI 2023-09-19 14:25:00 45.18 kg/m2 [facility] Oxygen saturation in Arterial blood by Pulse oximetry 2023-09-19 14:25:00 100 /min [facility] Systolic blood pressure 2023-09-13 17:40:00 113 mm[Hg] [facility] Diastolic blood pressure 2023-09-13 17:40:00 73 mm[Hg] [facility] Heart rate 2023-09-13 17:40:00 92 /min [facility] Body temperature 2023-09-13 17:40:00 36.56 Lay [facility] Respiratory rate 2023-09-13 17:40:00 18 /min [facility] Body height 2023-09-13 17:40:00 157.5 cm [facility] Body weight 2023-09-13 17:40:00 112.265 kg [facility] BMI 2023-09-13 17:40:00 45.27 kg/m2 [facility] Systolic blood pressure 2023-08-23 22:59:00 106 mm[Hg] [facility] Diastolic blood pressure 2023-08-23 22:59:00 65 mm[Hg] [facility] Heart rate 2023-08-23 22:59:00 84 /min [facility] Respiratory rate 2023-08-23 22:59:00 16 /min [facility] Oxygen saturation in Arterial blood by Pulse oximetry 2023-08-23 22:59:00 98 /min [facility] Body temperature 2023-08-23 20:03:00 36.61 Lay [facility] Body height 2023-08-23 20:03:00 157.5 cm [facility] Body weight 2023-08-23 20:03:00 108.863 kg [facility] BMI 2023-08-23 20:03:00 43.90 kg/m2 [facility] Systolic blood pressure 2023-08-16 20:31:00 121 mm[Hg] [facility] Diastolic blood pressure 2023-08-16 20:31:00 68 mm[Hg] [facility] Heart rate 2023-08-16 20:31:00 114 /min [facility] Body temperature 2023-08-16 20:31:00 36.83 Lay [facility] Respiratory rate 2023-08-16 20:31:00 17 /min [facility] Body height 2023-08-16 20:31:00 157.5 cm [facility] Body weight 2023-08-16 20:31:00 109.68 kg [facility] BMI 2023-08-16 20:31:00 44.23 kg/m2 [facility] Systolic blood pressure 2023-08-02 14:52:00 114 mm[Hg] [facility] Diastolic blood pressure 2023-08-02 14:52:00 75 mm[Hg] [facility] Heart rate 2023-08-02 14:52:00 93 /min [facility] Body temperature 2023-08-02 14:52:00 35.83 Lay [facility] Respiratory rate 2023-08-02 14:52:00 18 /min [facility] Body height 2023-08-02 14:52:00 157.5 cm [facility] Body weight 2023-08-02 14:52:00 110.224 kg [facility] BMI 2023-08-02 14:52:00 44.45 kg/m2 [facility] Systolic blood pressure 2023-07-05 14:47:00 117 mm[Hg] [facility] Diastolic blood pressure 2023-07-05 14:47:00 69 mm[Hg] [facility] Heart rate 2023-07-05 14:47:00 83 /min [facility] Body temperature 2023-07-05 14:47:00 36.17 Lay [facility] Respiratory rate 2023-07-05 14:47:00 18 /min [facility] Body height 2023-07-05 14:47:00 157.5 cm [facility] Body weight 2023-07-05 14:47:00 110.678 kg [facility] BMI 2023-07-05 14:47:00 44.63 kg/m2 [facility] Sy[facility] blood pressure 2023-06-07 19:10:00 132 mm[Hg] [facility] Diastolic blood pressure 2023-06-07 19:10:00 81 mm[Hg] [facility] Heart rate 2023-06-07 19:10:00 96 /min [facility] Body temperature 2023-06-07 19:10:00 36.44 Lay [facility] Respiratory rate 2023-06-07 19:10:00 18 /min [facility] Body height 2023-06-07 19:10:00 157.5 cm [facility] Body weight 2023-06-07 19:10:00 111.857 kg [facility] BMI 2023-06-07 19:10:00 45.10 kg/m2 [facility] Systolic blood pressure 2023-05-09 14:28:00 129 mm[Hg] [facility] Diastolic blood pressure 2023-05-09 14:28:00 80 mm[Hg] [facility] Heart rate 2023-05-09 14:28:00 115 /min [facility] Body temperature 2023-05-09 14:28:00 36.39 Lay [facility] Respiratory rate 2023-05-09 14:28:00 20 /min [facility] Body height 2023-05-09 14:28:00 157.5 cm [facility] Body weight 2023-05-09 14:28:00 110.451 kg [facility] BMI 2023-05-09 14:28:00 44.54 kg/m2 [facility] Systolic blood pressure 2022-02-28 15:41:00 112 mm[Hg] [facility] Diastolic blood pressure 2022-02-28 15:41:00 73 mm[Hg] [facility] Heart rate 2022-02-28 15:41:00 81 /min [facility] Body temperature 2022-02-28 15:41:00 37.06 Lay [facility] Body height 2022-02-28 15:41:00 157.5 cm [facility] Body weight 2022-02-28 15:41:00 82.192 kg [facility] BMI 2022-02-28 15:41:00 33.14 kg/m2 [facility] Sy[facility] pressure 2021-12-07 19:47:00 135 mm[Hg] [facility] Diastolic blood pressure 2021-12-07 19:47:00 76 mm[Hg] [facility] Heart rate 2021-12-07 19:47:00 82 /min [facility] Body temperature 2021-12-07 19:47:00 37.06 Lay [facility] Respiratory rate 2021-12-07 19:47:00 18 /min [facility] Body height 2021-12-07 19:47:00 157.5 cm [facility] Body weight 2021-12-07 19:47:00 75.66 kg [facility] BMI 2021-12-07 19:47:00 30.51 kg/m2 [facility] Systolic blood pressure 2021-09-14 19:49:00 121 mm[Hg] [facility] Diastolic blood pressure 2021-09-14 19:49:00 81 mm[Hg] [facility] Heart rate 2021-09-14 19:49:00 92 /min [facility] Body temperature 2021-09-14 19:49:00 37.17 Lay [facility] Body height 2021-09-14 19:49:00 157.5 cm [facility] Body weight 2021-09-14 19:49:00 77.928 kg [facility] BMI 2021-09-14 19:49:00 31.42 kg/m2 [facility] Systolic blood pressure 2021-07-13 14:40:00 121 mm[Hg] [facility] Diastolic blood pressure 2021-07-13 14:40:00 69 mm[Hg] [facility] Heart rate 2021-07-13 14:40:00 72 /min [facility] Body temperature 2021-07-13 14:40:00 36.56 Lay [facility] Respiratory rate 2021-07-13 14:40:00 18 /min [facility] Body height 2021-07-13 14:40:00 157.5 cm [facility] Body weight 2021-07-13 14:40:00 77.111 kg [facility] BMI 2021-07-13 14:40:00 31.09 kg/m2 [facility] Systolic blood pressure 2021-07-05 16:27:00 124 mm[Hg] [facility] Diastolic blood pressure 2021-07-05 16:27:00 80 mm[Hg] [facility] Heart rate 2021-07-05 16:27:00 77 /min [facility] Body temperature 2021-07-05 16:27:00 36.83 Lay [facility] Respiratory rate 2021-07-05 16:27:00 18 /min [facility] Body weight 2021-07-05 16:27:00 77.565 kg [facility] Systolic blood pressure 2021-06-22 21:33:00 118 mm[Hg] [facility] Diastolic blood pressure 2021-06-22 21:33:00 81 mm[Hg] [facility] Heart rate 2021-06-22 21:33:00 61 /min [facility] Body temperature 2021-06-22 21:33:00 36.39 Lay [facility] Body weight 2021-06-22 21:33:00 77.565 kg [facility] Systolic blood pressure 2021-05-29 14:27:00 128 mm[Hg] [facility] Diastolic blood pressure 2021-05-29 14:27:00 61 mm[Hg] [facility] Body temperature 2021-05-29 14:27:00 36.89 Lay [facility] Respiratory rate 2021-05-29 14:27:00 18 /min [facility] Oxygen saturation in Arterial blood by Pulse oximetry 2021-05-29 14:27:00 100 /min [facility] Heart rate 2021-05-29 09:00:00 70 /min [facility] Systolic blood pressure 2021-05-25 20:31:00 125 mm[Hg] [facility] Diastolic blood pressure 2021-05-25 20:31:00 87 mm[Hg] [facility] Heart rate 2021-05-25 20:31:00 78 /min [facility] Body temperature 2021-05-25 20:31:00 36.78 Lay [facility] Respiratory rate 2021-05-25 20:31:00 18 /min [facility] Body height 2021-05-25 20:31:00 157.5 cm [facility] Body weight 2021-05-25 20:31:00 89.812 kg [facility] BMI 2021-05-25 20:31:00 36.21 kg/m2 [facility] Systolic blood pressure 2021-05-21 16:13:00 123 mm[Hg] [facility] Diastolic blood pressure 2021-05-21 16:13:00 85 mm[Hg] [facility] Heart rate 2021-05-21 16:13:00 85 /min [facility] Body temperature 2021-05-21 16:13:00 36.56 Lay [facility] Respiratory rate 2021-05-21 16:13:00 18 /min [facility] Body height 2021-05-21 16:13:00 157.5 cm [facility] Body weight 2021-05-21 16:13:00 87.998 kg [facility] BMI 2021-05-21 16:13:00 35.48 kg/m2 [facility] Systolic blood pressure 2021-05-18 15:57:00 118 mm[Hg] [facility] Diastolic blood pressure 2021-05-18 15:57:00 78 mm[Hg] [facility] Heart rate 2021-05-18 15:57:00 73 /min [facility] Body temperature 2021-05-18 15:57:00 36.61 Lay [facility] Body height 2021-05-18 15:57:00 157.5 cm [facility] Body weight 2021-05-18 15:57:00 88.996 kg [facility] BMI 2021-05-18 15:57:00 35.89 kg/m2 [facility] Systolic blood pressure 2021-05-14 20:18:00 112 mm[Hg] [facility] Diastolic blood pressure 2021-05-14 20:18:00 76 mm[Hg] [facility] Heart rate 2021-05-14 20:18:00 84 /min [facility] Body temperature 2021-05-14 20:18:00 36.72 Lay [facility] Respiratory rate 2021-05-14 20:18:00 18 /min [facility] Body height 2021-05-14 20:18:00 157.5 cm [facility] Body weight 2021-05-14 20:18:00 88.451 kg [facility] BMI 2021-05-14 20:18:00 35.67 kg/m2 [facility] Systolic blood pressure 2021-05-11 16:18:00 122 mm[Hg] [facility] Diastolic blood pressure 2021-05-11 16:18:00 83 mm[Hg] [facility] Heart rate 2021-05-11 16:18:00 77 /min [facility] Body temperature 2021-05-11 16:18:00 36.89 Lay [facility] Respiratory rate 2021-05-11 16:18:00 18 /min [facility] Body height 2021-05-11 16:18:00 157.5 cm [facility] Body weight 2021-05-11 16:18:00 88.905 kg [facility] BMI 2021-05-11 16:18:00 35.85 kg/m2 [facility] Procedures Procedure Date / Time Performed Performing Clinician Source MR VENOGRAM HEAD W WO CONTRAST 2024-09-05 21:49:58 Blayne Hamlin [facility] MR BRAIN W WO CONTRAST 2024-09-05 21:41:49 Blayne Hamlin [facility] ELECTROENCEPHALOGRAM 2024-09-05 00:00:00 Blayne Hamlin [facility] OCT, OPTIC NERVE - OU - BOTH EYES 2024-08-01 21:03:00 Jacqueline Randhawa [facility] POCT TEST 2024-07-01 21:21:00 Hansel [facility] CBC WITH DIFF 2024-01-10 09:11:00 Hansel [facility] CENTRAL NEURAXIAL BLOCK 2024-01-09 08:03:00 Pablo Wadsworth [facility] CBC WITH DIFF 2024-01-09 01:51:00 Hansel [facility] HEPATITIS B SURFACE ANTIGEN 2024-01-09 01:51:00 Hamm [facility] HB ABO GROUPING 2024-01-09 01:51:00 [facility] RHO (D) IMMUNE GLOBULIN 2024-01-09 01:51:00 Hansel [facility] ADC OR LOLI ONLY - RPR 2024-01-09 01:51:00 [facility] HIV 1/2 AG-AB WITH REFLEX 2024-01-09 01:51:00 Hansel [facility] US BIOPHYSICAL PROFILE 2024-01-09 00:11:47 [facility] POCT URINALYSIS W/O SPECIFIC GRAVITY 2024-01-08 00:00:00 Hansel [facility] ADC CLC OR LCC ONLY - WET PREP 2024-01-05 16:27:00 Hamm [facility] US PELVIS > 14 WEEKS 2024-01-05 16:02:16 [facility] POCT URINALYSIS W/O SPECIFIC GRAVITY 2024-01-01 00:00:00 Tee Felder [facility] AMYLASE 2023-12-28 21:00:00 Hansel [facility] LIPASE 2023-12-28 21:00:00 Hansel [facility] COMP. METABOLIC PANEL (28026) 2023-12-28 21:00:00 Maria Esther Hamm [facility] CBC WITH DIFF 2023-12-28 21:00:00 Maria Esther Hamm [facility] DSU PRE-OP 2023-12-27 18:35:04 Doctor Unassigned, [place] [facility] >14 WEEKS US LIMITED 2023-12-26 16:55:49 Maria Esther Hamm [facility] POCT URINALYSIS W/O SPECIFIC GRAVITY 2023-12-26 00:00:00 Maria Esther Hamm [facility] ADC ONLY - FERN TEST 2023-12-23 02:53:00 AdMelba anderson [facility] POCT URINALYSIS W/O SPECIFIC GRAVITY 2023-12-20 00:00:00 Tee Felder [facility] EXTRA TUBE SST 2023-12-18 18:57:00 Solomon [facility] EXTRA TUBE LT. GREEN 2023-12-18 18:57:00 Hayden-Michele [facility] EXTRA TUBE RED 2023-12-18 18:57:00 Blake-Michele, [facility] EXTRA TUBE LAV (BLOOD BANK) 2023-12-18 18:57:00 Baltazaris [facility] URINALYSIS 2023-12-18 18:46:00 Solomon [facility] CLC OR LCC ONLY - WET PREP 2023-12-18 18:46:00 Blake-Michele [facility] ADC CLC OR LCC ONLY - WET PREP 2023-12-11 22:15:00 Hayden-Michele [facility] COMP. METABOLIC PANEL (57201) 2023-12-11 21:27:00 Solomon [facility] CBC WITH DIFF 2023-12-11 21:27:00 Solomon [facility] POCT URINALYSIS W/O SPECIFIC GRAVITY 2023-12-08 00:00:00 Maria Esther Hamm Marquez [facility] NON-STRESS TEST 2023-11-27 16:59:41 Tee Felder [facility] TDAP VACCINE, >11 YRS, IM 2023-11-27 16:36:40 Tee Felder [facility] NON-STRESS TEST 2023-11-21 22:26:02 Maria Esther Hamm [facility] POCT URINALYSIS W/O SPECIFIC GRAVITY 2023-11-21 00:00:00 Maria Esther Hamm [facility] SECOND AND THIRD TRIMESTER ULTRASOUND 2023-11-16 13:20:00 Kiara Condon [facility] NON-STRESS TEST 2023-11-16 03:55:53 Maria Esther Hamm [facility] URINALYSIS 2023-11-16 02:28:00 Maria Esther Hamm [facility] ADC CLC OR LCC ONLY - WET PREP 2023-11-16 02:28:00 Maria Esther Hamm [facility] POCT URINALYSIS W/O SPECIFIC GRAVITY 2023-11-10 00:00:00 Maria Esther Hamm [facility] DME/SUPPLY JUSTIFICATION 2023-10-25 16:56:25 Doctor Unassigned, [place] [facility] DME/SUPPLY JUSTIFICATION 2023-10-24 13:41:30 Doctor Unassigned, [place] [facility] DME/SUPPLY JUSTIFICATION 2023-10-24 13:41:23 Doctor Unassigned, [place] [facility] DME/SUPPLY JUSTIFICATION 2023-10-23 17:05:30 Doctor Unassigned, [place] [facility] DME/SUPPLY JUSTIFICATION 2023-10-23 17:05:19 Doctor Unassigned, [place] [facility] POCT URINALYSIS W/O SPECIFIC GRAVITY 2023-10-13 00:00:00 Tee Felder [facility] DME/SUPPLY JUSTIFICATION 2023-10-03 18:58:51 Doctor Unassigned, [place] [facility] POCT URINALYSIS W/O SPECIFIC GRAVITY 2023-09-25 00:00:00 Maria Esther Hamm [facility] URINALYSIS 2023-09-19 15:50:00 Maria Esther Hamm [facility] ADC CLC OR LCC ONLY - WET PREP 2023-09-19 15:50:00 Maria Esther Hamm [facility] POCT URINALYSIS 2023-09-13 17:41:00 Kiara Condon [facility] SECOND AND THIRD TRIMESTER ULTRASOUND 2023-09-07 20:51:16 Kiara Condon [facility] DME/SUPPLY JUSTIFICATION 2023-09-04 21:17:21 Doctor Unassigned, [place] [facility] BASIC METABOLIC PANEL (NA, K , CL, CO2, GLUCOSE, BUN, CREATININE, CA) 2023-08-23 21:29:00 Vicente Mueller [facility] CBC WITH DIFF 2023-08-23 21:29:00 Vicente Mueller [facility] CONSENT/REFUSAL FOR DIAGNOSI S AND TREATMENT 2023-08-23 20:00:32 Doctor Unassigned, [place] [facility] POCT URINALYSIS 2023-08-16 20:33:00 Kiara Condon [facility] POCT URINALYSIS 2023-08-02 14:54:00 Kiara Condon [facility] THYROID STIMULATING HORMONE 2023-07-06 17:04:00 Korin Arce [facility] CBC WITH DIFF 2023-07-06 17:04:00 Korin Arce [facility] GLYCOSYLATED HEMOGLOBIN (A1C) 2023-07-06 17:04:00 Korin Arce [facility] HB ABO GROUPING 2023-07-06 17:04:00 Kiara Condon [facility] POCT URINALYSIS 2023-07-05 14:48:00 Kiara Condon [facility] CONSENT FOR NIPT 2023-07-05 06:01:00 Doctor Unassigned, [place] [facility] FIRST TRIMESTER ULTRASOUND 2023-06-29 15:18:00 Kiara Condon [facility] GLUCOSE 1 HOUR POST PRANDIAL 2023-06-07 21:18:00 Kiara Condon [facility] CBC WITH DIFF 2023-06-07 21:18:00 Kiara Condon [facility] POCT TEST 2023-06-07 19:03:00 Kiara Condon [facility] POCT URINALYSIS W/O SPECIFIC GRAVITY 2023-06-07 19:03:00 Kiara Condon [facility] ASSIGNMENT OF BENEFITS 2023-06-07 18:20:26 Doctor Unassigned, [place] [facility] REPORT OF 2022-06-07 06:01:00 Doctor Unassigned, [place] [facility] CONSENT FOR CONTRACEPTIVE PATCH 2022-02-28 05:01:00 Doctor Unassigned, [place] [facility] GLUCOSE FASTING 2021-07-21 14:13:00 Laure Paniagua [facility] CONSENT FOR CONTRACEPTION 2021-06-22 06:01:00 Doctor Unassigned, [place] [facility] POCT TEST 2021-06-22 00:00:00 Adum, Melba Hardin [facility] CBC WITH DIFF 2021-05-29 10:17:00 Adum, Melba Hardin [facility] VENOUS CORD GAS 2021-05-28 09:20:00 Adum, Melba Hardin [facility] POCT GLUCOSE (AUTOMATED) 2021-05-28 06:59:00 Adum, Melba Hardin [facility] CENTRAL NEURAXIAL BLOCK 2021-05-28 06:40:39 Gómez Grey [facility] POCT GLUCOSE (AUTOMATED) 2021-05-28 04:47:00 Adum, Melba Hardin [facility] POCT GLUCOSE (AUTOMATED) 2021-05-28 01:34:00 Adum, Melba Hardin [facility] HB ABO GROUPING 2021-05-27 23:10:00 Adum, Melba Hardin [facility] COVID-19 (ID NOW RAPID TESTING) 2021-05-27 23:07:00 Adum, Melba Hardin [facility] LAB ONLY COVID INTERPRETATION 2021-05-27 23:07:00 Adum, Melba Hardin [facility] CBC WITH DIFF 2021-05-27 23:06:00 Adum, Melba Hardin [facility] HEPATITIS B SURFACE ANTIGEN 2021-05-27 23:06:00 Adum, Melba Hardin [facility] ADC OR LOLI ONLY - RPR 2021-05-27 23:06:00 Adum, Melba Hardin [facility] HIV 1/2 AG-AB WITH REFLEX 2021-05-27 23:06:00 Adum, Melba Hardin [facility] POCT GLUCOSE (AUTOMATED) 2021-05-27 21:28:00 Adum, Melba Hardin [facility] CONSENT/REFUSAL FOR DIAGNOSI S AND TREATMENT 2021-05-27 20:55:09 Doctor Unassigned, [place] [facility] ASSIGNMENT OF BENEFITS 2021-05-27 20:47:03 Doctor Unassigned, [place] [facility] NON-STRESS TEST 2021-05-25 21:32:46 Adum, Melba Hardin [facility] POCT URINALYSIS W/O SPECIFIC GRAVITY 2021-05-25 00:00:00 Adum, Melba Hardin [facility] NON-STRESS TEST 2021-05-21 20:39:44 Adum, Melba Hardin [facility] POCT URINALYSIS W/O SPECIFIC GRAVITY 2021-05-21 00:00:00 Adum, Melba Hardin [facility] NON-STRESS TEST 2021-05-18 16:44:35 Adum, Melba Hardin [facility] POCT URINALYSIS W/O SPECIFIC GRAVITY 2021-05-18 00:00:00 Adum, Melba Hardin [facility] NON-STRESS TEST 2021-05-14 20:58:37 Adum, Melba Hardin [facility] NON-STRESS TEST 2021-05-11 17:05:02 Adum, Melba Hardin [facility] GC & CHLAMYDIA AMPLIFIED ASSAY 2021-05-11 16:33:00 [facility] 2021-05-11 16:33:00 Adum, Melba [facility] POCT URINALYSIS W/O SPECIFIC GRAVITY 2021-05-11 00:00:00 Adum, Melba L [facility] Encounters Start Date/Time End Date/Time Encounter Type Admission Type Attending Clinicians Care Facility Care Department Encounter ID Source 2023-12-18 17:32:[address] [facility] [id number] [facility] 2023-11-16 00:02:[address] [facility] [id number] [facility] 2023-09-19 14:57:32 Outpatient X [facility] [id number] [facility] 2021-05-25 16:22:50 Outpatient P YANETHJUSTIN MELBA [facility] [id number] [facility] 2024-10-21 12:40:00 2024-10-21 12:40:00 Outpatient R URSULA MCINTOSH [facility] [id number] [facility] 2024-10-02 13:30:00 2024-10-02 13:30:00 Outpatient R SHANNON SHORE [facility] [id number] [facility] 2024-09-30 14:00:00 2024-09-30 14:40:14 Outpatient R MARIA ESTHER H[facility] [id number] [facility] 2024-09-30 14:00:00 2024-09-30 14:40:14 Office Visit Maria Esther Hamm [facility] 1.840.114 350.1.13.10 4.2.7.2.686 [id number] [facility] 2024-09-09 00:00:00 2024-09-09 10:20:31 Patient Secure Msg Ursula Mcintosh [facility] 1.840.114 350.1.13.10 4.2.7.2.686 [id number] [facility] 2024-09-05 14:27:40 2024-09-05 23:59:00 Hospital Encounter Ursula Mcintosh AT [facility] ([facility]) 1.2.840.114 350.1.13.10 4.2.7.2.686 [id number] [facility] 2024-09-05 14:27:27 2024-09-05 23:59:00 Hospital Encounter NimacarylRobelsofia [facility] ([facility]) 1.2.840.114 350.1.13.10 4.2.7.2.686 [id number] [facility] 2024-09-05 09:00:00 2024-09-05 14:26:00 Outpatient R URSULA MCINTOSH [facility] [id number] [facility] 2024-09-05 09:00:00 2024-09-05 14:26:00 Hospital Encounter Ursula Mcintosh, [facility] ([facility]) 1.2.840.114 350.1.13.10 4.2.7.2.686 [id number] [facility] 2024-07-25 00:00:00 2024-08-31 18:22:52 Patient Secure Msg Doctor Unassigned, [place] Doctor Unassigned, [place] [facility] ([facility]) 1.2.840.114 350.1.13.10 4.2.7.2.686 [id number] [facility] 2024-08-13 00:00:00 2024-08-13 00:00:00 Outpatient R URSULA MCINTOSH [facility] [id number] [facility] 2024-08-01 14:30:00 2024-08-01 15:14:26 Outpatient R JACQUELINE RANDHAWA [facility] [id number] [facility] 2024-08-01 14:30:00 2024-08-01 15:14:26 Office Visit Jacqueline Randhawa [facility] 1.2.840.114 350.1.13.10 4.2.7.2.686 [id number] [facility] 2024-07-24 14:30:00 2024-07-24 15:34:44 Outpatient R ARNALDOURSULACARYLURSULA [facility] [id number] [facility] 2024-07-24 14:30:00 2024-07-24 15:34:44 Office Visit Ursula Mcintosh [facility] 1.2.840.114 350.1.13.10 4.2.7.2.686 [id number] [facility] 2023-10-23 00:00:00 2024-07-20 07:44:52 Orders Only Doctor Unassigned, [place] Doctor Unassigned, [place] [facility] ([facility]) 1.2.840.114 350.1.13.10 4.2.7.2.686 [id number] [facility] 2023-10-23 00:00:00 2024-07-20 07:44:46 Orders Only Doctor Unassigned, [place] Doctor Unassigned, [place] [facility] ([facility]) 1.2.840.114 350.1.13.10 4.2.7.2.686 [id number] [facility] 2023-10-24 00:00:00 2024-07-20 07:44:02 Orders Only Doctor Unassigned, [place] Doctor Unassigned, [place] [facility] ([facility]) 1.2.840.114 350.1.13.10 4.2.7.2.686 [id number] [facility] 2023-10-24 00:00:00 2024-07-20 07:43:59 Orders Only Doctor Unassigned, [place] Doctor Unassigned, [place] [facility] 1.2.840.114 350.1.13.10 4.2.7.2.686 [id number] [facility] 2023-10-25 00:00:00 2024-07-20 07:43:43 Orders Only Doctor Unassigned, [place] Doctor Unassigned, [place] [facility] 1.2.840.114 350.1.13.10 4.2.7.2.686 [id number] [facility] 2023-12-27 00:00:00 2024-07-20 07:14:56 Orders Only Doctor Unassigned, [place] Doctor Unassigned, [place] [facility] 1.2.840.114 350.1.13.10 4.2.7.2.686 [id number] [facility] 2023-09-04 00:00:00 2024-07-20 02:31:09 Orders Only Doctor Unassigned, [place] Doctor Unassigned, [place] [facility] ([place] 1.2.840.114 350.1.13.10 4.2.7.2.686 [id number] [facility] 2023-10-03 00:00:00 2024-07-20 02:08:37 Orders Only Doctor Unassigned, [place] Doctor Unassigned, [place] [facility] 1.2.840.114 350.1.13.10 4.2.7.2.686 [id number] [facility] 2024-07-19 13:45:00 2024-07-19 13:45:00 Outpatient R TEE FELDER [facility] [id number] [facility] 2024-07-19 10:15:00 2024-07-19 10:15:00 Outpatient R TEE FELDER [facility] [id number] [facility] 2024-07-09 15:30:00 2024-07-09 15:30:00 Outpatient R TEE FELDER [facility] [id number] [facility] 2024-07-05 09:30:00 2024-07-05 09:30:00 Outpatient R MARIA ESTHER H[facility] [id number] [facility] 2024-07-04 10:30:00 2024-07-04 10:30:00 Outpatient R [facility] [id number] [facility] 2024-07-01 15:00:00 2024-07-01 15:10:03 Outpatient R MARIA ESTHER H[facility] [id number] [facility] 2024-07-01 15:00:00 2024-07-01 15:10:03 Office Visit Maria Esther Hamm [facility] 1.84.114 350.1.13.10 4.2.7.2.686 [id number] [facility] 2024-06-25 00:00:00 2024-06-27 10:21:14 Nurse Triage Jonathan Barker Chessica T [facility] ([facility] 1..114 350.1.13.10 4.2.7.2.686 [id number] [facility] 2024-06-14 13:15:00 2024-06-14 13:15:00 Outpatient R MARIA ESTHER HAMM VIEN [facility] [id number] [facility] 2024-04-11 13:30:00 2024-04-11 13:39:11 Outpatient R MARIA ESTHER H[facility] [id number] [facility] 2024-04-11 13:30:00 2024-04-11 13:39:11 Nurse Visit Nurse, [facility] Maria Esther Hamm Nurse, Christina [facility] 1..114 350.1.13.10 4.2.7.2.686 [id number] [facility] 2024-04-11 00:00:00 2024-04-11 11:18:18 Telephone Maria Esther Hamm [facility] 1.2.840.114 350.1.13.10 4.2.7.2.686 [id number] [facility] 2024-04-02 00:00:00 2024-04-03 15:04:35 Telephone Nurse, [facility] Women's Health Nurse, [facility] 1.2.840.114 350.1.13.10 4.2.7.2.686 [id number] [facility] 2024-04-03 10:30:00 2024-04-03 10:30:00 Outpatient R [facility] [id number] [facility] 2024-03-28 09:00:00 2024-03-28 09:00:00 Outpatient R [facility] [id number] [facility] 2024-02-12 13:00:00 2024-02-12 13:48:56 Outpatient R MARIA ESTHER H[facility] [id number] [facility] 2024-02-12 13:00:00 2024-02-12 13:48:56 Routine Visit Maria Esther Hamm [facility] 1.2.840.114 350.1.13.10 4.2.7.2.686 [id number] [facility] 2024-01-17 00:00:00 2024-01-17 13:28:26 Refill Maria Esther Hamm [facility] 1.2.840.114 350.1.13.10 4.2.7.2.686 [id number] [facility] 2024-01-17 10:15:00 2024-01-17 10:19:36 Outpatient R MARIA ESTHER HAMM VIEN [facility] [id number] [facility] 2024-01-17 10:15:00 2024-01-17 10:19:36 Routine Visit Maria Esther Hamm [facility] 1.2.840.114 350.1.13.10 4.2.7.2.686 [id number] [facility] 2024-01-16 00:00:00 2024-01-16 13:58:40 Telephone Maria Esther Hamm [facility] 1.2.840.114 350.1.13.10 4.2.7.2.686 [id number] [facility] 2024-01-15 15:15:00 2024-01-15 15:15:00 Outpatient R TEE FELDER [facility] [id number] [facility] 2024-01-12 12:45:00 2024-01-12 12:45:00 Outpatient R TEE FELDER [facility] [id number] [facility] 2024-01-12 00:00:00 2024-01-12 09:19:42 Telephone HammMaria Esther [facility] 1.2.840.114 350.1.13.10 4.2.7.2.686 [id number] [facility] 2024-01-08 17:05:00 2024-01-10 12:25:00 Inpatient X HANSEL MARIA ESTHER [facility] [id number] [facility] 2024-01-08 17:05:00 2024-01-10 12:25:00 Hospital Encounter Jazmine Valle [facility] 1.2.840.114 350.1.13.10 4.2.7.2.686 [id number] [facility] 2024-01-09 13:45:00 2024-01-09 13:45:00 Outpatient R TEE FELDER [facility] [id number] [facility] 2024-01-09 02:53:00 2024-01-09 10:45:00 Anesthesia Event Pablo Wadsworth Stacey [facility] 1.2.840.114 350.1.13.10 4.2.7.2.686 [id number] [facility] 2024-01-08 16:15:00 2024-01-08 16:53:16 Outpatient R MARIA ESTHER HAMM VIEN [facility] [id number] [facility] 2024-01-08 16:15:00 2024-01-08 16:53:16 Routine Visit Maria Esther Hamm Kim [facility] 1.2.840.114 350.1.13.10 4.2.7.2.686 [id number] [facility] 2024-01-08 00:00:00 2024-01-08 10:37:13 Telephone Maria Esther Hamm [facility] 1.2.840.114 350.1.13.10 4.2.7.2.686 [id number] [facility] 2024-01-05 00:00:00 2024-01-05 16:16:45 Telephone Maria Esther Hamm [facility] 1.2.840.114 350.1.13.10 4.2.7.2.686 [id number] [facility] 2024-01-05 08:40:00 2024-01-05 13:25:00 Outpatient P [facility] [id number] [facility] 2024-01-05 08:40:00 2024-01-05 13:25:00 Hospital Encounter Maria Esther Hamm [facility] 1.2.840.114 350.1.13.10 4.2.7.2.686 [id number] [facility] 2024-01-05 00:00:00 2024-01-05 07:59:50 Telephone Maria Esther Hamm [facility] 1.2840.114 350.1.13.10 4.2.7.2.686 [id number] [facility] 2024-01-01 08:45:00 2024-01-01 08:45:00 Routine Visit Tee Felder [facility] 1.20.114 350.1.13.10 4.2.7.2.686 [id number] [facility] 2024-01-01 08:45:00 2024-01-01 08:28:01 Outpatient R TEE FELDER [facility] [id number] [facility] 2023-12-29 13:30:00 2023-12-29 13:30:00 Outpatient R MARIA ESTHER [facility] [id number] [facility] 2023-12-28 13:44:00 2023-12-28 19:10:00 Outpatient X MARIA ESTHER HAMM [facility]EN [facility] [id number] [facility] 2023-12-28 13:44:00 2023-12-28 19:10:[address] Maria Esther Hamm [facility] 1.2840.114 350.1.13.10 4.2.7.2.686 [id number] [facility] 2023-12-26 09:30:00 2023-12-26 09:45:00 Fitness And Wellness Manager Visit 2, [facility] Maria Esther Hamm [facility] 1.2840.114 350.1.13.10 4.2.7.2.686 [id number] [facility] 2023-12-26 09:00:00 2023-12-26 09:22:37 Outpatient R MARIA ESTHER H[facility] [id number] [facility] 2023-12-26 09:00:00 2023-12-26 09:22:37 Routine Visit Maria Esther Hamm Marquez [facility] 1.840.114 350.1.13.10 4.2.7.2.686 [id number] [facility] 2023-12-25 08:30:00 2023-12-25 08:30:00 Outpatient R TEE FELDER [facility] [id number] [facility] 2023-12-22 21:33:00 2023-12-23 01:45:00 Outpatient P ADUM, MELBA KEY [facility] [id number] [facility] 2023-12-22 21:33:00 2023-12-23 01:45:00 Hospital Encounter Melba Kye L [facility] 1.840.114 350.1.13.10 4.2.7.2.686 [id number] [facility] 2023-12-22 00:00:00 2023-12-22 20:34:27 Nurse Triage Joselin Chaney [facility] 1.84.114 350.1.13.10 4.2.7.2.686 [id number] [facility] 2023-12-20 15:30:00 2023-12-20 15:46:26 Outpatient R TEE FELDER [facility] [id number] [facility] 2023-12-20 15:30:00 2023-12-20 15:46:26 Routine Visit Tee Felder [facility] 1.840.114 350.1.13.10 4.2.7.2.686 [id number] [facility] 2023-12-18 12:10:00 2023-12-18 17:22:[address] [facility] [id number] [facility] 2023-12-18 12:10:00 2023-12-18 17:22:00 Emergency Blake-Dean s, Jazmine [facility] 1.2.840.114 350.1.13.10 4.2.7.2.686 [id number] [facility] 2023-12-18 00:00:00 2023-12-18 10:56:16 Telephone Maria Esthre [facility] 1.2.840.114 350.1.13.10 4.2.7.2.686 [id number] 134 [id number] [facility] 2023-12-14 00:00:00 2023-12-14 10:16:03 Telephone Maria Esther Hamm [facility] 1.2.840.114 350.1.13.10 4.2.7.2.686 [id number] 134 [id number] [facility] 2023-12-11 15:45:00 2023-12-11 18:30:00 Outpatient X BLAKE-DEAN S, JAZMINE BLAKE-DEAN S, JAZMINE [facility] [id number] [facility] [facility] 2023-12-11 15:45:00 2023-12-11 18:30:00 Emergency Blake-Dean s, Jazmine [facility] 1.2.840.114 350.1.13.10 4.2.7.2.686 [id number] [id number] [facility] 2023-12-11 00:00:00 2023-12-11 15:05:[address] [facility] 1.2.840.114 350.1.13.10 4.2.7.2.686 [id number] [id number] [facility] 2023-12-08 09:15:00 2023-12-08 09:15:00 Routine Visit Maria Esther Hamm [facility] 1.840.114 350.1.13.10 4.2.7.2.686 [id number] [facility] 2023-12-08 09:15:00 2023-12-08 08:58:28 Outpatient R JONY HAMMMARIA ESTHER RIGGS [facility] [id number] [facility] 2023-11-30 00:00:00 2023-11-30 09:01:49 Telephone Maria Esther Hamm [facility] 1.840.114 350.1.13.10 4.2.7.2.686 [id number] 134 [id number] [facility] 2023-11-27 12:27:00 2023-11-27 14:55:00 Outpatient P HANSEL MARIA ESTHER HAMM [facility] [id number] [facility] 2023-11-27 12:27:00 2023-11-27 14:55:00 Hospital Encounter Tee Felder Jony Hammen Marquez [facility] 1.840.114 350.1.13.10 4.2.7.2.686 [id number] [id number] [facility] 2023-11-27 11:45:00 2023-11-27 12:04:58 Outpatient R EMERITATEE [facility] [id number] [facility] 2023-11-27 11:45:00 2023-11-27 12:04:58 Routine Visit Emerita Tee [facility] 1.840.114 350.1.13.10 4.2.7.2.686 [id number] 134 [id number] [facility] 2023-11-23 00:00:00 2023-11-23 13:36:[address] [facility] MACHINE OPERATOR [facility] 1.2.840.114 350.1.13.10 4.2.7.2.686 [id number] [facility] 2023-11-21 15:45:00 2023-11-21 16:16:15 Outpatient R MARIA ESTHER HAMM [facility] [id number] [facility] 2023-11-21 15:45:00 2023-11-21 16:16:15 Routine Visit [facility] 1.2.840.114 350.1.13.10 4.2.7.2.686 [id number] 134 [id number] [facility] 2023-11-16 00:00:00 2023-11-16 16:55:[address] [facility] MACHINE OPERATOR [facility] 1.2.840.114 350.1.13.10 4.2.7.2.686 [id number] [facility] 2023-11-16 08:00:00 2023-11-16 08:31:15 Outpatient R FIDELIA RIVERA [facility] [id number] [facility] 2023-11-16 08:00:00 2023-11-16 08:31:15 Fitness And Wellness Manager Visit Ultrasound, Fidelia Mota [facility] MACHINE OPERATOR [facility] 1..840.114 350.1.13.10 4.2.7.2.686 [id number] [facility] 2023-11-15 20:48:00 2023-11-15 22:45:00 Outpatient X MARIA ESTHER [facility] [id number] [facility] 2023-11-15 20:48:00 2023-11-15 22:45:00 Emergency Maria Esther Hamm [facility] 1.2.840.114 350.1.13.10 4.2.7.2.686 [id number] [id number] [facility] 2023-11-10 11:30:00 2023-11-10 11:42:57 Outpatient R MARIA ESTHER HAMM [facility] [id number] [facility] 2023-11-10 11:30:00 2023-11-10 11:42:57 Routine Visit Maria Esther Hamm [facility] 1.2.840.114 350.1.13.10 4.2.7.2.686 [id number] 134 [id number] [facility] 2023-10-02 00:00:00 2023-11-04 18:08:33 Patient Secure Msg Doctor Unassigned, [place] [facility] 1.2.840.114 350.1.13.10 4.2.7.2.686 [id number] [id number] [facility] 2023-10-23 00:00:00 2023-10-23 10:25:03 Telephone Maria Esther Hamm [facility] 1.2.840.114 350.1.13.10 4.2.7.2.686 [id number] 134 [id number] [facility] 2023-10-20 00:00:00 2023-10-20 15:46:01 Refill Maria Esther Hamm [facility] 1.2.840.114 350.1.13.10 4.2.7.2.686 [id number] 134 [id number] [facility] 2023-10-17 00:00:00 2023-10-17 15:01:01 Telephone Maria Esther Hamm [facility] 1.2.840.114 350.1.13.10 4.2.7.2.686 [id number] 134 [id number] [facility] 2023-10-16 00:00:00 2023-10-16 15:28:44 Telephone HanselMaria Esther Marquez [facility] 1.84.114 350.1.13.10 4.2.7.2.686 [id number] 134 [id number] [facility] 2023-10-16 00:00:00 2023-10-16 13:03:[address] [facility] MACHINE OPERATOR [facility]ER[facility] & [facility] 1.0.114 350.1.13.10 4.2.7.2.686 [id number] 107 [id number] [facility] 2023-10-13 15:00:00 2023-10-13 15:15:00 Routine Visit Tee Felder [facility] 1.84.114 350.1.13.10 4.2.7.2.686 [id number] [facility] 2023-10-13 15:00:00 2023-10-13 15:00:00 Outpatient R TEE FELDER [facility] [id number] [facility] 2023-10-12 13:00:00 2023-10-12 13:15:00 Fitness And Wellness Manager Visit Pob, Adc Lab Onur Claudio [facility] 1.840.114 350.1.13.10 4.2.7.2.686 [id number] [facility] 2023-10-12 13:00:00 2023-10-12 13:00:00 Outpatient R ONUR WILBURN SHANNON [facility] [id number] [facility] 2023-10-12 11:15:00 2023-10-12 12:00:00 Fitness And Wellness Manager Visit Ultrasound, Onur Jenkins [facility] MACHINE OPERATOR [facility]ER[facility] & [facility] 1.840.114 350.1.13.10 4.2.7.2.686 [id number] [facility] 2023-09-28 00:00:00 2023-09-28 00:00:00 Telephone Maria Esther Hamm [facility] 1.20.114 350.1.13.10 4.2.7.2.686 [id number] 134 [id number] [facility] 2023-09-25 10:00:00 2023-09-25 10:37:54 Outpatient R MARIA ESTHER HAMM [facility] [id number] [facility] 2023-09-25 10:00:00 2023-09-25 10:37:54 Initial Visit Maria Esther Hamm [facility] 1.20.114 350.1.13.10 4.2.7.2.686 [id number] 134 [id number] [facility] 2023-09-19 09:31:00 2023-09-19 14:55:00 Outpatient X MARIA ESTHER HAMM [facility] ERT [id number] [facility] 2023-09-19 09:31:00 2023-09-19 14:55:00 Emergency Lilli Avila Maria Esther Hamm [facility] 1.0.114 350.1.13.10 4.2.7.2.686 [id number] [id number] [facility] 2023-09-19 00:00:00 2023-09-19 00:00:00 Nurse Triage Oscar Troyndy [facility] 1.20.114 350.1.13.10 4.2.7.2.686 [id number] [facility] 2023-09-19 00:00:00 2023-09-19 00:00:00 Telephone Melba Key [facility] 1.20.114 350.1.13.10 4.2.7.2.686 [id number] 134 [id number] [facility] 2023-09-13 12:45:00 2023-09-13 13:18:47 Outpatient R KIARA CONDON [facility] [id number] [facility] 2023-09-13 12:45:00 2023-09-13 13:18:47 Routine Visit Kiara Condon [facility] MACHINE OPERATOR [facility] MATER[facility] 1..840.114 350.1.13.10 4.2.7.2.686 [id number] 107 [id number] [facility] 2023-09-08 00:00:00 2023-09-08 00:00:[address] [facility] MACHINE OPERATOR [facility] 1..840.114 350.1.13.10 4.2.7.2.686 [id number] 107 [id number] [facility] 2023-09-07 08:00:00 2023-09-07 09:52:17 Outpatient P SHAREE PATRICK KARIN [facility] [id number] [facility] 2023-09-07 08:00:00 2023-09-07 09:52:17 Fitness And Wellness Manager Visit Ultrasound, Sharee Jordan [facility] 1..840.114 350.1.13.10 4.2.7.2.686 [id number] [facility] 2023-09-04 00:00:00 2023-09-04 00:00:00 Outpatient G_Pappas [facility] [id number] [facility] 2023-08-28 15:45:00 2023-08-28 16:15:02 Outpatient R KIARA CONDON [facility] [id number] [facility] 2023-08-23 15:04:00 2023-08-23 18:03:00 Emergency X VICENTE MUELLER [facility] ERT [id number] [facility] 2023-08-23 15:04:00 2023-08-23 18:03:00 Emergency Ervin Andrzej [facility] 1.0.114 350.1.13.10 4.2.7.2.686 [id number] [id number] [facility] 2023-08-23 00:00:00 2023-08-23 00:00:[address] [facility] MACHINE OPERATOR [facility] 1.0.114 350.1.13.10 4.2.7.2.686 [id number] 107 [id number] [facility] 2023-08-23 00:00:00 2023-08-23 00:00:00 Patient Secure Msg Doctor Unassigned, [place] [facility] 1.0.114 350.1.13.10 4.2.7.2.686 [id number] 044 [id number] [facility] 2023-08-16 15:45:00 2023-08-16 15:55:45 Outpatient R KIARA CONDON [facility] [id number] [facility] 2023-08-16 15:45:00 2023-08-16 15:55:45 Routine Visit Kiara Condon [facility] MACHINE OPERATOR [facility] 1.0.114 350.1.13.10 4.2.7.2.686 [id number] 107 [id number] [facility] 2023-08-16 00:00:00 2023-08-16 00:00:00 Nurse Triage Elsi Roy [facility] 1..114 350.1.13.10 4.2.7.2.686 [id number] 019 [id number] [facility] 2023-08-02 09:30:00 2023-08-02 09:45:00 Fitness And Wellness Manager Visit Pob, Adc Lab Main Kiara Condon [facility] 1.2.840.114 350.1.13.10 4.2.7.2.686 [id number] [facility] 2023-08-02 09:30:00 2023-08-02 09:30:00 Outpatient R KIARA CONDON [facility] [id number] [facility] 2023-08-02 09:00:00 2023-08-02 09:20:09 Routine Visit Kiara Condon [facility] MACHINE OPERATOR [facility] & [facility] 1.2.840.114 350.1.13.10 4.2.7.2.686 [id number] 107 [id number] [facility] 2023-07-19 00:00:00 2023-07-19 00:00:[address] [facility] MACHINE OPERATOR [facility] 1.2840.114 350.1.13.10 4.2.7.2.686 [id number] 107 [id number] [facility] 2023-07-06 10:45:00 2023-07-06 11:00:00 Fitness And Wellness Manager Visit Peter, Adc Lab Main Kiara Condon [facility] 1.2.840.114 350.1.13.10 4.2.7.2.686 [id number] [facility] 2023-07-06 10:45:00 2023-07-06 10:45:00 Outpatient R KIARA CONDON [facility] [id number] [facility] 2023-07-06 00:00:00 2023-07-06 00:00:[address] [facility] MACHINE OPERATOR [facility] 1.2.840.114 350.1.13.10 4.2.7.2.686 [id number] 107 [id number] [facility] 2023-07-05 09:00:00 2023-07-05 11:22:10 Outpatient R KIARA CONDON [facility] [id number] [facility] 2023-07-05 09:00:00 2023-07-05 11:22:10 Routine Visit Kiara Condon [facility] MACHINE OPERATOR [facility] MATER[facility] & [facility] 1.840.114 350.1.13.10 4.2.7.2.686 [id number] 107 [id number] [facility] 2023-07-05 00:00:00 2023-07-05 00:00:00 Orders Only Doctor Unassigned, [place] [facility] 1..114 350.1.13.10 4.2.7.2.686 [id number] [facility] 2023-06-29 09:30:00 2023-06-29 17:04:25 Outpatient P ONUR WILBURN SHANNON [facility] [id number] [facility] 2023-06-29 09:30:00 2023-06-29 17:04:25 Fitness And Wellness Manager Visit 1, [facility] Room Onur Wilburn [facility] MACHINE OPERATOR [facility] MATERNAL & CHILD [facility] 1.0.114 350.1.13.10 4.2.7.2.686 [id number] [facility] 2023-06-29 00:00:00 2023-06-29 00:00:[address] [facility] MACHINE OPERATOR [facility] MATER[facility] & [facility] 1.0.114 350.1.13.10 4.2.7.2.686 [id number] 107 [id number] [facility] 2023-06-22 00:00:00 2023-06-22 00:00:[address] [facility] MACHINE OPERATOR [facility] MATERNAL & [facility] 1.840.114 350.1.13.10 4.2.7.2.686 [id number] 107 [id number] [facility] 2023-06-20 00:00:00 2023-06-20 00:00:00 Telephone Kiara Condon [address] [facility] MACHINE OPERATOR [facility] 1.2.840.114 350.1.13.10 4.2.7.2.686 [id number] 107 [id number] [facility] 2023-06-12 00:00:00 2023-06-12 00:00:00 Telephone Kiara Condon [address] [facility] FR[facility] MACHINE OPERATOR [facility]ILD [facility] 1.2840.114 350.1.13.10 4.2.7.2.686 [id number] 107 [id number] [facility] 2023-06-08 00:00:00 2023-06-08 00:00:00 Patient Secure Msg Taurus Kiara Hines [facility] FR[facility] MACHINE OPERATOR [facility] 1.20.114 350.1.13.10 4.2.7.2.686 [id number] 107 [id number] [facility] 2023-06-07 15:15:00 2023-06-07 15:30:00 Fitness And Wellness Manager Visit Pob, Adc Lab Main Taurus Kiara Hines [facility] 1.2840.114 350.1.13.10 4.2.7.2.686 [id number] [facility] 2023-06-07 13:15:00 2023-06-07 14:24:19 Outpatient R KIARA CONDON [facility] [id number] [facility] 2023-06-07 13:45:00 2023-06-07 14:05:32 Initial Visit Kiara Condon [facility] MACHINE OPERATOR [facility] 1.2840.114 350.1.13.10 4.2.7.2.686 [id number] 107 [id number] [facility] 2023-06-07 00:00:00 2023-06-07 00:00:00 Orders Only Doctor Unassigned, [place] [facility] 1..840.114 350.1.13.10 4.2.7.2.686 [id number] [facility] 2023-06-01 00:00:00 2023-06-01 00:00:00 Patient Secure Msg Korin Arce [facility] MACHINE OPERATOR [facility] 1..840.114 350.1.13.10 4.2.7.2.686 [id number] 107 [id number] [facility] 2023-05-09 09:00:00 2023-05-09 09:51:44 Outpatient KORIN ARANDA [facility] [id number] [facility] 2023-05-09 09:00:00 2023-05-09 09:51:44 Office Visit Korin Arce [facility] MACHINE OPERATOR [facility] 1..840.114 350.1.13.10 4.2.7.2.686 [id number] 107 [id number] [facility] 2023-03-13 16:30:00 2023-03-13 16:30:00 Outpatient R SHEA VALLEL ALECIA Nichole JAZMINE [facility] [id number] [facility] 2023-02-28 10:00:00 2023-02-28 10:00:00 Outpatient R VENITA VALLESOL HAYDEN-DEAN S [facility] [id number] [facility] 2023-02-28 09:00:00 2023-02-28 09:00:00 Outpatient LAURE FINNEGAN [facility] [id number] [facility] 2023-02-10 09:00:00 2023-02-10 09:00:00 Outpatient R JAZMINE VALLEIO-DEAN S, JAZMINE [facility] [id number] [facility] 2023-02-03 10:00:00 2023-02-03 10:00:00 Outpatient R BALTAZARI S, JAZMINE BLAKE-DEAN S, JAZMINE [facility] [id number] [facility] 2022-06-07 00:00:00 2022-06-07 00:00:00 Orders Only Doctor Unassigned, [place] [facility] 1.2.840.114 350.1.13.10 4.2.7.2.686 [id number] [facility] 2022-06-01 08:00:00 2022-06-01 08:00:00 Outpatient R [facility] [id number] [facility] 2022-03-14 00:00:00 2022-03-14 00:00:00 Telephone Laure Paniagua [facility] 1.2.840.114 350.1.13.10 4.2.7.2.686 [id number] 134 [id number] [facility] 2022-03-01 00:00:00 2022-03-01 00:00:00 Telephone Laure Paniagua [facility] 1.2.840.114 350.1.13.10 4.2.7.2.686 [id number] 134 [id number] [facility] 2022-02-28 11:30:00 2022-02-28 11:45:00 Fitness And Wellness Manager Visit 2, [facility] 1.2.840.114 350.1.13.10 4.2.7.2.686 [id number] [facility] 2022-02-28 10:30:00 2022-02-28 11:17:53 [id number] 2022-02-28 10:30:00 2022-02-28 11:00:00 Office Visit ArceliaLaure [facility] 1.2.840.114 350.1.13.10 4.2.7.2.686 [id number] 134 [id number] [facility] 2022-02-28 00:00:00 2022-02-28 00:00:00 Orders Only Doctor Unassigned, [place] [facility] 1.2840.114 350.1.13.10 4.2.7.2.686 [id number] [facility] 2021-12-07 14:00:00 2021-12-07 14:48:02 Outpatient [facility] [id number] [facility] 2021-12-07 14:00:00 2021-12-07 14:48:02 Nurse Visit Nurse, On license of [facility] Arcelia [facility] 1.2.840.114 350.1.13.10 4.2.7.2.686 [id number] 134 [id number] [facility] 2021-09-14 14:00:00 2021-09-14 14:51:13 Nurse Visit Nurse, On license of [facility] Melba Key [facility] 1.2.840.114 350.1.13.10 4.2.7.2.686 [id number] [facility] 2021-09-14 14:00:00 2021-09-14 14:51:13 Outpatient R MELBA KEY [facility] [id number] [facility] 2021-08-12 11:45:00 2021-08-12 12:00:00 Telemedici ne Visit [facility] 1.2.840.114 350.1.13.10 4.2.7.2.686 [id number] 134 [id number] [facility] 2021-08-12 11:45:00 2021-08-12 11:45:00 Outpatient R LAURE PANIAGUA [facility] [id number] [facility] 2021-07-27 00:00:00 2021-07-27 00:00:00 Telephone Laure Paniagua [facility] 1.2.840.114 350.1.13.10 4.2.7.2.686 [id number] 134 [id number] [facility] 2021-07-21 08:00:00 2021-07-21 08:00:00 Outpatient R DANIELJOSEPHGRISELDACY [facility] [id number] [facility] 2021-07-21 08:00:00 2021-07-21 08:00:00 Fitness And Wellness Manager Visit 2, Adc Lab Laure Paniagua [facility] 1.2.840.114 350.1.13.10 4.2.7.2.686 [id number] [facility] 2021-07-21 00:00:00 2021-07-21 00:00:00 Telephone Laure Paniagua [facility] 1.2.840.114 350.1.13.10 4.2.7.2.686 [id number] 134 [id number] [facility] 2021-07-15 00:00:00 2021-07-15 00:00:00 Telephone Laure Paniagua [facility] 1.2.840.114 350.1.13.10 4.2.7.2.686 [id number] 134 [id number] [facility] 2021-07-13 08:45:00 2021-07-13 09:07:55 Outpatient R MELBA KEY [facility] [id number] [facility] 2021-07-13 08:45:00 2021-07-13 09:07:55 Routine Visit Laure Paniagua Vivian L [facility] 1.2.840.114 350.1.13.10 4.2.7.2.686 [id number] 134 [id number] [facility] 2021-07-05 11:45:00 2021-07-05 11:45:00 Routine Visit Laure Paniagua [facility] 1.2.840.114 350.1.13.10 4.2.7.2.686 [id number] [facility] 2021-07-05 11:45:00 2021-07-05 11:15:58 Outpatient R LAURE PANIAGUA [facility] [id number] [facility] 2021-06-22 16:00:00 2021-06-22 16:47:04 [id number] 2021-06-22 16:00:00 2021-06-22 16:47:04 Routine Visit Melba Key [facility] 1.2.840.114 350.1.13.10 4.2.7.2.686 [id number] [facility] 2021-06-22 00:00:00 2021-06-22 00:00:00 Orders Only Doctor Unassigned, [facility] 1.2.840.114 350.1.13.10 4.2.7.2.686 [id number] [facility] 2021-05-31 11:45:00 2021-05-31 11:45:00 Outpatient R [facility] [id number] [facility] 2021-05-27 14:45:00 2021-05-29 11:25:00 [facility] [id number] [facility] 2021-05-27 14:45:00 2021-05-29 11:25:00 Hospital Encounter Melba Key [facility] 1.2.840.114 350.1.13.10 4.2.7.2.686 [id number] [facility] 2021-05-28 20:01:37 2021-05-28 20:01:37 Anesthesia Event Rodrigo Sheriff [facility] 1.2.840.114 350.1.13.10 4.2.7.2.686 [id number] [facility] 2021-05-27 23:20:00 2021-05-28 05:20:00 Anesthesia Event Gómez Grey [facility] 1.2.840.114 350.1.13.10 4.2.7.2.686 [id number] [facility] 2021-05-25 14:00:00 2021-05-25 16:07:44 Routine Visit Room, Adc Nst Melba Key [facility] 1.2840.114 350.1.13.10 4.2.7.2.686 [id number] [facility] 2021-05-25 15:30:00 2021-05-25 15:45:51 Outpatient P INEZFRANCHESCA [facility] [id number] [facility] 2021-05-25 15:30:00 2021-05-25 15:45:51 Fitness And Wellness Manager Visit Ultrasound, Adc [facility] OscarFranchesca vela Ikuvbogie [facility] 1.2840.114 350.1.13.10 4.2.7.2.686 [id number] [facility] 2021-05-21 10:00:00 2021-05-21 10:42:24 Outpatient R MELBA KEY [facility] [id number] [facility] 2021-05-21 10:00:00 2021-05-21 10:42:24 Routine Visit Room, [facility] 1.840.114 350.1.13.10 4.2.7.2.686 [id number] [facility] 2021-05-18 10:00:00 2021-05-18 10:43:56 Outpatient R ADJUSTIN [facility] [id number] [facility] 2021-05-18 09:48:43 2021-05-18 10:43:56 Routine Visit Room, [facility] 1..840.114 350.1.13.10 4.2.7.2.686 [id number] [facility] 2021-05-18 10:00:00 2021-05-18 10:00:00 Outpatient R [facility] [id number] [facility] 2021-05-14 14:00:00 2021-05-14 14:54:04 Outpatient R [facility] [id number] [facility] 2021-05-14 13:58:04 2021-05-14 14:54:04 Routine Visit Room, [facility] 1..840.114 350.1.13.10 4.2.7.2.686 [id number] 134 [id number] [facility] 2021-05-14 14:00:00 2021-05-14 14:00:00 Outpatient R [facility] [id number] [facility] 2021-05-12 00:00:00 2021-05-12 00:00:00 Orders Only Doctor Unassigned, [facility] 1.84.114 350.1.13.10 4.2.7.2.686 [id number] [facility] 2021-05-11 10:00:00 2021-05-11 11:04:55 Outpatient R ADUM, MELBA [facility] [id number] [facility] 2021-05-11 10:00:00 2021-05-11 11:04:55 [id number] 2021-05-11 09:52:39 2021-05-11 11:04:55 Routine Visit Room, [facility] Adum, Melba [facility] 1..840.114 350.1.13.10 4.2.7.2.686 [id number] [facility] 2021-05-11 10:00:00 2021-05-11 10:00:00 Outpatient R ADUM, MELBA [facility] [id number] [facility] 2021-05-05 15:45:00 2021-05-05 16:38:33 Outpatient R [facility]UM, [facility] [id number] [facility] 2021-05-05 15:45:00 2021-05-05 16:38:33 Outpatient R ADUM, [facility] [id number] [facility] 2021-05-05 15:29:11 2021-05-05 16:38:33 Routine Visit Adum, Melba [facility] 1.2.840.114 350.1.13.10 4.2.7.2.686 [id number] 134 [id number] [facility] 2021-04-30 00:00:00 2021-04-30 00:00:00 Case Management Adum, Melba [facility] 1.2.840.114 350.1.13.10 4.2.7.2.686 [id number] [facility] 2021-04-28 16:00:00 2021-04-28 16:50:17 Outpatient R ADUM, MELBA [facility] [id number] [facility] 2021-04-28 15:48:19 2021-04-28 16:50:17 Routine Visit Adum, Melba Hardin [facility] 1..840.114 350.1.13.10 4.2.7.2.686 [id number] 134 [id number] [facility] 2021-04-16 10:30:00 2021-04-16 11:40:01 Outpatient R ADUM, MELBA [facility] [id number] [facility] 2021-04-16 10:20:40 2021-04-16 11:40:01 Nurse Visit Nurse, [facility] Adum, Melba [facility] 1..840.114 350.1.13.10 4.2.7.2.686 [id number] [facility] 2021-04-15 16:15:00 2021-04-15 16:15:00 Outpatient R ADUM, MELBA [facility] [id number] [facility] 2021-04-15 15:40:11 2021-04-15 15:55:11 Routine Visit Adum, Melba Hardin [facility] 1..840.114 350.1.13.10 4.2.7.2.686 [id number] 134 [id number] [facility] 2021-04-14 09:00:00 2021-04-14 09:00:00 Outpatient R ADUM, MELBA [facility] [id number] [facility] 2021-04-14 08:29:31 2021-04-14 08:44:31 Fitness And Wellness Manager Visit 2, [facility] Lab Adum, Melba [facility] 1.2.840.114 350.1.13.10 4.2.7.2.686 [id number] [facility] 2021-04-02 11:04:23 2021-04-02 12:02:30 Routine Visit Adum, Melba Hardin [facility] 1.2840.114 350.1.13.10 4.2.7.2.686 [id number] [facility] 2021-04-02 11:00:00 2021-04-02 12:02:30 Outpatient R ADUM, [facility] [id number] [facility] 2021-04-01 09:45:00 2021-04-01 09:45:00 Outpatient R ADUM, [facility] [id number] [facility] 2021-04-01 09:07:26 2021-04-01 09:22:26 Fitness And Wellness Manager Visit 2, [facility] Lab Adum, Melba [facility] 1..114 350.1.13.10 4.2.7.2.686 [id number] [facility] 2021-03-26 15:30:00 2021-03-26 15:30:00 [facility] [id number] 2021-03-26 13:52:10 2021-03-26 14:52:10 Fitness And Wellness Manager Visit Ultrasound, [facility] Griselda Sosa [facility] 1.284.114 350.1.13.10 4.2.7.2.686 [id number] [facility] 2021-03-26 00:00:00 2021-03-26 00:00:00 Orders Only Doctor Unassigned, [facility] 1.0.114 350.1.13.10 4.2.7.2.686 [id number] [facility] 2021-03-18 13:40:30 2021-03-18 14:23:26 Routine Visit Adum, Melba Hardin [facility] 1.2.840.114 350.1.13.10 4.2.7.2.686 [id number] [facility] 2021-03-18 14:15:00 2021-03-18 14:15:00 Outpatient R ADUM, [facility] [id number] [facility] 2021-02-26 15:00:00 2021-02-26 15:00:00 Outpatient P [facility] [id number] [facility] 2021-02-18 09:06:28 2021-02-18 09:42:13 Routine Visit Adum, Melba Hardin [facility] 1.2.840.114 350.1.13.10 4.2.7.2.686 [id number] [facility] 2021-02-18 09:15:00 2021-02-18 09:15:00 Outpatient R ADUM, [facility] [id number] [facility] 2021-02-18 00:00:00 2021-02-18 00:00:00 Orders Only Doctor Unassigned, [facility] 1.2.840.114 350.1.13.10 4.2.7.2.686 [id number] [facility] 2021-02-17 16:00:00 2021-02-17 16:00:00 Outpatient R ADUM, [facility] [id number] [facility] 2021-02-16 14:15:00 2021-02-16 14:15:00 Outpatient R ADUM, [facility] [id number] [facility] 2021-02-09 10:06:05 2021-02-09 10:21:05 Fitness And Wellness Manager Visit 2, Ad[facility] Lab Carlos Enrique Marin [facility] 1..840.114 350.1.13.10 4.2.7.2.686 [id number] [facility] 2021-02-09 10:15:00 2021-02-09 10:15:00 Outpatient R CARLOS ENRIQUE MARIN [facility] [id number] [facility] 2021-02-09 00:00:00 2021-02-09 00:00:00 Letter (Out) Jeane [facility] 1..840.114 350.1.13.10 4.2.7.2.686 [id number] [facility] 2021-02-07 18:11:36 2021-02-07 18:26:36 Laboratory Only Only, Ang Db Test Ariadne Foster [facility] 1..840.114 350.1.13.10 4.2.7.2.686 [id number] [facility] 2021-02-07 18:10:00 2021-02-07 18:10:00 Outpatient R ARIADNE FOSTER [facility] [id number] [facility] 2021-02-03 00:00:00 2021-02-03 00:00:00 Telephone Melba Key [facility] 1..840.114 350.1.13.10 4.2.7.2.686 [id number] 134 [id number] [facility] 2021-02-03 00:00:00 2021-02-03 00:00:00 Telephone Melba Key [facility] 1..840.114 350.1.13.10 4.2.7.2.686 [id number] 134 [id number] [facility] 2021-01-29 00:00:00 2021-01-29 00:00:00 Telephone Melba Key [facility] 1.2.840.114 350.1.13.10 4.2.7.2.686 [id number] 134 [id number] [facility] 2021-01-29 00:00:00 2021-01-29 00:00:00 Telephone Adjustin, Melba Hardin [facility] 1.2.840.114 350.1.13.10 4.2.7.2.686 [id number] [facility] 2021-01-27 13:00:00 2021-01-27 13:00:00 Outpatient R [facility] [id number] [facility] 2021-01-26 14:23:33 2021-01-26 16:06:34 Initial Visit Adjustin, Melba Hardin [facility] 1.2.840.114 350.1.13.10 4.2.7.2.686 [id number] 134 [id number] [facility] 2021-01-26 14:23:33 2021-01-26 16:06:34 Initial Visit AdMelba anderson [facility] 1.2.840.114 350.1.13.10 4.2.7.2.686 [id number] [facility] 2021-01-26 14:30:00 2021-01-26 14:30:00 Outpatient R ADJUSTIN, MELBA [facility] [id number] [facility] 2021-01-26 00:00:00 2021-01-26 00:00:00 Orders Only Doctor Unassigned, [facility] 1.2.840.114 350.1.13.10 4.2.7.2.686 [id number] [facility] 2021-01-26 00:00:00 2021-01-26 00:00:00 Orders Only Doctor Unassigned, [facility] 1.2.840.114 350.1.13.10 4.2.7.2.686 [id number] [facility] 2020-09-01 14:00:00 2020-09-01 14:00:00 Outpatient R MELBA KEY [facility] [id number] [facility] 2020-06-09 00:00:00 2020-06-09 00:00:00 [facility]phone [facility] 1.2.840.114 350.1.13.10 4.2.7.2.686 [id number] 134 [id number] 2020-06-09 00:00:00 2020-06-09 00:00:00 Telephone AdMelba anderson [facility] 1.2.840.114 350.1.13.10 4.2.7.2.686 [id number] 134 [id number] [facility] 2020-06-08 11:00:00 2020-06-08 11:00:00 Outpatient R [facility] [id number] [facility] 2020-06-08 10:43:33 2020-06-08 10:58:33 Fitness And Wellness Manager Visit 2, [facility] Lab Melba Key [facility] 1.2.840.114 350.1.13.10 4.2.7.2.686 [id number] [facility] 2020-06-08 10:43:33 2020-06-08 10:58:33 Fitness And Wellness Manager Visit 2, Adc Lab [facility] 1.2.840.114 350.1.13.10 4.2.7.2.686 [id number] 2020-06-03 10:45:00 2020-06-03 10:45:00 Outpatient R MELBA KEY [facility] [id number] [facility] 2020-06-02 11:22:36 2020-06-02 12:46:52 Office Visit Adum, [facility] 1.2.840.114 350.1.13.10 4.2.7.2.686 [id number] 134 [id number] [facility] 2020-06-02 11:22:36 2020-06-02 12:46:52 [facility] 1.2.840.114 350.1.13.10 4.2.7.2.686 [id number] 2020-06-02 11:00:00 2020-06-02 11:00:00 Outpatient R ADMELBA ANDERSON [facility] [id number] [facility] 2020-03-26 00:00:00 2020-03-26 00:00:00 Case Management Adum, [facility] 1.2.840.114 350.1.13.10 4.2.7.2.686 [id number] 134 [id number] [facility] 2020-03-25 15:36:12 2020-03-25 15:51:12 Fitness And Wellness Manager Visit 2, [facility] 1.2.840.114 350.1.13.10 4.2.7.2.686 [id number] [facility] 2020-03-25 13:45:58 2020-03-25 15:22:29 Office Visit [facility] [facility] 1.2.840.114 350.1.13.10 4.2.7.2.686 [id number] 134 [id number] [facility] 2020-03-25 14:00:00 2020-03-25 14:00:00 Outpatient R ADMELBA ANDERSON [facility] [id number] [facility] 2020-03-25 00:00:00 2020-03-25 00:00:00 Orders Only Doctor Unassigned, [facility] 1.2.840.114 350.1.13.10 4.2.7.2.686 [id number] [facility] Results Test Description Test Time Test Comments Results Result Comments Source MR Venogram head w wo contrast 2024-09 22:51:0 5 MR BRAIN W WO CONTRAST, MR VENOGRAM HEAD W WO CONTRAST HISTORY: Headache, possible seizure. COMPARISON: None TECHNIQUE: Multisequence multiplanar MR images the brain were obtainedwithout ?IV contrast. Quantitative volumetry of the brain was performed using NeuroQuant([employer], [place], [place]) software package. The NeuroQuantanalysis was based on a sagittal 3D volumetric MPRAGE pulse sequence.Sequence-eli cking was performed to ensure appropriate high-resolution andcontrast image parameters. Correction for field/gradient inhomogeneities,remov al of the overlying calvaria, alignment to the probabilistic atlas ofstereotypical anatomy and segmented volumetry of predetermined anatomicareas derived from multiple subjects of multiple age groups was performed.Two automated reports were generated. Multiplanar multisequence MR images of the brain were obtained.Opbq-zp-enxn ht MRA of the [place] and MR venogram of the brainwere also performed. FINDINGS: MR brain: Ventricles and basal cisterns are normal. No infarction or hemorrhage. Noabnormal parenchymal signal abnormality. The hippocampi are normal in morphology and signal intensity. Hippocampalvolume report demonstrates: Left Hippocampal volume ( in cm3 ): 3.36 ?; Normative percentile:46 Right Hippocampal volume ( in cm3 ): 3.54 ; Normative percentile:55 Asymmetry Index: -5.27 MRV: Relative thin caliber of the left transverse sinus and sigmoid sinuswithout filling defects. The superior sagittal sinus, transverse sinuses, jugular bulbs, andproximal internal jugular veins are ?otherwise patent. The straight sinus,vein of [place] and internal cerebral veins are unremarkable. ? [facility] MR Brain w wo contrast 2024-09 22:51:0 5 MR BRAIN W WO CONTRAST, MR VENOGRAM HEAD W WO CONTRAST HISTORY: Headache, possible seizure. COMPARISON: None TECHNIQUE: Multisequence multiplanar MR images the brain were obtainedwithout ?IV contrast. Quantitative volumetry of the brain was performed using NeuroQuant([employer], [place], [place]) software package. The NeuroQuantanalysis was based on a sagittal 3D volumetric MPRAGE pulse sequence.Sequence-eli cking was performed to ensure appropriate high-resolution andcontrast image parameters. Correction for field/gradient inhomogeneities,remov al of the overlying calvaria, alignment to the probabilistic atlas ofstereotypical anatomy and segmented volumetry of predetermined anatomicareas derived from multiple subjects of multiple age groups was performed.Two automated reports were generated. Multiplanar multisequence MR images of the brain were obtained.Bvam-ln-xtwy ht MRA of the [place] and MR venogram of the brainwere also performed. FINDINGS: MR brain: Ventricles and basal cisterns are normal. No infarction or hemorrhage. Noabnormal parenchymal signal abnormality. The hippocampi are normal in morphology and signal intensity. Hippocampalvolume report demonstrates: Left Hippocampal volume ( in cm3 ): 3.36 ?; Normative percentile:46 Right Hippocampal volume ( in cm3 ): 3.54 ; Normative percentile:55 Asymmetry Index: -5.27 MRV: Relative thin caliber of the left transverse sinus and sigmoid sinuswithout filling defects. The superior sagittal sinus, transverse sinuses, jugular bulbs, andproximal internal jugular veins are ?otherwise patent. The straight sinus,vein of [place] and internal cerebral veins are unremarkable. ? [facility] Electroencephalogram (EEG) - Duration of test: 20-60 mins; Release to patient: Immediate 2024-09 00:00:0 0 VIDEO EEG 09/05/24 Start time: 9:44Stop time: 10:04 HISTORY: Kelly Saucedo is a 23 year old female right handed with PMH of obesity, concussion in 2019 who comes to clinic with c/o headache and blacking out episodes. ?MEDICATIONS THAT COULD AFFECT THE EEG: None?TECHNICAL SUMMARY: The EEG was recorded digitally. Electrodes were applied using the International 10/20 system of electrode placement. Eye movements were monitored on separate channels of the ongoing EEG recording. ?DESCRIPTION OF RECORD: BACKGROUND: During the maximally alert state, a 12 Hz reactive posterior dominant rhythm was seen that was symmetric, reactive to eye opening and closure and well regulated.? In the more anterior head regions, low voltage beta activity predominated.? During drowsiness, the posterior dominant rhythm attenuated. Stage 2 sleep was not seen. FOCAL ABNORMALITIES: None PERIODIC/RHYTHMIC ABNORMALITIES: None INTERICTAL EPILEPTIFORM ACTIVITY: None ICTAL EPILEPTIFORM ACTIVITY: None EVENTS: None HV: no change in EEG seen.?PHOTIC STIMULATION: No abnormalities seen.? ??ELECTROCARDIOGRAM EVENTS: Normal Sinus Rhythm??IMPRESSION: Normal awake and drowsy EEG CLINICAL CORRELATION: ?No areas epileptiform discharges or seizures were seen. Atif Fair, DOPGY-5, SCHOOL PRINCIPAL Fellow I read this EEG and agree with the fellow's report as written Laura Zuluaga MD, PhD, FAESProfessor of Neurology, [facility]. Director, Epilepsy Monitoring Unit, [facility] HOSPITALDiplomate in Epilepsy, [employer] of Psychiatry and Neurology [facility] CenterRHO (D) IMMUNE [id number] 15:06:27* Test Item Value Reference Range Interpretation Comme nts RHIG CANDIDATE? (test code = 5188) No- see comment Patient is not a candidate for RhIg- Patient is Rh Positive.Performed at [facility] Laboratory Services - [facility] Blood [address] [place] [id number] Free: [phone] No. [id number] [facility] [id number] 08:03:00 Pablo Wadsworth MD ? ? 01/09/2024 ?3:33 AM Central Neuraxial Block Date/Time: 01/09/2024 3:03 AM Performed by: Pablo Wadsworth MDAuthorized by: Pablo Wadsworth MD ?Patient Location: OBReason forBlock: OB request, Patient request, Labor analgesia, Surgical anesthesia and Post-op pain managementStaff: ?Anesthesiologist: Pablo Wadsworth MD ?Performed by: anesthesiologistPreanesthetic Checklist: patient identified, IV checked, risks and benefits explained, monitors and equipment checked, timeout performed, pre- op evaluation, site marked, anesthesia consent, ob/surgical consent approval and ob/surgical consent verifiedProcedure: ?Type of Neuraxial: Epidural and Continuous ? Sterility Prep cap, drape, gloves, hand hygiene and mask ? ?Sedation Level no sedation ?Patient Position: sitting ?Prep: Betadine and patient draped ? ?Monitoring: heart rate, continuous pulse ox, heart rate / toco and NIBP ?Location: lumbar (1-5) ?Lumbar: L2-L3 ?Approach: midline ? ?Technique: AUDREY air and catheter ?Guidance with: landmark technique}Epidural/Spinal [place] and/or Catheter: ?Epidural/Spinal Kit: Sellbox (BD) ?Needle Type: Tuohy ?Needle Gauge: 17 G ?Needle Length: 3.5 in (8.89 cm) ?Needle Insertion Depth: 7 ?Catheter Type: multiport ? ?Catheter Size: 18 G ? ?Catheter at Skin Depth: 12 ?Number of Attempts: 1 ? ?Dose: 3 cc ? ?Catheter Securement Method: surgical tape and TegadermAssessment: ?Sensory Level: below T10 ?Block Outcome: positive pain relief and successful block ? ?Procedure Assessment: patient tolerated procedure well with no complicationsNotes: ? Smooth and atraumatic, (+) Local, (+) [facility] BIOPHYSICAL [id number] 01:24:16Exam: US BIOPHYSICAL PROFILE Indication: Decreased movement ? Comparison: None. RL: [id number] Ordering Clinician: MARIA ESTHER HAMM Technique: Transabdominal pelvic ultrasound imaging was performed. Technical Quality: Adequate Discussion:The biophysical profile is 8 out of 8 with normal movement, tone, andbreathing.The amniotic fluid index is normal at 10.6 cm. The heart rate was measured at 134 bpm. The cervix measures 3.8 cm.[facility] Urinalysis w/o Specific [id number] 21:17:00* Test Item Value Reference Range Interpretation Comme nts POCT PH U (test code = 3254) n/a 5-8 POCT U LEUK EST (test code = 3263) n/a Negative - Negative POCT U NIT (test code = 3262) n/a Negative - Negati ve POCT U PROT (test code = 3259) negative Negative - Negat tania POCT U GLU (test code = 3256) negative Negative - Negati ve POCT U KETONE (test code = 3258) n/a Negative - Neg ative POCT U BLD (test code = 3257) n/a Negative - Negati ve [facility] PELVIS > 14 [id number] 17:37:45EXAM: US PELVIS > 14 WEEKS DATE: 01/05/2024 10:00 AM INDICATION: COMPARISON: None available. TECHNIQUE: Transabdominal pelvic ultrasound was performed. M-mode wasutilized to document cardiac activity. FINDINGS: There is a single live intrauterine gestation.Presentation: Ce phalicPlacenta: Posterior fundalCord insertion: Not visualizedPrevia: NoneCervix: ClosedAmniotic fluid: LAVELL: (greater than 24 weeks): 11.0 cmBPD: 9.0 cm 36 week 3 dayHC: 31.0 cm 34 week 5 dayAC: 30.7cm 34 week 5 dayFL: 7.2 cm 37 weeks 0 dayUltrasound calculated gestational age: 35 week 5 day Estimated Weight: 2676 gm Heart Rate: 132-like abdomen R 2820 oh bpm ANATOMY SPECIFICALLY EVALUATED:HeadCalvarium: NormalChoroid plexus: NormalLateral ventricles: NormalCisterna magna: NormalCavum septum pellucidum: NormalNose/lips: NormalHeartFour-chamber: NormalLVOT: NormalRVOT: NormalAbdome nStomach: NormalRight kidney: NormalLeft okay is also all 3 appointments appointments with a complex tear iswithin a day thrombus fills the right leg flexed at the 41-ulbq-pnbkqsculub needs dictated sorry 47-year-old completely flex.Depending on chronic contrast but with was done lobulated fluid col lectionin the apical thirdAppointment by anterior helical blurred granduncle for pathology Kidney:NormalBladder: NormalCord insertion: NormalThree-vessel cord: NormalSpineCervical: NormalThoracic: NormalLumbar/sacral: NormalExtremitiesUpper right: NormalUpper left: NormalLower right: NormalLower left: NormalUnChase [facility] Urinalysis w/o Specific [id number] 13:11:00* Test Item Value Reference Range Interpretation Comme nts POCT PH U (test code = 3254) n.a 5-8 POCT U LEUK EST (test code = 3263) n.a Negative - Negative POCT U NIT (test code = 3262) n.a Negative - Negati ve POCT U PROT (test code = 3259) negative Negative - Negat tania POCT U GLU (test code = 3256) negative Negative - Negati ve POCT U KETONE (test code = 3258) n.a Negative - Neg ative POCT U BLD (test code = 3257) n.a Negative - Negati ve [facility] Met[facility] Panel (00809)2023-12-28 21:42:31* Test Item Value Reference Range Interpretation Comme nts NA (test code = 9926403206) 134 mmol/L 135-145 L K (test code = 9589378365) 3.3 mmol/L 3.5-5.0 L CL (test code = 7237558239) 105 mmol/L 98-108 CO2 TOTAL (test code = 6274616557) 21 mmol/L 23-31 L AGAP (test code = 3730061128) 8 2-16 BUN (test code = 4934026264) 7-23 L GLUCOSE (test code = 9543514669) 77 mg/dL 70-110 CREATININE (test code = 2160-0) 0.50 mg/dL 0.50-1.04 TOTAL BILI (test code = 3047478986) 0.8 mg/dL 0.1-1.1 CALCIUM (test code = 1510431046) 9.3 mg/dL 8.6-10.6 T PROTEIN (test code = 0713272381) 6.8 g/dL 6.3-8.2 ALBUMIN (test code = 1258160745) 3.3 g/dL 3.5-5.0 L ALK PHOS (test code = 2433164079) 593 U/L 34-122 H ALTv (test code = 1742-6) 8 U/L 5-35 AST(SGOT) (test code = 6714221715) 21 U/L 13-40 eGFR (test code = 25718-5) 135.3 mL/min/1.73m2 CKD-EPI eGFR (2020). Assuming creatinine has been stable day-to-day for at least three months, the eGFR indicates Category G1 (>= 90 mL/min/1.73 m2) Lab Interpretation (test code = 41219-1) Abnormal [facility]burg[facility]ase2024-[facility] 21:42:00* Test Item Value Reference Range Interpretation Comme nts LIPASE (test code = 8779241229) 35 U/L 0-220 Lab Interpretation (test cod e = 42195-8) Normal [facility]burg[facility]ylase2024-07-25 21:41:03* Test Item Value Reference Range Interpretation Comme nts LUZ (test code = 0906230299) 50 U/L 35-110 Lab Interpretation (test cod e = 12845-1) Normal [facility]burgCbc with [id number] 21:36:59* Test Item Value Reference Range Interpretation Comme nts WBC (test code = 6690-2) 9.82 4.30-11.10 RBC (test code = 789-8) 4.46 3.93-5.25 HGB (test code = 718-7) 11.2 g/dL 11.6-15.0 L HCT (test code = 4544-3) 36.8 % 35.7-45.2 MCV (test code = 787-2) 82.5 fL 80.6-95.5 MCH (test code = 785-6) 25.1 pg 25.9-32.8 L MCHC (test code = 786-4) 30.4 g/dL 31.6-35.1 L RDW-SD (test code = 56102-3) 45.4 fL 39.0-49.9 RDW-CV (test code = 788-0) 15.3 % 12.0-15.5 PLT (test code = 777-3) 288 166-358 MPV (test code = 91128-9) 10.4 fL 9.5-12.9 NRBC/100 WBC (test code = 7414719657) 0.0 0.0-10.0 NRBC x10^3 (test code = 8706729404) See_Comment [Automated [place] Technologiesa ge] The system which generated this result transmitted reference range: 10*3/?L. The reference range was not used to interpret this result as normal/abnormal. GRAN MAT (NEUT) % (test code = 770-8) 60.7 % IMM GRAN % (test code = 3495389169) 0.40 % LYMPH % (test code = 736-9) 28.5 % MONO % (test code = 5905-5) 8.7 % EOS % (test code = 713-8) 1.5 % BASO % (test code = 706-2) 0.2 % GRAN MAT x10^3(ANC) (test code = 3328975664) 5.96 10*3/uL 1.88-7.09 IMM GRAN x10^3 (test code = 6368165551) 0.04 10*3/uL 0.00-0.06 LYMPH x10^3 (test code = 731-0) 2.80 10*3/uL 1.32-3.29 MONO x10^3 (test code = 742-7) 0.85 10*3/uL 0.33-0.92 EOS x10^3 (test code = 711-2) 0.15 10*3/uL 0.03-0.39 BASO x10^3 (test code = 704-7) 0.01-0.07 Lab Interpretation (test code = 17502-5) [facility]normal [id number] 18:35:04Ordered by an unspecified provider.[facility] w/o Specific [id number] 13:52:00* Test Item Value Reference Range Interpretation Comme nts POCT PH U (test code = 3254) n/a 5-8 POCT U LEUK EST (test code = 3263) n/a Negative - Negative POCT U NIT (test code = 3262) n/a Negative - Negati ve POCT U PROT (test code = 3259) Negative Negative - Negat tania POCT U GLU (test code = 3256) Normal Negative - Negati ve POCT U KETONE (test code = 3258) n/a Negative - Neg ative POCT U BLD (test code = 3257) n/a Negative - [facility] [id number] 20:27:00* Test Item Value Reference Range Interpretation Comme nts POCT PH U (test code = 3254) n.a 5-8 POCT U LEUK EST (test code = 3263) n.a Negative - Negative POCT U NIT (test code = 3262) n.a Negative - Negati ve POCT U PROT (test code = 3259) negative Negative - Negat tania POCT U GLU (test code = 3256) 50 Negative - Negati ve POCT U KETONE (test code = 3258) n.a Negative - Neg ative POCT U BLD (test code = 3257) n.a Negative - Negati ve [facility] Urinalysis w/o Specific [id number] 13:44:00* Test Item Value Reference Range Interpretation Comme nts POCT PH U (test code = 3254) n/a 5-8 POCT U LEUK EST (test code = 3263) n/a Negative - Negative POCT U NIT (test code = 3262) n/a Negative - Negati ve POCT U PROT (test code = 3259) negative Negative - Negat tania POCT U GLU (test code = 3256) negative Negative - Negati ve POCT U KETONE (test code = 3258) n/a Negative - Neg ative POCT U BLD (test code = 3257) n/a Negative - Negati ve [facility] Urinalysis w/o Specific [id number] 20:38:00* Test Item Value Reference Range Interpretation Comme nts POCT PH U (test code = 3254) 7 mg/dl 5-8 POCT U LEUK EST (test code = 3263) Negative Negative - Negative POCT U NIT (test code = 3262) Negative Negative - Negati ve POCT U PROT (test code = 3259) Negative Negative - Negat tania POCT U GLU (test code = 3256) Negative Negative - Negati ve POCT U KETONE (test code = 3258) Negative Negative - Neg ative POCT U BLD (test code = 3257) Negative Negative - Negati ve [facility] Urinalysis w/o Specific [id number] 16:26:00* Test Item Value Reference Range Interpretation Comme nts POCT PH U (test code = 3254) n/a 5-8 POCT U LEUK EST (test code = 3263) n/a Negative - Negative POCT U NIT (test code = 3262) n/a Negative - Negati ve POCT U PROT (test code = 3259) negative Negative - Negat tania POCT U GLU (test code = 3256) negative Negative - Negati ve POCT U KETONE (test code = 3258) n/a Negative - Neg ative POCT U BLD (test code = 3257) n/a Negative - Negati ve [facility] [id number] 16:56:25 Ordered by an unspecified provider.[facility] [id number] 13:41:30Ordered by an unspecified provider.[facility] [id number] 13:41:23Ordered by an unspecified provider.[facility] JUSTIFICATION 2023-10-23 17:05:30Ordered by an unspecified provider.[facility] [id number] 17:05:19[facility] provider[facility] [place]our0539-53-28 19:43:00* Test Item Value Reference Range Interpretation Comme nts POCT PH U (test code = 3254) 5 mg/dl 5-8 POCT U LEUK EST (test code = 3263) negative Negative - Negative POCT U NIT (test code = 3262) negative Negative - Negati ve POCT U PROT (test code = 3259) negative Negative - Negat tania POCT U GLU (test code = 3256) normal Negative - Negati ve POCT U KETONE (test code = 3258) negative Negative - Neg ative POCT U BLD (test code = 3257) negative Negative - Negati ve [facility] [id number] 18:58:51 Ordered by an unspecified provider.[facility] w/o Specific [id number] 15:40:00* Test Item Value Reference Range Interpretation Comme nts POCT PH U (test code = 3254) 6 mg/dl 5-8 POCT U LEUK EST (test code = 3263) Negative Negative - Negative POCT U NIT (test code = 3262) Negative Negative - Negati ve POCT U PROT (test code = 3259) Negative Negative - Negat tania POCT U GLU (test code = 3256) 50 Negative - Negati ve POCT U KETONE (test code = 3258) Negative Negative - Neg ative POCT U BLD (test code = 3257) Negative Negative - Negati ve [facility] W SPECIFIC [id number] 17:41:00* Test Item Value Reference Range Interpretation Comme nts POCT U SP GRAV (test code = 3255) . 1.005-1.025 POCT PH U (test code = 3254) . 5-8 POCT U LEUK EST (test code = 3263) . Negative - N egative POCT U NIT (test code = 3262) . Negative - Negati ve POCT U PROT (test code = 3259) trace Negative - Negat tania POCT U GLU (test code = 3256) neg Negative - Negati ve POCT U KETONE (test code = 3258) . Negative - Neg ative POCT U UROBILI (test code = 3260) . 0.2-1 POCT U BILI (test code = 3261) . Negative - Negat tania POCT U BLD (test code = 3257) . Negative - Negati ve POCT U COLOR (test code = 3266) POCT U APPEAR (test code = 3267) [facility] [id number] 21:17:21 Ordered by an unspecified provider.[facility] (NA, K, CL, CO2, GLUCOSE, BUN, CREATININE, CA)2023-08-23 22:09:57* Test Item Value Reference Range Interpretation Comme nts NA (test code = 3633719001) 136 mmol/L 135-145 K (test code = 2616398255) 3.6 mmol/L 3.5-5.0 CL (test code = 8779971186) 105 mmol/L 98-108 CO2 TOTAL (test code = 3341083081) 25 mmol/L 23-31 AGAP (test code = 1874387211) 6 2-16 BUN (test code = 2400868155) 4 mg/dL 7-23 L GLUCOSE (test code = 8140707348) 78 mg/dL 70-110 CREATININE (test code = 2160-0) 0.45 mg/dL 0.50-1.04 L CALCIUM (test code = 6770492238) 9.0 mg/dL 8.6-10.6 eGFR (test code = 43511-0) 139.7 mL/min/1.73m2 CKD-EPI eGFR (2020). Assuming creatinine has been stable day-to-day for at least three months, the eGFR indicates Category G1 (>= 90 mL/min/1.73 m2) Lab Interpretation (test code = 83425-7) Abnormal [facility] WITH [id number] 22:03:18* Test Item Value Reference Range Interpretation Comme nts WBC (test code = 6690-2) 10.43 4.30-11.10 RBC (test code = 789-8) 4.30 3.93-5.25 HGB (test code = 718-7) 12.6 g/dL 11.6-15.0 HCT (test code = 4544-3) 37.3 % 35.7-45.2 MCV (test code = 787-2) 86.7 fL 80.6-95.5 MCH (test code = 785-6) 29.3 pg 25.9-32.8 MCHC (test code = 786-4) 33.8 g/dL 31.6-35.1 RDW-SD (test code = 72051-6) 41.7 fL 39.0-49.9 RDW-CV (test code = 788-0) 13.5 % 12.0-15.5 PLT (test code = 777-3) 262 166-358 MPV (test code = 57540-3) 9.4 fL 9.5-12.9 L NRBC/100 WBC (test code = 7746597232) 0.0 0.0-10.0 NRBC x10^3 (test code = 3137585276) See_Comment [Automated messa ge] The system which generated this result transmitted reference range: 10*3/?L. The reference range was not used to interpret this result as normal/abnormal. GRAN MAT (NEUT) % (test code = 770-8) 60.5 % IMM GRAN % (test code = 5005148784) 0.50 % LYMPH % (test code = 736-9) 29.3 % MONO % (test code = 5905-5) 7.2 % EOS % (test code = 713-8) 2.3 % BASO % (test code = 706-2) 0.2 % GRAN MAT x10^3(ANC) (test code = 5020278814) 6.31 10*3/uL 1.88-7.09 IMM GRAN x10^3 (test code = 2164112522) 0.05 10*3/uL 0.00-0.06 LYMPH x10^3 (test code = 731-0) 3.06 10*3/uL 1.32-3.29 MONO x10^3 (test code = 742-7) 0.75 10*3/uL 0.33-0.92 EOS x10^3 (test code = 711-2) 0.24 10*3/uL 0.03-0.39 BASO x10^3 (test code = 704-7) 0.01-0.07 Lab Interpretation (test code = 88365-3) Abnormal [facility] URINALYSIS W SPECIFIC [id number] 20:34:00* Test Item Value Reference Range Interpretation Comme nts POCT U SP GRAV (test code = 3255) . 1.005-1.025 POCT PH U (test code = 3254) 6 mg/dl 5-8 POCT U LEUK EST (test code = 3263) trace Negative - Negative POCT U NIT (test code = 3262) neg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
--- NOTE | 2024-10-10 21:41 | ER ---
Nurse's Notes [facility] Name: Kelly Paz Age: 24 yrs Sex: Female : 2000 Arrival Date: 10/10/2024 Time: 19:30 Bed IW10 Private MD: Diagnosis: Presentation: 10/10 19:37 Chief complaint: Patient states: Headache, congestion onset this morning. Pt states cm10 that she is also having blurred vision that started when she bent over. Pt reports nausea. Coronavirus screen: Client denies travel out of the [place] in the last 14 days. Ebola Screen: Patient denies travel to an Ebola-affected area in the 21 days before illness onset. Initial Sepsis Screen: Does the patient meet any 2 criteria? HR > 90 bpm. Does the patient have a suspected source of infection? No. Patient's initial sepsis screen is negative. Risk Assessment: Do you want to hurt yourself or someone else? Patient reports no desire to harm self or others. Onset of symptoms was October 10, 2024. 19:37 Method Of Arrival: Ambulatory cm10 19:37 Acuity: RAFAEL 3 cm10 Triage Assessment: 19:39 General: Appears in no apparent distress. uncomfortable, Behavior is calm, cooperative. cm10 Pain: Complains of pain in head Pain does not radiate. Pain currently is 7 out of 10 on a pain scale. Quality of pain is described as pressure, throbbing, Pain began gradually, Also complains of nausea. Neuro: No deficits noted. Level of Consciousness is awake, alert, obeys commands, Oriented to person, place, time, situation, Appropriate for age Building Services Coordinator are equal bilaterally Moves all extremities. Gait is steady, Speech is normal, Facial symmetry appears normal. Respiratory: No deficits noted. Airway is patent Respiratory effort is even, unlabored, Respiratory pattern is regular, symmetrical. Historical: - Allergies: 19:38 Nortriptyline; cm10 - PMHx: 19:38 Migraine; cm10 - PSHx: 19:38 Appendectomy; Cholecystectomy; cm10 - Immunization history:: Adult Immunizations up to date. - Infectious Disease History:: Denies. - Social history:: Smoking status: Patient denies any tobacco usage or history of. Assessment: 21:25 Reassessment: PER REGISTRATION PATIENT LEFT. cm10 Vital Signs: 19:37 BP 130 / 84; Pulse 124; Resp 18; Temp 98.5; Pulse Ox 97% ; Weight 127.01 kg; Height 5 cm10 ft. 2 in. ; Pain 7/10; 19:37 Body Mass Index 51.21 (127.01 kg, 157.48 cm) cm10 19:37 Pain Scale: Adult cm10 ED Course: 19:33 Patient arrived in ED. im 19:38 Triage completed. cm10 19:38 Arm band placed on right wrist. Patient placed in waiting room. cm10 20:03 Franck Wall MD is Attending Physician. [facility] Administered Medications: 21:40 CANCELLED (Patient Eloped): ns 0.9% 1000 ml IV at 1000 ml once; to be given as a bolus vc1 over 60 minutes Outcome: 21:40 Eloped from waiting room, before seeing physician Time discovered patient gone: October 10, vc1 2024 at 21:15 21:40 Condition: stable 21:41 Patient left the ED. vc1 Signatures: Franck Wall MD MD cha Calcote, Vanessa RN RN vc1 Elida Cleveland Clarissa RN RN cm10
[2024-10-10 21:49] VITALS: BP 130/84; TEMP 98.5; O2SAT 97
== END 2024-10-10 21:41 | disposition left against medical advice (07) ==
LOC: ER 19:30
DX: Z53.21 Procedure and treatment not carried out due to patient leaving prior to being seen by health care provider (principal)
CPT/HCPCS: 99281